=== PATIENT | female | born 1980 | race Caucasian/White ===

== ENCOUNTER 2020-12-25 10:45 | Emergency (ER) | payer MEDICARE, MEDICAID, SELFPAY ==
[2020-12-25 10:48] VITALS: BP 101/68; PULSE 99; RESP 18; TEMP 36.2; O2SAT 95; BMI 23.4
--- NOTE | 2020-12-25 11:13 | EX.ED.VIS.PS ---
HPI HPI - Psych History of Present Illness Chief Complaint: Suicidal Informant: patient Onset/Context/Timing Onset: Month(s) Context: Gradual Onset Conflict: Family, Work and Financial Current Severity: Moderate Maximum Severity: Moderate Associated Symptoms Associated Symptoms - Psych: Positive for Depressed Narrative Narrative: Patient presents secondary to suicidal ideation. Patient reports increased stress at home recently including relationships, finances, and work. Patient states the past 2 months has had increasing thoughts of hurting herself and depression. She denies having a specific plan at this time but does states she is thinking of multiple ways. She has tried to kill her self in the past. She has been hospitalized for psychiatric care in the past. Patient is currently on medication for depression and anxiety. This is prescribed through [facility]. She denies any recent changes to her medication. [facility] Medical History (Updated 12/25/20 @ 15:[address] Marnie Hardy MD) Anxiety COPD (chronic obstructive pulmonary disease) Depression Emphysema lung Paranoia Home Medications clonazepam [Klonopin] 0.5 mg PO BID 12/25/20 [History Last Taken Unknown] clonazepam [Klonopin] 1 mg PO DAILY 12/25/20 [History Last Taken Unknown] cyclobenzaprine [Flexeril] 10 mg PO TID PRN 12/25/20 [History Last Taken Unknown] doxycycline hyclate 100 mg PO BID 12/25/20 [History Last Taken Unknown] gabapentin 800 mg PO TID 12/25/20 [History Last Taken Unknown] lamotrigine 200 mg PO DAILY 12/25/20 [History Last Taken Unknown] mirtazapine [Remeron] 30 mg PO QHS 12/25/20 [History Last Taken Unknown] risperidone 3 mg PO QHS 12/25/20 [History Last Taken Unknown] sumatriptan succinate [Imitrex] 100 mg PO Q2H PRN 12/25/20 [History Last Taken Unknown] tizanidine [Zanaflex] 4 mg PO TID PRN 12/25/20 [History Last Taken Unknown] Allergy/AdvReac Type Severity Reaction Status Date / Time bee venom protein (honey bee) Allergy Anaphylaxis Verified 12/25/20 10:47 ketorolac [From Toradol] Allergy Rash Verified 12/25/20 10:47 Penicillins Allergy Swelling Verified 12/25/20 10:47 strawberry Allergy Rash Verified 12/25/20 10:47 tramadol Allergy Hives Verified 12/25/20 11:50 Surgical History (Updated 12/25/20 @ 11:[address] Marnie Hardy MD) H/O spinal fusion History of partial hysterectomy Social History Smoking Status: Current every day smoker tobacco type: cigarettes ROS ROS ED Constitutional Constitutional ED: Denies chills or fever(s) Eyes Eyes: Denies change in vision ENT ENT ED: Denies sore throat Cardiovascular Cardiovascular: Denies chest pain Respiratory/Chest Respiratory/Chest: Denies cough or dyspnea Gastrointestinal Gastrointestinal: Denies abdominal pain, diarrhea, nausea or vomiting Genitourinary Genitourinary ED: Denies dysuria Musculoskeletal Musculoskeletal: Reports back pain Integumentary Denies rash Neurologic Neurologic: Denies headache(s) or weakness Psychiatric Psychiatric: Reports anxiety, depression and suicidal thoughts Allergic/Immunologic Allergic/Immunologic ED: Denies urticaria EXAM Physical Exam Const Vital Signs: 12/25/20 10:48 12/25/20 11:48 12/25/20 12:53 Temperature 97.1 F L Temperature Source Temporal Pulse Rate 99 Respiratory Rate 18 14 12 Blood Pressure 101/68 Blood Pressure Mean 79 Pulse Ox 95 Oxygen Delivery Method Room Air 12/25/20 13:09 Temperature Temperature Source Pulse Rate Respiratory Rate 14 Blood Pressure Blood Pressure Mean Pulse Ox Oxygen Delivery Method Positive well nourished and well developed General Appearance ED: well developed HEENT Reports normocephalic and head/scalp atraumatic Eyes PERRL and EOMs intact bilaterally Neck supple Chest Wall inspection of chest normal and palpation of chest normal Resp normal respiratory effort and clear to auscultation bilaterally Cardio regular rate and regular rhythm GI normal to inspection, nondistended, normoactive bowel sounds and non-tender Palpation: soft Back/Spine Lumbar Spine / Lower Back: lumbar spinal tenderness Extremity normal to inspection Neuro oriented x3 and no sensory deficits noted Sensorium / Orientation: alert Motor Exam: strength 5/5 throughout Psych cooperative Attitude: calm Activity / Motor Behavior: appropriate eye contact Speech: normal speech Mood & Affect: sad and tearful Thought Content: suicidality Memory / Cognition: memory grossly intact Insight: limited Judgement: limited Skin no rashes or lesions noted MDM MDM MDM Narrative Medical decision making narrative: Labs for psych admission obtained. Patient seen by social work. Lab Data Attestation: I reviewed the patient's lab results. Labs: Laboratory Results - last 24 hr 12/25/20 12/25/20 12/25/20 11:10 11:50 11:50 WBC 5.6 RBC 3.88 L Hgb 12.1 Hct 37.8 MCV 97.4 MCH 31.2 MCHC 32.0 RDW Std Deviation 45.1 H RDW Coeff of Tennille 12.6 Plt Count 191 MPV 9.5 Immature Gran % (Auto) 0.400 Neut % (Auto) 52.4 Lymph % (Auto) 36.0 [place] % (Auto) 7.6 Eos % (Auto) 3.2 Baso % (Auto) 0.4 Absolute Neuts (auto) 3.0 Absolute Lymphs (auto) 2.03 Nucleated RBC % 0 Sodium 140 Potassium 4.2 Chloride 107 Carbon Dioxide 31.0 Anion Gap 2 L BUN 8 Creatinine 0.60 Estim Creat Clear Calc 104.13 Est GFR (MDRD) Af Amer 143 Est GFR (MDRD) Non-Af 118 BUN/Creatinine Ratio 13.4 Glucose 77 Calcium 9.4 Urine Opiates Screen NEGATIVE Urine Methadone Screen NEGATIVE Ur Barbiturates Screen NEGATIVE Ur Phencyclidine Scrn NEGATIVE Ur Amphetamines Screen NEGATIVE U Methamphetamin-MDMA NEGATIVE U Benzodiazepines Scrn NEGATIVE Urine Cocaine Screen NEGATIVE U Cannabinoids Screen POSITIVE H Ur Drug Screen Comment Ethyl Alcohol 12/25/20 11:50 WBC RBC Hgb Hct MCV MCH MCHC RDW Std Deviation RDW Coeff of Tennille Plt Count MPV Immature Gran % (Auto) Neut % (Auto) Lymph % (Auto) [place] % (Auto) Eos % (Auto) Baso % (Auto) Absolute Neuts (auto) Absolute Lymphs (auto) Nucleated RBC % Sodium Potassium Chloride Carbon Dioxide Anion Gap BUN Creatinine Estim Creat Clear Calc Est GFR (MDRD) Af Amer Est GFR (MDRD) Non-Af BUN/Creatinine Ratio Glucose Calcium Urine Opiates Screen Urine Methadone Screen Ur Barbiturates Screen Ur Phencyclidine Scrn Ur Amphetamines Screen U Methamphetamin-MDMA U Benzodiazepines Scrn Urine Cocaine Screen U Cannabinoids Screen Ur Drug Screen Comment Ethyl Alcohol < 3.0 EKG Initial EKG: Attestation: I personally reviewed and interpreted this EKG as follows: Interpretation: Sinus Rhythm (Sinus at 64 with no acute ischemia.) Treatment and Re-Evaluation Comments:: Patient has been discussed with gallito Do and accepted in transfer. Patient be transferred. Discharge Plan Triage Chief Complaint: Suicidal ED Provider: Marnie Hardy Dx/Rx/DC Orders Clinical Impression: Suicidal ideation Prescriptions: No Action gabapentin 800 mg Tablet 800 mg PO TID RF: 0 cyclobenzaprine [Flexeril] 10 mg Tablet 10 mg PO TID PRN (Reason: Muscle Spasm) RF: 0 doxycycline hyclate 100 mg Capsule 100 mg PO BID RF: 0 lamotrigine 200 mg Tablet 200 mg PO DAILY RF: 0 sumatriptan succinate [Imitrex] 100 mg Tablet 100 mg PO Q2H PRN (Reason: Headache) RF: 0 clonazepam [Klonopin] 0.5 mg Tablet 0.5 mg PO BID RF: 0 clonazepam [Klonopin] 1 mg Tablet 1 mg PO DAILY RF: 0 risperidone 3 mg Tablet 3 mg PO QHS RF: 0 mirtazapine [Remeron] 30 mg Tablet 30 mg PO QHS RF: 0 tizanidine [Zanaflex] 4 mg Capsule 4 mg PO TID PRN (Reason: Spasms) RF: 0 Primary Care Provider: Care Physician,No Primary Referrals: Care Physician,No Primary [Primary Care Provider] - Disposition Disposition: Psychiatric Hospital or Unit Discharge Location: [facility]
[2020-12-25 11:41] LABS: Amphetamine Urine VISTA NEGATIVE (<1000 ng/mL); Barbiturate Urine VISTA NEGATIVE (< 200 ng/mL); Benzodiazepine Urine VISTA NEGATIVE (< 200 ng/mL); Cocaine Urine VISTA NEGATIVE (< 300 ng/mL); Ecstacy Urine VISTA NEGATIVE (< 500 ng/mL); Methadone Urine VISTA NEGATIVE (< 300 ng/mL); PCP Urine VISTA NEGATIVE (< 25 ng/mL); THC Urine VISTA POSITIVE (< 50 ng/mL); Vista UDS pH Range 6
[2020-12-25 11:48] VITALS: RESP 14
[2020-12-25] MEDS: Acetaminophen 500 MG Tablet 1000 MG PO (11:54)
[2020-12-25 11:59] LABS: Absolute Lymphocyte Count 2.03 X10^3/uL (0.83-4.51); Basophil# 0.02 X10^3/uL; Basophil% 0.4 % (0-1); Eosinophil# 0.18 X10^3/uL; Eosinophils% 3.2 % (0-5); Hematocrit 37.8 % (37-47); Hemoglobin 12.1 g/dL (12.0-15.0); Lymphocyte # 2.03 X10^3/ul (0.83-4.51); Mean Corpuscular Hgb 31.2 pg (27.0-32.0); Mean Corpuscular Volume 97.4 fL (81-99); Mean Platelet Vol. 9.5 fl (6.2-12.0); Monocyte# 0.43 X10^3/uL; Monocyte% 7.6 % (0-10); NRBC Flagged by Analyzer 0 % (0-5); Neutrophil # 2.96 X10^3/uL (2.7-7.7); Neutrophil % 52.4 % (47-70); Platelet Count 191 K/mm3 (150-450); RBC Distribution Width CV 12.6 % (11.6-14.6); RBC Distribution Width SD 45.1 fl (35.1-43.9); Red Blood Count 3.88 M/mm3 (4.2-5.4); White Blood Count 5.6 K/mm3 (4.4-11.0)
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
[2020-12-25 12:13] LABS: Anion Gap 2 (5-15); BUN 8 mg/dL (7-18); BUN/Creat Ratio 13.4 RATIO (10-20); Calcium,Total 9.4 mg/dL (8.5-10.1); Chloride 107 mmol/L (98-107); EST Glomerular Filtration Rate 118 mL/min (>60); Est Glom Filt Rate - Afr Amer 143 mL/min (>60); Estimated Creatinine Clearance 104.13 ml/min; Glucose 77 mg/dL (74-106); Potassium 4.2 mmol/L (3.5-5.1); Sodium Level 140 mmol/L (136-145)
[2020-12-25] MEDS: clonazePAM 0.5 MG Tablet PO (12:30)
--- NOTE | 2020-12-25 12:45 | CM.ED ---
SOCIAL WORK Call to [facility]. Beds available. Will fax referral once medically cleared. Jada Gil, ADMITTED ATTORNEYS, BREAD DOUGH MIXER
[2020-12-25 12:53] VITALS: RESP 12
--- NOTE | 2020-12-25 13:05 | EKG12_ITS ---
Test Reason : MENTAL HEALTH Blood Pressure : / mmHG Vent. Rate : 064 BPM Atrial Rate : 064 BPM P-R Int : 146 ms QRS Dur : 080 ms QT Int : 426 ms P-R-T Axes : 064 068 067 degrees QTc Int : 439 ms Normal sinus rhythm Normal ECG Confirmed by MIRI MANCINI, RONY ([id number]), social media editor ARMANDO MEDRANO ([id number]) on 12/31/2020 1:10:35 PM Referred By: JOSEPH Confirmed By:RONY CHERY MD
[2020-12-25 13:09] VITALS: RESP 14
[2020-12-25 13:20] LABS: Alcohol, Blood (Medical)-Serum < 3.0 mg/dL
--- NOTE | 2020-12-25 13:40 | CM.ED ---
SOCIAL WORK Referral faxed to [facility]. Pending review at this time. Jada Gil, BARTENDER MANAGER, SEED SALES MANAGER
[2020-12-25 15:00] VITALS: RESP 15
--- NOTE | 2020-12-25 15:20 | CM.ED ---
SOCIAL WORK Patient accepted to [facility] by Dr. Roberson. Nurse to call report to [phone]. [facility] requesting patient later this evening. 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 Staff neda. Jada Gil MSW, YOUTH MINISTRY DIRECTOR
--- NOTE | 2020-12-25 15:28 | NURSING ---
CALLED [facility], PATIENT NOT TO LEAVE HERE UNTIL [id number]
[2020-12-25 17:02] VITALS: BP 108/66; PULSE 77; RESP 16; O2SAT 99
== END 2020-12-25 17:10 ==
PROVIDERS: Emergency Provider Emergency Medicine
DX: R45.851 Suicidal ideations (principal); F32.9 Major depressive disorder, single episode, unspecified; F41.9 Anxiety disorder, unspecified; J44.9 Chronic obstructive pulmonary disease, unspecified; F17.210 Nicotine dependence, cigarettes, uncomplicated; Z79.899 Other long term (current) drug therapy
CPT/HCPCS: 80048; 80307; 82077; 85025; 87426; 93005; 99284

== ENCOUNTER 2021-10-20 10:12 | Observation (INO) | payer MEDICARE, MEDICAID, SELFPAY ==
[2021-10-20] VITALS (7 sets, daily range): BP systolic 118–157; BP diastolic 80–97; PULSE 91–115; RESP 14–22; TEMP 36.7–37.1; O2SAT 92–97; BMI 32.8; BMI 32.2
--- NOTE | 2021-10-20 10:25 | EKG12_ITS ---
Test Reason : Blood Pressure : / mmHG Vent. Rate : 090 BPM Atrial Rate : 090 BPM P-R Int : 124 ms QRS Dur : 076 ms QT Int : 374 ms P-R-T Axes : 074 068 081 degrees QTc Int : 457 ms Normal sinus rhythm with sinus arrhythmia Nonspecific T wave abnormality Abnormal ECG Confirmed by AZAM MANCINI, TESHA ([id number]), editor map ARMANDO MEDRANO ([id number]) on 10/21/2021 11:05:08 AM Referred By: Confirmed By:TESHA NASCIMENTO MD
--- NOTE | 2021-10-20 10:25 | RAD_ITS ---
INDICATION: chest pain EXAMINATION/TECHNIQUE: X-RAY - XR Chest 1 View COMPARISON: None. FINDINGS: Support devices: None. No focal consolidations, effusions, or sizable pneumothorax. Cardiomediastinal silhouette is within normal limits. No acute findings in the bones or soft tissues. RAD/Chest 1 View (Portable) IMPRESSION: No acute findings. Electronically Signed: Mike Anguiano, at 11:43 EDT ,
--- NOTE | 2021-10-20 10:28 | EDS_ITS ---
HPI History of Present Illness Chief Complaint: Nausea/Vomiting/Diarrhea Informant: patient Onset/Context/Timing Onset: Days Context: Gradual Onset Current Severity: Moderate Maximum Severity: Moderate Narrative Narrative: Patient presents with multiple complaints. She complains of nausea, vomiting, and diarrhea for the past 1 week. She states has not been able to keep anything down for the past 3 days. She also complains of chest pain that started at 630 this morning. She describes it as substernal and left chest with wrapping around her left breast. She describes it as sharp in nature. She also feels that she has been having intermittent problems with circulation and feels like she is going to blackout. She states she has not been able to keep any of her medication down for the past 3 days. [facility] Medical History Anxiety COPD (chronic obstructive pulmonary disease) Depression Emphysema lung Paranoia Home Medications clonazepam [Klonopin] 0.5 mg PO BID 12/25/20 [History Last Taken Unknown] clonazepam [Klonopin] 1 mg PO DAILY 12/25/20 [History Last Taken Unknown] cyclobenzaprine [Flexeril] 10 mg PO TID PRN 12/25/20 [History Last Taken Unknown] gabapentin 800 mg PO TID 12/25/20 [History Last Taken Unknown] lamotrigine 200 mg PO DAILY 12/25/20 [History Last Taken Unknown] mirtazapine [Remeron] 45 mg PO QHS 12/25/20 [History Last Taken Unknown] risperidone 3 mg PO QHS 12/25/20 [History Last Taken Unknown] sumatriptan succinate [Imitrex] 100 mg PO Q2H PRN 12/25/20 [History Last Taken Unknown] tizanidine [Zanaflex] 4 mg PO TID PRN 12/25/20 [History Last Taken Unknown] buspirone 15 mg PO TID 10/20/21 [History Last Taken Unknown] doxepin 25 mg PO QHS 10/20/21 [History Last Taken Unknown] Allergy/AdvReac Type Severity Reaction Status Date / Time bee venom protein (honey bee) Allergy Anaphylaxis Verified 10/20/21 10:20 ketorolac [From Toradol] Allergy Rash Verified 10/20/21 10:20 Penicillins Allergy Swelling Verified 10/20/21 10:20 strawberry Allergy Rash Verified 10/20/21 10:20 tramadol Allergy Hives Verified 10/20/21 10:20 Surgical History H/O spinal fusion History of partial hysterectomy Social History Smoking Status: Former smoker ROS ROS ED Constitutional Constitutional ED: Denies chills or fever(s) Eyes Eyes: Denies change in vision ENT ENT ED: Denies sore throat Cardiovascular Cardiovascular: Reports chest pain Respiratory/Chest Respiratory/Chest: Reports dyspnea; Denies cough Gastrointestinal Gastrointestinal: Reports abdominal pain, diarrhea, nausea and vomiting Genitourinary Genitourinary ED: Denies dysuria Musculoskeletal Musculoskeletal: Denies back pain Integumentary Denies rash Neurologic Neurologic: Reports headache(s); Denies weakness Psychiatric Psychiatric: Reports anxiety Allergic/Immunologic Allergic/Immunologic ED: Denies urticaria EXAM Physical Exam Const Vital Signs: 10/20/21 10:14 10/20/21 12:38 10/20/21 13:20 Temperature 98.1 F Temperature Source Temporal Pulse Rate 93 115 H 111 H Respiratory Rate 22 H 20 H 14 Blood Pressure 126/89 H 118/80 120/90 H Blood Pressure Mean 101 92 100 Pulse Ox 97 94 92 Oxygen Delivery Method Room Air Room Air Room Air 10/20/21 14:32 Temperature 98.7 F Temperature Source Oral Pulse Rate 109 H Respiratory Rate 16 Blood Pressure 157/97 H Blood Pressure Mean 117 Pulse Ox 95 Oxygen Delivery Method Room Air Positive well nourished and well developed General Appearance ED: well developed HEENT Reports dry mucous membranes Mouth ED: Yes dry mucous membranes Mouth: dry mucous membranes Eyes PERRL and EOMs intact bilaterally Neck supple Chest Wall inspection of chest normal and palpation of chest normal Resp normal respiratory effort and clear to auscultation bilaterally Cardio regular rate and regular rhythm GI non-tender Auscultation: hypoactive bowel sounds Palpation: soft Extremity normal to inspection Neuro oriented x3 Sensorium / Orientation: alert Psych Mood & Affect: anxious Skin no rashes or lesions noted MDM MDM MDM Narrative Medical decision making narrative: EKG, chest x-ray, lab work obtained. Patient initially given fentanyl, Ativan, Zofran. Lab Data Attestation: I reviewed the patient's lab results. Labs: Laboratory Results - last 24 hr 10/20/21 10/20/21 11:22 11:22 WBC 7.3 RBC 5.03 Hgb 14.7 Hct 44.7 MCV 88.9 MCH 29.2 MCHC 32.9 RDW Std Deviation 42.6 RDW Coeff of Tennille 13.0 Plt Count 369 MPV 9.8 Immature Gran % (Auto) 0.300 Neut % (Auto) 70.1 H Lymph % (Auto) 21.5 [place] % (Auto) 6.2 Eos % (Auto) 1.5 Baso % (Auto) 0.4 Absolute Neuts (auto) 5.1 Absolute Lymphs (auto) 1.57 Nucleated RBC % 0 Platelet Estimate ADEQUATE RBC Morphology NORM C+C Sodium 138 Potassium 5.2 H Chloride 112 H Carbon Dioxide 19.0 L Anion Gap 7 BUN 8 Creatinine 0.78 Estim Creat Clear Calc 79.31 Est GFR (MDRD) Af Amer 104 Est GFR (MDRD) Non-Af 86 BUN/Creatinine Ratio 10.2 Glucose 110 H Calcium 9.8 Total Bilirubin 0.40 Direct Bilirubin 0.08 AST 48 H ALT 29 Alkaline Phosphatase 97 Troponin I High Sens < 3 L Total Protein 7.6 Albumin 4.0 Globulin 3.6 Lipase 71 L Radiography Chest X-Ray - ED: 1 View, Read by ED Physician, Normal, Heart, Lungs and Mediastinum Diagnostic Testing: Clinical Impression(s) from Imaging Studies Chest X-Ray 10/20/21 10:25 IMPRESSION: No acute findings. Electronically Signed: Mike Anguiano, at 11:43 EDT , EKG Initial EKG: Attestation: I personally reviewed and interpreted this EKG as follows: Interpretation: Sinus Rhythm (Sinus at 90 with nonspecific T wave flattening. No acute ST change.) Treatment and Re-Evaluation Narrative: Patient reported continued anxiety and nausea after initial round of medication. Additional dose of Ativan was given followed by IM Phenergan. Patient was having significant cough and I ordered Robitussin-AC, however she refused this. She was also ordered Reglan and Benadryl which she declined stating that in the past she has taken this and it made her feel bad. Lab work is unremarkable with normal white count and chemistry studies. Troponin is negative. EKG and chest x-ray are normal. Patient continues to have nausea and vomiting. She feels that she is having repeated episodes of syncope which have not been witnessed by nursing staff or myself. There have been no arrhythmias noted on color television console monitor. At this point her IV has stopped working and had to be pulled. After multiple attempts another IV line has not been able to be established. We have a call out to the PICC line staff to see if they can place a line in her this afternoon. She was given an additional round of fentanyl, Ativan, and Zofran IM. I will speak with hospitalist regarding admission for intractable vomiting. Discharge Plan Triage Chief Complaint: Nausea/Vomiting/Diarrhea Other Complaint: Chest Pain ED Provider: Marnie Hardy Dx/Rx/DC Orders Clinical Impression: Intractable vomiting Prescriptions: No Action gabapentin 800 mg Tablet 800 mg PO TID RF: 0 cyclobenzaprine [Flexeril] 10 mg Tablet 10 mg PO TID PRN (Reason: Muscle Spasm) RF: 0 lamotrigine 200 mg Tablet 200 mg PO DAILY RF: 0 sumatriptan succinate [Imitrex] 100 mg Tablet 100 mg PO Q2H PRN (Reason: Headache) RF: 0 clonazepam [Klonopin] 0.5 mg Tablet 0.5 mg PO BID RF: 0 clonazepam [Klonopin] 1 mg Tablet 1 mg PO DAILY RF: 0 risperidone 3 mg Tablet 3 mg PO QHS RF: 0 mirtazapine [Remeron] 30 mg Tablet 45 mg PO QHS RF: 0 tizanidine [Zanaflex] 4 mg Capsule 4 mg PO TID PRN (Reason: Spasms) RF: 0 doxepin 25 mg capsule 25 mg PO QHS RF: 0 buspirone 15 mg tablet 15 mg PO TID RF: 0 Referrals: Nazario Francis [Other] Disposition Disposition: Acute Care Hospital [facility]
[2021-10-20] MEDS: 0.9% Normal Saline 1,000 ML 1000 ML IV (10:44)
[2021-10-20] MEDS: LORazepam 2 MG/ML Syringe 0.5 MG IV ×2 (10:45→11:37)
[2021-10-20] MEDS: Ondansetron 4 MG/2 ML Vial IV ×2 (10:45→19:30)
[2021-10-20] MEDS: 0.9% Normal Saline 1,000 ML 150 ML IV ×2 (10:45→19:30)
[2021-10-20] MEDS: fentaNYL 100 MCG/2 ML Ampul 25 MCG IV (10:45)
[2021-10-20 11:34] LABS: Absolute Lymphocyte Count 1.57 X10^3/uL (0.83-4.51); Absolute Neutrophil Count 5.1 X10^3/uL (2.0-7.7); Basophil# 0.03 X10^3/uL; Basophil% 0.4 % (0-1); Eosinophil# 0.11 X10^3/uL; Eosinophils% 1.5 % (0-5); Hematocrit 44.7 % (37-47); Hemoglobin 14.7 g/dL (12.0-15.0); Lymphocyte # 1.57 X10^3/ul (0.83-4.51); Lymphocyte % 21.5 % (19-41); Mean Corp Hgb Conc 32.9 g/dL (32-36); Mean Corpuscular Hgb 29.2 pg (27.0-32.0); Mean Corpuscular Volume 88.9 fL (81-99); Mean Platelet Vol. 9.8 fl (6.2-12.0); Monocyte# 0.45 X10^3/uL; Monocyte% 6.2 % (0-10); NRBC Flagged by Analyzer 0 % (0-5); Neutrophil # 5.11 X10^3/uL (2.7-7.7); Neutrophil % 70.1 % (47-70); POSITIVE COUNT YES; Platelet Count 369 K/mm3 (150-450); RBC Distribution Width SD 42.6 fl (35.1-43.9); Red Blood Count 5.03 M/mm3 (4.2-5.4); White Blood Count 7.3 K/mm3 (4.4-11.0)
[2021-10-20 11:38] LABS: Differential Indicated SCAN CRITERIA MET
[2021-10-20 12:10] LABS: Platelet Estimate ADEQUATE (ADEQ); Red Cell Morphology NORM C+C NORMAL (NORM C&C)
[2021-10-20 12:22] LABS: AST(SGOT) 48 U/L (15-37); Alanine Aminotransfer ALT/SGPT 29 U/L (13-56); Alkaline Phosphatase 97 U/L (45-117); Anion Gap 7 (5-15); BUN 8 mg/dL (7-18); BUN/Creat Ratio 10.2 RATIO (10-20); Bilirubin, Direct 0.08 mg/dL (0.00-0.30); Calcium,Total 9.8 mg/dL (8.5-10.1); Chloride 112 mmol/L (98-107); Creatinine, Serum 0.78 mg/dL (0.55-1.02); EST Glomerular Filtration Rate 86 mL/min (>60); Est Glom Filt Rate - Afr Amer 104 mL/min (>60); Estimated Creatinine Clearance 79.31 ml/min; Globulin 3.6 g/dL (2.2-4.2); Glucose 110 mg/dL (74-106); Lipase 71 U/L (73-393); Potassium 5.2 mmol/L (3.5-5.1); Protein, Total 7.6 g/dL (6.4-8.2); Sodium Level 138 mmol/L (136-145); Troponin-I HS < 3 pg/mL (3.0-54.0)
[2021-10-20] MEDS: proMETHazine 25 MG/ML Syringe 12.5 MG IM (12:35)
[2021-10-20] MEDS: fentaNYL 100 MCG/2 ML Ampul 50 MCG IM (14:24)
[2021-10-20] MEDS: LORazepam 2 MG/ML Syringe 1 MG IM (14:24)
[2021-10-20] MEDS: Ondansetron 4 MG/2 ML Vial 8 MG IM (14:24)
--- NOTE | 2021-10-20 14:27 | ED.RN ---
biometrics instructor called and will call back with an eta
--- NOTE | 2021-10-20 14:33 | ED.RN ---
multiple peripheral IV attempts by Naomi MENG and Richard MENG
--- NOTE | 2021-10-20 15:39 | US_ITS ---
STUDY: ABDOMINAL ULTRASOUND REASON FOR EXAM: Female, 41 years old. ABDOMINAL PAIN . nausea and vomiting. nausea and vomiting TECHNIQUE: Transabdominal ultrasound was performed with real-time and static almendarez scale imaging. COMPARISON: None. FINDINGS: Liver: There is normal echogenicity of the liver. The bile ducts are within normal limits. There is hepatic color flow. The direction of portal flow is hepatopetal. There is no demonstrated mass lesion. Gallbladder: The patient is status post cholecystectomy. Common Bile Duct (C.B.D.): The common bile duct measures ( in mm): 7.2 Pancreas: Normal size of the head and body of the pancreas. There is increased echogenicity of the pancreas. There is no demonstrated pancreatic mass or cyst. Spleen: Normal size of the spleen. The spleen measures 10.3 cm. Right Kidney: Normal size of the right kidney. The right kidney measures 10.7 cm. .There is a normal cortex of the kidney. There is no demonstrated renal mass or cyst. There is no right hydronephrosis. Left Kidney: Normal size of the left kidney. The left kidney measures 9.7 cm. . There is a normal cortex of the left kidney. There is no demonstrated renal mass or cyst. There is no left hydronephrosis. 7 mm left renal stone. Aorta: 19 mm in maximal aortic diameter. I.V.C.: The IVC is patent. There is no ascites. US/Abdomen Complete IMPRESSION: Cholecystectomy changes. Nonobstructive left renal stone. Electronically Signed: Misha Marcus MD at 18:50 EDT ,
--- NOTE | 2021-10-20 15:41 | HP.PCM.HOS_ITS ---
HPI - General General Date of Service: 10/20/21 Chief Complaint: N/V/D HPI Narrative MARII WATERS, is a 41 F who presents with 1 week history of nausea vomiting diarrhea. Patient says she had similar episode when she had COVID but not this severe. Unable to keep anything down. Presented to emergency room where she just had some basic blood work and received IV fluids, fentanyl, Zofran, Ativan, Phenergan, Reglan and Benadryl. Patient received several rounds of lorazepam for concern for benzodiazepine withdrawal as patient does take Klonopin chronic clonazepam. [facility] Medical History Anxiety COPD (chronic obstructive pulmonary disease) Depression Emphysema lung Paranoia Home Medications clonazepam [Klonopin] 0.5 mg PO BID 12/25/20 [History Last Taken Unknown] clonazepam [Klonopin] 1 mg PO DAILY 12/25/20 [History Last Taken Unknown] cyclobenzaprine [Flexeril] 10 mg PO TID PRN 12/25/20 [History Last Taken Unknown] gabapentin 800 mg PO TID 12/25/20 [History Last Taken Unknown] lamotrigine 200 mg PO DAILY 12/25/20 [History Last Taken Unknown] mirtazapine [Remeron] 45 mg PO QHS 12/25/20 [History Last Taken Unknown] risperidone 3 mg PO QHS 12/25/20 [History Last Taken Unknown] sumatriptan succinate [Imitrex] 100 mg PO Q2H PRN 12/25/20 [History Last Taken Unknown] tizanidine [Zanaflex] 4 mg PO TID PRN 12/25/20 [History Last Taken Unknown] buspirone 15 mg PO TID 10/20/21 [History Last Taken Unknown] doxepin 25 mg PO QHS 10/20/21 [History Last Taken Unknown] Allergy/AdvReac Type Severity Reaction Status Date / Time bee venom protein (honey bee) Allergy Anaphylaxis Verified 10/20/21 10:20 ketorolac [From Toradol] Allergy Rash Verified 10/20/21 10:20 Penicillins Allergy Swelling Verified 10/20/21 10:20 strawberry Allergy Rash Verified 10/20/21 10:20 tramadol Allergy Hives Verified 10/20/21 10:20 Surgical History H/O spinal fusion History of partial hysterectomy Social History Smoking Status: Former smoker ROS ROS Narrative Subjective fever and chills. Excruciating abdominal pain. All review of systems were negative except as mentioned above in the history of present illness and the other review of systems. Vital Signs Vital Signs Vital Signs: 10/20/21 10:14 10/20/21 12:38 10/20/21 13:20 Temperature 36.7 C Temperature Source Temporal Pulse Rate 93 115 H 111 H Respiratory Rate 22 H 20 H 14 Blood Pressure 126/89 H 118/80 120/90 H Blood Pressure Mean 101 92 100 Pulse Ox 97 94 92 Oxygen Delivery Method Room Air Room Air Room Air 10/20/21 14:32 Temperature 37.1 C Temperature Source Oral Pulse Rate 109 H Respiratory Rate 16 Blood Pressure 157/97 H Blood Pressure Mean 117 Pulse Ox 95 Oxygen Delivery Method Room Air Weight Weight: 83.9 kg Body Mass Index (BMI) 32.8 Physical Exam Const alert Constitutional Narrative: Appears older than stated age. Listless. Resp normal respiratory effort, no retractions, no use of accessory muscles and clear to auscultation bilaterally Cardio regular rate, regular rhythm, S1 normal heart sound and S2 normal heart sound GI normal to inspection, nondistended, normoactive bowel sounds, soft to palpation, non-tender and non-distended Extremity normal to inspection Neuro Sensorium / Orientation: awake and alert Results Lab / Micro Data Attestation: I reviewed the patient's lab results. Result Diagrams: 10/20/21 11:22 10/20/21 11:22 Labs: Laboratory Results - last 24 hr 10/20/21 11:22: WBC 7.3, RBC 5.03, Hgb 14.7, Hct 44.7, MCV 88.9, MCH 29.2, MCHC 32.9, RDW Std Deviation 42.6, RDW Coeff of [place] 13.0, Plt Count 369, MPV 9.8, Immature Gran % (Auto) 0.300, Neut % (Auto) 70.1 H, Lymph % (Auto) 21.5, [place] % (Auto) 6.2, Eos % (Auto) 1.5, Baso % (Auto) 0.4, Absolute Neuts (auto) 5.1, Absolute Lymphs (auto) 1.57, Nucleated RBC % 0, Platelet Estimate ADEQUATE, RBC Morphology NORM C+C 10/20/21 11:22: Sodium 138, Potassium 5.2 H, Chloride 112 H, Carbon Dioxide 19.0 L, Anion Gap 7, BUN 8, Creatinine 0.78, Estim Creat Clear Calc 79.31, Est GFR (MDRD) Af Amer 104, Est GFR (MDRD) Non-Af 86, BUN/Creatinine Ratio 10.2, Glucose 110 H, Calcium 9.8, Total Bilirubin 0.40, Direct Bilirubin 0.08, AST 48 H, ALT 29, Alkaline Phosphatase 97, Troponin I High Sens < 3 L, Total Protein 7.6, A lbumin 4.0, Globulin 3.6, Lipase 71 L Micro: Microbiology 10/20/21 12:25 Nasal Secretion SARS-CoV-2 Antigen (Rapid) - Final Radiology Impression Chest X-Ray 10/20/21 10:25 IMPRESSION: No acute findings. Electronically Signed: Mike Anguiano, at 11:43 EDT , Assessment & Plan Assessment/Plan (1) Intractable vomiting: PLAN: 1. Intractable nausea vomiting and diarrhea * Etiology is uncertain at this time. Could be related with a viral illness, benzodiazepine withdrawal, drug abuse including cannabinoids. * Supportive management * Patient does claim abdominal pain but exam melvin she is not exquisitely tender * We will check an ultrasound * Avoid narcotics for the time being until further information is available * Will check urine drug screen. * IV fluids 2. Chronic benzodiazepine use * Patient on clonazepam chronically for anxiety * Continue with that. I did review the patient's OARRS report 3. Chronic pain * Patient takes gabapentin at baseline * Will continue 4. Poor IV access: PICC team has been called. Charges/Coding Visit Charges OBSV E&M: 03653 Initial observation care L2
[2021-10-20 18:17] LABS: Amphetamine Urine VISTA NEGATIVE (<1000 ng/mL); Barbiturate Urine VISTA NEGATIVE (< 200 ng/mL); Benzodiazepine Urine VISTA POSITIVE (< 200 ng/mL); Cocaine Urine VISTA NEGATIVE (< 300 ng/mL); Ecstacy Urine VISTA NEGATIVE (< 500 ng/mL); Methadone Urine VISTA NEGATIVE (< 300 ng/mL); PCP Urine VISTA NEGATIVE (< 25 ng/mL); THC Urine VISTA NEGATIVE (< 50 ng/mL); Vista UDS pH Range 4
[2021-10-21 00:31] VITALS: BP 132/81; PULSE 86; RESP 18; TEMP 36.9; O2SAT 95
[2021-10-21] MEDS: proCHLORPERazine 10 MG/2 ML Vial 5 MG IV ×2 (00:34→12:49)
[2021-10-21] MEDS: 0.9% Normal Saline 1,000 ML 150 ML IV ×4 (00:37→20:18)
[2021-10-21 06:39] LABS: Anion Gap 7 (5-15); BUN 9 mg/dL (7-18); BUN/Creat Ratio 13.1 RATIO (10-20); Calcium,Total 8.5 mg/dL (8.5-10.1); Chloride 112 mmol/L (98-107); Creatinine, Serum 0.68 mg/dL (0.55-1.02); EST Glomerular Filtration Rate 101 mL/min (>60); Est Glom Filt Rate - Afr Amer 122 mL/min (>60); Estimated Creatinine Clearance 90.97 ml/min; Glucose 97 mg/dL (74-106); Potassium 3.7 mmol/L (3.5-5.1); Sodium Level 142 mmol/L (136-145)
[2021-10-21 06:55] VITALS: BP 110/72; PULSE 80; RESP 16; TEMP 36.7; O2SAT 97
--- NOTE | 2021-10-21 07:10 | PN.HOSP_ITS ---
Subjective Subjective Still with abdominal pain and nausea. Wants something for anxiety. Tells me that cannot take pills. The RN walked in a clarified that the patient refused to take the pills. Objective Data Objective Data Vital Signs: Vital Signs Temp Pulse Resp BP Pulse Ox 36.7 C 80 16 110/72 97 10/21/21 06:55 10/21/21 06:55 10/21/21 06:55 10/21/21 06:55 10/21/21 06:55 Oxygen Delivery Method Room Air Weight: 82.6 kg Body Mass Index (BMI) 32.2 Intake & Output: Intake and Output for Last 24 Hours 10/19/21 10/20/21 10/21/21 23:59 23:59 23:59 Intake Total 1337.5 / 1387.5 1772.5 / 1772.5 Output Total 50 / 100 50 / 50 Balance 1287.5 / 1287.5 1722.5 / 1722.5 Lab / Micro Data Result Diagrams: 10/20/21 11:22 10/21/21 06:02 Labs: Laboratory Results - last 24 hr 10/20/21 11:22: WBC 7.3, RBC 5.03, Hgb 14.7, Hct 44.7, MCV 88.9, MCH 29.2, MCHC 32.9, RDW Std Deviation 42.6, RDW Coeff of [place] 13.0, Plt Count 369, MPV 9.8, Immature Gran % (Auto) 0.300, Neut % (Auto) 70.1 H, Lymph % (Auto) 21.5, [place] % (Auto) 6.2, Eos % (Auto) 1.5, Baso % (Auto) 0.4, Absolute Neuts (auto) 5.1, Absolute Lymphs (auto) 1.57, Nucleated RBC % 0, Platelet Estimate ADEQUATE, RBC Morphology NORM C+C 10/20/21 11:22: Sodium 138, Potassium 5.2 H, Chloride 112 H, Carbon Dioxide 19.0 L, Anion Gap 7, BUN 8, Creatinine 0.78, Estim Creat Clear Calc 79.31, Est GFR (MDRD) Af Amer 104, Est GFR (MDRD) Non-Af 86, BUN/Creatinine Ratio 10.2, Glucose 110 H, Calcium 9.8, Total Bilirubin 0.40, Direct Bilirubin 0.08, AST 48 H, ALT 29, Alkaline Phosphatase 97, Troponin I High Sens < 3 L, Total Protein 7.6, Albumin 4.0, Globulin 3.6, Lipase 71 L 10/20/21 17:26: Urine Opiates Screen NEGATIVE, Urine Methadone Screen NEGATIVE, Ur Barbiturates Screen NEGATIVE, Ur Phencyclidine Scrn NEGATIVE, Ur Amphetamines Screen NEGATIVE, MDMA (Ecstasy) Screen NEGATIVE, U Benzodiazepines Scrn POSITIVE H, Urine Cocaine Screen NEGATIVE, U Cannabinoids Screen NEGATIVE, Ur Drug Screen Comment 10/21/21 06:02: Sodium 142, Potassium 3.7, Chloride 112 H, Carbon Dioxide 23.0, Anion Gap 7, BUN 9, Creatinine 0.68, Estim Creat Clear Calc 90.97, Est GFR (MDRD) Af Amer 122, Est GFR (MDRD) Non-Af 101, BUN/Creatinine Ratio 13.1, Glucose 97, Calcium 8.5 Micro: Microbiology 10/20/21 12:25 Nasal Secretion SARS-CoV-2 Antigen (Rapid) - Final Radiography Diagnostic Testing: Radiology Impression Chest X-Ray 10/20/21 10:25 IMPRESSION: No acute findings. Electronically Signed: Mike Anguiano at 11:43 EDT , Abdomen Ultrasound 10/20/21 15:39 IMPRESSION: Cholecystectomy changes. Nonobstructive left renal stone. Electronically Signed: Misha Marcus MD at 18:50 EDT , Physical Exam Const alert Constitutional Narrative: listless. Resp normal respiratory effort, no retractions, no use of accessory muscles and clear to auscultation bilaterally Cardio regular rate, regular rhythm, S1 normal heart sound and S2 normal heart sound GI normal to inspection, nondistended, normoactive bowel sounds, soft to palpation and non-distended GI Narrative: TTP. no rebound. Extremity normal to inspection and full ROM Neuro oriented x3 Sensorium / Orientation: awake, alert and oriented to person Assessment & Plan Assessment/Plan (1) Intractable vomiting: PLAN: 1. Intractable nausea vomiting and diarrhea * Etiology is uncertain at this time. Could be related with a viral illness, benzodiazepine withdrawal, psychosomatic, migraine. * Supportive management * Patient does claim abdominal pain but exam melvin she is not exquisitely tender * We will check an ultrasound * Avoid narcotics for the time being until further information is available * Will check urine drug screen. * IV fluids 2. Chronic benzodiazepine use * Patient on clonazepam chronically for anxiety * Continue with that. I did review the patient's OARRS report * pt has refused to take it. I advise that she try and if she throws it up, then may consider other options. 3. Chronic pain * Patient takes gabapentin at baseline * Will continue 4. Poor IV access: PICC team has been called. Charges/Coding Visit Charges Inpatient E&M: 94603 Subs Hosp L2
[2021-10-21 07:55] VITALS: BP 119/81; PULSE 75; RESP 16; TEMP 36.6; O2SAT 96
[2021-10-21] MEDS: clonazePAM 0.5 MG Tablet PO ×2 (09:37→20:52)
[2021-10-21] MEDS: lamoTRIgine 100 MG Tablet 200 MG PO (09:37)
[2021-10-21] MEDS: clonazePAM 1 MG Tablet PO (09:37)
[2021-10-21] MEDS: Gabapentin 800 MG Tablet PO ×3 (09:38→20:52)
[2021-10-21] MEDS: Ondansetron 4 MG/2 ML Vial IV ×2 (09:41→18:59)
--- NOTE | 2021-10-21 10:06 | NURSING ---
pt attempted to take am meds. and immediately vomited. few of meds came out. but few stayed in.
--- NOTE | 2021-10-21 11:41 | CHAPLAIN ---
Type of Pastoral Visit __x_ Initial Visit ___ Follow-up Visit ___ On-call Visit ___ General Patient Visit ___ Spiritual Assessment ___ Family Conference ___ Bereavement ___ Rapid Response ___ Code Blue ___ Other (describe below) Pastoral Care Referral From _x__ Patient ___ Family ___ Nurse ___ Physician ___ Funeral Assistant ___ Switchboard Receptionist ___ Other (describe below) Sacrament/Intervention ___ Active listening ___ Anointing ___ Sabianism ___ Bereavement ___ Communion ___ [place] exploration ___ ___ Life review _x__ Prayer ___ Reconciliation ___ Sacrament of Sick _x__ Supportive presence ___ Wedding ___ Other (describe below) Pastoral Comments patient is awake but curled up in bed and keeping her eyes closed; pt acknowledged her pain and nausea; pt did welcome a prayer for some relief; pt wanted to rest
[2021-10-21 11:56] VITALS: BP 126/72; PULSE 89; RESP 16; TEMP 36.8; O2SAT 96
[2021-10-21] MEDS: busPIRone 15 MG TABLET PO ×2 (13:28→20:49)
--- NOTE | 2021-10-21 13:34 | NURSING ---
pt given pm meds. pt vomited immediately after taking, Neurontin came back up. buspar stayed down.
[2021-10-21 14:57] VITALS: BP 106/66; PULSE 108; RESP 16; TEMP 37; O2SAT 94
--- NOTE | 2021-10-21 16:45 | CASEMGMT ---
TAQUERIA MORENO NOTE: Intro role of CM to patient and [facility] form explained re: Observation status for treatment of nausea and vomiting. Explained hospitalization will be paid per her insurance policy for Outpatient billing and condition will continue to be evaluated for Inpt necessity. Also let pt know that [facility] sends paper in the billing packet with their phone number if questions arise. Discussed Pharmacy section of [facility] form and self administered medication guideline. Pt verbalizes understanding and does not have further questions. Form signed, copy made and placed in chart, and original given to pt. Hugo CHAPMAN RN CM
[2021-10-21 20:47] VITALS: BP 123/79; PULSE 93; RESP 18; TEMP 37; O2SAT 96
[2021-10-21] MEDS: RisperiDONE 1 MG Tablet 3 MG PO (20:49)
[2021-10-21] MEDS: Mirtazapine 30 MG Tablet 45 MG PO (20:50)
[2021-10-21] MEDS: Doxepin Hcl 25 MG Capsule PO (20:50)
[2021-10-21] MEDS: cycloBENZAPRine HCl 10 MG Tablet PO (21:03)
[2021-10-21] MEDS: Acetaminophen 325 MG Tablet 650 MG PO (21:04)
[2021-10-22] MEDS: 0.9% Normal Saline 1,000 ML 150 ML IV (02:57)
[2021-10-22 03:36] VITALS: BP 132/72; PULSE 92; RESP 18; TEMP 36.5; O2SAT 97
[2021-10-22] MEDS: Ondansetron 4 MG/2 ML Vial IV (03:42)
[2021-10-22] MEDS: Gabapentin 800 MG Tablet PO (06:15)
[2021-10-22] MEDS: busPIRone 15 MG TABLET PO (06:15)
[2021-10-22] MEDS: 0.9% Saline Lock 10 ML Syringe IV (07:04)
--- NOTE | 2021-10-22 07:15 | PN.HOSP_ITS ---
Subjective Subjective Gastric imaging study was attempted but patient received teaspoons and immediately threw them up or spitting up. Objective Data Objective Data Vital Signs: Vital Signs Temp Pulse Resp BP Pulse Ox 36.5 C L 92 18 132/72 H 97 10/22/21 03:36 10/22/21 03:36 10/22/21 03:36 10/22/21 03:36 10/22/21 03:36 Oxygen Delivery Method Room Air Weight: 82.6 kg Body Mass Index (BMI) 32.2 Intake & Output: Intake and Output for Last 24 Hours 10/20/21 10/21/21 10/22/21 23:59 23:59 23:59 Intake Total 1337.5 / 1387.5 3810.0 / 3810.0 997.5 / 997.5 Output Total 50 / 100 650 / 650 Balance 1287.5 / 1287.5 3160.0 / 3160.0 997.5 / 997.5 Lab / Micro Data Result Diagrams: 10/20/21 11:22 10/21/21 06:02 Micro: Microbiology 10/20/21 12:25 Nasal Secretion SARS-CoV-2 Antigen (Rapid) - Final Physical Exam Const alert and no apparent distress Constitutional Narrative: Listless. Assessment & Plan Assessment/Plan (1) Intractable vomiting: PLAN: 1. Intractable nausea vomiting and diarrhea * Etiology is uncertain at this time. Could be related with a viral illness, benzodiazepine withdrawal, psychosomatic, migraine. * Supportive management * Patient does claim abdominal pain but exam melvin she is not exquisitely tender * Avoid narcotics for the time being until further information is available * urine drug screen + for BZDs (did receive lorazepam in ED) * IV fluids * Ultrasound was negative. Patient unable to complete gastric emptying study. * Told patient that I am concerned that her presentation is atypical and I asked her specifically if there is anything at home that is going on and if she is feels threatened. She denied that and became offended and said that she is going to leave. Told her to she still having ongoing issues that I would re commend getting a CAT scan and possible GI evaluation. She insisted on leaving this medical advice. Patient's PICC line will be removed. 2. Chronic benzodiazepine use * Patient on clonazepam chronically for anxiety * Continue with that. I did review the patient's OARRS report * pt has refused to take it. I advise that she try and if she throws it up, then may consider other options. 3. Chronic pain * Patient takes gabapentin at baseline * Will continue 4. Poor IV access: PICC placed but will be removed before discharge.
[2021-10-22] MEDS: proCHLORPERazine 10 MG/2 ML Vial 5 MG IV (07:52)
[2021-10-22 07:55] VITALS: BP 111/64; PULSE 90; RESP 16; TEMP 36.6; O2SAT 95
--- NOTE | 2021-10-22 10:50 | DS.PCM_ITS ---
Providers Date of Admission: 10/20/21 Primary Care Physician: Nazario Francis Reason For Visit: N/V Diagnosis Discharge Diagnosis (1) Intractable vomiting: Status: Acute Code(s): R11.10 - Vomiting, unspecified Medications at Discharge Home Medications clonazepam [Klonopin] 0.5 mg PO BID 12/25/20 clonazepam [Klonopin] 1 mg PO DAILY 12/25/20 cyclobenzaprine [Flexeril] 10 mg PO TID PRN 12/25/20 gabapentin 800 mg PO TID 12/25/20 lamotrigine 200 mg PO DAILY 12/25/20 mirtazapine [Remeron] 45 mg PO QHS 12/25/20 risperidone 3 mg PO QHS 12/25/20 sumatriptan succinate [Imitrex] 100 mg PO Q2H PRN 12/25/20 tizanidine [Zanaflex] 4 mg PO TID PRN 12/25/20 buspirone 15 mg PO TID 10/20/21 doxepin 25 mg PO QHS 10/20/21 Hospital Course Operations None Procedures None Summary of Care Provided Minutes Spent on Discharge: 28 Hospital Course: 1. Intractable nausea vomiting and diarrhea * Etiology is uncertain at this time. Could be related with a viral illness, benzodiazepine withdrawal, psychosomatic, migraine. * Supportive management * Patient does claim abdominal pain but exam melvin she is not exquisitely tender * Avoid narcotics for the time being until further information is available * urine drug screen + for BZDs (did receive lorazepam in ED) * IV fluids * Ultrasound was negative. Patient unable to complete gastric emptying study. * Told patient that I am concerned that her presentation is atypical and I asked her specifically if there is anything at home that is going on and if she is feels threatened. She denied that and became offended and said that she is going to leave. Told her to she still having ongoing issues that I would recommend getting a CAT scan and possible GI evaluation. She insisted on leaving this medical advice. Patient's PICC line will be removed. 2. Chronic benzodiazepine use * Patient on clonazepam chronically for anxiety * Continue with that. I did review the patient's OARRS report * pt has refused to take it. I advise that she try and if she throws it up, then may consider other options. 3. Chronic pain * Patient takes gabapentin at baseline * Will continue 4. Poor IV access: PICC placed but will be removed before discharge. Weight / BMI Weight Weight: 82.6 kg Body Mass Index (BMI) 32.2 ABG / Lab / Microbiology Data Result Diagrams: 10/20/21 11:22 10/21/21 06:02 Microbiology: Microbiology 10/20/21 12:25 Nasal Secretion SARS-CoV-2 Antigen (Rapid) - Final Meaningful Use Info Meaningful Use Diagnoses (Choose all that apply): None applicable Discharge Plan Admission Admit Date/Time: 10/20/21 15:35 Primary Reason for Your Visit: nausea vomiting Attending Provider: Sukhdev El Discharge Orders/Prescriptions Prescriptions: No Action gabapentin 800 mg Tablet 800 mg PO TID RF: 0 cyclobenzaprine [Flexeril] 10 mg Tablet 10 mg PO TID PRN (Reason: Muscle Spasm) RF: 0 lamotrigine 200 mg Tablet 200 mg PO DAILY RF: 0 sumatriptan succinate [Imitrex] 100 mg Tablet 100 mg PO Q2H PRN (Reason: Headache) RF: 0 clonazepam [Klonopin] 0.5 mg Tablet 0.5 mg PO BID RF: 0 clonazepam [Klonopin] 1 mg Tablet 1 mg PO DAILY RF: 0 risperidone 3 mg Tablet 3 mg PO QHS RF: 0 mirtazapine [Remeron] 30 mg Tablet 45 mg PO QHS RF: 0 tizanidine [Zanaflex] 4 mg Capsule 4 mg PO TID PRN (Reason: Spasms) RF: 0 doxepin 25 mg capsule 25 mg PO QHS RF: 0 buspirone 15 mg tablet 15 mg PO TID RF: 0 Referrals / Follow Up: Nazario Francis [Other] Nazario Francis [Other] Disposition Disposition (needs filled in before D/C Order can be placed): Against Medical Advice Charges/Coding Visit Charges Inpatient E&M: 40394 Disch Hosp
== END 2021-10-22 10:29 | disposition left against medical advice (07) ==
LOC: ED 15:39 → MS3 15:54
PROVIDERS: Emergency Provider Emergency Medicine
DX: R19.7 Diarrhea, unspecified (principal); J43.9 Emphysema, unspecified; F41.9 Anxiety disorder, unspecified; G89.29 Other chronic pain; G43.919 Migraine, unspecified, intractable, without status migrainosus; Z87.891 Personal history of nicotine dependence; Z79.899 Other long term (current) drug therapy; F32.A Depression, unspecified; R11.2 Nausea with vomiting, unspecified
CPT/HCPCS: 36415; 36569; 71045; 76700; 80048; 80076; 80307; 83690; 84484; 85025; 87811; 93005; 96361; 96365; 96372; 96375; 96376; 99218; 99285; 99406; J7030; A4216; G0378; J2405

== ENCOUNTER → 2021-11-15 | Outpatient (CLI) | payer MEDICARE, SELFPAY ==
[2021-11-15 17:03] LABS: Absolute Lymphocyte Count 2.31 X10^3/uL (0.83-4.51); Absolute Neutrophil Count 3.2 X10^3/uL (2.0-7.7); Basophil# 0.03 X10^3/uL; Basophil% 0.5 % (0-1); Eosinophils% 3.3 % (0-5); Hematocrit 36.4 % (37-47); Hemoglobin 11.9 g/dL (12.0-15.0); Lymphocyte # 2.31 X10^3/ul (0.83-4.51); Lymphocyte % 37.6 % (19-41); Mean Corp Hgb Conc 32.7 g/dL (32-36); Mean Corpuscular Hgb 29.2 pg (27.0-32.0); Mean Corpuscular Volume 89.4 fL (81-99); Mean Platelet Vol. 10.6 fl (6.2-12.0); Monocyte# 0.39 X10^3/uL; Monocyte% 6.3 % (0-10); NRBC Flagged by Analyzer 0 % (0-5); Neutrophil # 3.21 X10^3/uL (2.7-7.7); Neutrophil % 52.1 % (47-70); Platelet Count 217 K/mm3 (150-450); RBC Distribution Width CV 12.6 % (11.6-14.6); RBC Distribution Width SD 41.1 fl (35.1-43.9); Red Blood Count 4.07 M/mm3 (4.2-5.4); White Blood Count 6.2 K/mm3 (4.4-11.0)
[2021-11-15 18:01] LABS: ALB/GLOB Ratio 1.2 RATIO (0.9-2.4); AST(SGOT) 17 U/L (15-37); Alanine Aminotransfer ALT/SGPT 19 U/L (13-56); Albumin, Serum 4.1 g/dL (3.2-5.0); Alkaline Phosphatase 89 U/L (45-117); Anion Gap 9 (5-15); BUN 6 mg/dL (7-18); BUN/Creat Ratio 7.4 RATIO (10-20); CPK Total, Creatine Kinase 85 U/L (26-192); Calcium,Total 8.9 mg/dL (8.5-10.1); Chloride 109 mmol/L (98-107); Creatinine, Serum 0.82 mg/dL (0.55-1.02); EST Glomerular Filtration Rate 83 mL/min (>60); Est Glom Filt Rate - Afr Amer 100 mL/min (>60); Globulin 3.5 g/dL (2.2-4.2); Glucose 88 mg/dL (74-106); Potassium 3.8 mmol/L (3.5-5.1); Protein, Total 7.6 g/dL (6.4-8.2); Sodium Level 140 mmol/L (136-145); Troponin-I HS 6 pg/mL (3.0-54.0)
== END | disposition home or self-care (01) ==
LOC: BIMLAB 16:12
PROVIDERS: PCP Internal Medicine; Referring Provider Internal Medicine; Visit Provider Internal Medicine
DX: R07.9 Chest pain, unspecified (principal)
CPT/HCPCS: 36415; 80053; 82550; 84484; 85025

== ENCOUNTER → 2021-11-16 | Outpatient (CLI) | payer MEDICARE, SELFPAY ==
--- NOTE | 2021-11-16 09:09 | EKG12_ITS ---
Test Reason : ROUTINE Blood Pressure : / mmHG Vent. Rate : 110 BPM Atrial Rate : 110 BPM P-R Int : 124 ms QRS Dur : 082 ms QT Int : 392 ms P-R-T Axes : 069 065 059 degrees QTc Int : 530 ms Sinus tachycardia Otherwise normal ECG Confirmed by MIRI MANCINI, RONY ([id number]), graphic editor ARMANDO MEDRANO ([id number]) on 11/17/2021 9:36:15 AM Referred By: Gege Rivero Confirmed By:RONY CEHRY MD
== END | disposition home or self-care (01) ==
LOC: PSN 09:08
PROVIDERS: PCP Internal Medicine; Referring Provider Internal Medicine; Visit Provider Internal Medicine
DX: R07.9 Chest pain, unspecified (principal)
CPT/HCPCS: 93005

== ENCOUNTER 2021-11-29 15:26 | Emergency (ER) | payer MEDICARE, MEDICAID, SELFPAY ==
[2021-11-29] VITALS (7 sets, daily range): BP systolic 101–117; BP diastolic 56–71; PULSE 65–80; RESP 18–20; TEMP 36.9; O2SAT 95–99; BMI 34.9
--- NOTE | 2021-11-29 15:39 | EKG12_ITS ---
Test Reason : CP Blood Pressure : / mmHG Vent. Rate : 079 BPM Atrial Rate : 079 BPM P-R Int : 134 ms QRS Dur : 082 ms QT Int : 392 ms P-R-T Axes : 071 066 072 degrees QTc Int : 449 ms Normal sinus rhythm Normal ECG Confirmed by MIRI MANCINI, RONY ([id number]), editor map ARMANDO MEDRANO ([id number]) on 12/01/2021 8:16:14 AM Referred By: Confirmed By:RONY CHERY MD
--- NOTE | 2021-11-29 15:40 | ED.VIS.CHEST ---
HPI History of Present Illness Chief Complaint: Chest Pain Detail of Chief Complaint: Chest pain that started 20 minutes prior to arrival in the ER Informant: patient Narrative Narrative: Patient presents to the emergency department with left-sided chest pain that started 20 minutes ago while sitting in a chair watching television. Patient describes a heavy pressure radiating into her left arm with numbness and tingling in left arm. Patient also complains of nausea and feeling sweaty and short of breath. She has had pain like this in the past but did not seek medical attention. Patient states she was recently diagnosed with tachycardia as well. She denies recent travel or surgery. Patient has history of chronic back pain. Patient tells me her mother had an NM at the age of 38. Patient denies any illicit drug use. Prior Similar Symptoms: Yes [facility] Medical History (Updated 11/29/21 @ 18:[address] Chyna Macdonald, ) Anemia Anxiety Arthritis Collapsed lung COPD (chronic obstructive pulmonary disease) Depression Emphysema lung Former smoker History of blood clots History of gallstones Hyperlipidemia Kidney stones Migraines Neuropathy Paranoia Pneumonia Home Medications clonazepam 0.5 mg tablet (Klonopin) 0.5 mg PO BID 12/25/20 [History Last Taken Unknown] clonazepam 1 mg tablet (Klonopin) 1 mg PO DAILY 12/25/20 [History Last Taken Unknown] gabapentin 800 mg tablet 800 mg PO TID 12/25/20 [History Last Taken Unknown] mirtazapine 30 mg tablet (Remeron) 45 mg PO QHS 12/25/20 [History Last Taken Unknown] risperidone 3 mg tablet 3 mg PO QHS 12/25/20 [History Last Taken Unknown] tizanidine 4 mg capsule (Zanaflex) 4 mg PO TID PRN Spasms 12/25/20 [History Last Taken Unknown] buspirone 15 mg tablet 15 mg PO TID 10/20/21 [History Last Taken Unknown] aripiprazole 10 mg tablet 10 mg PO DAILY 11/15/21 [History Last Taken Unknown] hydroxyzine pamoate 50 mg capsule 50 mg PO TID 11/15/21 [History Last Taken Unknown] ibuprofen 600 mg tablet 600 mg PO 11/15/21 [History Last Taken Unknown] prazosin 2 mg capsule cap PO 11/15/21 [History Last Taken Unknown] Allergy/AdvReac Type Severity Reaction Status Date / Time bee venom protein (honey bee) Allergy Anaphylaxis Verified 11/29/21 15:29 ketorolac [From Toradol] Allergy Rash Verified 11/29/21 15:29 Penicillins Allergy Swelling Verified 11/29/21 15:29 strawberry Allergy Rash Verified 11/29/21 15:29 tramadol Allergy Hives Verified 11/29/21 15:29 Family History (Updated 11/15/21 @ 15:[address] Gege Rivero MD) Mother Asthma Anxiety Depression Myocardial infarction, Onset Age: 38 Heart disease High cholesterol Grandmother Cancer Sister Cancer Surgical History H/O spinal fusion History of appendectomy History of cholecystectomy History of partial hysterectomy History of tracheostomy Status post insertion of percutaneous endoscopic gastrostomy (PEG) tube Social History (Updated 11/15/21 @ 15:[address] Ggee Rivero MD) household members: spouse and children number of children: 1 current occupational status: disabled current occupation: due to back Smoking Status: Former smoker quit date: 03/22/21 pack-years: 30 alcohol intake: never substance use type: does not use what type of physical activity do you participate in: none do you feel safe at home: Yes ROS ROS ED Review of Systems ROS Unobtainable: other Constitutional Constitutional ED: Reports lethargy; Denies chills, fever(s), sweats or weight loss Eyes Eyes: Denies blurry vision, change in vision or diplopia ENT ENT ED: Denies rhinorrhea or sore throat Cardiovascular Cardiovascular: Reports chest pain and racing heartbeat; Denies orthopnea Respiratory/Chest Respiratory/Chest: Reports dyspnea and dyspnea on exertion; Denies cough, orthopnea or sputum Gastrointestinal Gastrointestinal: Reports nausea; Denies abdominal pain, diarrhea or vomiting Genitourinary Genitourinary ED: Denies dysuria, hematuria or urinary frequency Musculoskeletal Musculoskeletal: Denies arthralgias, back pain, myalgias or neck pain Integumentary Denies abscess, Abrasions or rash Neurologic Neurologic: Denies headache(s) or weakness Psychiatric Psychiatric: Denies anxiety, depression or suicidal thoughts Endocrine Endocrinology: Denies polydipsia, polyphagia or polyuria Hematologic/Lymphatic Hematologic/Lymphatic: Denies easy bleeding, easy bruising or lymphadenopathy Allergic/Immunologic Allergic/Immunologic ED: Denies mouth swelling, tongue swelling or urticaria EXAM Physical Exam Const Vital Signs: 11/29/21 15:27 11/29/21 15:43 11/29/21 16:21 Temperature 98.4 F Temperature Source Oral Pulse Rate 80 71 Respiratory Rate 18 Blood Pressure 117/70 105/61 Blood Pressure Mean 85 Pulse Ox 99 Oxygen Delivery Method Room Air Room Air 11/29/21 16:26 11/29/21 16:31 11/29/21 16:46 Temperature Temperature Source Pulse Rate 74 75 72 Respiratory Rate 20 H Blood Pressure 105/56 L 105/57 L Blood Pressure Mean Pulse Ox 95 Oxygen Delivery Method 11/29/21 17:45 11/29/21 18:02 Temperature Temperature Source Pulse Rate 65 66 Respiratory Rate 18 20 H Blood Pressure 102/57 L 101/71 Blood Pressure Mean 72 81 Pulse Ox 97 97 Oxygen Delivery Method Room Air Room Air Positive well nourished and well developed General Appearance ED: well developed and NAD HEENT Reports TM's clear and moist mucous membranes normocephalic and atraumatic; Negative for trauma or tenderness Tympanic Membrane ED: Yes TM's clear Eyes PERRL and EOMs intact bilaterally General Eye ED: Negative for pale conjunctiva or scleral icterus Neck no lymphadenopathy, supple and no JVD General: Negative for tenderness Chest Wall inspection of chest normal and palpation of chest normal Chest: Negative for tenderness Resp normal respiratory effort and clear to auscultation bilaterally Effort and Inspection: Negative for respiratory distress or pain with movement Auscultation: Negative for rhonchi, wheezes or diminished lung sounds Cardio regular rate, regular rhythm, S1 normal heart sound, S2 normal heart sound and no murmurs Peripheral Pulses: pulses 2+ throughout GI normal to inspection, nondistended, normoactive bowel sounds, soft to palpation, non-tender, non-distended and no masses Back/Spine no CVA tenderness and no thoracic nor lumbar tenderness Extremity normal to inspection General Extremety ED: Negative for edema General Extremity: Negative for edema Neuro oriented x3, CN's II-XII intact bilaterally, no sensory deficits noted and gait normal Sensorium / Orientation: awake, alert, oriented to person, oriented to place and oriented to time Motor Exam: strength 5/5 throughout and strength abnormal Psych mental status grossly normal Skin no rashes or lesions noted and no wounds Heart Score History: Slightly/Non-Suspicious ECG: Normal Age: </= 45 years Risk Factors: 1 or 2 Risk Factors Troponin: </= Normal Limit Score: 1 MDM MDM MDM Narrative Medical decision making narrative: IV line established on arrival. Patient received nitroglycerin sublingual with minimal relief. Patient lab work was unremarkable. She has a heart score of 1. I will repeat a delta troponin given patient's family history of heart disease. I will give her Ativan 1 mg IV as she does have history of anxiety and panic attacks. Delta troponin obtained was also normal. Ativan seemed to mostly resolve her symptoms. At this point patient will be discharged to home as I feel she is very low risk for acute coronary syndrome with a heart score of 1. Patient advised prompt follow-up with primary care physician and she actually has an appointment to see her physician tomorrow. Lab Data Attestation: I reviewed the patient's lab results. Labs: Laboratory Results - last 24 hr 11/29/21 11/29/21 11/29/21 15:35 15:35 15:50 WBC 7.1 RBC 4.01 L Hgb 11.6 L Hct 35.8 L MCV 89.3 MCH 28.9 MCHC 32.4 RDW Std Deviation 42.2 RDW Coeff of [place] 12.8 Plt Count 308 MPV 8.8 Immature Gran % (Auto) 0.100 Neut % (Auto) 63.4 Lymph % (Auto) 27.6 [place] % (Auto) 5.6 Eos % (Auto) 2.7 Baso % (Auto) 0.6 Absolute Neuts (auto) 4.5 Absolute Lymphs (auto) 1.97 Nucleated RBC % 0 D-Dimer Quant (PE/DVT) 0.38 Sodium 137 Potassium 4.7 Chloride 108 H Carbon Dioxide 22.0 Anion Gap 7 BUN 12 Creatinine 0.78 Estim Creat Clear Calc 79.31 Est GFR (MDRD) Af Amer 105 Est GFR (MDRD) Non-Af 86 BUN/Creatinine Ratio 15.3 Glucose 103 Calcium 8.9 Troponin I High Sens 4 11/29/21 17:57 WBC RBC Hgb Hct MCV MCH MCHC RDW Std Deviation RDW Coeff of [place] Plt Count MPV Immature Gran % (Auto) Neut % (Auto) Lymph % (Auto) [place] % (Auto) Eos % (Auto) Baso % (Auto) Absolute Neuts (auto) Absolute Lymphs (auto) Nucleated RBC % D-Dimer Quant (PE/DVT) Sodium Potassium Chloride Carbon Dioxide Anion Gap BUN Creatinine Estim Creat Clear Calc Est GFR (MDRD) Af Amer Est GFR (MDRD) Non-Af BUN/Creatinine Ratio Glucose Calcium Troponin I High Sens 4 Radiography Chest X-Ray - ED: 1 View Diagnostic Testing: Clinical Impression(s) from Imaging Studies Chest X-Ray 11/29/21 16:25 IMPRESSION: No acute cardiopulmonary pathology. Electronically Signed: Roman Esqueda MD at 16:41 EDT , 1 view chest x-ray obtained interpreted by myself as no acute disease process. Radiology in agreement. EKG Initial EKG: Attestation: I personally reviewed and interpreted this EKG as follows: Comments: Sinus rhythm with a ventricular rate of 79 bpm with no acute ST segment changes Discharge Plan Triage Chief Complaint: Chest Pain ED Provider: Chyna Macdonald Dx/Rx/DC Orders Clinical Impression: Chest pain, Anxiety Instructions: ED Anxiety Reaction, ED Chest Pain, Uncertain Cause Prescriptions: No Action aripiprazole 10 mg tablet 10 mg PO DAILY Label Comments: TAKE ONE HALF (0.5) TABLET BY MOUTH TWICE A DAY prazosin 2 mg capsule PO hydroxyzine pamoate 50 mg capsule 50 mg PO TID Label Comments: TAKE 1 CAPSULE BY MOUTH THREE TIMES A DAY NEEDED ibuprofen 600 mg tablet 600 mg PO Label Comments: TAKE ONE TABLET BY MOUTH EVERY 6 HOURS, MAX OF 3/DAY, NEEDED FOR PAIN OR FEVER 30 gabapentin 800 mg Tablet 800 mg PO TID clonazepam [Klonopin] 0.5 mg Tablet 0.5 mg PO BID clonazepam [Klonopin] 1 mg Tablet 1 mg PO DAILY risperidone 3 mg Tablet 3 mg PO QHS mirtazapine [Remeron] 30 mg Tablet 45 mg PO QHS tizanidine [Zanaflex] 4 mg Capsule 4 mg PO TID PRN (Reason: Spasms) buspirone 15 mg tablet 15 mg PO TID Primary Care Provider: Gege Rivero Referrals: Gege Rivero MD [Primary Care Provider] - 1-2 Days if not improving Disposition Disposition: Home, Self Care
[2021-11-29] MEDS: Aspirin 81 MG TAB.CHEW 324 MG PO (15:45)
[2021-11-29 15:54] LABS: Absolute Lymphocyte Count 1.97 X10^3/uL (0.83-4.51); Absolute Neutrophil Count 4.5 X10^3/uL (2.0-7.7); Basophil# 0.04 X10^3/uL; Basophil% 0.6 % (0-1); Eosinophil# 0.19 X10^3/uL; Eosinophils% 2.7 % (0-5); Hematocrit 35.8 % (37-47); Hemoglobin 11.6 g/dL (12.0-15.0); Lymphocyte # 1.97 X10^3/ul (0.83-4.51); Lymphocyte % 27.6 % (19-41); Mean Corp Hgb Conc 32.4 g/dL (32-36); Mean Corpuscular Hgb 28.9 pg (27.0-32.0); Mean Corpuscular Volume 89.3 fL (81-99); Mean Platelet Vol. 8.8 fl (6.2-12.0); Monocyte% 5.6 % (0-10); NRBC Flagged by Analyzer 0 % (0-5); Neutrophil # 4.53 X10^3/uL (2.7-7.7); Neutrophil % 63.4 % (47-70); Platelet Count 308 K/mm3 (150-450); RBC Distribution Width CV 12.8 % (11.6-14.6); RBC Distribution Width SD 42.2 fl (35.1-43.9); Red Blood Count 4.01 M/mm3 (4.2-5.4); White Blood Count 7.1 K/mm3 (4.4-11.0)
--- NOTE | 2021-11-29 15:55 | ED.RN ---
NO NITRO STOCKED IN ACCUDOSE. CALLED PHARMACY TO SEND UP
[2021-11-29 16:19] LABS: D-Dimer Quantitative (DVT/PE) 0.38 FEU/ug/m (0.27-0.49)
[2021-11-29] MEDS: 0.9% Normal Saline 1,000 ML 150 ML IV (16:21)
[2021-11-29] MEDS: Nitroglycerin SL (ED/IMG/CATH) 0.4 MG TABLET SL ×3 (16:21→16:46)
--- NOTE | 2021-11-29 16:25 | RAD_ITS ---
STUDY: X-RAY CHEST REASON FOR EXAM: Female, 41 years old. chest pain TECHNIQUE: AP portable COMPARISON: None. FINDINGS: Nonspecific elevation of the left hemidiaphragm. Lungs are clear.. There is no demonstrated pleural abnormality. Normal size heart. Normal mediastinum and tomas. Normal visualized pulmonary arteries. Normal visualized aortic arch and descending thoracic aorta. Normal visualized thoracic spine. Normal visualized ribs, clavicles, and shoulders. There is no demonstrated abnormality of the visualized soft tissue structures of the upper abdomen. RAD/Chest 1 View (Portable) IMPRESSION: No acute cardiopulmonary pathology. Electronically Signed: Roman Esqueda MD at 16:41 EDT ,
[2021-11-29 16:31] LABS: Anion Gap 7 (5-15); BUN 12 mg/dL (7-18); BUN/Creat Ratio 15.3 RATIO (10-20); Calcium,Total 8.9 mg/dL (8.5-10.1); Chloride 108 mmol/L (98-107); Creatinine, Serum 0.78 mg/dL (0.55-1.02); EST Glomerular Filtration Rate 86 mL/min (>60); Est Glom Filt Rate - Afr Amer 105 mL/min (>60); Estimated Creatinine Clearance 79.31 ml/min; Glucose 103 mg/dL (74-106); Potassium 4.7 mmol/L (3.5-5.1); Sodium Level 137 mmol/L (136-145); Troponin-I HS (w/2H Reflex) 4 pg/mL (3.0-54.0)
[2021-11-29] MEDS: LORazepam 2 MG/ML Syringe 1 MG IV (16:46)
[2021-11-29 17:49] LABS: Reflex Troponin-HS? (from REC) Y
[2021-11-29 18:19] LABS: Troponin-I HS 4 pg/mL (3.0-54.0)
== END 2021-11-29 18:30 | disposition home or self-care (01) ==
PROVIDERS: Emergency Provider Emergency Medicine; PCP Internal Medicine; Visit Provider Emergency Medicine
DX: R07.9 Chest pain, unspecified (principal); F41.9 Anxiety disorder, unspecified; Z79.899 Other long term (current) drug therapy; Z87.891 Personal history of nicotine dependence
CPT/HCPCS: 36415; 71045; 80048; 84484; 85025; 85379; 93005; 96374; 99283; J7030; A4216

== ENCOUNTER → 2021-12-03 | Outpatient (CLI) | payer MEDICARE, MEDICAID, SELFPAY ==
--- NOTE | 2021-12-03 13:12 | STRESSREP_ITS ---
Stress Test Report Date: 12-03-2021 Procedure: Exercise tolerance test Indications: Chest pain Consent: Per the patient Procedure: The patient exercised on a Pasquale protocol for 3 minutes and 29 seconds completing stage I and 29 seconds of stage II achieving a peak heart rate of 160 bpm (88% predicted maximal heart rate) with a peak blood pressure 138/80 mmHg and a peak MET capacity of approximately 5 MET's. The baseline ECG demonstrated normal sinus rhythm. The peak exercise ECG demonstrated no obvious ECG changes. There was a rare PVC during exercise. The functional capacity was considered decreased. The patient had a little chest pain-different feeling during exercise and dyspnea. The examination was discontinued secondary to chest discomfort and dyspnea. Impression: 1. Technically adequate (percent predicted maximal heart rate greater than 85%) exercise tolerance test 2. Peak exercise ECG with with no obvious ECG changes 3. There was a rare PVC during exercise 4. Heart rate response: Potentially compatible with a deconditioned heart rate response 5. Functional capacity: Decreased This note was generated with [employer] software. It may contain incorrect words, spelling, and punctuation that were not noted in checking the note before signing.
== END | disposition home or self-care (01) ==
LOC: CVS 11:40
PROVIDERS: PCP Internal Medicine; Referring Provider Internal Medicine; Visit Provider Internal Medicine
DX: R07.9 Chest pain, unspecified (principal)
CPT/HCPCS: 93017

== ENCOUNTER → 2021-12-06 | Outpatient (CLI) | payer MEDICARE, MEDICAID, SELFPAY | END | disposition home or self-care (01) | PROVIDERS: PCP Internal Medicine; Referring Provider Internal Medicine; Visit Provider Internal Medicine | DX: R07.9 Chest pain, unspecified (principal); R55 Syncope and collapse | CPT/HCPCS: 93225; 93226 ==

== ENCOUNTER → 2021-12-08 | Outpatient (CLI) | payer MEDICARE, MEDICAID, SELFPAY ==
--- NOTE | 2021-12-08 12:03 | BI_ITS ---
MAMMOGRAPHY - BILATERAL SCREENING REASON FOR EXAM: Female, 41 years old. Routine annual screening examination. PERTINENT HISTORY: Grandmother with breast cancer. TECHNIQUE: Digital bilateral breast zaire (3D mammographic acquisition) in the CC and MLO projections. 2-D mediolateral oblique (MLO) and craniocaudad (CC) views of both breasts were obtained. CAD: Full Field Digital Mammography with Computer Added Detection was performed. COMPARISON: No comparison mammograms available at this time. If any prior films become available, an addendum to this report can be generated. FINDINGS: Breast Composition: The breasts are heterogeneously dense, which may obscure small masses. There are no dominant masses or suspicious calcifications. No other significant abnormalities are identified. BI/SCRN MAMM (CAD)W/ZAIRE BILAT IMPRESSION: Negative screening mammogram. Yearly followup mammogram recommended. (A) ASSESSMENT CATEGORY: BIRADS Category 1: Negative. A letter regarding these results will be sent to the patient by the facility within 30 days. Approximately 10% of breast cancers are not detected by mammography. A normal mammogram should not delay biopsy of a clinically suspicious abnormality. [id number] Electronically Signed: Pablo Jane MD at 10:44 EDT ,
== END | disposition home or self-care (01) ==
LOC: OPBI 12:02
PROVIDERS: PCP Internal Medicine; Visit Provider Internal Medicine
DX: Z12.31 Encounter for screening mammogram for malignant neoplasm of breast (principal)
CPT/HCPCS: 77063; 77067

== ENCOUNTER 2021-12-13 19:41 | Emergency (ER) | payer MEDICARE, MEDICAID, SELFPAY ==
[2021-12-13 19:41] VITALS: BP 123/72; PULSE 77; RESP 17; TEMP 36.6; O2SAT 98; BMI 36.8
--- NOTE | 2021-12-13 20:04 | EKG12_ITS ---
Test Reason : edema Blood Pressure : / mmHG Vent. Rate : 074 BPM Atrial Rate : 074 BPM P-R Int : 138 ms QRS Dur : 082 ms QT Int : 428 ms P-R-T Axes : 050 067 055 degrees QTc Int : 475 ms Normal sinus rhythm Normal ECG Confirmed by MIRI MANCINI, RONY ([id number]), editor at large ERIC MCINTYRE ([id number]) on 12/14/2021 10:35:53 AM Referred By: Confirmed By:RONY CHERY MD
--- NOTE | 2021-12-13 20:04 | EX.ED.DYSGE1 ---
HPI History of Present Illness Chief Complaint: Edema Informant: patient Onset/Context/Timing Onset: Today and Hours Context: Gradual Onset Timing: Continuous Current Severity: Mild Maximum Severity: Mild Narrative Narrative: 41-year-old female with history of anxiety, depression and COPD. Presents with bilateral lower extremity swelling which she says is taken place over the last 6 hours. Said it started in her feet and out in her lower legs. Denies any prior history of this. Said the last couple days she has had some mild nausea and diarrhea. No vomiting or fever. She has no history of any kidney problems. She is never had a DVT or PE. She is on no new medications. She was hospitalized 1 to 2 months ago for nausea and vomiting. She had labs 2 weeks ago that were unremarkable. She states she is urinating normally. Prior similar symptoms: No Recent Illness/Hospitalization: Yes PFSH [facility] Medical History Anemia Anxiety Arthritis Collapsed lung COPD (chronic obstructive pulmonary disease) Depression Emphysema lung Former smoker History of blood clots History of gallstones Hyperlipidemia Kidney stones Migraines Neuropathy Paranoia Pneumonia Home Medications clonazepam 0.5 mg tablet (Klonopin) 0.5 mg PO BID 12/25/20 [History Last Taken Unknown] clonazepam 1 mg tablet (Klonopin) 1 mg PO DAILY 12/25/20 [History Last Taken Unknown] mirtazapine 30 mg tablet (Remeron) 45 mg PO QHS 12/25/20 [History Last Taken Unknown] risperidone 3 mg tablet 3 mg PO QHS 12/25/20 [History Last Taken Unknown] buspirone 15 mg tablet 15 mg PO TID 10/20/21 [History Last Taken Unknown] aripiprazole 10 mg tablet 10 mg PO DAILY 11/15/21 [History Last Taken Unknown] hydroxyzine pamoate 50 mg capsule 50 mg PO TID 11/15/21 [History Last Taken Unknown] prazosin 2 mg capsule 1 cap PO DAILY 11/15/21 [History Last Taken Unknown] gabapentin 800 mg tablet 800 mg PO TID #90 tabs 11/30/21 [Rx Last Taken Unknown] ibuprofen 600 mg tablet 600 mg PO Q8H PRN pain #90 tabs 11/30/21 [Rx Last Taken Unknown] tizanidine 4 mg capsule (Zanaflex) 4 mg PO TID PRN Spasms #90 caps 11/30/21 [Rx Last Taken Unknown] Allergy/AdvReac Type Severity Reaction Status Date / Time bee venom protein (honey bee) Allergy Anaphylaxis Verified 12/13/21 19:45 ketorolac [From Toradol] Allergy Rash Verified 12/13/21 19:45 Penicillins Allergy Swelling Verified 12/13/21 19:45 strawberry Allergy Rash Verified 12/13/21 19:45 tramadol Allergy Hives Verified 12/13/21 19:45 Family History Mother Asthma Anxiety Depression Myocardial infarction, Onset Age: 38 Heart disease High cholesterol Grandmother Cancer Sister Cancer Surgical History H/O spinal fusion History of appendectomy History of cholecystectomy History of partial hysterectomy History of tracheostomy Status post insertion of percutaneous endoscopic gastrostomy (PEG) tube Social History household members: spouse and children number of children: 1 current occupational status: disabled current occupation: due to back Smoking Status: Former smoker quit date: 03/22/21 pack-years: 30 alcohol intake: never substance use type: does not use what type of physical activity do you participate in: none do you feel safe at home: Yes ROS ROS ED ROS Narrative Bilateral lower leg swelling. Review of Systems ROS Unobtainable: Denies due to encephalopathy Constitutional Constitutional ED: Denies chills or fever(s) Eyes Eyes: Denies blurry vision ENT ENT ED: Denies ear pain or rhinorrhea Cardiovascular Cardiovascular: Denies chest pain, palpitations or racing heartbeat Respiratory/Chest Respiratory/Chest: Denies cough or dyspnea Gastrointestinal Gastrointestinal: Reports diarrhea and nausea; Denies abdominal pain, constipation, melena or vomiting Genitourinary Genitourinary ED: Denies dysuria or hematuria Musculoskeletal Musculoskeletal: Denies arthralgias Integumentary Denies abscess Neurologic Neurologic: Denies headache(s) Psychiatric Psychiatric: Denies anxiety Endocrine Endocrinology: Denies cold intolerance Hematologic/Lymphatic Hematologic/Lymphatic: Reports none Allergic/Immunologic Allergic/Immunologic ED: Denies mouth swelling or tongue swelling EXAM Physical Exam Narrative Exam Narrative: 41-year-old female no acute distress. Vital signs stable afebrile. Pulse ox 90% on room air no hypoxia. H EENT exam unremarkable. Neck nontender. No lymphadenopathy. No JVD. Lungs clear to auscultation bilaterally. Heart regular rhythm rate about 80 no murmur. Abdomen soft nontender. Normal bowel sounds no peritoneal signs. Moving all 4 extremities. Neurovascular intact. Normal strength. She does have 1+ pitting edema both lower extremities from her toes to just below her knees. Normal strength. No rash. No cellulitis. Back nontender. Neurologically she is awake alert with no focal motor deficits. Const Vital Signs: 12/13/21 19:41 12/13/21 20:05 12/13/21 21:08 Temperature 97.8 F Temperature Source Temporal Pulse Rate 77 69 Respiratory Rate 17 19 H Blood Pressure 123/72 H 111/72 Blood Pressure Mean 89 85 Pulse Ox 98 97 98 Oxygen Delivery Method Room Air Room Air Room Air Positive well nourished, well developed and obese; Negative for cachectic, contractures or unkempt General Appearance ED: well developed; Negative for unkempt, cachectic or contractures Nutritional Appearance: obese; Negative for cachectic HEENT Reports moist mucous membranes; Denies dry mucous membranes Negative for trauma Mouth ED: No dry mucous membranes Mouth: No dry mucous membranes Eyes PERRL and EOMs intact bilaterally General Eye ED: Negative for pale conjunctiva or scleral icterus Neck no lymphadenopathy, supple and no JVD General: Negative for tenderness Lymph Lymphatic: Negative for other Chest Wall inspection of chest normal and palpation of chest normal Chest: Negative for other Resp normal respiratory effort and clear to auscultation bilaterally Effort and Inspection: Negative for retractions Auscultation: Negative for rales, rhonchi or wheezes Cardio regular rate, regular rhythm, S1 normal heart sound, S2 normal heart sound and no murmurs Palpation: Negative for palpable S3 Rate: Negative for bradycardia Rhythm: Negative for abnormal rhythm GI normal to inspection, nondistended, normoactive bowel sounds, non-tender, non-distended and no masses Inspection: Negative for abdominal distention Auscultation: normoactive bowel sounds Palpation: soft; Negative for tender Back/Spine no CVA tenderness General Back: Negative for CVA tenderness Cervical Spine: Negative for cervical spine tenderness Thoracic Spine / Upper Back: Negative for thoracic spinal tenderness Lumbar Spine / Lower Back: Negative for lumbar spinal tenderness Extremity Negative for normal to inspection General Extremety ED: Yes edema; Negative for tenderness General Extremity: edema Neuro oriented x3 Sensorium / Orientation: alert; Negative for orientation impaired, lethargic or stuporous Motor Exam: strength 5/5 throughout Psych mental status grossly normal Appearance: Negative for unkempt Attitude: No agitated Mood & Affect: anxious; Negative for depressed Skin no rashes or lesions noted and no wounds General Skin Exam: elasticity normal Rashes: No rashes noted Trauma: Negative for abrasion Wounds: Negative for wounds noted MDM MDM MDM Narrative Medical decision making narrative: 41-year-old with bilateral lower extremity edema. Otherwise exam normal. No shortness of breath. No chest pain. No history of DVT or PE or clotting disorder. No prior history. No kidney problems. Recent labs were negative. Screening labs will be obtained. Repeat exam patient doing well at 11:05 PM. We discussed all of her test results. She will be discharged to home. Follow-up with her primary care physician if this is improving. Lab Data Attestation: I reviewed the patient's lab results. Lab results narrative: CBC shows a normal white count of 7. H&H 11.8 and 35 which is the patient's baseline anemia compared to prior labs. Platelets 310. Electrolytes show potassium of 5.4 but that is hemolyzed. Gap of 4 normal BUN and creatinine of 5 and 0.8. Glucose 96. Chest x-ray normal. EKG normal. Troponin is normal at 7. She is not having chest pain. She does not need a repeat troponin. Labs: Laboratory Results - last 24 hr 12/13/21 12/13/21 20:22 20:22 WBC 7.3 RBC 4.05 L Hgb 11.8 L Hct 35.9 L MCV 88.6 MCH 29.1 MCHC 32.9 RDW Std Deviation 40.8 RDW Coeff of Tenn[place] 12.5 Plt Count 310 MPV 8.5 Immature Gran % (Auto) 0.300 Neut % (Auto) 53.6 Lymph % (Auto) 36.0 [place] % (Auto) 4.9 Eos % (Auto) 4.7 Baso % (Auto) 0.5 Absolute Neuts (auto) 3.9 Absolute Lymphs (auto) 2.62 Nucleated RBC % 0 Sodium 138 Potassium 5.4 H Chloride 110 H Carbon Dioxide 24.0 Anion Gap 4 L BUN 5 L Creatinine 0.84 Estim Creat Clear Calc 70.41 Est GFR (MDRD) Af Amer 97 Est GFR (MDRD) Non-Af 80 BUN/Creatinine Ratio 6.0 L Glucose 96 Calcium 8.7 Troponin I High Sens 7 Radiography Chest X-Ray - ED: 1 View, Read by ED Physician, Heart, Lungs, Mediastinum, Bony Structures and No Acute Disease Diagnostic Testing: Clinical Impression(s) from Imaging Studies Chest X-Ray 12/13/21 20:22 IMPRESSION: There are no acute findings. Electronically Signed: Misha Marcus MD at 20:46 EDT , Chest x-ray, portable, single view interpreted by myself and radiologist shows no acute abnormalities. Normal cardiac silhouette. Normal mediastinum. Normal lung sinclair. No congestive heart failure. The heart is not enlarged. Rhythm Strip Rhythm Strip: Sinus Rhythm Rate: 74 Ectopy: None EKG Initial EKG: Attestation: I personally reviewed and interpreted this EKG as follows: Interpretation: Sinus Rhythm and No Acute Injury Pattern Comments: Normal sinus rhythm rate of 74 no acute signs of LA or ischemia. Discharge Plan Triage Chief Complaint: Edema ED Provider: Jameel Velarde Dx/Rx/DC Orders Clinical Impression: Edema, peripheral, History of COPD Instructions: ED Peripheral Edema, Bilateral Prescriptions: No Action aripiprazole 10 mg tablet 10 mg PO DAILY Label Comments: TAKE ONE HALF (0.5) TABLET BY MOUTH TWICE A DAY prazosin 2 mg capsule 1 cap PO DAILY hydroxyzine pamoate 50 mg capsule 50 mg PO TID Label Comments: TAKE 1 CAPSULE BY MOUTH THREE TIMES A DAY NEEDED gabapentin 800 mg tablet 800 mg PO TID Qty: 90 0RF tizanidine [Zanaflex] 4 mg capsule 4 mg PO TID PRN (Reason: Spasms) Qty: 90 0RF ibuprofen 600 mg tablet 600 mg PO Q8H PRN (Reason: pain) Qty: 90 0RF clonazepam [Klonopin] 0.5 mg Tablet 0.5 mg PO BID clonazepam [Klonopin] 1 mg Tablet 1 mg PO DAILY risperidone 3 mg Tablet 3 mg PO QHS mirtazapine [Remeron] 30 mg Tablet 45 mg PO QHS buspirone 15 mg tablet 15 mg PO TID Primary Care Provider: Gege Rivero Referrals: Gege Rivero MD [Primary Care Provider] - 1 Week if not improving Activity Restrictions/Additional Instructions: Elevate your legs to decrease swelling. Plenty of fluids. No added salt or excessively salty foods in your diet because that will make you retain more fluid. Your labs, chest x-ray and EKG were unremarkable tonight. I suspect this is just some mild fluid retention and should improve. If not improving in 1 to 2 weeks follow-up with your doctor. Disposition Disposition: Home, Self Care Discharge Date/Time: 12/13/21 23:06
[2021-12-13 20:05] VITALS: O2SAT 97
--- NOTE | 2021-12-13 20:22 | RAD_ITS ---
STUDY: X-RAY CHEST REASON FOR EXAM: Female, 41 years old. CHEST PAIN chest pain TECHNIQUE: XR Chest 1 View COMPARISON: 11/29/2021 FINDINGS: There is no demonstrated pleural abnormality. Normal size heart. Normal mediastinum and tomas. Normal visualized pulmonary arteries. Normal visualized aortic arch and descending thoracic aorta. Normal visualized thoracic spine. Normal visualized ribs, clavicles, and shoulders. There is no demonstrated abnormality of the visualized soft tissue structures of the upper abdomen. RAD/Chest 1 View (Portable) IMPRESSION: There are no acute findings. Electronically Signed: Misha Marcus MD at 20:46 EDT ,
[2021-12-13 20:26] LABS: Absolute Lymphocyte Count 2.62 X10^3/uL (0.83-4.51); Absolute Neutrophil Count 3.9 X10^3/uL (2.0-7.7); Basophil# 0.04 X10^3/uL; Basophil% 0.5 % (0-1); Eosinophil# 0.34 X10^3/uL; Eosinophils% 4.7 % (0-5); Hematocrit 35.9 % (37-47); Hemoglobin 11.8 g/dL (12.0-15.0); Lymphocyte # 2.62 X10^3/ul (0.83-4.51); Mean Corp Hgb Conc 32.9 g/dL (32-36); Mean Corpuscular Hgb 29.1 pg (27.0-32.0); Mean Corpuscular Volume 88.6 fL (81-99); Mean Platelet Vol. 8.5 fl (6.2-12.0); Monocyte# 0.36 X10^3/uL; Monocyte% 4.9 % (0-10); NRBC Flagged by Analyzer 0 % (0-5); Neutrophil % 53.6 % (47-70); Platelet Count 310 K/mm3 (150-450); RBC Distribution Width CV 12.5 % (11.6-14.6); RBC Distribution Width SD 40.8 fl (35.1-43.9); Red Blood Count 4.05 M/mm3 (4.2-5.4); White Blood Count 7.3 K/mm3 (4.4-11.0)
[2021-12-13 21:08] VITALS: BP 111/72; PULSE 69; RESP 19; O2SAT 98
[2021-12-13 21:39] LABS: Anion Gap 4 (5-15); BUN 5 mg/dL (7-18); Calcium,Total 8.7 mg/dL (8.5-10.1); Chloride 110 mmol/L (98-107); Creatinine, Serum 0.84 mg/dL (0.55-1.02); EST Glomerular Filtration Rate 80 mL/min (>60); Est Glom Filt Rate - Afr Amer 97 mL/min (>60); Estimated Creatinine Clearance 70.41 ml/min; Glucose 96 mg/dL (74-106); Potassium 5.4 mmol/L (3.5-5.1); Sodium Level 138 mmol/L (136-145); Troponin-I HS (w/2H Reflex) 7 pg/mL (3.0-54.0)
[2021-12-13 22:24] LABS: Reflex Troponin-HS? (from REC) Y
[2021-12-13 23:02] VITALS: BP 131/94; PULSE 63; RESP 15; O2SAT 98
[2021-12-13 23:24] LABS: Troponin-I HS 8 pg/mL (3.0-54.0)
== END 2021-12-13 23:06 | disposition home or self-care (01) ==
PROVIDERS: Emergency Provider Emergency Medicine; PCP Internal Medicine; Visit Provider Emergency Medicine
DX: R60.0 Localized edema (principal); J43.9 Emphysema, unspecified; R19.7 Diarrhea, unspecified; F41.9 Anxiety disorder, unspecified; E78.5 Hyperlipidemia, unspecified; R11.0 Nausea; F32.A Depression, unspecified; E66.9 Obesity, unspecified; Z87.891 Personal history of nicotine dependence; Z79.899 Other long term (current) drug therapy
CPT/HCPCS: 71045; 80048; 84484; 85025; 93005; 99283; A4216

== ENCOUNTER → 2021-12-20 | Outpatient (CLI) | payer MEDICARE, MEDICAID, SELFPAY ==
--- NOTE | 2021-12-20 14:07 | ECHOD_ITS ---
Reason For Study: SYNCOPE & COLLAPSE, CHEST PAIN. Procedure This was a 2D Doppler, Color Flow transthoracic echocardiogram. Exam performed in department. Left Ventricle Normal LV size. Left ventricular systolic function is normal. The estimated ejection fraction is 55 %. Stage 1 diastolic dysfunction. No regional wall motion abnormalities noted. Right Ventricle Normal RV size. Normal systolic function. Atria Normal left atrium. Normal right atrium. Mitral Valve Normal mitral valve. Tricuspid Valve Normal tricuspid valve. Aortic Valve Normal aortic valve. Trisinus/trileaflet aortic valve. Pulmonic Valve Normal pulmonic valve. Great Vessels Normal aortic root. The pulmonary artery is normal size. Normal inferior vena cava. Pericardium/Pleural No pericardial effusion. MMode/2D Measurements & Calculations LVIDd: 4.0 cm IVSd: 0.89 cm LAV(MOD-bp): 41.7 ml LVIDs: 2.8 cm LVPWd: 0.77 cm LAV(MOD-bp) Indexed: 21.9 ml/m2 RVDd: 2.9 cm FS: 28.7 % LAV(MOD-sp2): 46.9 ml LAV(MOD-sp4): 35.0 ml SV(MOD-sp4): 35.4 ml LVAd ap4: 20.8 cm2 LVAd ap2: 23.6 cm2 LVLd ap4: 5.9 cm LVLd ap2: 7.1 cm EDV(MOD-sp4): 59.2 ml EDV(MOD-sp2): 66.2 ml EDV(sp4-el): 61.8 ml EDV(sp2-el): 66.3 ml LVAs ap4: 11.7 cm2 LVAs ap2: 12.3 cm2 LVLs ap4: 5.0 cm LVLs ap2: 5.9 cm ESV(MOD-sp4): 23.8 ml ESV(MOD-sp2): 22.4 ml ESV(sp4-el): 23.0 ml ESV(sp2-el): 21.9 ml EF(MOD-sp4): 59.8 % EF(MOD-sp2): 66.2 % EF(sp4-el): 62.8 % SV(MOD-sp2): 43.8 ml SV(sp4-el): 38.8 ml LA A4 area: 13.3 cm2 LA dimension(2D): 3.6 cm RA A4 area: 12.4 cm2 Time Measurements MV dec time: 0.16 sec Doppler Measurements & Calculations MV E max ramón: 61.5 cm/sec Lat Peak E' Ramón: 13.6 cm/sec Med Peak E' Ramón: 13.5 cm/sec MV A max ramón: 66.9 cm/sec E/E' lat: 4.5 E/E' med: 4.6 MV E/A: 0.92 Ao V2 max: 121.5 cm/sec LV V1 max: 106.7 cm/sec PA V2 max: 115.2 cm/sec Ao max P.9 mmHg LV V1 max P.6 mmHg ECHO/Echo Complete Interpretation Summary Normal LV size. Left ventricular systolic function is normal. The estimated ejection fraction is 55 %. Stage 1 diastolic dysfunction. Structurally normal valves. Ordering Physician: Gege Rivero Referring Physician: Gege Rivero Performed By: Gema Del Cid, RDDIPAK, RVT
== END | disposition home or self-care (01) ==
LOC: CVS 14:06
PROVIDERS: PCP Internal Medicine; Referring Provider Internal Medicine; Visit Provider Internal Medicine
DX: R07.9 Chest pain, unspecified (principal); R55 Syncope and collapse
CPT/HCPCS: 93306

== ENCOUNTER → 2022-03-14 | Outpatient (CLI) | payer MEDICARE, MEDICAID, SELFPAY | END | disposition home or self-care (01) | PROVIDERS: PCP Internal Medicine; Visit Provider Physician Assistant | DX: R05.9 Cough, unspecified (principal); Z20.822 Contact with and (suspected) exposure to COVID-19 | CPT/HCPCS: 87635; U0003; U0005 ==

== ENCOUNTER 2022-03-21 13:44 | Emergency (ER) | payer MEDICARE, MEDICAID, SELFPAY ==
[2022-03-21 13:44] VITALS: BP 114/70; PULSE 71; RESP 16; TEMP 36.3; O2SAT 99; BMI 36.2
--- NOTE | 2022-03-21 14:34 | EDS_ITS ---
HPI History of Present Illness Chief Complaint: Lower Extremity Injury Narrative Narrative: [id number] female here with hip pain. Patient states had left hip pain has been worsening over the last several days. Denies any trauma. States the pain is constant, sharp, radiating into the low back. Given remote trauma to the left hip but denies any recent surgery. Patient denies any urinary complaints. Denies any abdominal pain. Denies any nausea vomiting or fever. Denies any vaginal bleeding or discharge. Patient denies any saddle anesthesia, urinary tension, bowel or bladder incontinence, lower extremity weakness, fever or IV drug use, no recent spinal manipulation or surgery, no recent urinary catheterization. Old chart reviewed: No recent advanced imaging of the involved extremity Past medical history of hyperlipidemia, obesity, COPD, anxiety [facility] Medical History Anemia Anxiety Arthritis Collapsed lung COPD (chronic obstructive pulmonary disease) Depression Emphysema lung Former smoker History of blood clots History of gallstones Hyperlipidemia Intractable vomiting Kidney stones Migraines Neuropathy Obesity Paranoia Pneumonia Home Medications clonazepam 0.5 mg tablet (Klonopin) 0.5 mg PO BID 12/25/20 [History Last Taken Unknown] clonazepam 1 mg tablet (Klonopin) 1 mg PO DAILY 12/25/20 [History Last Taken Unknown] mirtazapine 30 mg tablet (Remeron) 45 mg PO QHS 12/25/20 [History Last Taken Unknown] risperidone 3 mg tablet 3 mg PO QHS 12/25/20 [History Last Taken Unknown] buspirone 15 mg tablet 15 mg PO TID 10/20/21 [History Last Taken Unknown] aripiprazole 10 mg tablet 10 mg PO DAILY 11/15/21 [History Last Taken Unknown] hydroxyzine pamoate 50 mg capsule 50 mg PO TID 11/15/21 [History Last Taken Unknown] prazosin 2 mg capsule 1 cap PO DAILY 11/15/21 [History Last Taken Unknown] tizanidine 4 mg capsule (Zanaflex) 4 mg PO TID PRN Spasms #90 caps 02/24/22 [Rx Last Taken Unknown] gabapentin 800 mg tablet 800 mg PO TID #90 tabs 02/28/22 [Rx Last Taken Unknown] ibuprofen 600 mg tablet 600 mg PO Q8H PRN pain #90 tabs 02/28/22 [Rx Last Taken Unknown] albuterol sulfate 90 mcg/actuation aerosol inhaler 2 puff inhalation Q6H PRN 03/14/22 [History Last Taken Unknown] dextromethorphan-guaifenesin 5 mg-100 mg/5 mL oral liquid 10 ml PO Q8H PRN cough #180 mL 03/14/22 [Rx Last Taken Unknown] doxycycline hyclate 100 mg capsule 100 mg PO BID #14 caps 03/14/22 [Rx Last Taken Unknown] fluticasone 250 mcg-salmeterol 50 mcg/dose blistr powdr for inhalation (Wixela Inhub) 1 inh inhalation BID 03/14/22 [History Last Taken Unknown] prednisone 20 mg tablet 40 mg PO DAILY #10 tabs 03/14/22 [Rx Last Taken Unknown] Allergy/AdvReac Type Severity Reaction Status Date / Time bee venom protein (honey bee) Allergy Anaphylaxis Verified 03/21/22 13:47 ketorolac [From Toradol] Allergy Rash Verified 03/21/22 13:47 Penicillins Allergy Swelling Verified 03/21/22 13:47 strawberry Allergy Rash Verified 03/21/22 13:47 tramadol Allergy Hives Verified 03/21/22 13:47 Family History Mother Asthma Anxiety Depression Myocardial infarction, Onset Age: 38 Heart disease High cholesterol Grandmother Cancer Sister Cancer Surgical History H/O spinal fusion History of appendectomy History of cholecystectomy History of partial hysterectomy History of tracheostomy Status post insertion of percutaneous endoscopic gastrostomy (PEG) tube Social History household members: spouse and children number of children: 1 current occupational status: disabled current occupation: due to back Smoking Status: Current every day smoker tobacco type: cigarettes alcohol intake: never substance use type: does not use what type of physical activity do you participate in: none do you feel safe at home: Yes ROS ROS ED ROS Narrative Constitutional: Denies fever HEENT: Denies sore throat Neck: Denies neck pain Cardiovascular: Denies chest pain, syncope Respiratory: Denies shortness of breath GI: Denies nausea vomiting or abdominal pain : Denies changes in urinary habits Musculoskeletal: Left hip pain endorsed Neurologic: Denies numbness weakness or loss of sensation Skin denies rash EXAM Physical Exam Narrative Exam Narrative: Nursing triage notes reviewed, Vital signs reviewed Constitutional: please see [facility] HENT: MMM Eyes: Pupils equal round and reactive to light, Extraocular muscles intact Neck: No stridor, no JVD, full neck ROM Lungs: Clear to auscultation, No wheezing or rales. No increased work of breathing, no conversational dyspnea, no accessory muscle use, no nasal flaring. No respiratory distress noted Heart: Regular rate and rhythm, No murmurs, No rubs and No gallops, 2+ distal pulses (radial, femoral, posterior tibial) in all extremities Abdomen: Soft, there is no tenderness, rigidity, rebound or guarding, no obvious peritoneal signs, no palpable pulsatile abdominal masses, no auscultated abdominal bruit : No CVAT Extremities: No edema, intact range of motion hip flexion extension internal/external rotation. Intact strength in hip flexion, hip extension knee flexion extension plantar flexion dorsiflexion. TTP over left greater trochanter. Neuro: Intact sensation L1-S1 dermatomal distributions. Intact 5/5 strength in hip flexion (T12-L3). Knee extension (L2-L4). Ankle dorsiflexion (L4-L5). Ankle plantar flexion (S1). Great toe extension (L5). 2+ patellar and Achilles DTRs. Downgoing Babinski bilaterally. Skin: No rash or lesions noted Const Vital Signs: 03/21/22 13:44 Temperature 97.4 F L Temperature Source Temporal Pulse Rate 71 Respiratory Rate 16 Blood Pressure 114/70 Blood Pressure Mean 84 Pulse Ox 99 Oxygen Delivery Method Room Air [facility] Narrative Medical decision making narrative: 41-year-old female here with atraumatic left hip pain. Left lower extremity is neurovascularly intact. No back pain red flags. No midline step-offs deformities of the cervical, thoracic or lumbar spine noted on exam. Clinically patient's presentation is consistent with sciatic nerve pain. Obtained x-ray to rule out hip fracture dislocation. X-ray was unremarkable. Patient is likely suffering from musculoskeletal back pain for sciatica. Gave instructions to take Tylenol, ibuprofen lidocaine patches. Gave instructions to follow-up with PCP for outpatient evaluation. Gave instructions to follow with pain management. Radiography Diagnostic Testing: Clinical Impression(s) from Imaging Studies Hip/Pelvis X-Ray 03/21/22 15:45 IMPRESSION: No acute findings. Electronically Signed: Misha Marcus MD at 17:00 EDT , Discharge Plan Triage Chief Complaint: Lower Extremity Injury ED Provider: Remi Barrios Dx/Rx/DC Orders Clinical Impression: Sciatica, Acute pain of left hip Instructions: ED Arthralgia, ED Sciatica Prescriptions: No Action aripiprazole 10 mg tablet 10 mg PO DAILY Label Comments: TAKE ONE HALF (0.5) TABLET BY MOUTH TWICE A DAY prazosin 2 mg capsule 1 cap PO DAILY hydroxyzine pamoate 50 mg capsule 50 mg PO TID Label Comments: TAKE 1 CAPSULE BY MOUTH THREE TIMES A DAY NEEDED albuterol sulfate 90 mcg/actuation HFA aerosol inhaler 2 puff inhalation Q6H PRN fluticasone propion-salmeterol [Wixela Inhub] 250-50 mcg/dose blister with device 1 inh inhalation BID doxycycline hyclate 100 mg capsule 100 mg PO BID Qty: 14 0RF prednisone 20 mg tablet 40 mg PO DAILY Qty: 10 0RF dextromethorphan-guaifenesin 5-100 mg/5 mL liquid 10 ml PO Q8H PRN (Reason: cough) Qty: 180 0RF clonazepam [Klonopin] 0.5 mg Tablet 0.5 mg PO BID clonazepam [Klonopin] 1 mg Tablet 1 mg PO DAILY risperidone 3 mg Tablet 3 mg PO QHS mirtazapine [Remeron] 30 mg Tablet 45 mg PO QHS buspirone 15 mg tablet 15 mg PO TID tizanidine [Zanaflex] 4 mg capsule 4 mg PO TID PRN (Reason: Spasms) Qty: 90 0RF ibuprofen 600 mg tablet 600 mg PO Q8H PRN (Reason: pain) Qty: 90 0RF gabapentin 800 mg tablet 800 mg PO TID Qty: 90 0RF Primary Care Provider: Gege Rivero Referrals: Gege Rivero MD [Primary Care Provider] - Activity Restrictions/Additional Instructions: Please go to your local pharmacy or drugstore and obtain lidocaine patches otherwise noted Salonpas lidocaine patches. Please take Tylenol, ibuprofen every 4 hours as needed for pain control. Please follow-up with your primary care physician for further outpatient evaluation. Disposition Disposition: Home, Self Care
--- NOTE | 2022-03-21 15:45 | RAD_ITS ---
STUDY: X-RAY - PELVIS AND LEFT HIP REASON FOR EXAM: Female, 41 years old. hip pain TECHNIQUE: XR Hip Unilateral with Pelvis when performed; 2-3 Views COMPARISON: None. FINDINGS: There is a non-specific bowel gas pattern. Normal visualized soft tissue structures. Normal bilateral iliac wings, sacroiliac joints and visualized sacrum. Normal bilateral superior and inferior pubic rami. Normal pubic symphysis. Normal bilateral ischial tuberosities. Normal visualized femoral head. Normal acetabulum. Normal hip joint. RAD/HIP, UNI W/ Pelvis 2-3 Views IMPRESSION: No acute findings. Electronically Signed: Misha Marcus MD at 17:00 EDT ,
[2022-03-21] MEDS: Ibuprofen 200 MG Tablet 400 MG PO (15:57)
[2022-03-21] MEDS: dexAMETHasone 4 MG Tablet PO (15:57)
[2022-03-21] MEDS: oxyCODONE 5 MG Tablet PO (16:11)
== END 2022-03-21 17:36 | disposition home or self-care (01) ==
PROVIDERS: Emergency Provider Emergency Medicine; PCP Internal Medicine; Visit Provider Emergency Medicine
DX: M54.32 Sciatica, left side (principal); J43.9 Emphysema, unspecified; E78.5 Hyperlipidemia, unspecified; F17.210 Nicotine dependence, cigarettes, uncomplicated; Z79.52 Long term (current) use of systemic steroids
CPT/HCPCS: 73502; 99283

== ENCOUNTER → 2022-06-27 | Outpatient (CLI) | payer MEDICARE, MEDICAID, SELFPAY ==
[2022-06-27 16:41] LABS: Absolute Lymphocyte Count 2.27 X10^3/uL (0.83-4.51); Absolute Neutrophil Count 3.9 X10^3/uL (2.0-7.7); Basophil# 0.02 X10^3/uL; Basophil% 0.3 % (0-1); Eosinophil# 0.21 X10^3/uL; Eosinophils% 3.1 % (0-5); Hemoglobin 11.7 g/dL (12.0-15.0); Lymphocyte # 2.27 X10^3/ul (0.83-4.51); Lymphocyte % 33.2 % (19-41); Mean Corp Hgb Conc 33.4 g/dL (32-36); Mean Corpuscular Hgb 28.7 pg (27.0-32.0); Mean Corpuscular Volume 85.8 fL (81-99); Mean Platelet Vol. 9.1 fl (6.2-12.0); Monocyte# 0.39 X10^3/uL; Monocyte% 5.7 % (0-10); NRBC Flagged by Analyzer 0 % (0-5); Neutrophil # 3.93 X10^3/uL (2.7-7.7); Neutrophil % 57.4 % (47-70); Platelet Count 245 K/mm3 (150-450); RBC Distribution Width CV 13.6 % (11.6-14.6); RBC Distribution Width SD 42.6 fl (35.1-43.9); Red Blood Count 4.08 M/mm3 (4.2-5.4); White Blood Count 6.8 K/mm3 (4.4-11.0)
[2022-06-27 16:50] LABS: Erythrocyte Sedimentation Rate 12 mm/hr (0-30)
[2022-06-27 17:19] LABS: Hemoglobin A1c 5.5 % (3.8-5.6)
[2022-06-27 17:42] LABS: ALB/GLOB Ratio 1.2 RATIO (0.9-2.4); AST(SGOT) 20 U/L (15-37); Alanine Aminotransfer ALT/SGPT 13 U/L (13-56); Alkaline Phosphatase 92 U/L (45-117); Anion Gap 10 (5-15); BUN 6 mg/dL (7-18); BUN/Creat Ratio 7.6 RATIO (10-20); CRP < 2.90 mg/L (0.0-3.0); Chloride 109 mmol/L (98-107); Cholesterol 244 mg/dL (200); Creatinine, Serum 0.79 mg/dL (0.55-1.02); EST Glomerular Filtration Rate 85 mL/min (>60); Est Glom Filt Rate - Afr Amer 103 mL/min (>60); Globulin 3.4 g/dL (2.2-4.2); Glucose 91 mg/dL (74-106); High Density Lipoprotein 54 mg/dL; Potassium 3.5 mmol/L (3.5-5.1); Protein, Total 7.4 g/dL (6.4-8.2); Sodium Level 140 mmol/L (136-145); Thyroid Stim Hormone (TSH) 0.96 uIU/mL (0.358-3.74); Triglycerides 176 mg/dL; Very Low Density Lipoprotein 35 mg/dL (5-40)
[2022-06-29 14:10] LABS: Anti-Centromere B Ab <0.2 AI (0.0-0.9); Anti-Chromatin <0.2 AI (0.0-0.9); Anti-Jo <0.2 AI (0.0-0.9); Anti-Scleroderma-70 AB <0.2 AI (0.0-0.9); RNP Ab <0.2 AI (0.0-0.9); SJOGREN'S Anti-SS-A test < 0.2 AI (0.0-0.9); SJOGREN'S Anti-SS-B test < 0.2 AI (0.0-0.9); Smith Ab <0.2 AI (0.0-0.9)
[2022-06-29 16:21] LABS: Anti-dsDNA Ab <1 IU/mL (0-9)
== END | disposition home or self-care (01) ==
LOC: BIMLAB 15:43
PROVIDERS: PCP Internal Medicine; Visit Provider Internal Medicine
DX: R55 Syncope and collapse (principal); F41.9 Anxiety disorder, unspecified; F32.A Depression, unspecified; Z79.899 Other long term (current) drug therapy
CPT/HCPCS: 36415; 80053; 80061; 83036; 84443; 85025; 85652; 86140; 86225; 86235

== ENCOUNTER 2022-07-12 15:21 | Emergency (ER) | payer MEDICARE, MEDICAID, SELFPAY ==
[2022-07-12 15:22] VITALS: BP 134/78; PULSE 78; RESP 16; TEMP 36.6; O2SAT 99; BMI 36.6
--- NOTE | 2022-07-12 15:38 | VDLE_ITS ---
Reason For Study: pain RIGHT GSV is normal. CFV is compressible, spontaneous, phasic, competent and demonstrates normal augmentation. FV is compressible, spontaneous, phasic, competent and demonstrates normal augmentation. POP V is compressible, spontaneous, phasic, competent and demonstrates normal augmentation. T/P Trunk is compressible. PTV is compressible. RT PerV is compressible. Procedure This is a venous duplex using B-mode, color flow and spectral Doppler. Exam performed in department. The exam was abbreviated due to the COVID 19 protocol. The exam was diagnostic. A preliminary report was called and/or faxed to the ED. VL/Venous Duplex US, Unilateral Interpretation Summary There is no evidence of right lower extremity deep vein thrombosis. Right great saphenous vein appears patent and compressible segmentally. Abbreviated Covid 19 protocol Ordering Physician: Jameel Velarde Performed By: Carlos Clarke RVT
--- NOTE | 2022-07-12 16:43 | EDS_ITS ---
HPI History of Present Illness HPI Narrative: Patient presents with right lower leg pain that has been getting worse over the past week. Patient states she has been doing a lot of walking and moving. Patient states she thought she pulled a muscle initially. Patient states the pain is getting progressively worse. Patient describes the pain as sharp. Patient states the pain is worse with any weightbearing. Patient admits to some numbness and tingling in her leg and toes. Patient denies any specific trauma or injury. Patient denies any weakness. Patient states she did have a fall couple weeks ago but her pain started well after that. Chief Complaint: Lower Extremity Injury Informant: patient Onset/Context/Timing Onset: Weeks (1) Context: Gradual Onset Timing: Continuous Quality of Pain: Sharp Location: Right lower leg Worsened by: Weightbearing and ambulation Relieved by: Nothing PFSH PFS Medical History Anemia Anxiety Arthritis Collapsed lung COPD (chronic obstructive pulmonary disease) Depression Emphysema lung Former smoker History of blood clots History of gallstones Hyperlipidemia Intractable vomiting Kidney stones Migraines Neuropathy Obesity Paranoia Pneumonia Home Medications clonazepam 0.5 mg tablet (Klonopin) 0.5 mg PO BID 12/25/20 [History Last Taken Unknown] clonazepam 1 mg tablet (Klonopin) 1 mg PO DAILY 12/25/20 [History Last Taken Unknown] mirtazapine 30 mg tablet (Remeron) 45 mg PO QHS 12/25/20 [History Last Taken Unknown] risperidone 3 mg tablet 3 mg PO QHS 12/25/20 [History Last Taken Unknown] buspirone 15 mg tablet 15 mg PO TID 10/20/21 [History Last Taken Unknown] aripiprazole 10 mg tablet 10 mg PO DAILY 11/15/21 [History Last Taken Unknown] hydroxyzine pamoate 50 mg capsule 50 mg PO TID 11/15/21 [History Last Taken Unknown] prazosin 2 mg capsule 1 cap PO DAILY 11/15/21 [History Last Taken Unknown] dextromethorphan-guaifenesin 5 mg-100 mg/5 mL oral liquid 10 ml PO Q8H PRN cough #180 mL 03/14/22 [Rx Last Taken Unknown] doxycycline hyclate 100 mg capsule 100 mg PO BID #14 caps 03/14/22 [Rx Last Taken Unknown] clindamycin 1.2 % (1 % base)-benzoyl peroxide 5 % topical gel 1 applic topical DAILY #45 grams 05/05/22 [Rx Last Taken Unknown] ibuprofen 600 mg tablet 600 mg PO Q8H PRN pain #90 tabs 06/08/22 [Rx Last Taken Unknown] albuterol sulfate 90 mcg/actuation aerosol inhaler 2 puff inhalation Q6H PRN shortness of breath or wheezing #6.7 grams 06/27/22 [Rx Last Taken Unknown] fluticasone 250 mcg-salmeterol 50 mcg/dose blistr powdr for inhalation (Wixela Inhub) 1 inh inhalation BID #60 ea 06/27/22 [Rx Last Taken Unknown] nicotine 14 mg/24 hr daily transdermal patch 1 patch transdermal DAILY #28 ea 06/27/22 [Rx Last Taken Unknown] tizanidine 4 mg capsule (Zanaflex) 4 mg PO TID PRN Spasms #90 caps 06/27/22 [Rx Last Taken Unknown] nicotine (polacrilex) 2 mg gum 2 mg buccal Q2H #100 ea 06/29/22 [Rx Last Taken Unknown] gabapentin 800 mg tablet 800 mg PO TID #90 tabs 07/11/22 [Rx Last Taken Unknown] Allergy/AdvReac Type Severity Reaction Status Date / Time bee venom protein (honey bee) Allergy Anaphylaxis Verified 07/12/22 15:21 ketorolac [From Toradol] Allergy Rash Verified 07/12/22 15:21 Penicillins Allergy Swelling Verified 07/12/22 15:21 strawberry Allergy Rash Verified 07/12/22 15:21 tramadol Allergy Hives Verified 07/12/22 15:21 Family History Mother Asthma Anxiety Depression Myocardial infarction, Onset Age: 38 Heart disease High cholesterol Grandmother Cancer Sister Cancer Surgical History H/O spinal fusion History of appendectomy History of cholecystectomy History of partial hysterectomy History of tracheostomy Status post insertion of percutaneous endoscopic gastrostomy (PEG) tube Social History household members: spouse and children number of children: 1 current occupational status: disabled current occupation: due to back Smoking Status: Current every day smoker tobacco type: cigarettes alcohol intake: never substance use type: does not use what type of physical activity do you participate in: none do you feel safe at home: Yes ROS ROS ED Constitutional Constitutional ED: Denies chills or fever(s) Eyes Eyes: Denies blurry vision or change in vision ENT ENT ED: Denies rhinorrhea or sore throat Cardiovascular Cardiovascular: Denies chest pain or palpitations Respiratory/Chest Respiratory/Chest: Denies cough or dyspnea Gastrointestinal Gastrointestinal: Denies nausea or vomiting Genitourinary Genitourinary ED: Denies dysuria or hematuria Musculoskeletal Musculoskeletal: Reports back pain; Denies neck pain Integumentary Denies abscess or rash Neurologic Neurologic: Denies headache(s) or weakness Allergic/Immunologic Allergic/Immunologic ED: Denies mouth swelling or urticaria EXAM Physical Exam Const Vital Signs: 07/12/22 15:22 Temperature 97.8 F Temperature Source Temporal Pulse Rate 78 Respiratory Rate 16 Blood Pressure 134/78 H Blood Pressure Mean 96 Pulse Ox 99 Oxygen Delivery Method Room Air Positive well nourished, well developed and obese General Appearance ED: well developed and NAD Nutritional Appearance: obese HEENT Reports moist mucous membranes Neck full ROM Extremity Extremity Narrative: There is tenderness over the posterior and lateral aspects of the right lower leg. There is no edema or ecchymosis. There is no bony crepitance or step-off. There is no obvious deformity noted. Range of motion was limited in all motions of the right lower leg and ankle secondary to pain. Strength is 5/5 bilaterally in the lower extremities. There are no sensory deficits noted. Pedal pulses are equal bilaterally. Neuro oriented x3, CN's II-XII intact bilaterally, moves all extremities and no sensory deficits noted Sensorium / Orientation: alert Motor Exam: strength 5/5 throughout Psych mental status grossly normal Skin no wounds MDM MDM MDM Narrative Medical decision making narrative: Differential diagnosis includes DVT, muscle strain, fibula fracture, and tendinitis. Will obtain venous duplex for DVT of the lower extremity. Will obtain x-ray of the tibia and fibula for possible fracture. Radiography Diagnostic Testing: Clinical Impression(s) from Imaging Studies Venous Doppler Study 07/12/22 15:38 Interpretation Summary There is no evidence of right lower extremity deep vein thrombosis. Right great saphenous vein appears patent and compressible segmentally. Abbreviated Covid 19 protocol Ordering Physician: Jameel Velarde Performed By: Carlos Clarke, RVT Tibia/Fibula X-Ray 07/12/22 17:05 IMPRESSION: Negative. Electronically Signed: Julio Sibley MD at 17:21 EST , Venous duplex of the right lower extremity was reviewed and does not show any evidence of DVT. X-rays of the right tibia and fibula were obtained. On my independent interpretation, there is no acute fracture or dislocation. There is no soft tissue swelling. Radiologist also interpreted the x-rays and agrees. Treatment and Re-Evaluation Narrative: Patient was given a dose of [place] here. Patient was advised of her findings. Patient was instructed to ice and elevate the right lower extremity. Patient was instructed to take Tylenol or ibuprofen as needed for pain. Patient was given crutches. Patient was instructed return if worse in any way. Smoking cessation was discussed. Patient was instructed to follow-up with her primary care physician in 5 to 7 days. Patient understood and was agreeable with the plan. All questions were answered. Discharge Plan Triage Chief Complaint: Lower Extremity Injury ED Provider: Sukhdev Sullivan Dx/Rx/DC Orders Clinical Impression: Muscle strain of right lower leg, Smoker Instructions: Planning to Quit Smoking, ED Muscle Strain, Extremity Prescriptions: No Action aripiprazole 10 mg tablet 10 mg PO DAILY Label Comments: TAKE ONE HALF (0.5) TABLET BY MOUTH TWICE A DAY prazosin 2 mg capsule 1 cap PO DAILY hydroxyzine pamoate 50 mg capsule 50 mg PO TID Label Comments: TAKE 1 CAPSULE BY MOUTH THREE TIMES A DAY NEEDED doxycycline hyclate 100 mg capsule 100 mg PO BID Qty: 14 0RF dextromethorphan-guaifenesin 5-100 mg/5 mL liquid 10 ml PO Q8H PRN (Reason: cough) Qty: 180 0RF tizanidine [Zanaflex] 4 mg capsule 4 mg PO TID PRN (Reason: Spasms) Qty: 90 0RF Rx Instructions: Fill on 04/28 albuterol sulfate 90 mcg/actuation HFA aerosol inhaler 2 puff inhalation Q6H PRN (Reason: shortness of breath or wheezing) Qty: 6.7 1RF fluticasone propion-salmeterol [Wixela Inhub] 250-50 mcg/dose blister with device 1 inh inhalation BID Qty: 60 1RF nicotine 14 mg/24 hr patch 24 hour 1 patch transdermal DAILY Qty: 28 2RF clonazepam [Klonopin] 0.5 mg Tablet 0.5 mg PO BID clonazepam [Klonopin] 1 mg Tablet 1 mg PO DAILY risperidone 3 mg Tablet 3 mg PO QHS mirtazapine [Remeron] 30 mg Tablet 45 mg PO QHS buspirone 15 mg tablet 15 mg PO TID clindamycin-benzoyl peroxide 1.2 %(1 % base) -5 % gel 1 applic topical DAILY Qty: 45 0RF ibuprofen 600 mg tablet 600 mg PO Q8H PRN (Reason: pain) Qty: 90 0RF nicotine (polacrilex) 2 mg gum 2 mg buccal Q2H Qty: 100 0RF gabapentin 800 mg tablet 800 mg PO TID Qty: 90 0RF Rx Instructions: Start 07/29 Primary Care Provider: Gege Rivero Referrals: Gege Rivero MD [Primary Care Provider] - 3-5 Days Disposition Disposition: Home, Self Care
[2022-07-12] MEDS: HYDROcodone Bitartrate/Apap 5/325 Tablet PO (16:55)
--- NOTE | 2022-07-12 17:05 | RAD_ITS ---
INDICATION: Injury/Pain EXAMINATION/TECHNIQUE: X-RAY - RIGHT XR Tibia/Fibula 2 Views 2 VIEWS COMPARISON: None. FINDINGS: SOFT TISSUES: No soft tissue swelling or gas. No radiopaque foreign body. BONES/JOINTS: No acute fracture or subluxation.. Normal alignment. Preservation of the joint space.. No sclerotic or destructive changes observed. RAD/Tibia & Fibula 2 Views IMPRESSION: Negative. Electronically Signed: Julio Sibley MD at 17:21 EST ,
== END 2022-07-12 17:58 | disposition home or self-care (01) ==
PROVIDERS: Emergency Provider Emergency Medicine; PCP Internal Medicine; Visit Provider Emergency Medicine
DX: S86.911A Strain of unspecified muscle(s) and tendon(s) at lower leg level, right leg, initial encounter (principal); J43.9 Emphysema, unspecified; E78.5 Hyperlipidemia, unspecified; E66.9 Obesity, unspecified; X58.XXXA Exposure to other specified factors, initial encounter
CPT/HCPCS: 73590; 93971; 99284

== ENCOUNTER 2022-09-02 17:55 | Emergency (ER) | payer MEDICARE, MEDICAID, SELFPAY ==
[2022-09-02 17:55] VITALS: BP 109/68; PULSE 50; RESP 14; TEMP 36.1; O2SAT 98; BMI 35.4
[2022-09-02 18:05] VITALS: TEMP 36.1; O2SAT 98
--- NOTE | 2022-09-02 18:09 | CT_ITS ---
STUDY: CT BRAIN WITHOUT CONTRAST REASON FOR EXAM: Female, 42 years old. trauma RADIATION DOSAGE (If Supplied By Facility): CTDIvol = ( 44.99 ) mGy, DLP = ( 796.11 ) mGycm TECHNIQUE: Transaxial CT imaging of the brain was performed without administration of intravenous contrast material. Individualized dose optimization techniques were used for this CT. COMPARISON: No relevant priors. FINDINGS: Normal soft tissue structures. Normal calvarium. Normal size ventricles and extra-axial spaces for the patient''s age. Normal white matter tracts of the cerebral hemispheres. Normal basal ganglia and thalami. Normal brainstem. Normal cerebellum. There is no intracranial hemorrhage. There are no findings of an acute ischemic infarction. Normal visualized paranasal sinuses. CT/Brain/Head without Contrast IMPRESSION: Normal unenhanced CT scan of the brain. Electronically Signed: Maile Newberry MD at 19:02 EDT Reading Location ID and State: [id number] / Tel , Service support ,
--- NOTE | 2022-09-02 18:09 | CT_ITS ---
INDICATION: trauma EXAMINATION: CT CERVICAL SPINE - CT Spine Cervical W/O Contrast Injection TECHNIQUE: Helically acquired images were obtained of the cervical spine. 2D reformatted images were reviewed. A radiation dose optimization technique was used for this scan. IV Contrast dosage and agent: None. RADIATION DOSAGE (If Supplied By Facility): CTDIvol = ( 24.81 ) mGy, DLP = ( 472.30 ) mGycm COMPARISON: None. FINDINGS: VERTEBRAE: No fracture or traumatic subluxation. No discrete lytic or blastic abnormality. Normal alignment. Normal craniocervical junction and cervicothoracic junction. DISCS and SPINAL CANAL: Disc heights are preserved. No critical stenosis. NECK SOFT TISSUES: No prevertebral soft tissue swelling. There is no cervical adenopathy. LUNG APICES: Clear. CT/Spine Cervical without Contras IMPRESSION: No evidence of acute cervical spinal fracture or spondylolisthesis. Electronically Signed: Maile Newberry MD at 19:07 EDT Reading Location ID and State: [id number] / Tel , Service support ,
--- NOTE | 2022-09-02 18:13 | EDS_ITS ---
HPI HPI - Fall History of Present Illness Chief Complaint: Fall Informant: patient Occured/Mechanism Occurred: Today Narrative Narrative: Patient presents after a fall at home. She states she was walking when her 2-1/2-year-old granddaughter hit her from the side and knocked her onto her left side on the ground. She struck her left hip and has abrasions to her lateral left ankle. She complaining of ankle and foot pain as well. She does have a mild headache and is starting to develop some neck pain. She is not on anticoagulants. She did not lose consciousness. [facility] Medical History Anemia Anxiety Arthritis Collapsed lung COPD (chronic obstructive pulmonary disease) Depression Emphysema lung Former smoker History of blood clots History of gallstones Hyperlipidemia Intractable vomiting Kidney stones Migraines Neuropathy Obesity Paranoia Pneumonia Home Medications clonazepam 0.5 mg tablet (Klonopin) 0.5 mg PO BID 12/25/20 [History Last Taken Unknown] clonazepam 1 mg tablet (Klonopin) 1 mg PO DAILY 12/25/20 [History Last Taken Unknown] mirtazapine 30 mg tablet (Remeron) 45 mg PO QHS 12/25/20 [History Last Taken Unknown] risperidone 3 mg tablet 3 mg PO QHS 12/25/20 [History Last Taken Unknown] buspirone 15 mg tablet 15 mg PO TID 10/20/21 [History Last Taken Unknown] aripiprazole 10 mg tablet 10 mg PO DAILY 11/15/21 [History Last Taken Unknown] hydroxyzine pamoate 50 mg capsule 50 mg PO TID 11/15/21 [History Last Taken Unknown] prazosin 2 mg capsule 1 cap PO DAILY 11/15/21 [History Last Taken Unknown] dextromethorphan-guaifenesin 5 mg-100 mg/5 mL oral liquid 10 ml PO Q8H PRN cough #180 mL 03/14/22 [Rx Last Taken Unknown] doxycycline hyclate 100 mg capsule 100 mg PO BID #14 caps 03/14/22 [Rx Last Taken Unknown] clindamycin 1.2 % (1 % base)-benzoyl peroxide 5 % topical gel 1 applic topical DAILY #45 grams 05/05/22 [Rx Last Taken Unknown] nicotine 14 mg/24 hr daily transdermal patch 1 patch transdermal DAILY #28 ea 06/27/22 [Rx Last Taken Unknown] nicotine (polacrilex) 2 mg gum 2 mg buccal Q2H #100 ea 06/29/22 [Rx Last Taken Unknown] ibuprofen 600 mg tablet 600 mg PO Q8H PRN pain #90 tabs 08/08/22 [Rx Last Taken Unknown] fluticasone 250 mcg-salmeterol 50 mcg/dose blistr powdr for inhalation (Wixela Inhub) 1 inh inhalation BID #60 ea 08/15/22 [Rx Last Taken Unknown] gabapentin 800 mg tablet 800 mg PO TID #90 tabs 08/15/22 [Rx Last Taken Unknown] albuterol sulfate 90 mcg/actuation aerosol inhaler 2 puff inhalation Q6H PRN shortness of breath or wheezing #6.7 grams 08/16/22 [Rx Last Taken Unknown] tizanidine 4 mg tablet 4 mg PO Q8H PRN pain #90 tabs 08/25/22 [Rx Last Taken Unknown] hydrocodone-acetaminophen 5-325mg 5mg-325mg 1 tab PO Q6H PRN PRN Pain 3 days #10 TABLETS 09/02/22 [Rx Last Taken Unknown] Allergy/AdvReac Type Severity Reaction Status Date / Time bee venom protein (honey bee) Allergy Anaphylaxis Verified 09/02/22 18:04 ketorolac [From Toradol] Allergy Rash Verified 09/02/22 18:04 nifedipine [From Procardia] Allergy Swelling Verified 09/02/22 18:04 Penicillins Allergy Swelling Verified 09/02/22 18:04 strawberry Allergy Rash Verified 09/02/22 18:04 tramadol Allergy Hives Verified 09/02/22 18:04 Family History Mother Asthma Anxiety Depression Myocardial infarction, Onset Age: 38 Heart disease High cholesterol Grandmother Cancer Sister Cancer Surgical History H/O spinal fusion History of appendectomy History of cholecystectomy History of partial hysterectomy History of tracheostomy Status post insertion of percutaneous endoscopic gastrostomy (PEG) tube Social History household members: spouse and children number of children: 1 current occupational status: disabled current occupation: due to back Smoking Status: Current every day smoker tobacco type: cigarettes alcohol intake: never substance use type: does not use what type of physical activity do you participate in: none do you feel safe at home: Yes ROS ROS ED Constitutional Constitutional ED: Denies chills or fever(s) Eyes Eyes: Denies change in vision or discharge from eye(s) ENT ENT ED: Denies discharge from eye(s), rhinorrhea or sore throat Cardiovascular Cardiovascular: Denies chest pain or palpitations Respiratory/Chest Respiratory/Chest: Denies cough or dyspnea Gastrointestinal Gastrointestinal: Denies abdominal pain, nausea or vomiting Genitourinary Genitourinary ED: Denies dysuria Musculoskeletal Musculoskeletal: Reports extremity pain and neck pain; Denies back pain Integumentary Reports Abrasions; Denies rash Neurologic Neurologic: Reports headache(s); Denies weakness Psychiatric Psychiatric: Denies anxiety or depression Allergic/Immunologic Allergic/Immunologic ED: Denies lip swelling or urticaria EXAM Physical Exam Const Vital Signs: 09/02/22 17:55 09/02/22 18:05 09/02/22 18:56 Temperature 97.0 F L 97.0 F L Temperature Source Temporal Pulse Rate 50 L 56 L Respiratory Rate 14 18 Respiratory Effort Normal Non-Labored Respiratory Depth Normal Respiratory Pattern Normal Blood Pressure 109/68 108/64 Blood Pressure Mean 81 78 Pulse Ox 98 98 96 Oxygen Delivery Method Room Air Room Air Room Air Positive well nourished and well developed General Appearance ED: well developed HEENT Reports normocephalic and head/scalp atraumatic Eyes PERRL and EOMs intact bilaterally Neck supple Neck Narrative: Mild C-spine tenderness. No step-offs. Chest Wall inspection of chest normal and palpation of chest normal Resp normal respiratory effort and clear to auscultation bilaterally Cardio regular rate and regular rhythm GI normal to inspection, nondistended, normoactive bowel sounds Palpation: soft Extremity Extremity Narrative: Mild tenderness of the greater trochanter of the left hip. Equal leg lengths noted. Mild tenderness with logroll. Abrasions noted over the lateral malleolus of the left ankle with appropriate tenderness to palpation. Early ecchymosis and edema noted over the fourth and fifth metatarsals. Good cap refill distally and normal sensation. Neuro oriented x3 and no sensory deficits noted Sensorium / Orientation: alert Psych mental status grossly normal Skin Skin Narrative: Abrasions as noted above. MDM MDM MDM Narrative Medical decision making narrative: Patient given [place] for pain. CT scan of the head and C-spine obtained given her complaints of pain after her fall. X-rays of the pelvis and left hip, left ankle, and left foot obtained due to concern for fracture. Radiography Diagnostic Testing: Clinical Impression(s) from Imaging Studies Brain CT 09/02/22 18:09 IMPRESSION: Normal unenhanced CT scan of the brain. Electronically Signed: Maile Newberry MD at 19:02 EDT Reading Location ID and State: Marco Gallo MD Tel , Service support , Cervical Spine CT 09/02/22 18:09 IMPRESSION: No evidence of acute cervical spinal fracture or spondylolisthesis. Electronically Signed: Maile Newberry MD at 19:07 EDT Reading Location ID and State: Marco Gallo MD Tel , Service support , Ankle X-Ray 09/02/22 18:40 IMPRESSION: Negative. Electronically Signed: Maile Newberry MD at 19:08 EDT Reading Location ID and State: Marco Gallo MD Tel , Service support , Foot X-Ray 09/02/22 18:40 IMPRESSION: Negative. Electronically Signed: Maile Newberry MD at 19:14 EDT Reading Location ID and State: Marco Gallo MD Tel , Service support , Hip/Pelvis X-Ray 09/02/22 18:40 IMPRESSION: No evidence of displaced pelvic or hip fracture. Electronically Signed: Maile Newberry MD at 19:12 EDT Reading Location ID and State: Marco Gallo MD Tel , Service support , Treatment and Re-Evaluation Narrative: CT scan of the head and C-spine read by radiology with no evidence of acute injury. Pelvis and left hip x-ray per my interpretation reveals no evidence of acute fracture. Left ankle x-ray per my interpretation reveals no fracture. Left foot x-ray per my interpretation reveals no fracture. Radiology interpretation is reviewed on all studies and they agree that there is no evidence of acute fracture at this time. Test results are discussed with the patient. Nursing staff is able to get her up with crutches. She will be given [place] for home. Left ankle abrasions will be cleansed and Ranjeet wrap applied. Discharge Plan Triage Chief Complaint: Fall ED Provider: Marnie Hardy Dx/Rx/DC Orders Clinical Impression: Fall, Contusion of hip, left, Left ankle sprain, Sprain of left foot Instructions: ED Mechanical Fall, ED Foot Sprain, ED Hip Contusion, ED Ankle Sprain (Adult) Prescriptions: New hydrocodone-acetaminophen 5-325 mg tablet 1 tab PO Q6H PRN PRN (Reason: Pain) 3 Days Qty: 10 0RF No Action aripiprazole 10 mg tablet 10 mg PO DAILY Label Comments: TAKE ONE HALF (0.5) TABLET BY MOUTH TWICE A DAY prazosin 2 mg capsule 1 cap PO DAILY hydroxyzine pamoate 50 mg capsule 50 mg PO TID Label Comments: TAKE 1 CAPSULE BY MOUTH THREE TIMES A DAY NEEDED doxycycline hyclate 100 mg capsule 100 mg PO BID Qty: 14 0RF dextromethorphan-guaifenesin 5-100 mg/5 mL liquid 10 ml PO Q8H PRN (Reason: cough) Qty: 180 0RF nicotine 14 mg/24 hr patch 24 hour 1 patch transdermal DAILY Qty: 28 2RF clonazepam [Klonopin] 0.5 mg Tablet 0.5 mg PO BID clonazepam [Klonopin] 1 mg Tablet 1 mg PO DAILY risperidone 3 mg Tablet 3 mg PO QHS mirtazapine [Remeron] 30 mg Tablet 45 mg PO QHS buspirone 15 mg tablet 15 mg PO TID clindamycin-benzoyl peroxide 1.2 %(1 % base) -5 % gel 1 applic topical DAILY Qty: 45 0RF nicotine (polacrilex) 2 mg gum 2 mg buccal Q2H Qty: 100 0RF ibuprofen 600 mg tablet 600 mg PO Q8H PRN (Reason: pain) Qty: 90 0RF fluticasone propion-salmeterol [Wixela Inhub] 250-50 mcg/dose blister with device 1 inh inhalation BID Qty: 60 1RF gabapentin 800 mg tablet 800 mg PO TID Qty: 90 0RF Rx Instructions: Start 4/2 albuterol sulfate 90 mcg/actuation HFA aerosol inhaler 2 puff inhalation Q6H PRN (Reason: shortness of breath or wheezing) Qty: 6.7 1RF tizanidine 4 mg tablet 4 mg PO Q8H PRN (Reason: pain) Qty: 90 0RF Primary Care Provider: Gege Rivero Referrals: Gege Rivero MD [Primary Care Provider] - 1 Week Disposition Disposition: Home, Self Care
[2022-09-02] MEDS: HYDROcodone Bitartrate/Apap 5/325 Tablet PO (18:25)
--- NOTE | 2022-09-02 18:40 | RAD_ITS ---
INDICATION: fall EXAMINATION/TECHNIQUE: X-RAY - XR Hip Unilateral with Pelvis when performed; 2-3 Views COMPARISON: None. FINDINGS: No acute fracture or dislocation. No destructive bone changes. Joint spaces are well-maintained. Normal alignment. Soft tissues are unremarkable. No radiopaque foreign body or soft tissue gas. RAD/HIP, UNI W/ Pelvis 2-3 Views IMPRESSION: No evidence of displaced pelvic or hip fracture. Electronically Signed: Maile Newberry MD at 19:12 EDT Reading Location ID and State: [id number] / Tel , Service support ,
--- NOTE | 2022-09-02 18:40 | RAD_ITS ---
INDICATION: fall EXAMINATION/TECHNIQUE: X-RAY - LEFT XR Foot Min 3 Views 3 VIEWS COMPARISON: None. FINDINGS: No acute fracture or dislocation. No destructive bone changes. Joint spaces are well-maintained. Normal alignment. Soft tissues are unremarkable. No radiopaque foreign body or soft tissue gas. RAD/Foot min 3 Views IMPRESSION: Negative. Electronically Signed: Maile Newberry MD at 19:14 EDT Reading Location ID and State: [id number] / Tel , Service support ,
--- NOTE | 2022-09-02 18:40 | RAD_ITS ---
INDICATION: fall EXAMINATION/TECHNIQUE: X-RAY - LEFT XR Ankle Min 3 Views 3 VIEWS COMPARISON: None. FINDINGS: No acute fracture or dislocation. No destructive bone changes. Joint spaces are well-maintained. Normal alignment. Soft tissues are unremarkable. No radiopaque foreign body or soft tissue gas. RAD/Ankle min 3 Views IMPRESSION: Negative. Electronically Signed: Maile Newberry MD at 19:08 EDT Reading Location ID and State: [id number] / Tel , Service support ,
[2022-09-02 18:56] VITALS: BP 108/64; PULSE 56; RESP 18; O2SAT 96
[2022-09-02 19:47] VITALS: BP 124/65; PULSE 74; RESP 18; O2SAT 98
== END 2022-09-02 19:48 | disposition home or self-care (01) ==
PROVIDERS: Emergency Provider Emergency Medicine; PCP Internal Medicine; Visit Provider Emergency Medicine
DX: S93.402A Sprain of unspecified ligament of left ankle, initial encounter (principal); J43.9 Emphysema, unspecified; R51.9 Headache, unspecified; E78.5 Hyperlipidemia, unspecified; S70.02XA Contusion of left hip, initial encounter; W19.XXXA Unspecified fall, initial encounter
CPT/HCPCS: 70450; 72125; 73502; 73610; 73630; 99284

== ENCOUNTER 2022-11-08 15:01 | Inpatient (IN) | payer MEDICARE, MEDICAID, SELFPAY ==
[2022-11-08 15:04] VITALS: BP 107/54; PULSE 56; RESP 18; TEMP 36.8; O2SAT 100; BMI 34.4
--- NOTE | 2022-11-08 15:17 | EKG12_ITS ---
Test Reason : RECTAL BLEED Blood Pressure : / mmHG Vent. Rate : 053 BPM Atrial Rate : 053 BPM P-R Int : 150 ms QRS Dur : 084 ms QT Int : 474 ms P-R-T Axes : 060 065 062 degrees QTc Int : 444 ms Sinus bradycardia Low voltage QRS Borderline ECG Confirmed by TESS MANCINI, VINOD ([id number]), manager editorial ARMANDO MEDRANO ([id number]) on 11/11/2022 10:02:52 A M Referred By: LUCILA Confirmed By:JANE PULIDO MD
--- NOTE | 2022-11-08 15:17 | CT_ITS ---
INDICATION: abdominal pain WITH RECTAL BLEEDING EXAMINATION: CT ABDOMEN AND PELVIS WITHOUT CONTRAST - CT Abdomen And Pelvis W/O Contrast Injection TECHNIQUE: Helically acquired images were obtained of the abdomen and pelvis without oral or IV contrast. A radiation dose optimization technique was used for this scan. IV Contrast dosage and agent: None. Oral contrast: None. COMPARISON: None. FINDINGS: LOWER CHEST: Lung bases are clear. No cardiomegaly or pericardial effusion. LIVER: Enlargement to 20 cm. No focal mass. GALLBLADDER AND BILIARY TREE: Cholecystectomy. No intra- or extrahepatic biliary ductal dilation. PANCREAS: No focal cystic or solid mass. SPLEEN: Normal size without focal cystic or solid mass. Small accessory splenule. ADRENAL GLANDS: No nodules. KIDNEYS AND URETERS: Nonobstructing left renal calculus. No hydronephrosis bilaterally. PERITONEUM: No ascites or free air. BOWEL: Prior appendectomy changes. No stomach or bowel distension. No focal inflammatory change. Trace amount of high attenuation material in the distal descending and rectosigmoid colon without demonstration of definite focus of origin. 6 mm focus of high attenuation material in the posterior wall of the rectum. LYMPH NODES: No enlarged mesenteric or retroperitoneal lymph nodes. VESSELS: Aorta is non-dilated. URINARY BLADDER: Unremarkable. REPRODUCTIVE ORGANS: Uterus absent. 3.5 cm right ovarian cyst. ABDOMINAL WALL: Small fat-containing umbilical hernia. BONES: Healing fracture right inferior pubic ramus. CT/Abdomen/Pelvis without Cont IMPRESSION: Possible small hemorrhagic focus in the posterior wall of the rectum. Radiodense material seen faintly throughout the distal colon may indicate hemorrhagic contents or ingested medication, no focus of acute hemorrhage demonstrated above the rectum. 3.5 cm right ovarian cyst. Healing fracture right inferior pubic ramus. Electronically Signed: Jeison Hdz MD at 17:33 EDT ,
--- NOTE | 2022-11-08 15:19 | EX.ED.DYSGE1 ---
HPI History of Present Illness Chief Complaint: GI Bleed Narrative Narrative: Patient presents with bright red blood per rectum this morning and lower abdominal pain. She tells me she has a history of GI bleed with prior transfusions. She tells me she feels lightheaded. She did mention that over the past few days her stools have been darker but not quite black. She is not on iron pills she is not anticoagulated. She has no fevers or chills. The blood this morning when she woke up was bright red blood but had quite a few clots without stool. [facility] Medical History Anemia Anxiety Arthritis Collapsed lung COPD (chronic obstructive pulmonary disease) Depression Emphysema lung Former smoker History of blood clots History of gallstones Hyperlipidemia Intractable vomiting Kidney stones Migraines Neuropathy Obesity Paranoia Pneumonia Home Medications clonazepam 0.5 mg tablet (Klonopin) 0.5 mg PO BID 12/25/20 [History Last Taken Unknown] clonazepam 1 mg tablet (Klonopin) 1 mg PO DAILY 12/25/20 [History Last Taken Unknown] mirtazapine 30 mg tablet (Remeron) 45 mg PO QHS 12/25/20 [History Last Taken Unknown] risperidone 3 mg tablet 3 mg PO QHS 12/25/20 [History Last Taken Unknown] buspirone 15 mg tablet 15 mg PO TID 10/20/21 [History Last Taken Unknown] aripiprazole 10 mg tablet 10 mg PO DAILY 11/15/21 [History Last Taken Unknown] hydroxyzine pamoate 50 mg capsule 50 mg PO TID 11/15/21 [History Last Taken Unknown] prazosin 2 mg capsule 1 cap PO DAILY 11/15/21 [History Last Taken Unknown] dextromethorphan-guaifenesin 5 mg-100 mg/5 mL oral liquid 10 ml PO Q8H PRN cough #180 mL 03/14/22 [Rx Last Taken Unknown] doxycycline hyclate 100 mg capsule 100 mg PO BID #14 caps 03/14/22 [Rx Last Taken Unknown] clindamycin 1.2 % (1 % base)-benzoyl peroxide 5 % topical gel 1 applic topical DAILY #45 grams 05/05/22 [Rx Last Taken Unknown] nicotine 14 mg/24 hr daily transdermal patch 1 patch transdermal DAILY #28 ea 06/27/22 [Rx Last Taken Unknown] nicotine (polacrilex) 2 mg gum 2 mg buccal Q2H #100 ea 06/29/22 [Rx Last Taken Unknown] hydrocodone-acetaminophen 5-325mg 5mg-325mg 1 tab PO Q6H PRN PRN Pain 3 days #10 TABLETS 09/02/22 [Rx Last Taken Unknown] fluticasone 250 mcg-salmeterol 50 mcg/dose blistr powdr for inhalation (Wixela Inhub) 1 inh inhalation BID #60 ea 10/06/22 [Rx Last Taken Unknown] gabapentin 800 mg tablet 800 mg PO TID #90 tabs 10/25/22 [Rx Last Taken Unknown] ibuprofen 600 mg tablet 600 mg PO Q8H PRN pain #90 tabs 10/26/22 [Rx Last Taken Unknown] albuterol sulfate 90 mcg/actuation aerosol inhaler 2 puff inhalation Q6H PRN shortness of breath or wheezing #6.7 grams 11/02/22 [Rx Last Taken Unknown] tizanidine 4 mg tablet 4 mg PO Q8H PRN pain #90 tabs 11/07/22 [Rx Last Taken Unknown] Allergy/AdvReac Type Severity Reaction Status Date / Time bee venom protein (honey bee) Allergy Anaphylaxis Verified 09/02/22 18:04 ketorolac [From Toradol] Allergy Rash Verified 09/02/22 18:04 nifedipine [From Procardia] Allergy Swelling Verified 09/02/22 18:04 Penicillins Allergy Swelling Verified 09/02/22 18:04 strawberry Allergy Rash Verified 09/02/22 18:04 tramadol Allergy Hives Verified 09/02/22 18:04 Family History Mother Asthma Anxiety Depression Myocardial infarction, Onset Age: 38 Heart disease High cholesterol Grandmother Cancer Sister Cancer Surgical History H/O spinal fusion History of appendectomy History of cholecystectomy History of partial hysterectomy History of tracheostomy Status post insertion of percutaneous endoscopic gastrostomy (PEG) tube Social History household members: spouse and children number of children: 1 current occupational status: disabled current occupation: due to back Smoking Status: Current every day smoker tobacco type: cigarettes alcohol intake: never substance use type: does not use what type of physical activity do you participate in: none do you feel safe at home: Yes ROS ROS ED ROS Narrative Past medical history: Reviewed Medications: Reviewed Social history: Noncontributory Review of systems: All systems negative except as indicated General: Lightheaded ENT: No upper airway congestion, normal voice Neck: No neck pain Cardiovascular: No chest pain Respiratory: No shortness of breath or cough Gastrointestinal: As in HPI Genitourinary: No dysuria Musculoskeletal: Denies myalgias no difficulty with ambulation Skin: No rash EXAM Physical Exam Narrative Exam Narrative: Physical exam General: Patient appears somewhat uncomfortable Head: Normocephalic, Atraumatic Eyes: Conjunctiva not pale ENT: Moist mucous membranes Neck: Supple, Nontender, No lymphadenopathy Cardiovascular: Regular rate, Regular rhythm Respiratory: No distress, CTA bilaterally Abdomen: Soft, bilateral lower abdominal pain without any guarding or rebound Back: Nontender, Normal Inspection. Negative for: CVA tenderness Extremities: Nontender, No edema Skin: I do not appreciate any pallor. Const Vital Signs: 11/08/22 15:04 11/08/22 16:49 Temperature 98.3 F Temperature Source Temporal Pulse Rate 56 L 55 L Respiratory Rate 18 16 Blood Pressure 107/54 L 105/69 Blood Pressure Mean 71 81 Pulse Ox 100 97 Oxygen Delivery Method Room Air Room Air MDM MDM MDM Narrative Medical decision making narrative: Patient has slight anemia compared to baseline she is about a gram below normal, hemoglobin is 10.7 here. Coags are unremarkable rest of the blood work is unremarkable here. The CT does show an area of possible hemorrhage focus in the posterior rectum. I talked to Dr. Mark SHIRLEY who will see the patient in the hospital she continues to bleed therefore I will admit her. She continues to have abdominal pain and has gotten 2 doses of opiate analgesics today. I thought about colitis however this is unfounded on CT, thought about upper GI bleed however she has bright red blood per rectum. I will discuss with the hospitalist for admission Lab Data Labs: Laboratory Results - last 24 hr 11/08/22 11/08/22 11/08/22 16:12 16:12 16:12 WBC 6.1 RBC 3.80 L Hgb 10.7 L Hct 33.2 L MCV 87.4 MCH 28.2 MCHC 32.2 RDW Std Deviation 46.6 H RDW Coeff of [place] 14.5 Plt Count 224 MPV 9.7 Immature Gran % (Auto) 0.200 Neut % (Auto) 51.8 Lymph % (Auto) 37.3 [place] % (Auto) 5.9 Eos % (Auto) 4.1 Baso % (Auto) 0.7 Absolute Neuts (auto) 3.2 Absolute Lymphs (auto) 2.28 Nucleated RBC % 0 PT 13.5 INR 1.0 Sodium 143 Potassium 3.6 Chloride 115 H Carbon Dioxide 25.0 Anion Gap 3 L BUN 7 Creatinine 0.68 Estim Creat Clear Calc 94.02 Est GFR (MDRD) Af Amer 123 Est GFR (MDRD) Non-Af 102 BUN/Creatinine Ratio 10.4 Glucose 79 Calcium 8.1 L Total Bilirubin 0.20 AST 15 ALT 11 L Alkaline Phosphatase 80 Total Protein 6.2 L Albumin 3.3 Globulin 2.9 Albumin/Globulin Ratio 1.1 Blood Type Antibody Screen 11/08/22 16:12 WBC RBC Hgb Hct MCV MCH MCHC RDW Std Deviation RDW Coeff of [place] Plt Count MPV Immature Gran % (Auto) Neut % (Auto) Lymph % (Auto) [place] % (Auto) Eos % (Auto) Baso % (Auto) Absolute Neuts (auto) Absolute Lymphs (auto) Nucleated RBC % PT INR Sodium Potassium Chloride Carbon Dioxide Anion Gap BUN Creatinine Estim Creat Clear Calc Est GFR (MDRD) Af Amer Est GFR (MDRD) Non-Af BUN/Creatinine Ratio Glucose Calcium Total Bilirubin AST ALT Alkaline Phosphatase Total Protein Albumin Globulin Albumin/Globulin Ratio Blood Type A POSITIVE Antibody Screen NEGATIVE Radiography Diagnostic Testing: Clinical Impression(s) from Imaging Studies Abdomen/Pelvis CT 11/08/22 15:17 IMPRESSION: Possible small hemorrhagic focus in the posterior wall of the rectum. Radiodense material seen faintly throughout the distal colon may indicate hemorrhagic contents or ingested medication, no focus of acute hemorrhage demonstrated above the rectum. 3.5 cm right ovarian cyst. Healing fracture right inferior pubic ramus. Electronically Signed: Jeison Hdz MD at 17:33 EDT , Discharge Plan Triage Chief Complaint: GI Bleed ED Provider: Jimmie Sen Dx/Rx/DC Orders Clinical Impression: Acute GI bleeding, Intractable abdominal pain, Acute blood loss anemia Prescriptions: No Action aripiprazole 10 mg tablet 10 mg PO DAILY Label Comments: TAKE ONE HALF (0.5) TABLET BY MOUTH TWICE A DAY prazosin 2 mg capsule 1 cap PO DAILY hydroxyzine pamoate 50 mg capsule 50 mg PO TID Label Comments: TAKE 1 CAPSULE BY MOUTH THREE TIMES A DAY NEEDED doxycycline hyclate 100 mg capsule 100 mg PO BID Qty: 14 0RF dextromethorphan-guaifenesin 5-100 mg/5 mL liquid 10 ml PO Q8H PRN (Reason: cough) Qty: 180 0RF nicotine 14 mg/24 hr patch 24 hour 1 patch transdermal DAILY Qty: 28 2RF clonazepam [Klonopin] 0.5 mg Tablet 0.5 mg PO BID clonazepam [Klonopin] 1 mg Tablet 1 mg PO DAILY risperidone 3 mg Tablet 3 mg PO QHS mirtazapine [Remeron] 30 mg Tablet 45 mg PO QHS buspirone 15 mg tablet 15 mg PO TID hydrocodone-acetaminophen 5-325 mg tablet 1 tab PO Q6H PRN PRN (Reason: Pain) 3 Days Qty: 10 0RF clindamycin-benzoyl peroxide 1.2 %(1 % base) -5 % gel 1 applic topical DAILY Qty: 45 0RF nicotine (polacrilex) 2 mg gum 2 mg buccal Q2H Qty: 100 0RF fluticasone propion-salmeterol [Wixela Inhub] 250-50 mcg/dose blister with device 1 inh inhalation BID Qty: 60 1RF gabapentin 800 mg tablet 800 mg PO TID Qty: 90 0RF Rx Instructions: Start 6/2 ibuprofen 600 mg tablet 600 mg PO Q8H PRN (Reason: pain) Qty: 90 0RF albuterol sulfate 90 mcg/actuation HFA aerosol inhaler 2 puff inhalation Q6H PRN (Reason: shortness of breath or wheezing) Qty: 6.7 1RF tizanidine 4 mg tablet 4 mg PO Q8H PRN (Reason: pain) Qty: 90 0RF Primary Care Provider: Gege Rivero Referrals: Gege Rivero MD [Primary Care Provider] - Disposition Disposition: Acute Care Hospital [facility]
[2022-11-08] MEDS: Morphine 4 MG/ML Syringe IV ×2 (15:54→17:26)
[2022-11-08] MEDS: Ondansetron 4 MG/2 ML Vial IV ×3 (15:54→21:17)
[2022-11-08 16:20] LABS: Absolute Lymphocyte Count 2.28 X10^3/uL (0.83-4.51); Absolute Neutrophil Count 3.2 X10^3/uL (2.0-7.7); Basophil# 0.04 X10^3/uL; Basophil% 0.7 % (0-1); Eosinophil# 0.25 X10^3/uL; Eosinophils% 4.1 % (0-5); Hematocrit 33.2 % (37-47); Hemoglobin 10.7 g/dL (12.0-15.0); Lymphocyte # 2.28 X10^3/ul (0.83-4.51); Lymphocyte % 37.3 % (19-41); Mean Corp Hgb Conc 32.2 g/dL (32-36); Mean Corpuscular Hgb 28.2 pg (27.0-32.0); Mean Corpuscular Volume 87.4 fL (81-99); Mean Platelet Vol. 9.7 fl (6.2-12.0); Monocyte# 0.36 X10^3/uL; Monocyte% 5.9 % (0-10); NRBC Flagged by Analyzer 0 % (0-5); Neutrophil # 3.17 X10^3/uL (2.7-7.7); Neutrophil % 51.8 % (47-70); Platelet Count 224 K/mm3 (150-450); RBC Distribution Width CV 14.5 % (11.6-14.6); RBC Distribution Width SD 46.6 fl (35.1-43.9); White Blood Count 6.1 K/mm3 (4.4-11.0)
[2022-11-08 16:32] LABS: Prothrombin Time (Protime)PT. 13.5 SECONDS (11.7-14.9)
[2022-11-08 16:37] LABS: ALB/GLOB Ratio 1.1 RATIO (0.9-2.4); AST(SGOT) 15 U/L (15-37); Alanine Aminotransfer ALT/SGPT 11 U/L (13-56); Albumin, Serum 3.3 g/dL (3.2-5.0); Alkaline Phosphatase 80 U/L (45-117); Anion Gap 3 (5-15); BUN 7 mg/dL (7-18); BUN/Creat Ratio 10.4 RATIO (10-20); Calcium,Total 8.1 mg/dL (8.5-10.1); Chloride 115 mmol/L (98-107); Creatinine, Serum 0.68 mg/dL (0.55-1.02); EST Glomerular Filtration Rate 102 mL/min (>60); Est Glom Filt Rate - Afr Amer 123 mL/min (>60); Estimated Creatinine Clearance 94.02 ml/min; Globulin 2.9 g/dL (2.2-4.2); Glucose 79 mg/dL (74-106); Potassium 3.6 mmol/L (3.5-5.1); Protein, Total 6.2 g/dL (6.4-8.2); Sodium Level 143 mmol/L (136-145)
[2022-11-08 16:49] VITALS: BP 105/69; PULSE 55; RESP 16; O2SAT 97
[2022-11-08 18:49] VITALS: BP 94/64; PULSE 73; RESP 14; TEMP 36.8; O2SAT 96
--- NOTE | 2022-11-08 19:32 | PCM.HP.STD ---
HPI - General General Date of Admission: 11/08/22 Date of Service: 11/08/22 Chief Complaint: Bright red blood per rectum HPI Narrative MARII WATERS, is a 42 F with a history of anxiety and depression, morbid obesity and hyperlipidemia and who presents to the hospital today with 2 episodes of bright red bleeding per rectum. Patient states she did not have a bowel movement but which was bleeding from the rectum. Patient also having abdominal pain mostly in the lower abdomen. Describes this as stabbing and severe. Denies any mucus with bloody stools. Did not report any fever or chills. [facility] Medical History Anemia Anxiety Arthritis Collapsed lung COPD (chronic obstructive pulmonary disease) Depression Emphysema lung Former smoker History of blood clots History of gallstones Hyperlipidemia Intractable vomiting Kidney stones Migraines Neuropathy Obesity Paranoia Pneumonia Home Medications clonazepam 0.5 mg tablet (Klonopin) 0.5 mg PO BID Check with primary doctor 12/25/20 [History Last Taken Unknown] clonazepam 1 mg tablet (Klonopin) 1 mg PO DAILY Check with primary doctor 12/25/20 [History Last Taken Unknown] mirtazapine 30 mg tablet (Remeron) 45 mg PO QHS Check with primary doctor 12/25/20 [History Last Taken Unknown] risperidone 3 mg tablet 3 mg PO QHS Check with primary doctor 12/25/20 [History Last Taken Unknown] buspirone 15 mg tablet 15 mg PO TID 10/20/21 [History Last Taken Unknown] aripiprazole 10 mg tablet 10 mg PO DAILY 11/15/21 [History Last Taken Unknown] hydroxyzine pamoate 50 mg capsule 50 mg PO TID Check with primary doctor 11/15/21 [History Last Taken Unknown] prazosin 2 mg capsule 1 cap PO DAILY Check with primary doctor 11/15/21 [History Last Taken Unknown] ibuprofen 600 mg tablet 600 mg PO Q8H PRN pain #90 tabs 10/26/22 [Rx Last Taken Unknown] albuterol sulfate 90 mcg/actuation aerosol inhaler 2 puff inhalation Q6H PRN shortness of breath or wheezing #6.7 grams 11/02/22 [Rx Last Taken Unknown] tizanidine 4 mg tablet 4 mg PO Q8H PRN pain #90 tabs 11/07/22 [Rx Last Taken Unknown] fluticasone 250 mcg-salmeterol 50 mcg/dose blistr powdr for inhalation (Wixela Inhub) 1 inh inhalation BID Check with primary doctor 11/08/22 [History Last Taken Unknown] gabapentin 800 mg tablet 800 mg PO TID Check with primary doctor 11/08/22 [History Last Taken Unknown] nicotine (polacrilex) 2 mg gum 2 mg buccal Q2H Check with primary doctor 11/08/22 [History Last Taken Unknown] nicotine 14 mg/24 hr daily transdermal patch 1 patch transdermal DAILY Check with primary doctor 11/08/22 [History Last Taken Unknown] Allergy/AdvReac Type Severity Reaction Status Date / Time Penicillins Allergy Severe Anaphylaxis Verified 11/08/22 19:37 bee venom protein (honey bee) Allergy Anaphylaxis Verified 11/08/22 19:37 ketorolac [From Toradol] Allergy Rash Verified 11/08/22 19:37 nifedipine [From Procardia] Allergy Swelling Verified 11/08/22 19:37 strawberry Allergy Rash Verified 11/08/22 19:37 tramadol Allergy Hives Verified 11/08/22 19:37 Family History Mother Asthma Anxiety Depression Myocardial infarction, Onset Age: 38 Heart disease High cholesterol Grandmother Cancer Sister Cancer Surgical History H/O spinal fusion History of appendectomy History of cholecystectomy History of partial hysterectomy History of tracheostomy Status post insertion of percutaneous endoscopic gastrostomy (PEG) tube Social History household members: spouse and children number of children: 1 current occupational status: disabled current occupation: due to back Smoking Status: Current every day smoker tobacco type: cigarettes alcohol intake: never substance use type: does not use what type of physical activity do you participate in: none do you feel safe at home: Yes ROS ROS Narrative Did not report any chest pain or shortness of breath. Noted the maculopapular Malar rash which patient states is new. All other systems reviewed and essentially negative as above in the body of the history. Vital Signs Vital Signs Vital Signs: 11/08/22 15:04 11/08/22 16:49 11/08/22 18:49 Temperature 36.8 C 36.8 C Temperature Source Temporal Oral Pulse Rate 56 L 55 L 73 Respiratory Rate 18 16 14 Blood Pressure 107/54 L 105/69 94/64 Blood Pressure Mean 71 81 74 Pulse Ox 100 97 96 Oxygen Delivery Method Room Air Room Air Room Air Weight Weight: 90.9 kg Body Mass Index (BMI) 34.4 Physical Exam Narrative General exam. Young lady, morbidly obese, in some painful distress HEENT. Bilateral conjunctival injection, oral mucosa moist. Maculopapular Malar rash noted. Neck. Neck supple Heart. First and second heart sounds heard no murmurs. Lungs. Clear to auscultation Abdomen. Obese, significant tenderness in the lower half of the abdomen, no guarding. Extremities. No pedal edema. [employer]. Conscious alert and oriented x3. Cranial nerves II to XII grossly intact. Results Medical Records Data Attestation: I reviewed the patient's medical records Lab / Micro Data Attestation: I reviewed the patient's lab results. Result Diagrams: 11/08/22 16:12 11/08/22 16:12 Labs: Laboratory Results - last 24 hr 11/08/22 16:12: WBC 6.1, RBC 3.80 L, Hgb 10.7 L, Hct 33.2 L, MCV 87.4, MCH 28.2, MCHC 32.2, RDW Std Deviation 46.6 H, RDW Coeff of [place] 14.5, Plt Count 224, MPV 9.7, Immature Gran % (Auto) 0.200, Neut % (Auto) 51.8, Lymph % (Auto) 37.3, [place] % (Auto) 5.9, Eos % (Auto) 4.1, Baso % (Auto) 0.7, Absolute Neuts (auto) 3.2, Absolute Lymphs (auto) 2.28, Nucleated RBC % 0 11/08/22 16:12: PT 13.5, INR 1.0 11/08/22 16:12: Sodium 143, Potassium 3.6, Chloride 115 H, Carbon Dioxide 25.0, Anion Gap 3 L, BUN 7, Creatinine 0.68, Estim Creat Clear Calc 94.02, Est GFR (MDRD) Af Amer 123, Est GFR (MDRD) Non-Af 102, BUN/Creatinine Ratio 10.4, Glucose 79, Calcium 8.1 L, Total Bilirubin 0.20, AST 15, ALT 11 L, Alkaline Phosphatase 80, Total Protein 6.2 L, Albumin 3.3, Globulin 2.9, Albumin/Globulin Ratio 1.1 11/08/22 16:12: Blood Type A POSITIVE, Antibody Screen NEGATIVE Radiology Impression Abdomen/Pelvis CT 11/08/22 15:17 IMPRESSION: Possible small hemorrhagic focus in the posterior wall of the rectum. Radiodense material seen faintly throughout the distal colon may indicate hemorrhagic contents or ingested medication, no focus of acute hemorrhage demonstrated above the rectum. 3.5 cm right ovarian cyst. Healing fracture right inferior pubic ramus. Electronically Signed: Jeison Hdz MD at 17:33 EDT , Assessment & Plan Assessment/Plan (1) Acute GI bleeding: PLAN: Plan 1. Bright red blood per rectum along with lower abdominal pain. Suspect infectious or noninfectious colitis. CT of the abdomen was done without contrast. We will do CT of the abdomen and pelvis for better definition. Consult gastroenterology. Keep on clear liquids. May need colonoscopy. Consider empiric antibiotics, analgesics for pain. Supportive care. Check sed rate and CRP. Possible new onset inflammatory bowel disease. Charges/Coding Visit Charges Inpatient E&M: 55274 Init Hosp L3
[2022-11-08 20:58] VITALS: BMI 33.6
[2022-11-08 21:04] VITALS: BP 110/70; PULSE 67; RESP 17; TEMP 36.6; O2SAT 95
[2022-11-08] MEDS: Lactated Ringers 1,000 ML 999 ML IV (21:08)
[2022-11-08] MEDS: Morphine 2 MG/ML Syringe IV (21:17)
[2022-11-08] MEDS: Gabapentin 800 MG Tablet PO (21:23)
[2022-11-08] MEDS: Acetaminophen 500 MG Tablet 1000 MG PO (21:23)
[2022-11-08] MEDS: Mirtazapine 30 MG Tablet 45 MG PO (21:23)
[2022-11-08] MEDS: hydrOXYzine PAM 25 MG Capsule 50 MG PO (21:23)
[2022-11-08] MEDS: clonazePAM 0.5 MG Tablet PO (21:23)
[2022-11-08] MEDS: busPIRone 15 MG TABLET PO (21:23)
[2022-11-08] MEDS: RisperiDONE 2 MG Tablet 3 MG PO (21:24)
[2022-11-09] VITALS (7 sets, daily range): BP systolic 104–126; BP diastolic 60–92; PULSE 59–86; RESP 16–20; TEMP 36.2–36.9; O2SAT 95–98; BMI 33.6
[2022-11-09] MEDS: Morphine 2 MG/ML Syringe IV ×7 (01:33→21:35)
[2022-11-09] MEDS: 0.9% Saline Lock 10 ML Syringe IV ×6 (01:33→21:36)
[2022-11-09] MEDS: proCHLORPERazine 10 MG/2 ML Vial 4 MG IV ×2 (05:00→21:35)
[2022-11-09] MEDS: Acetaminophen 500 MG Tablet 1000 MG PO ×3 (05:03→21:37)
[2022-11-09] MEDS: Gabapentin 800 MG Tablet PO ×3 (05:03→21:35)
[2022-11-09] MEDS: busPIRone 15 MG TABLET PO ×3 (05:03→21:38)
[2022-11-09] MEDS: hydrOXYzine PAM 25 MG Capsule 50 MG PO ×3 (05:04→21:35)
[2022-11-09 07:09] LABS: Absolute Lymphocyte Count 2.23 X10^3/uL (0.83-4.51); Absolute Neutrophil Count 1.9 X10^3/uL (2.0-7.7); Basophil# 0.02 X10^3/uL; Basophil% 0.4 % (0-1); Eosinophils% 4.2 % (0-5); Hematocrit 35.6 % (37-47); Lymphocyte # 2.23 X10^3/ul (0.83-4.51); Lymphocyte % 47.2 % (19-41); Mean Corp Hgb Conc 30.9 g/dL (32-36); Mean Corpuscular Hgb 28.4 pg (27.0-32.0); Mean Platelet Vol. 9.6 fl (6.2-12.0); Monocyte# 0.33 X10^3/uL; NRBC Flagged by Analyzer 0 % (0-5); Neutrophil # 1.93 X10^3/uL (2.7-7.7); Platelet Count 211 K/mm3 (150-450); RBC Distribution Width CV 14.9 % (11.6-14.6); RBC Distribution Width SD 50.4 fl (35.1-43.9); Red Blood Count 3.87 M/mm3 (4.2-5.4); White Blood Count 4.7 K/mm3 (4.4-11.0)
--- NOTE | 2022-11-09 07:18 | PCM.PN.HOSP ---
Reason for Visit Reason for Visit: Diagnoses Gastrointestinal hemorrhage, unspecified (11/08/22) Subjective Subjective Patient is a 42-year-old female who presented with bright red blood per rectum and lower abdominal pain CT of the abdomen and pelvis obtained did demonstrate possible small hemorrhagic focus in the posterior wall of the rectum as well as radiodense material seen fairly throughout the distal colon. Admitted to regular nursing floor consult placed to GI Objective Data Objective Data Vital Signs: Vital Signs Temp Pulse Resp BP Pulse Ox O2 Del Method 97.6 F L 61 18 104/69 95 Room Air 11/09/22 04:00 11/09/22 04:00 11/09/22 04:00 11/09/22 04:00 11/09/22 04:00 11/09/22 04:00 Oxygen Delivery Method Room Air Weight: 88.9 kg Body Mass Index (BMI) 33.6 Intake & Output: Intake and Output for Last 24 Hours 11/07/22 11/08/22 11/09/22 23:59 23:59 23:59 Intake Total 1000 / 1000 Balance 1000 / 1000 Lab / Micro Data Result Diagrams: 11/09/22 06:46 11/09/22 06:46 Labs: Laboratory Results - last 24 hr 11/08/22 16:12: WBC 6.1, RBC 3.80 L, Hgb 10.7 L, Hct 33.2 L, MCV 87.4, MCH 28.2, MCHC 32.2, RDW Std Deviation 46.6 H, RDW Coeff of Tennille 14.5, Plt Count 224, MPV 9.7, Immature Gran % (Auto) 0.200, Neut % (Auto) 51.8, Lymph % (Auto) 37.3, [place] % (Auto) 5.9, Eos % (Auto) 4.1, Baso % (Auto) 0.7, Absolute Neuts (auto) 3.2, Absolute Lymphs (auto) 2.28, Nucleated RBC % 0 11/08/22 16:12: PT 13.5, INR 1.0 11/08/22 16:12: Sodium 143, Potassium 3.6, Chloride 115 H, Carbon Dioxide 25.0, Anion Gap 3 L, BUN 7, Creatinine 0.68, Estim Creat Clear Calc 94.02, Est GFR (MDRD) Af Amer 123, Est GFR (MDRD) Non-Af 102, BUN/Creatinine Ratio 10.4, Glucose 79, Calcium 8.1 L, Total Bilirubin 0.20, AST 15, ALT 11 L, Alkaline Phosphatase 80, Total Protein 6.2 L, Albumin 3.3, Globulin 2.9, Albumin/Globulin Ratio 1.1 11/08/22 16:12: Blood Type A POSITIVE, Antibody Screen NEGATIVE Radiography Diagnostic Testing: Radiology Impression Abdomen/Pelvis CT 11/08/22 15:17 IMPRESSION: Possible small hemorrhagic focus in the posterior wall of the rectum. Radiodense material seen faintly throughout the distal colon may indicate hemorrhagic contents or ingested medication, no focus of acute hemorrhage demonstrated above the rectum. 3.5 cm right ovarian cyst. Healing fracture right inferior pubic ramus. Electronically Signed: Jeison Hdz MD at 17:33 EDT , Physical Exam Narrative GENERAL: cooperative HEENT: Atraumatic; normocephalic EYES; Anicteric, Normal Conjunctiva NECK; supple, normal thyroid, RESPIRATORY: Diminished to auscultation CARDIOVASCULAR: Regular S1 S2, GI: soft, normoactive bowel sounds, : No Renal angle tenderness; EXTREMITIES: No edema, no clubbing, MUSCULOSKELETAL: no muscle wasting NEURO: Awake; no lateralizing signs. SKIN: No Rash PSYCH; Flat affect Assessment & Plan Assessment/Plan (1) Acute GI bleeding: PLAN: Plan Patient is a 42-year-old female who presented with bright red blood per rectum and lower abdominal pain CT of the abdomen and pelvis obtained did demonstrate possible small hemorrhagic focus in the posterior wall of the rectum as well as radiodense material seen fairly throughout the distal colon. Admitted to regular nursing floor consult placed to GI 1. Acute hematochezia ? CT of the abdomen and pelvis did show Possible small hemorrhagic focus in the posterior wall of the rectum. ? Radiodense material seen faintly throughout the distal colon may indicate hemorrhagic contents or ingested medication, no focus of acute hemorrhage demonstrated above the rectum. Patient was started on antibiotics for possible infectious etiology consult placed to GI. Case discussed with Dr. Flores plan is for patient to undergo colonoscopy to rule out inflammatory bowel 2. Anemia - Secondary to acute blood loss anemia from patient lower GI bleed monitoring H&H and transfuse if patient becomes symptomatic or hemoglobin falls below 7 3. COPD not in exacerbation ? Aerosol treatments as needed 4. Depression with anxiety Continue with patient psychotropic medications ? 5. Class I obesity with BMI of 33.6 ? Complicating care weight loss advised 6. Tobacco dependence - Counseled on cessation, offered nicotine patch for tobacco cravings 7. DVT prophylaxis ? Low risk, encouraging ambulation Time spent in the patient's overall evaluation,decision-making process, review of diagnostic data, adjustment of management, discussion with other providers, nursing nursing and ancillary staff involved in patient's care documentation, 50 . Minutes Charges/Coding Visit Charges Inpatient E&M: 20048 Subs Hosp L3
[2022-11-09] MEDS: Albuterol 2.5 MG/3 ML VIAL.NEB. INHALATION ×2 (07:45→19:57)
[2022-11-09 07:52] LABS: ALB/GLOB Ratio 1.1 RATIO (0.9-2.4); AST(SGOT) 15 U/L (15-37); Alanine Aminotransfer ALT/SGPT 12 U/L (13-56); Albumin, Serum 3.1 g/dL (3.2-5.0); Alkaline Phosphatase 76 U/L (45-117); Anion Gap 5 (5-15); BUN 6 mg/dL (7-18); BUN/Creat Ratio 8.4 RATIO (10-20); CRP < 2.90 mg/L (0.0-3.0); Calcium,Total 7.8 mg/dL (8.5-10.1); Chloride 118 mmol/L (98-107); Creatinine, Serum 0.71 mg/dL (0.55-1.02); EST Glomerular Filtration Rate 96 mL/min (>60); Est Glom Filt Rate - Afr Amer 116 mL/min (>60); Estimated Creatinine Clearance 90.04 ml/min; Globulin 2.8 g/dL (2.2-4.2); Glucose 84 mg/dL (74-106); Potassium 3.4 mmol/L (3.5-5.1); Protein, Total 5.9 g/dL (6.4-8.2); Sodium Level 144 mmol/L (136-145)
[2022-11-09 09:15] LABS: Erythrocyte Sedimentation Rate 2 mm/hr (0-30)
[2022-11-09] MEDS: clonazePAM 0.5 MG Tablet PO ×2 (09:58→21:35)
[2022-11-09] MEDS: ARIPiprazole 10 MG Tablet PO (09:59)
--- NOTE | 2022-11-09 12:30 | CT_ITS ---
INDICATION: lower GI bleed -- BRBPR EXAMINATION: CT ABDOMEN AND PELVIS WITH CONTRAST - CT Abdomen And Pelvis W/ Contrast Injection TECHNIQUE: Helically acquired images were obtained of the abdomen and pelvis following IV contrast. A radiation dose optimization technique was used for this scan. IV Contrast dosage and agent: 100 cc Isovue 300 Oral contrast: None. COMPARISON: 11/08/2022 FINDINGS: LOWER CHEST: Bibasilar dependent changes. No cardiomegaly or pericardial effusion. LIVER: Homogeneous. No focal mass. GALLBLADDER AND BILIARY TREE: Cholecystectomy. Mild periportal edema. PANCREAS: No focal cystic or solid mass. SPLEEN: Normal size without focal cystic or solid mass. ADRENAL GLANDS: No nodules. KIDNEYS AND URETERS: Stable nonobstructing calculus left lower pole. No hydronephrosis. PERITONEUM: No ascites or free air. BOWEL: Prior appendectomy changes. No stomach or bowel distension. No focal inflammatory change. Decreasing focus of high attenuation in the posterior rectal wall. LYMPH NODES: No enlarged mesenteric or retroperitoneal lymph nodes. VESSELS: Aorta is non-dilated. URINARY BLADDER: Unremarkable. REPRODUCTIVE ORGANS: Stable 3.5 cm right ovarian cyst. BONES: Stable. CT/Abdomen/Pelvis W IV Cont ONLY IMPRESSION: Decreasing focus of high attenuation in the posterior rectal wall. No other CT evidence of possible acute GI hemorrhage. Electronically Signed: Jeison Hdz MD at 16:42 EDT ,
--- NOTE | 2022-11-09 13:00 | EX.PCM.CON.G ---
HPI Consult Data Date of Consult: 11/09/22 HPI Narrative Reason for Consultation: GI bleeding HPI Narrative: MARII WATERS, is a 42 F who presents lower GI bleeding. She also has a past medical history of anxiety and depression, morbid obesity and hyperlipidemia and who presents to the hospital today with 2 episodes of bright red bleeding per rectum.? Patient states that she did not have a bowel movement but which was bleeding from the rectum.? Patient also having abdominal pain mostly in the lower abdomen.?She describes this as stabbing and severe.? Denies any mucus with bloody stools.? Did not report any fever or chills. In the ED her blood pressure was stable at 140/70 with a heart rate of 100. Her CBC showed a hemoglobin of 10.8 and repeat is at 11. She had a CT scan abdomen pelvis in the ED that showed a small hemorrhagic focus in the posterior wall of the rectum along with some radiodense material in the distal colon that may indicate hemorrhagic contents. She is still having a little bit of bright red blood per rectum but it is slowed down. She does complain of a lot of of pain in her left lower quadrant that is controlled with narcotics. [facility] Medical History Anemia Anxiety Arthritis Collapsed lung COPD (chronic obstructive pulmonary disease) Depression Emphysema lung Former smoker History of blood clots History of gallstones Hyperlipidemia Intractable vomiting Kidney stones Migraines Neuropathy Obesity Paranoia Pneumonia Home Medications clonazepam 0.5 mg tablet (Klonopin) 0.5 mg PO BID Check with primary doctor 12/25/20 [History Last Taken Unknown] clonazepam 1 mg tablet (Klonopin) 1 mg PO DAILY Check with primary doctor 12/25/20 [History Last Taken Unknown] mirtazapine 30 mg tablet (Remeron) 45 mg PO QHS Check with primary doctor 12/25/20 [History Last Taken Unknown] risperidone 3 mg tablet 3 mg PO QHS Check with primary doctor 12/25/20 [History Last Taken Unknown] buspirone 15 mg tablet 15 mg PO TID 10/20/21 [History Last Taken Unknown] aripiprazole 10 mg tablet 10 mg PO DAILY 11/15/21 [History Last Taken Unknown] hydroxyzine pamoate 50 mg capsule 50 mg PO TID Check with primary doctor 11/15/21 [History Last Taken Unknown] prazosin 2 mg capsule 1 cap PO DAILY Check with primary doctor 11/15/21 [History Last Taken Unknown] ibuprofen 600 mg tablet 600 mg PO Q8H PRN pain #90 tabs 10/26/22 [Rx Last Taken Unknown] albuterol sulfate 90 mcg/actuation aerosol inhaler 2 puff inhalation Q6H PRN shortness of breath or wheezing #6.7 grams 11/02/22 [Rx Last Taken Unknown] tizanidine 4 mg tablet 4 mg PO Q8H PRN pain #90 tabs 11/07/22 [Rx Last Taken Unknown] fluticasone 250 mcg-salmeterol 50 mcg/dose blistr powdr for inhalation (Wixela Inhub) 1 inh inhalation BID Check with primary doctor 11/08/22 [History Last Taken Unknown] gabapentin 800 mg tablet 800 mg PO TID Check with primary doctor 11/08/22 [History Last Taken Unknown] nicotine (polacrilex) 2 mg gum 2 mg buccal Q2H Check with primary doctor 11/08/22 [History Last Taken Unknown] nicotine 14 mg/24 hr daily transdermal patch 1 patch transdermal DAILY Check with primary doctor 11/08/22 [History Last Taken Unknown] Allergy/AdvReac Type Severity Reaction Status Date / Time Penicillins Allergy Severe Anaphylaxis Verified 11/08/22 19:37 bee venom protein (honey bee) Allergy Anaphylaxis Verified 11/08/22 19:37 ketorolac [From Toradol] Allergy Rash Verified 11/08/22 19:37 nifedipine [From Procardia] Allergy Swelling Verified 11/08/22 19:37 strawberry Allergy Rash Verified 11/08/22 19:37 tramadol Allergy Hives Verified 11/08/22 19:37 Family History Mother Asthma Anxiety Depression Myocardial infarction, Onset Age: 38 Heart disease High cholesterol Grandmother Cancer Sister Cancer Surgical History H/O spinal fusion History of appendectomy History of cholecystectomy History of partial hysterectomy History of tracheostomy Status post insertion of percutaneous endoscopic gastrostomy (PEG) tube Social History household members: spouse and children number of children: 1 current occupational status: disabled current occupation: due to back Smoking Status: Current every day smoker tobacco type: cigarettes alcohol intake: never substance use type: does not use what type of physical activity do you participate in: none do you feel safe at home: Yes ROS ROS Narrative Did not report any chest pain or shortness of breath. Noted the maculopapular Malar rash which patient states is new. All other systems reviewed and essentially negative as above in the body of the history. Physical Exam Narrative GENERAL: cooperative HEENT: Atraumatic; normocephalic EYES; Anicteric, Normal Conjunctiva NECK; supple, normal thyroid, RESPIRATORY: Diminished to auscultation CARDIOVASCULAR: Regular S1 S2, GI: soft, normoactive bowel sounds, : No Renal angle tenderness; EXTREMITIES: No edema, no clubbing, MUSCULOSKELETAL: no muscle wasting NEURO: Awake; no lateralizing signs. SKIN: No Rash PSYCH; Flat affect Lab / Micro Data Result Diagrams: 11/09/22 06:46 11/09/22 06:46 Labs: Laboratory Results - last 24 hr 11/08/22 16:12: WBC 6.1, RBC 3.80 L, Hgb 10.7 L, Hct 33.2 L, MCV 87.4, MCH 28.2, MCHC 32.2, RDW Std Deviation 46.6 H, RDW Coeff of [place] 14.5, Plt Count 224, MPV 9.7, Immature Gran % (Auto) 0.200, Neut % (Auto) 51.8, Lymph % (Auto) 37.3, [place] % (Auto) 5.9, Eos % (Auto) 4.1, Baso % (Auto) 0.7, Absolute Neuts (auto) 3.2, Absolute Lymphs (auto) 2.28, Nucleated RBC % 0 11/08/22 16:12: PT 13.5, INR 1.0 11/08/22 16:12: Sodium 143, Potassium 3.6, Chloride 115 H, Carbon Dioxide 25.0, Anion Gap 3 L, BUN 7, Creatinine 0.68, Estim Creat Clear Calc 94.02, Est GFR (MDRD) Af Amer 123, Est GFR (MDRD) Non-Af 102, BUN/Creatinine Ratio 10.4, Glucose 79, Calcium 8.1 L, Total Bilirubin 0.20, AST 15, ALT 11 L, Alkaline Phosphatase 80, Total Protein 6.2 L, Albumin 3.3, Globulin 2.9, Albumin/Globulin Ratio 1.1 11/08/22 16:12: Blood Type A POSITIVE, Antibody Screen NEGATIVE 11/09/22 06:46: WBC 4.7, RBC 3.87 L, Hgb 11.0 L, Hct 35.6 L, MCV 92.0 D, MCH 28.4, MCHC 30.9 L, RDW Std Deviation 50.4 H, RDW Coeff of [place] 14.9 H, Plt Count 211, MPV 9.6, Immature Gran % (Auto) 0.200, Neut % (Auto) 41.0 L, Lymph % (Auto) 47.2 H, [place] % (Auto) 7.0, Eos % (Auto) 4.2, Baso % (Auto) 0.4, Absolute Neuts (auto) 1.9 L, Absolute Lymphs (auto) 2.23, Nucleated RBC % 0, ESR 2 11/09/22 06:46: Sodium 144, Potassium 3.4 L, Chloride 118 H, Carbon Dioxide 21.0, Anion Gap 5, BUN 6 L, Creatinine 0.71, Estim Creat Clear Calc 90.04, Est GFR (MDRD) Af Amer 116, Est GFR (MDRD) Non-Af 96, BUN/Creatinine Ratio 8.4 L, Glucose 84, Calcium 7.8 L, Total Bilirubin 0.30, AST 15, ALT 12 L, Alkaline Phosphatase 76, C-React Prot Ext Range < 2.90, Total Protein 5.9 L, Albumin 3.1 L, Globulin 2.8, Albumin/Globulin Ratio 1.1 Radiology Impression Abdomen/Pelvis CT 11/08/22 15:17 IMPRESSION: Possible small hemorrhagic focus in the posterior wall of the rectum. Radiodense material seen faintly throughout the distal colon may indicate hemorrhagic contents or ingested medication, no focus of acute hemorrhage demonstrated above the rectum. 3.5 cm right ovarian cyst. Healing fracture right inferior pubic ramus. Electronically Signed: Jeison Hdz MD at 17:33 EDT , Assessment & Plan Assessment/Plan (1) Acute GI bleeding: PLAN: Plan 42-year-old with history of COPD, anxiety, bipolar depression, arthritis and chronic pain presents with crampy abdominal pain and lower GI bleeding. The differential diagnosis does include ischemic colitis, ulcerative colitis, infectious colitis. She should undergo stool evaluation with stool culture, fecal calprotectin and C. difficile colitis. She should also undergo colonoscopy for evaluation of the lower GI tract to determine extent of mucosal disease and possibly treat hemorrhagic focus. She was explained alternatives, risk, benefits including outstanding bleeding, infection, sepsis, perforation, need for emergent surgery . She will have an ASA of 2. Also agree with checking ESR, CRP and LDH along with autoimmune labs. .
[2022-11-09] MEDS: Bisacodyl 5 MG Tablet 20 MG PO (14:21)
[2022-11-09] MEDS: Ondansetron 4 MG/2 ML Vial IV (14:31)
--- NOTE | 2022-11-09 14:50 | CASEMGMT ---
TAQUERIA MORENO Discharge Planning Assessment: Face to Face with patient for initial transition planning/care coordination assessment. TAQUERIA MORENO introduced self and role at [facility], pt alert, oriented, voices understanding, and is agreeable to participating in assessment.?Care providers, pharmacy,?and demographics verified. ? Admitting dx: GI bleed PCP: Josefa Specialists: Nolan (psychiatrist at [facility]) Preferred Pharmacy: [facility] Insurance: [employer] [facility] and [facility] CP Prescription Benefit:?yes Living Will/HPOA: none LNOK: spouse Kranthi Living Arrangements: Pt lives with her spouse and granddaughter in a second floor apartment with a total of 12 steps to the apartment. Apartment is on a single floor upon entry. Pt states she is able to complete her own bathing and her spouse helps her with dressing. Pt states she has back pain that makes the stairs and dressing difficult. Pt states she ambulates with a walker at baseline. Her spouse does the cooking and her daughter assists with cleaning. Transportation: Pt does not drive and her spouse assists with transportation DME: walker, cane, hip kit, shower chair, grab bars, home O2 2l/min prn from [facility] (pt not 100% certain of provider) HHC: has had SN, PT/OT prior but does not recall the provider. Pt states she is to have a COMBINE DRIVER through the waiver program but there is not staffing available. SNF: States she has been in two SNFs in the distant past, one in [place] and one in [place]. CM: pt states she has disease case manager rn through her insurance and through the waiver program. Plan: Pt plans to return home at discharge with the support of her family and denies any needs at this time. Pt states she is in the process of obtaining custody of her granddaughter. States her spouse, daughter, and a friend are assisting with her care at this time. Will continue to monitor and assist with discharge planning needs as they are determined. Shital Herring RN CM
--- NOTE | 2022-11-09 15:20 | CASEMGMT ---
TAQUERIA MORENO NOTE: TAQUERIA MORENO informed pt has O2 @ home and pt thinks may be from [facility]. Call to [facility]. Per rep, pt used to get O2 from them, but in 2018 she became inactive d/t they were unable to reach pt and they wrote the equip off as lost or stolen. Rep states pt called them in 2020 to get new tubing and equip but they informed her she was inactive and unable to supply anything to her. TAQUERIA MORENO to room. Introduced self and role. Pt states she is aware she is no longer active w/DME co for O2, stating she has moved around a lot and has not f/u with rehabilitation program coordinator. She states she only uses the oxygen when needed, stating it is not often and states she only has the old concentrator, not portability. She states she used to see a rehabilitation program coordinator in [place] but it has been a couple yrs. She would like to f/u with a local rehabilitation program coordinator. Pt provided w/local Phys Directory and recommended to f/u with her PCP to get referral for pulmonology. Pt voiced understanding and appreciation. Hugo CHAPMAN RN, CM
[2022-11-09] MEDS: Polyethylene Glycol 3350 BOWEL PREP PO (17:51)
[2022-11-09] MEDS: Budesonide Respules 0.5 MG/2 ML AMPUL.NEB. INHALATION (19:57)
[2022-11-09] MEDS: Mirtazapine 30 MG Tablet 45 MG PO (21:37)
[2022-11-09] MEDS: RisperiDONE 2 MG Tablet 3 MG PO (21:37)
[2022-11-10] VITALS (10 sets, daily range): BP systolic 104–127; BP diastolic 50–89; PULSE 64–96; RESP 14–18; TEMP 36–37.9; O2SAT 95–100; BMI 33.6
[2022-11-10] MEDS: Gabapentin 800 MG Tablet PO ×2 (06:10→23:39)
[2022-11-10] MEDS: 0.9% Saline Lock 10 ML Syringe IV ×3 (06:10→23:40)
[2022-11-10] MEDS: Ondansetron 4 MG/2 ML Vial IV ×2 (06:10→18:12)
[2022-11-10] MEDS: hydrOXYzine PAM 25 MG Capsule 50 MG PO ×2 (06:11→23:40)
[2022-11-10] MEDS: Acetaminophen 500 MG Tablet 1000 MG PO ×2 (06:11→23:40)
[2022-11-10] MEDS: Morphine 2 MG/ML Syringe IV ×5 (06:11→18:12)
[2022-11-10] MEDS: busPIRone 15 MG TABLET PO ×2 (06:12→23:39)
[2022-11-10] MEDS: Budesonide Respules 0.5 MG/2 ML AMPUL.NEB. INHALATION ×2 (07:06→19:53)
[2022-11-10] MEDS: Albuterol 2.5 MG/3 ML VIAL.NEB. INHALATION ×2 (07:06→19:53)
--- NOTE | 2022-11-10 08:06 | PCM.PN.HOSP ---
Reason for Visit Reason for Visit: Diagnoses Gastrointestinal hemorrhage, unspecified (11/08/22) Subjective Subjective Patient seen currently undergoing prep for colonoscopy. Complains of abdominal cramps. Objective Data Objective Data Vital Signs: Vital Signs Temp Pulse Resp BP Pulse Ox O2 Del Method 98 F 72 16 119/74 97 Room Air 11/10/22 06:10 11/10/22 06:10 11/10/22 06:10 11/10/22 06:10 11/10/22 06:10 11/10/22 06:10 Oxygen Delivery Method Room Air Weight: 88.9 kg Body Mass Index (BMI) 33.6 Intake & Output: Intake and Output for Last 24 Hours 11/08/22 11/09/22 11/10/22 23:59 23:59 23:59 Intake Total 1000 / 1000 2100 / 2100 Balance 1000 / 1000 2100 / 2100 Lab / Micro Data Result Diagrams: 11/09/22 06:46 11/09/22 06:46 Labs: Laboratory Results - last 24 hr 11/09/22 06:46: ESR 2 Radiography Diagnostic Testing: Radiology Impression Abdomen/Pelvis CT 11/09/22 12:30 IMPRESSION: Decreasing focus of high attenuation in the posterior rectal wall. No other CT evidence of possible acute GI hemorrhage. Electronically Signed: Jeison Hdz MD at 16:42 EDT , Physical Exam Narrative GENERAL: cooperative HEENT: Atraumatic; normocephalic EYES; Anicteric, Normal Conjunctiva NECK; supple, normal thyroid, RESPIRATORY: Diminished to auscultation CARDIOVASCULAR: Regular S1 S2, GI: soft, normoactive bowel sounds, : No Renal angle tenderness; EXTREMITIES: No edema, no clubbing, MUSCULOSKELETAL: no muscle wasting NEURO: Awake; no lateralizing signs. SKIN: No Rash PSYCH; Flat affect Assessment & Plan Assessment/Plan (1) Acute GI bleeding: PLAN: Plan Patient is a 42-year-old female who presented with bright red blood per rectum and lower abdominal pain CT of the abdomen and pelvis obtained did demonstrate possible small hemorrhagic focus in the posterior wall of the rectum as well as radiodense material seen fairly throughout the distal colon. Admitted to regular nursing floor consult placed to GI 1. Acute hematochezia ? CT of the abdomen and pelvis did show Possible small hemorrhagic focus in the posterior wall of the rectum. ? Radiodense material seen faintly throughout the distal colon may indicate hemorrhagic contents or ingested medication, no focus of acute hemorrhage demonstrated above the rectum. Patient was started on antibiotics for possible infectious etiology consult placed to GI. Case discussed with Dr. Flores plan is for patient to undergo colonoscopy to rule out inflammatory bowel versus ischemic colitis ? 11/10/2022 patient to undergo colonoscopy 2. Anemia - Secondary to acute blood loss anemia from patient lower GI bleed monitoring H&H and transfuse if patient becomes symptomatic or hemoglobin falls below 7 3. COPD not in exacerbation ? Aerosol treatments as needed 4. Depression with anxiety Continue with patient psychotropic medications ? 5. Class I obesity with BMI of 33.6 ? Complicating care weight loss advised 6. Tobacco dependence - Counseled on cessation, offered nicotine patch for tobacco cravings 7. DVT prophylaxis ? Low risk, encouraging ambulation Time spent in the patient's overall evaluation,decision-making process, review of diagnostic data, adjustment of management, discussion with other providers, nursing nursing and ancillary staff involved in patient's care documentation, 35 . Minutes Charges/Coding Visit Charges Inpatient E&M: 82567 Subs Hosp L2
[2022-11-10] MEDS: proCHLORPERazine 10 MG/2 ML Vial 4 MG IV ×2 (08:23→23:40)
[2022-11-10] MEDS: ARIPiprazole 10 MG Tablet PO (08:26)
--- NOTE | 2022-11-10 11:20 | CASEMGMT ---
Social Work SW left voicemail at [facility] requesting call from pt's CM, to update on SDOH assessment. Jacqueline Ortiz, OVERHEAD LINE WORKER [employer] SAL[employer]OC[employer]ATE
--- NOTE | 2022-11-10 15:47 | CASEMGMT ---
Discharge Planning HH list created and given to RN TIFFANIE. Arianna Parker, Discharge Planning Asst.
--- NOTE | 2022-11-10 17:09 | OP.COLON_ITS ---
Patient Name: Terese Rich Procedure Date: 11/10/2022 3:52 PM Date of : 1980 Age: 42 Procedure: Colonoscopy Indications: Hematochezia Providers: Fan Flores DO Medicines: Monitored Anesthesia Care Patient Profile: This is a 42 year old female. Refer to note in patient chart for documentation of history and physical. Last Colonoscopy: more than 10 years ago. Complications: No immediate complications. Procedure: Pre-Anesthesia Assessment: - Prior to the procedure, a History and Physical was performed, and patient medications and allergies were reviewed. The risks and benefits of the procedure and the sedation options and risks were discussed with the patient. All questions were answered and informed consent was obtained. Patient identification and proposed procedure were verified by the physician. Mental Status Examination: normal. Prophylactic Antibiotics: The patient does not require prophylactic antibiotics. Prior Anticoagulants: The patient has taken no previous anticoagulant or antiplatelet agents. After reviewing the risks and benefits, the patient was deemed in satisfactory condition to undergo the procedure. The anesthesia plan was to use monitored anesthesia care (MAC). Immediately prior to administration of medications, the patient was re-assessed for adequacy to receive sedatives. The heart rate, respiratory rate, oxygen saturations, blood pressure, adequacy of pulmonary ventilation, and response to care were monitored throughout the procedure. The physical status of the patient was re-assessed after the procedure. After I obtained informed consent, the scope was passed under direct vision. Throughout the procedure, the patient's blood pressure, pulse, and oxygen saturations were monitored continuously. The pediatric colonoscope was introduced through the anus and advanced to the cecum, identified by appendiceal orifice and ileocecal valve. The colonoscopy was performed without difficulty. The patient tolerated the procedure well. The quality of the bowel preparation was adequate. Scope In: 4:45:06 PM Scope Withdrawal Time 0 hours 8 minutes 43 seconds Scope Out: 5:02:28 PM Total Procedure Duration Time 0 hours 17 minutes 22 seconds Findings: An anal fissure was found on perianal exam. A 5 mm anal fissure was found in the anal canal. Area was successfully injected with 5 mL of a 1:10,000 solution of epinephrine for drug delivery. Coagulation for hemostasis using heater probe was successful. Estimated blood loss was minimal. A few small-mouthed diverticula were found in the recto-sigmoid colon, sigmoid colon and descending colon. Patchy mild inflammation characterized by erosions, erythema and friability was found in the cecum. Biopsies were taken with a cold forceps for histology. Verification of patient identification for the specimen was done. Estimated blood loss was minimal. Impression: - Anal fissure found on perianal exam. - Anal fissure. - Diverticulosis in the recto-sigmoid colon, in the sigmoid colon and in the descending colon. - Patchy mild inflammation was found in the cecum secondary to colitis. Biopsied. Recommendation: - [facility]. - Resume previous diet. - Continue present medications. - Await pathology results. - No recommendation at this time regarding repeat colonoscopy due to age. Procedure Code(s): --- Professional --- 12668, 59, Colonoscopy, flexible; with control of bleeding, any method 70168, Colonoscopy, flexible; with biopsy, single or multiple CPT copyright 2017 [employer]. All rights reserved. The codes documented in this report are preliminary and upon strategic account executive review may be revised to meet current compliance requirements. Fan Flores DO 11/10/2022 5:08:39 PM This report has been signed electronically. Number of Addenda: 0 Note Initiated On: 11/10/2022 3:52 PM
--- NOTE | 2022-11-10 17:09 | OP.CCLET_ITS ---
11/10/2022 Gege Rivero Md Re : Colonoscopy procedure for Terese Rich Dear Josefa This procedure was performed on October. My impressions and recommendations are as follows: Impressions : - Anal fissure found on perianal exam. - Anal fissure. - Diverticulosis in the recto-sigmoid colon, in the sigmoid colon and in the descending colon. - Patchy mild inflammation was found in the cecum secondary to colitis. Biopsied. Recommendations : - [facility]. - Resume previous diet. - Continue present medications. - Await pathology results. - No recommendation at this time regarding repeat colonoscopy due to age. My findings are described in the full procedure note, which is enclosed. If I can be of further assistance, please feel free to contact me at . Sincerely, Fan Flores, 11/10/2022 5:08:39 PM This report has been signed electronically.
[2022-11-10] MEDS: Lactated Ringers 1,000 ML 15 ML IV (17:25)
[2022-11-10] MEDS: Ensure Clear 120 ML Liquid PO (18:16)
[2022-11-10] MEDS: RisperiDONE 2 MG Tablet 3 MG PO (23:39)
[2022-11-10] MEDS: Mirtazapine 30 MG Tablet 45 MG PO (23:39)
[2022-11-10] MEDS: clonazePAM 0.5 MG Tablet PO (23:39)
[2022-11-11 02:43] VITALS: TEMP 37.1
[2022-11-11 05:50] VITALS: BP 106/59; PULSE 101; RESP 16; TEMP 37.1; O2SAT 96
[2022-11-11] MEDS: Acetaminophen 500 MG Tablet 1000 MG PO ×2 (05:51→13:48)
[2022-11-11] MEDS: Ondansetron 4 MG/2 ML Vial IV (05:56)
[2022-11-11] MEDS: Gabapentin 800 MG Tablet PO ×2 (05:56→13:50)
[2022-11-11] MEDS: 0.9% Saline Lock 10 ML Syringe IV ×2 (05:56→10:22)
[2022-11-11 07:35] VITALS: O2SAT 98
--- NOTE | 2022-11-11 07:35 | PN.HOSP_ITS ---
Reason for Visit Reason for Visit: Diagnoses Gastrointestinal hemorrhage, unspecified (11/08/22) Subjective Subjective Patient underwent colonoscopy today prior results are as below - Anal fissure found on perianal exam. - Anal fissure. - Diverticulosis in the recto-sigmoid colon, in the sigmoid colon and in the ?descending colon. - Patchy mild inflammation was found in the cecum secondary to colitis. ?Biopsied. Objective Data Objective Data Vital Signs: Vital Signs Temp Pulse Resp BP Pulse Ox O2 Del Method O2 Flow Rate 98.8 F 101 H 16 106/59 L 96 Nasal Cannula 2 11/11/22 05:50 11/11/22 05:50 11/11/22 05:50 11/11/22 05:50 11/11/22 05:50 11/11/22 05:50 11/11/22 05:50 Oxygen Flow Rate (L/min) 2 Oxygen Delivery Method Nasal Cannula Weight: 88.9 kg Body Mass Index (BMI) 33.6 Intake & Output: Intake and Output for Last 24 Hours 11/09/22 11/10/22 11/11/22 23:59 23:59 23:59 Intake Total 2099 150 / 150 Balance 2099 150 / 150 Lab / Micro Data Result Diagrams: 11/09/22 06:46 11/09/22 06:46 Physical Exam Narrative GENERAL: cooperative HEENT: Atraumatic; normocephalic EYES; Anicteric, Normal Conjunctiva NECK; supple, normal thyroid, RESPIRATORY: Diminished to auscultation CARDIOVASCULAR: Regular S1 S2, GI: soft, normoactive bowel sounds, : No Renal angle tenderness; EXTREMITIES: No edema, no clubbing, MUSCULOSKELETAL: no muscle wasting NEURO: Awake; no lateralizing signs. SKIN: No Rash PSYCH; Flat affect Assessment & Plan Assessment/Plan (1) Acute GI bleeding: PLAN: Plan Patient is a 42-year-old female who presented with bright red blood per rectum and lower abdominal pain CT of the abdomen and pelvis obtained did demonstrate possible small hemorrhagic focus in the posterior wall of the rectum as well as radiodense material seen fairly throughout the distal colon. Admitted to regular nursing floor consult placed to GI 1. Acute hematochezia ? CT of the abdomen and pelvis did show Possible small hemorrhagic focus in the posterior wall of the rectum. ? Radiodense material seen faintly throughout the distal colon may indicate hemorrhagic contents or ingested medication, no focus of acute hemorrhage demonstrated above the rectum. Patient was started on antib iotics for possible infectious etiology consult placed to GI. Case discussed with Dr. Flores plan is for patient to undergo colonoscopy to rule out inflammatory bowel versus ischemic colitis ? 11/10/2022 patient to undergo colonoscopy ?11/11/2022 colonoscopy performed on 11/10/2022 results - Anal fissure found on perianal exam. - Anal fissure. - Diverticulosis in the recto-sigmoid colon, in the sigmoid colon and in the ?descending colon. - Patchy mild inflammation was found in the cecum secondary to colitis. ?Biopsied. -Plan is for patient to be discharged home with stool softeners 2. Anemia - Secondary to acute blood loss anemia from patient lower GI bleed monitoring H&H and transfuse if patient becomes symptomatic or hemoglobin falls below 7 3. COPD not in exacerbation ? Aerosol treatments as needed 4. Depression with anxiety Continue with patient psychotropic medications ? 5. Class I obesity with BMI of 33.6 ? Complicating care weight loss advised 6. Tobacco dependence - Counseled on cessation, offered nicotine patch for tobacco cravings 7. DVT prophylaxis ? Low risk, encouraging ambulation Time spent in the patient's overall evaluation,decision-making process, review of diagnostic data, adjustment of management, discussion with other providers, nursing nursing and ancillary staff involved in patient's care documentation, 35 . Minutes Charges/Coding Visit Charges Inpatient E&M: 57285 Subs Hosp L2
[2022-11-11 10:00] VITALS: BP 98/68; PULSE 82; RESP 16; TEMP 36.7; O2SAT 100
[2022-11-11] MEDS: Ensure Clear 120 ML Liquid PO ×2 (10:13→11:52)
[2022-11-11] MEDS: ARIPiprazole 10 MG Tablet PO (10:14)
[2022-11-11] MEDS: clonazePAM 0.5 MG Tablet PO (10:16)
--- NOTE | 2022-11-11 10:59 | CASEMGMT ---
TAQUERIA MORENO NOTE: TAQUERIA MORENO to room to discuss discharge planning. Pt states she wishes to discharge home and feels she will be safe @ home. Discussed HHC and questions answered. Pt agreeable to HHC. A list of HHC providers including quality and resource use data and consistent with the patient?s preferred geographic region, medical needs, and insurance network were provided from the [facility]. TAQUERIA MORENO asked for her to review the list and provide top 3 preferences. Pt denies having other discharge planning needs or concerns at this time. Hugo CHAPMAN RN CM
--- NOTE | 2022-11-11 11:17 | DS.PCM_ITS ---
Providers Date of Admission: 11/08/22 Date of Discharge: 11/11/22 Primary Care Physician: Dr. Gege Rivero MD Consultations 11/08/22 19:09 Consult: Gastroenterology Routine Consulting Provider: [facility] Reason for Consult: [facility] EMERGENT Consult: No Notified: Yes Date Notified: 11/09/22 Time Notified: 05:27 Method of Notification: Text Reason For Visit: GI BLEED Diagnosis Discharge Diagnosis (1) Acute GI bleeding: Status: Acute Code(s): K92.2 - Gastrointestinal hemorrhage, unspecified Plan Patient is a 42-year-old female who presented with bright red blood per rectum and lower abdominal pain CT of the abdomen and pelvis obtained did demonstrate possible small hemorrhagic focus in the posterior wall of the rectum as well as radiodense material seen fairly throughout the distal colon. Admitted to regular nursing floor consult placed to GI 1. Acute hematochezia ? CT of the abdomen and pelvis did show Possible small hemorrhagic focus in the posterior wall of the rectum. ? Radiodense material seen faintly throughout the distal colon may indicate hemorrhagic contents or ingested medication, no focus of acute hemorrhage demonstrated above the rectum. Patient was started on antibiotics for possible infectious etiology consult placed to GI. Case discussed with Dr. Flores plan is for patient to undergo colonoscopy to rule out inflammatory bowel versus ischemic colitis ? 11/10/2022 patient to undergo colonoscopy ?11/11/2022 colonoscopy performed on 11/10/2022 results - Anal fissure found on perianal exam. - Anal fissure. - Diverticulosis in the recto-sigmoid colon, in the sigmoid colon and in the ?descending colon. - Patchy mild inflammation was found in the cecum secondary to colitis. ?Biopsied. -Plan is for patient to be discharged home with stool softeners 2. Anemia - Secondary to acute blood loss anemia from patient lower GI bleed monitoring H&H and transfuse if patient becomes symptomatic or hemoglobin falls below 7 3. COPD not in exacerbation ? Aerosol treatments as needed 4. Depression with anxiety Continue with patient psychotropic medications ? 5. Class I obesity with BMI of 33.6 ? Complicating care weight loss advised 6. Tobacco dependence - Counseled on cessation, offered nicotine patch for tobacco cravings 7. DVT prophylaxis ? Low risk, encouraging ambulation Time spent in the patient's overall evaluation,decision-making process, review of diagnostic data, adjustment of management, discussion with other providers, nursing nursing and ancillary staff involved in patient's care documentation, 35 . Minutes Medications at Discharge Home Medications clonazepam 0.5 mg tablet (Klonopin) 0.5 mg PO BID Check with primary doctor 12/25/20 clonazepam 1 mg tablet (Klonopin) 1 mg PO DAILY Check with primary doctor 12/25/20 mirtazapine 30 mg tablet (Remeron) 45 mg PO QHS Check with primary doctor 12/25/20 risperidone 3 mg tablet 3 mg PO QHS Check with primary doctor 12/25/20 buspirone 15 mg tablet 15 mg PO TID 10/20/21 aripiprazole 10 mg tablet 10 mg PO DAILY 11/15/21 hydroxyzine pamoate 50 mg capsule 50 mg PO TID Check with primary doctor 11/15/21 prazosin 2 mg capsule 1 cap PO DAILY Check with primary doctor 11/15/21 ibuprofen 600 mg tablet 600 mg PO Q8H PRN pain #90 tabs 10/26/22 albuterol sulfate 90 mcg/actuation aerosol inhaler 2 puff inhalation Q6H PRN shortness of breath or wheezing #6.7 grams 11/02/22 tizanidine 4 mg tablet 4 mg PO Q8H PRN pain #90 tabs 11/07/22 fluticasone 250 mcg-salmeterol 50 mcg/dose blistr powdr for inhalation (Wixela Inhub) 1 inh inhalation BID Check with primary doctor 11/08/22 gabapentin 800 mg tablet 800 mg PO TID Check with primary doctor 11/08/22 nicotine (polacrilex) 2 mg gum 2 mg buccal Q2H Check with primary doctor 11/08/22 nicotine 14 mg/24 hr daily transdermal patch 1 patch transdermal DAILY Check with primary doctor 11/08/22 polyethylene glycol 3350 17 gram/dose oral powder (Miralax) 17 g PO DAILY #850 grams 11/11/22 Hospital Course Summary of Care Provided Minutes Spent on Discharge: 35 Physical Exam Narrative GENERAL: cooperative HEENT: Atraumatic; normocephalic EYES; Anicteric, Normal Conjunctiva NECK; supple, normal thyroid, RESPIRATORY: Diminished to auscultation CARDIOVASCULAR: Regular S1 S2, GI: soft, normoactive bowel sounds, : No Renal angle tenderness; EXTREMITIES: No edema, no clubbing, MUSCULOSKELETAL: no muscle wasting NEURO: Awake; no lateralizing signs. SKIN: No Rash PSYCH; Flat affect Weight / BMI Weight Weight: 88.9 kg Body Mass Index (BMI) 33.6 ABG / Lab / Microbiology Data Result Diagrams: 11/09/22 06:46 11/09/22 06:46 D/C Instructions Discharge Diet: No restrictions Discharge Activity: Return to Normal Activity Call your doctor if you observe: Fever of 101 or Higher, Shortness of breath, Fainting spells and Chest pain Meaningful Use Info Meaningful Use Diagnoses (Choose all that apply): None applicable Discharge Plan Admission Admit Date/Time: 11/08/22 19:10 Attending Provider: Hu Noriega Primary Care Provider: Gege Rivero Consulting Providers: Mabel Garrido Discharge Orders/Prescriptions Prescriptions: New polyethylene glycol 3350 [Miralax] 17 gram/dose powder 17 g PO DAILY Qty: 850 0RF Continued aripiprazole 10 mg tablet 10 mg PO DAILY Label Comments: TAKE ONE HALF (0.5) TABLET BY MOUTH TWICE A DAY prazosin 2 mg capsule 1 cap PO DAILY hydroxyzine pamoate 50 mg capsule 50 mg PO TID Label Comments: TAKE 1 CAPSULE BY MOUTH THREE TIMES A DAY NEEDED clonazepam [Klonopin] 0.5 mg Tablet 0.5 mg PO BID clonazepam [Klonopin] 1 mg Tablet 1 mg PO DAILY risperidone 3 mg Tablet 3 mg PO QHS mirtazapine [Remeron] 30 mg Tablet 45 mg PO QHS buspirone 15 mg tablet 15 mg PO TID fluticasone propion-salmeterol [Wixela Inhub] 250-50 mcg/dose blister with device 1 inh inhalation BID nicotine 14 mg/24 hr patch 24 hour 1 patch transdermal DAILY nicotine (polacrilex) 2 mg gum 2 mg buccal Q2H gabapentin 800 mg tablet 800 mg PO TID Rx Instructions: Start 6/2 ibuprofen 600 mg tablet 600 mg PO Q8H PRN (Reason: pain) Qty: 90 0RF albuterol sulfate 90 mcg/actuation HFA aerosol inhaler 2 puff inhalation Q6H PRN (Reason: shortness of breath or wheezing) Qty: 6.7 1RF tizanidine 4 mg tablet 4 mg PO Q8H PRN (Reason: pain) Qty: 90 0RF Referrals / Follow Up: Gege Rivero MD [Primary Care Provider] - Within 2 Weeks Disposition Disposition (needs filled in before D/C Order can be placed): Home, Self Care Charges/Coding Visit Charges Inpatient E&M: 66232 Disch Hosp >30min
[2022-11-11 11:48] VITALS: PULSE 79; O2SAT 95
[2022-11-11] MEDS: MorphINE SOLN 10 MG/0.5 ML PO.SYRINGE SL/PO ×2 (11:50→15:57)
--- NOTE | 2022-11-11 11:53 | CASEMGMT ---
Social Work Phone call to [facility]. Pt does is not enrolled in Care management program. Social Work will be added to home health order. RNCM updated. MARION Domínguez
--- NOTE | 2022-11-11 12:01 | PHA.DC.MC ---
Pharmacy Service has performed discharge medication reconciliation and counseling for this patient. 1. MIRALAX 17GM PO DAILY The patient's discharge medication list was reviewed for discrepancies and discrepancies were resolved. Home Medications clonazepam 0.5 mg tablet (Klonopin) 0.5 mg PO BID Check with primary doctor 12/25/20 clonazepam 1 mg tablet (Klonopin) 1 mg PO DAILY Check with primary doctor 12/25/20 mirtazapine 30 mg tablet (Remeron) 45 mg PO QHS Check with primary doctor 12/25/20 risperidone 3 mg tablet 3 mg PO QHS Check with primary doctor 12/25/20 buspirone 15 mg tablet 15 mg PO TID 10/20/21 aripiprazole 10 mg tablet 10 mg PO DAILY 11/15/21 hydroxyzine pamoate 50 mg capsule 50 mg PO TID Check with primary doctor 11/15/21 prazosin 2 mg capsule 1 cap PO DAILY Check with primary doctor 11/15/21 ibuprofen 600 mg tablet 600 mg PO Q8H PRN pain #90 tabs 10/26/22 albuterol sulfate 90 mcg/actuation aerosol inhaler 2 puff inhalation Q6H PRN shortness of breath or wheezing #6.7 grams 11/02/22 tizanidine 4 mg tablet 4 mg PO Q8H PRN pain #90 tabs 11/07/22 fluticasone 250 mcg-salmeterol 50 mcg/dose blistr powdr for inhalation (Wixela Inhub) 1 inh inhalation BID Check with primary doctor 11/08/22 gabapentin 800 mg tablet 800 mg PO TID Check with primary doctor 11/08/22 nicotine (polacrilex) 2 mg gum 2 mg buccal Q2H Check with primary doctor 11/08/22 nicotine 14 mg/24 hr daily transdermal patch 1 patch transdermal DAILY Check with primary doctor 11/08/22 polyethylene glycol 3350 17 gram/dose oral powder (Miralax) 17 g PO DAILY #850 grams 11/11/22 The patient was counseled on the following discharge medications and changes in medications for homegoing were reviewed. The Reason for Use, instructions for use, and potential side effects were reviewed for all new medications. The patient's questions regarding all of their medications were answered. The patient was able to verbally demonstrate an understanding of their discharge medications. Patient counseled by pharmacy retail support specialistJude.
[2022-11-11 12:08] LABS: Anti-Centromere B Ab <0.2 AI (0.0-0.9); Anti-Chromatin <0.2 AI (0.0-0.9); Anti-Jo <0.2 AI (0.0-0.9); Anti-Scleroderma-70 AB <0.2 AI (0.0-0.9); Anti-dsDNA Ab <1 IU/mL (0-9); RNP Ab <0.2 AI (0.0-0.9); SJOGREN'S Anti-SS-A test < 0.2 AI (0.0-0.9); SJOGREN'S Anti-SS-B test < 0.2 AI (0.0-0.9); Smith Ab <0.2 AI (0.0-0.9)
--- NOTE | 2022-11-11 12:08 | EX.PCM.PN.GI ---
Subjective Subjective Patient underwent colonoscopy yesterday GI bleeding. She was discovered to have renal failure and looks like mild ischemic colitis in the area of the ascending colon and cecum. She is not having any more bleeding at this time. Her abdominal pain is a lot better. Objective Data Objective Data Vital Signs: Vital Signs Temp Pulse Resp BP Pulse Ox O2 Del Method O2 Flow Rate 98.0 F 79 16 98/68 95 Room Air 1 11/11/22 10:00 11/11/22 11:48 11/11/22 10:00 11/11/22 10:00 11/11/22 11:48 11/11/22 11:48 11/11/22 10:05 Oxygen Flow Rate (L/min) 1 Oxygen Delivery Method Room Air Weight: 195 lb 15.855 oz Body Mass Index (BMI) 33.6 Intake & Output: Intake and Output for Last 24 Hours 11/09/22 11/10/22 11/11/22 23:59 23:59 23:59 Intake Total 2099 / 2099 150 / 150 Balance 2099 150 / 150 Lab / Micro Data Result Diagrams: 11/09/22 06:46 11/09/22 06:46 Physical Exam Narrative GENERAL: cooperative HEENT: Atraumatic; normocephalic EYES; Anicteric, Normal Conjunctiva NECK; supple, normal thyroid, RESPIRATORY: Diminished to auscultation CARDIOVASCULAR: Regular S1 S2, GI: soft, normoactive bowel sounds, : No Renal angle tenderness; EXTREMITIES: No edema, no clubbing, MUSCULOSKELETAL: no muscle wasting NEURO: Awake; no lateralizing signs. SKIN: No Rash PSYCH; Flat affect Assessment & Plan Assessment/Plan (1) Acute GI bleeding: PLAN: Plan 1. Acute hematochezia ? CT of the abdomen and pelvis did show Possible small hemorrhagic focus in the posterior wall of the rectum. ? Radiodense material seen faintly throughout the distal colon may indicate hemorrhagic contents or ingested medication, no focus of acute hemorrhage demonstrated above the rectum. Patient was started on antibiotics for possible infectious etiology consult placed to GI. Case discussed with Dr. Flores plan is for patient to undergo colonoscopy to rule out inflammatory bowel versus ischemic colitis ? 11/10/2022 patient to undergo colonoscopy ?11/11/2022 colonoscopy performed on 11/10/2022 results - Anal fissure found on perianal exam. - Anal fissure. - Diverticulosis in the recto-sigmoid colon, in the sigmoid colon and in the ?descending colon. - Patchy mild inflammation was found in the cecum secondary to colitis. ?Biopsied. -Plan is for patient to be discharged home with stool softeners 2. Anemia - Secondary to acute blood loss anemia from patient lower GI bleed monitoring H&H and transfuse if patient becomes symptomatic or hemoglobin falls below 7 3. COPD not in exacerbation ? Aerosol treatments as needed 4. Depression with anxiety Continue with patient psychotropic medications ? 5. Class I obesity with BMI of 33.6 ? Complicating care weight loss advised 6. Tobacco dependence - Counseled on cessation, offered nicotine patch for tobacco cravings 7. DVT prophylaxis ? Low risk, encouraging ambulation Time spent in the patient's overall evaluation,decision-making process, review of diagnostic data, adjustment of management, discussion with other providers, nursing nursing and ancillary staff involved in patient's care documentation, 35 . Minutes Charges/Coding Visit Charges Inpatient E&M: 40505 Subs Hosp L3
--- NOTE | 2022-11-11 12:38 | CASEMGMT ---
Discharge Planning HH referral sent to [facility], [facility] per patient choice. Arianna Parker, Discharge Planning Asst.
[2022-11-11 13:45] VITALS: BP 116/53; PULSE 87; RESP 16; TEMP 37.2; O2SAT 94
[2022-11-11] MEDS: hydrOXYzine PAM 25 MG Capsule 50 MG PO (13:48)
[2022-11-11] MEDS: busPIRone 15 MG TABLET PO (13:48)
--- NOTE | 2022-11-11 15:05 | CASEMGMT ---
Discharge Planning Patient notified that her second HH choice, [facility] are able to accept her. She wishes to proceed with them. [facility] updated via [facility]. Arianna Parker, Discharge Planning Asst.
[2022-11-11 15:08] LABS: Cytoplasmic Ab (C-ANCA) <1:20 titer (Neg:<1:20); Deamidated Gliadin IgA 3 units (0-19); Deamidated Gliadin IgG 2 units (0-19); Endomysial Antibody IgA Negative (Negative); Immunoglobulin A 75 mg/dL (87-352); Perinuclear Ab (P-ANCA) <1:20 titer (Neg:<1:20); t-Transglutaminase IgA <2 U/mL (0-3)
== END 2022-11-11 18:23 | disposition home health service (06) | DRG 394 ==
LOC: ED 18:41 → MS3 19:42
PROVIDERS: Internal Medicine Gastroenterology; Admitting Provider Internal Medicine; Emergency Provider Emergency Medicine; PCP Internal Medicine; Visit Provider Internal Medicine
PROC: 0DJD8ZZ Inspection of Lower Intestinal Tract, Via Natural or Artificial Opening Endoscopic (ICD-10-PCS; CPT 45378; principal; 2022-11-10 15:35)
DX: K60.2 Anal fissure, unspecified (principal); K92.2 Gastrointestinal hemorrhage, unspecified; D62 Acute posthemorrhagic anemia; J43.9 Emphysema, unspecified; F31.9 Bipolar disorder, unspecified; E78.5 Hyperlipidemia, unspecified; F41.9 Anxiety disorder, unspecified; K57.30 Diverticulosis of large intestine without perforation or abscess without bleeding; F17.210 Nicotine dependence, cigarettes, uncomplicated; E66.9 Obesity, unspecified; G89.29 Other chronic pain; Z68.34 Body mass index [BMI] 34.0-34.9, adult; Z79.899 Other long term (current) drug therapy
CPT/HCPCS: 36415; 74176; 74177; 80053; 82784; 83516; 85025; 85610; 85652; 86140; 86225; 86235; 86255; 86256; 86850; 86900; 86901; 93005; 94640; 97162; 99285; 99406; J7030; J7120; Q9967; A4216; J2405

== ENCOUNTER 2022-12-05 13:29 | Emergency (ER) | payer MEDICARE, MEDICAID, SELFPAY ==
[2022-12-05 13:31] VITALS: BP 98/80; PULSE 94; RESP 14; TEMP 36.2; O2SAT 96; BMI 32.3
--- NOTE | 2022-12-05 14:20 | EX.ED.VIS.EY ---
HPI History of Present Illness Chief Complaint: Eye Problem Informant: patient Onset/Context/Timing Location: Right Eye Onset: Weeks (2) Context: Gradual Onset Timing: Continuous Current Severity: Severe Worsened by: Light Relieved by: Nothing Associated Symptoms Associated Symptoms - Eyes: Crusting, Drainage, Eyelid swelling, Pain and Photophobia; Negative for Burning, Foreign body sensation, Itching or Matting Visual Changes: right: Blurred vision and Cloudy vision History of injury: No Narrative Narrative: Patient presents with with right eye pain that began 2 weeks ago but became worse yesterday. Patient states it was gradually getting worse until yesterday. Patient states the pain is sharp. Patient admits to decreased vision from her right eye. Patient denies any trauma or injury. Patient midst to some blurry and cloudy vision in her right eye. Patient admits to some swelling of her eyelids. Patient also admits to some crusting and drainage from her eye. Patient admits to photophobia. Patient denies any foreign body sensation. [facility] Medical History Anemia Anxiety Arthritis Asthma Collapsed lung COPD (chronic obstructive pulmonary disease) Depression Emphysema lung Former smoker History of blood clots History of gallstones Hyperlipidemia Intractable vomiting Kidney stones Migraines Neuropathy Obesity Paranoia Pneumonia Home Medications clonazepam 0.5 mg tablet (Klonopin) 0.5 mg PO BID Check with primary doctor 12/25/20 [History Last Taken Unknown] clonazepam 1 mg tablet (Klonopin) 1 mg PO DAILY Check with primary doctor 12/25/20 [History Last Taken Unknown] mirtazapine 30 mg tablet (Remeron) 45 mg PO QHS Check with primary doctor 12/25/20 [History Last Taken Unknown] risperidone 3 mg tablet 3 mg PO QHS Check with primary doctor 12/25/20 [History Last Taken Unknown] buspirone 15 mg tablet 15 mg PO TID 10/20/21 [History Last Taken Unknown] aripiprazole 10 mg tablet 10 mg PO DAILY 11/15/21 [History Last Taken Unknown] hydroxyzine pamoate 50 mg capsule 50 mg PO TID Check with primary doctor 11/15/21 [History Last Taken Unknown] prazosin 2 mg capsule 1 cap PO DAILY Check with primary doctor 11/15/21 [History Last Taken Unknown] albuterol sulfate 90 mcg/actuation aerosol inhaler 2 puff inhalation Q6H PRN shortness of breath or wheezing #6.7 grams 11/02/22 [Rx Last Taken Unknown] fluticasone 250 mcg-salmeterol 50 mcg/dose blistr powdr for inhalation (Wixela Inhub) 1 inh inhalation BID Check with primary doctor 11/08/22 [History Last Taken Unknown] nicotine (polacrilex) 2 mg gum 2 mg buccal Q2H Check with primary doctor 11/08/22 [History Last Taken Unknown] nicotine 14 mg/24 hr daily transdermal patch 1 patch transdermal DAILY Check with primary doctor 11/08/22 [History Last Taken Unknown] polyethylene glycol 3350 17 gram/dose oral powder (Miralax) 17 g PO DAILY #850 grams 11/11/22 [Rx Last Taken Unknown] gabapentin 800 mg tablet 800 mg PO TID Check with primary doctor #90 tabs 11/22/22 [Rx Last Taken Unknown] ibuprofen 600 mg tablet 600 mg PO Q8H PRN pain #90 tabs 11/22/22 [Rx Last Taken Unknown] tizanidine 4 mg tablet 4 mg PO Q8H PRN pain #90 tabs 11/22/22 [Rx Last Taken Unknown] Allergy/AdvReac Type Severity Reaction Status Date / Time Penicillins Allergy Severe Anaphylaxis Verified 12/05/22 13:31 bee venom protein (honey bee) Allergy Anaphylaxis Verified 12/05/22 13:31 ketorolac [From Toradol] Allergy Rash Verified 12/05/22 13:31 nifedipine [From Procardia] Allergy Swelling Verified 12/05/22 13:31 strawberry Allergy Rash Verified 12/05/22 13:31 tramadol Allergy Hives Verified 12/05/22 13:31 Family History Mother Asthma Anxiety Depression Myocardial infarction, Onset Age: 38 Heart disease High cholesterol Grandmother Cancer Sister Cancer Surgical History H/O spinal fusion History of appendectomy History of cholecystectomy History of partial hysterectomy History of tracheostomy Status post insertion of percutaneous endoscopic gastrostomy (PEG) tube Social History household members: spouse and children number of children: 1 current occupational status: disabled current occupation: due to back Smoking Status: Current every day smoker tobacco type: cigarettes alcohol intake: never substance use type: does not use what type of physical activity do you participate in: none do you feel safe at home: Yes ROS ROS ED Constitutional Constitutional ED: Denies chills or fever(s) Eyes Eyes: Reports blurry vision and change in vision ENT ENT ED: Denies rhinorrhea or sore throat Cardiovascular Cardiovascular: Denies chest pain or palpitations Respiratory/Chest Respiratory/Chest: Denies cough or dyspnea Gastrointestinal Gastrointestinal: Denies nausea or vomiting Genitourinary Genitourinary ED: Denies dysuria or hematuria Musculoskeletal Musculoskeletal: Reports neck pain; Denies back pain Integumentary Denies abscess or rash Neurologic Neurologic: Reports headache(s); Denies weakness Allergic/Immunologic Allergic/Immunologic ED: Denies mouth swelling or urticaria EXAM Physical Exam Const Vital Signs: 12/05/22 13:31 Temperature 97.2 F L Temperature Source Temporal Pulse Rate 94 Respiratory Rate 14 Blood Pressure 98/80 Blood Pressure Mean 86 Pulse Ox 96 Oxygen Delivery Method Room Air Positive well nourished and well developed General Appearance ED: well developed and NAD HEENT atraumatic Eyes Eyes Narrative: Pupils are equal, round, and reactive to light bilaterally. Extraocular muscles are intact. Funduscopic examination was benign. Anterior chamber was clear. Conjunctiva was slightly injected on the right. Under slit-lamp examination, there is a small corneal abrasion over the inferior lateral aspect of the right cornea. There are no foreign bodies noted. Neck supple and no JVD Resp normal respiratory effort, no use of accessory muscles and clear to auscultation bilaterally Cardio regular rate and regular rhythm GI non-distended Palpation: soft Neuro oriented x3, CN's II-XII intact bilaterally, moves all extremities and no sensory deficits noted Sensorium / Orientation: alert Motor Exam: strength 5/5 throughout MDM MDM MDM Narrative Medical decision making narrative: Differential diagnosis includes corneal abrasion, glaucoma, temporal arteritis, retinal detachment, central retinal artery occlusion, retinal vein occlusion, orbital cellulitis, periorbital cellulitis, and ocular migraine. Visual acuity will be obtained to assess for vision. CBC will be obtained to assess for leukocytosis and anemia. Basic metabolic profile will be obtained to assess for electrolyte abnormality and renal function. Sed rate and CRP will be obtained to assess for inflammatory markers for temporal arteritis. CT scan of the orbits will be obtained to assess for orbital cellulitis and periorbital cellulitis. Treatment and Re-Evaluation Narrative: Tetracaine and fluorescein dye was applied. There is a small corneal abrasion over the inferior lateral aspect of the right cornea. Patient was given erythromycin ophthalmic ointment. Visual acuity, lab work, and CT scan were ordered. Patient does not want to wait for any of these test to be done. Patient states she needs to leave. Patient was advised that this could be an orbital cellulitis, temporal arteritis, or other conditions that may affect her vision and cause permanent vision loss. Patient understood these risks and will sign out AGAINST MEDICAL ADVICE. Patient was instructed return if worse in any way. Patient understands and will sign out AGAINST MEDICAL ADVICE. Discharge Plan Triage Chief Complaint: Eye Problem ED Provider: Sukhdev Sullivan Dx/Rx/DC Orders Clinical Impression: Acute right eye pain, Corneal abrasion, right Prescriptions: No Action aripiprazole 10 mg tablet 10 mg PO DAILY Patient Comments: TAKE ONE HALF (0.5) TABLET BY MOUTH TWICE A DAY prazosin 2 mg capsule 1 cap PO DAILY hydroxyzine pamoate 50 mg capsule 50 mg PO TID Patient Comments: TAKE 1 CAPSULE BY MOUTH THREE TIMES A DAY NEEDED clonazepam [Klonopin] 0.5 mg Tablet 0.5 mg PO BID clonazepam [Klonopin] 1 mg Tablet 1 mg PO DAILY risperidone 3 mg Tablet 3 mg PO QHS mirtazapine [Remeron] 30 mg Tablet 45 mg PO QHS buspirone 15 mg tablet 15 mg PO TID fluticasone propion-salmeterol [Wixela Inhub] 250-50 mcg/dose blister with device 1 inh inhalation BID nicotine 14 mg/24 hr patch 24 hour 1 patch transdermal DAILY nicotine (polacrilex) 2 mg gum 2 mg buccal Q2H polyethylene glycol 3350 [Miralax] 17 gram/dose powder 17 g PO DAILY Qty: 850 0RF albuterol sulfate 90 mcg/actuation HFA aerosol inhaler 2 puff inhalation Q6H PRN (Reason: shortness of breath or wheezing) Qty: 6.7 1RF gabapentin 800 mg tablet 800 mg PO TID Qty: 90 0RF Rx Instructions: Start 11/24 ibuprofen 600 mg tablet 600 mg PO Q8H PRN (Reason: pain) Qty: 90 0RF tizanidine 4 mg tablet 4 mg PO Q8H PRN (Reason: pain) Qty: 90 0RF Primary Care Provider: Gege Rivero Referrals: Gege Rivero MD [Primary Care Provider] - Disposition Disposition: Against Medical Advice
[2022-12-05] MEDS: Erythromycin Base 1 OPTH.TUBE OPHTHALMIC (17:55)
== END 2022-12-05 16:00 | disposition left against medical advice (07) ==
PROVIDERS: Emergency Provider Emergency Medicine; PCP Internal Medicine; Visit Provider Emergency Medicine
DX: S05.01XA Injury of conjunctiva and corneal abrasion without foreign body, right eye, initial encounter (principal); J43.9 Emphysema, unspecified; E78.5 Hyperlipidemia, unspecified; Z87.891 Personal history of nicotine dependence; X58.XXXA Exposure to other specified factors, initial encounter
CPT/HCPCS: 99282

== ENCOUNTER 2022-12-06 16:39 | Emergency (ER) | payer MEDICARE, MEDICAID, SELFPAY ==
[2022-12-06 16:40] VITALS: BP 118/82; PULSE 89; RESP 16; TEMP 36.5; O2SAT 97; BMI 32.2
--- NOTE | 2022-12-06 21:44 | CT_ITS ---
INDICATION: right eye pain EXAMINATION: CT ORBITS WITH IV CONTRAST TECHNIQUE: Helically acquired images were obtained of the orbits. Multiplanar reformations were reviewed. A radiation dose optimization technique was used for this scan. COMPARISON: Head CT September 02, 2022 FINDINGS: There is a right periorbital inflammatory change. The ocular globes are normal in appearance bilaterally. No post septal inflammatory change. Mucosal thickening and possible fluid in the sphenoid sinus. Trace fluid or mucosal thickening in the ethmoid air cells bilaterally. No acute fracture. CT/Orb Sella Post Fossa Ear W/CON IMPRESSION: No post septal inflammatory change. No acute fracture. Electronically Signed: Tad Gilmore MD at 23:30 EDT ,
[2022-12-06] MEDS: Acetaminophen 325 MG Tablet 650 MG PO (22:03)
[2022-12-06 22:11] LABS: Hematocrit 40.9 % (37-47); Hemoglobin 12.7 g/dL (12.0-15.0); Mean Corp Hgb Conc 31.1 g/dL (32-36); Mean Corpuscular Hgb 28.3 pg (27.0-32.0); Mean Corpuscular Volume 91.1 fL (81-99); Mean Platelet Vol. 9.2 fl (6.2-12.0); Platelet Count 201 K/mm3 (150-450); RBC Distribution Width CV 13.9 % (11.6-14.6); RBC Distribution Width SD 46.8 fl (35.1-43.9); Red Blood Count 4.49 M/mm3 (4.2-5.4); White Blood Count 5.8 K/mm3 (4.4-11.0)
[2022-12-06 22:26] VITALS: RESP 16
[2022-12-06 22:27] LABS: Anion Gap 5 (5-15); BUN 12 mg/dL (7-18); BUN/Creat Ratio 17.4 RATIO (10-20); CRP 4.11 mg/L (0.0-3.0); Calcium,Total 8.5 mg/dL (8.5-10.1); Chloride 114 mmol/L (98-107); Creatinine, Serum 0.69 mg/dL (0.55-1.02); EST Glomerular Filtration Rate 100 mL/min (>60); Est Glom Filt Rate - Afr Amer 121 mL/min (>60); Estimated Creatinine Clearance 92.65 ml/min; Glucose 84 mg/dL (74-106); Sodium Level 139 mmol/L (136-145)
[2022-12-06] MEDS: fentaNYL 100 MCG/2 ML Ampul 50 MCG IV (22:36)
[2022-12-06 22:44] LABS: Erythrocyte Sedimentation Rate 4 mm/hr (0-30)
--- NOTE | 2022-12-06 23:54 | EDS_ITS ---
HPI History of Present Illness Chief Complaint: Eye Problem Informant: patient Narrative Narrative: Patient is a 42-year-old female with history of anxiety, COPD, hyperlipidemia, depression, anxiety and diagnosis of a corneal abrasion last night presenting with continued and worsening right eye and eyelid pain. Patient has had right eye pain for the past 2 weeks. Discharged to worsen 2 days ago. She is having more sharp pain. She is doing warm compresses to help with the gunk in her eyes. She is complain of some mild blurry vision. States the eyelid swelling is getting worse. Patient had fluorescein test of her eye yesterday in the ER and was diagnosed with a corneal abrasion. She was started on erythromycin ointment. She states its not helping. She states she is alternate ibuprofen and Tylenol for pain. Patient was recommended to have CT scan of the orbits as well as blood work yesterday due to her symptoms however she states that she had an issue with childcare and had to leave AGAINST MEDICAL ADVICE. She is returning tonight to finish this work-up. Patient does note she not have significant improvement of her pain with the tetracaine last night. [facility] Medical History Anemia Anxiety Arthritis Asthma Collapsed lung COPD (chronic obstructive pulmonary disease) Depression Emphysema lung Former smoker History of blood clots History of gallstones Hyperlipidemia Intractable vomiting Kidney stones Migraines Neuropathy Obesity Paranoia Pneumonia Home Medications clonazepam 0.5 mg tablet (Klonopin) 0.5 mg PO BID Check with primary doctor 12/25/20 [History Last Taken Unknown] clonazepam 1 mg tablet (Klonopin) 1 mg PO DAILY Check with primary doctor 12/25/20 [History Last Taken Unknown] mirtazapine 30 mg tablet (Remeron) 45 mg PO QHS Check with primary doctor 12/25/20 [History Last Taken Unknown] risperidone 3 mg tablet 3 mg PO QHS Check with primary doctor 12/25/20 [History Last Taken Unknown] buspirone 15 mg tablet 15 mg PO TID 10/20/21 [History Last Taken Unknown] aripiprazole 10 mg tablet 10 mg PO DAILY 11/15/21 [History Last Taken Unknown] hydroxyzine pamoate 50 mg capsule 50 mg PO TID Check with primary doctor 11/15/21 [History Last Taken Unknown] prazosin 2 mg capsule 1 cap PO DAILY Check with primary doctor 11/15/21 [History Last Taken Unknown] albuterol sulfate 90 mcg/actuation aerosol inhaler 2 puff inhalation Q6H PRN shortness of breath or wheezing #6.7 grams 11/02/22 [Rx Last Taken Unknown] fluticasone 250 mcg-salmeterol 50 mcg/dose blistr powdr for inhalation (Wixela Inhub) 1 inh inhalation BID Check with primary doctor 11/08/22 [History Last Taken Unknown] nicotine (polacrilex) 2 mg gum 2 mg buccal Q2H Check with primary doctor 11/08/22 [History Last Taken Unknown] nicotine 14 mg/24 hr daily transdermal patch 1 patch transdermal DAILY Check with primary doctor 11/08/22 [History Last Taken Unknown] polyethylene glycol 3350 17 gram/dose oral powder (Miralax) 17 g PO DAILY #850 grams 11/11/22 [Rx Last Taken Unknown] gabapentin 800 mg tablet 800 mg PO TID Check with primary doctor #90 tabs 11/22/22 [Rx Last Taken Unknown] ibuprofen 600 mg tablet 600 mg PO Q8H PRN pain #90 tabs 11/22/22 [Rx Last Taken Unknown] tizanidine 4 mg tablet 4 mg PO Q8H PRN pain #90 tabs 11/22/22 [Rx Last Taken Unknown] hydrocodone-acetaminophen 5-325mg 5mg-325mg 1 tab PO Q6H PRN PRN Pain 3 days #12 TABLETS 12/07/22 [Rx Last Taken Unknown] levofloxacin 500 mg tablet 500 mg PO DAILY #7 tabs 12/07/22 [Rx Last Taken Unknown] Allergy/AdvReac Type Severity Reaction Status Date / Time Penicillins Allergy Severe Anaphylaxis Verified 12/06/22 16:42 bee venom protein (honey bee) Allergy Anaphylaxis Verified 12/06/22 16:42 ketorolac [From Toradol] Allergy Rash Verified 12/06/22 16:42 nifedipine [From Procardia] Allergy Swelling Verified 12/06/22 16:42 strawberry Allergy Rash Verified 12/06/22 16:42 tramadol Allergy Hives Verified 12/06/22 16:42 Family History Mother Asthma Anxiety Depression Myocardial infarction, Onset Age: 38 Heart disease High cholesterol Grandmother Cancer Sister Cancer Surgical History H/O spinal fusion History of appendectomy History of cholecystectomy History of partial hysterectomy History of tracheostomy Status post insertion of percutaneous endoscopic gastrostomy (PEG) tube Social History household members: spouse and children number of children: 1 current occupational status: disabled current occupation: due to back Smoking Status: Current every day smoker tobacco type: cigarettes alcohol intake: never substance use type: does not use what type of physical activity do you participate in: none do you feel safe at home: Yes ROS ROS ED Constitutional Constitutional ED: Denies chills or fever(s) Eyes Eyes: Reports blurry vision right and other Details: Right eye pain, right eyelid swelling ENT ENT ED: Denies ear pain or rhinorrhea Cardiovascular Cardiovascular: Denies chest pain Gastrointestinal Gastrointestinal: Denies abdominal pain, nausea or vomiting Integumentary Denies rash Neurologic Neurologic: Reports headache(s); Denies weakness Psychiatric Psychiatric: Reports anxiety EXAM Physical Exam Const Vital Signs: 12/06/22 16:40 12/06/22 22:26 Temperature 97.7 F L Temperature Source Temporal Pulse Rate 89 Respiratory Rate 16 16 Blood Pressure 118/82 H Blood Pressure Mean 94 Pulse Ox 97 Oxygen Delivery Method Room Air Room Air Positive well nourished and well developed General Appearance ED: well developed and NAD HEENT atraumatic Nose: external nose normal Eyes Eyes Narrative: Slight right periorbital edema present, more pronounced on the lower lid. There is what looks to be a stye on the right medial lower eyelid. Some slight drainage of the eye present. Conjunctival injection present. Normal extraocular eye movement. Neck supple Resp normal respiratory effort Cardio regular rate and regular rhythm Extremity normal to inspection Skin Skin Narrative: Mild erythema of the right periorbital area with edema MDM MDM MDM Narrative Medical decision making narrative: Patient is evaluated for continued right eye pain and periorbital swelling. Patient has intact range of motion of her eyes however given her pain will obtain a CT to rule out septal cellulitis. Differential includes stye as well as preseptal cellulitis in addition to septal cellulitis. Patient was previously diagnosed with a corneal abrasion last night so I do not think she requires repeat fluorescein exam tonight. Patient was given a dose of fentanyl as well as Tylenol in the ER. She has allergies to Toradol, tramadol as well as penicillins. Patient is hemodynamically stable in the ER. Her CRP is mildly elevated at 4.11 but her other inflammatory markers including her ESR and her white blood cell count are normal. She has a normal BMP except for mildly low bicarb of 20. CT of the orbits shows no postseptal inflammatory changes and no acute fracture. There are right periorbital inflammatory changes with normal ocular globes bi laterally and possible fluid in the sphenoid sinus. Patient be started on Levaquin due to her history of anaphylaxis to penicillins to cover for preseptal cellulitis. She is given a short course of Hessel for pain control as she is already taking NSAIDs and Tylenol with no relief and is allergic to tramadol. Patient is instructed to follow-up with ophthalmology in the next 24 to 48 hours. She is given instructions to follow-up with [place] [facility]. She verbalizes agreement understand this plan. She can return precautions. Discharged home in stable condition. Lab Data Attestation: I reviewed the patient's lab results. Labs: Laboratory Results - last 24 hr 12/06/22 22:01 WBC 5.8 RBC 4.49 Hgb 12.7 Hct 40.9 MCV 91.1 MCH 28.3 MCHC 31.1 L RDW Std Deviation 46.8 H RDW Coeff of [place] 13.9 Plt Count 201 MPV 9.2 ESR 4 Sodium 139 Potassium 4.0 Chloride 114 H Carbon Dioxide 20.0 L Anion Gap 5 BUN 12 Creatinine 0.69 Estim Creat Clear Calc 92.65 Est GFR (MDRD) Af Amer 121 Est GFR (MDRD) Non-Af 100 BUN/Creatinine Ratio 17.4 Glucose 84 Calcium 8.5 C-React Prot Ext Range 4.11 H Radiography Diagnostic Testing: Clinical Impression(s) from Imaging Studies CT Orbit Sella Inner 12/06/22 21:44 IMPRESSION: No post septal inflammatory change. No acute fracture. Electronically Signed: Tad Gilmore MD at 23:30 EDT , Discharge Plan Triage Chief Complaint: Eye Problem ED Provider: Tatyana Harding Dx/Rx/DC Orders Clinical Impression: Acute pain in right eye, Preseptal cellulitis of right eye Instructions: ED Corneal Abrasion, ED Periorbital Cellulitis Prescriptions: New levofloxacin 500 mg tablet 500 mg PO DAILY Qty: 7 0RF hydrocodone-acetaminophen 5-325 mg tablet 1 tab PO Q6H PRN PRN (Reason: Pain) 3 Days Qty: 12 0RF No Action aripiprazole 10 mg tablet 10 mg PO DAILY Patient Comments: TAKE ONE HALF (0.5) TABLET BY MOUTH TWICE A DAY prazosin 2 mg capsule 1 cap PO DAILY hydroxyzine pamoate 50 mg capsule 50 mg PO TID Patient Comments: TAKE 1 CAPSULE BY MOUTH THREE TIMES A DAY NEEDED clonazepam [Klonopin] 0.5 mg Tablet 0.5 mg PO BID clonazepam [Klonopin] 1 mg Tablet 1 mg PO DAILY risperidone 3 mg Tablet 3 mg PO QHS mirtazapine [Remeron] 30 mg Tablet 45 mg PO QHS buspirone 15 mg tablet 15 mg PO TID fluticasone propion-salmeterol [Wixela Inhub] 250-50 mcg/dose blister with device 1 inh inhalation BID nicotine 14 mg/24 hr patch 24 hour 1 patch transdermal DAILY nicotine (polacrilex) 2 mg gum 2 mg buccal Q2H polyethylene glycol 3350 [Miralax] 17 gram/dose powder 17 g PO DAILY Qty: 850 0RF albuterol sulfate 90 mcg/actuation HFA aerosol inhaler 2 puff inhalation Q6H PRN (Reason: shortness of breath or wheezing) Qty: 6.7 1RF gabapentin 800 mg tablet 800 mg PO TID Qty: 90 0RF Rx Instructions: Start 11/24 ibuprofen 600 mg tablet 600 mg PO Q8H PRN (Reason: pain) Qty: 90 0RF tizanidine 4 mg tablet 4 mg PO Q8H PRN (Reason: pain) Qty: 90 0RF Primary Care Provider: Gege Rivero Referrals: Gege Rivero MD [Primary Care Provider] - Roman Duvall MD [Med Staff - Active Staff] - 1 Day for another exam Activity Restrictions/Additional Instructions: Please follow-up with the eye doctor tomorrow. Call the office and tell them you are seen in the ER and told that you need to follow-up closely. Return to the ER if you have worsening symptoms Especially after 2 full days of antibiotics. Continue to alternate ibuprofen and Tylenol. Continue to warm compresses. Continue to use the eye ointment as previously prescribed. Disposition Disposition: Home, Self Care
[2022-12-07] MEDS: levoFLOXacin 750 MG Tablet PO (00:32)
== END 2022-12-07 00:34 | disposition home or self-care (01) ==
PROVIDERS: Emergency Provider Emergency Medicine; PCP Internal Medicine; Visit Provider Emergency Medicine
DX: L03.213 Periorbital cellulitis (principal); J43.9 Emphysema, unspecified; E78.5 Hyperlipidemia, unspecified
CPT/HCPCS: 70481; 80048; 85027; 85652; 86140; 96374; 99284; Q9967; A4216

== ENCOUNTER 2022-12-11 13:35 | Emergency (ER) | payer MEDICARE, MEDICAID, SELFPAY ==
[2022-12-11 13:35] VITALS: BP 117/69; PULSE 80; RESP 18; TEMP 36.5; O2SAT 100; BMI 32.3
--- NOTE | 2022-12-11 14:05 | EDS_ITS ---
HPI <EFREN Olsen - Last Filed: 12/11/22 19:56> History of Present Illness Chief Complaint: Eye Problem Narrative Narrative: Patient presenting today with pain and swelling to her right eye that she has had for what she thinks is almost 2 weeks. She states that she was here on 12/05/2022 and then again on the and was told that she had a corneal abrasion and was given both topical and oral antibiotics which she has been compliant with but has not followed up with an chemical laboratory technician yet. She reports that she feels her eye pain and swelling is worsening and that her vision is becoming more blurred. She denies any fever, chills, trauma to her eye. [facility]LY [facility], [facility] <EFREN Olsen - Last Filed: 12/11/22 19:56> [facility] Medical History Anemia Anxiety Arthritis Asthma Collapsed lung COPD (chronic obstructive pulmonary disease) Depression Emphysema lung Former smoker History of blood clots History of gallstones Hyperlipidemia Intractable vomiting Kidney stones Migraines Neuropathy Obesity Paranoia Pneumonia Home Medications clonazepam 0.5 mg tablet (Klonopin) 0.5 mg PO BID Check with primary doctor 12/25/20 [History Last Taken Unknown] clonazepam 1 mg tablet (Klonopin) 1 mg PO DAILY Check with primary doctor 12/25/20 [History Last Taken Unknown] mirtazapine 30 mg tablet (Remeron) 45 mg PO QHS Check with primary doctor 12/25/20 [History Last Taken Unknown] risperidone 3 mg tablet 3 mg PO QHS Check with primary doctor 12/25/20 [History Last Taken Unknown] buspirone 15 mg tablet 15 mg PO TID 10/20/21 [History Last Taken Unknown] aripiprazole 10 mg tablet 10 mg PO DAILY 11/15/21 [History Last Taken Unknown] hydroxyzine pamoate 50 mg capsule 50 mg PO TID Check with primary doctor 11/15/21 [History Last Taken Unknown] prazosin 2 mg capsule 1 cap PO DAILY Check with primary doctor 11/15/21 [History Last Taken Unknown] albuterol sulfate 90 mcg/actuation aerosol inhaler 2 puff inhalation Q6H PRN shortness of breath or wheezing #6.7 grams 11/02/22 [Rx Last Taken Unknown] fluticasone 250 mcg-salmeterol 50 mcg/dose blistr powdr for inhalation (Wixela Inhub) 1 inh inhalation BID Check with primary doctor 11/08/22 [History Last Taken Unknown] nicotine (polacrilex) 2 mg gum 2 mg buccal Q2H Check with primary doctor 11/08/22 [History Last Taken Unknown] nicotine 14 mg/24 hr daily transdermal patch 1 patch transdermal DAILY Check with primary doctor 11/08/22 [History Last Taken Unknown] polyethylene glycol 3350 17 gram/dose oral powder (Miralax) 17 g PO DAILY #850 grams 11/11/22 [Rx Last Taken Unknown] gabapentin 800 mg tablet 800 mg PO TID Check with primary doctor #90 tabs 11/22/22 [Rx Last Taken Unknown] ibuprofen 600 mg tablet 600 mg PO Q8H PRN pain #90 tabs 11/22/22 [Rx Last Taken Unknown] tizanidine 4 mg tablet 4 mg PO Q8H PRN pain #90 tabs 11/22/22 [Rx Last Taken Unknown] hydrocodone-acetaminophen 5-325mg 5mg-325mg 1 tab PO Q6H PRN PRN Pain 3 days #12 TABLETS 12/07/22 [Rx Last Taken Unknown] levofloxacin 500 mg tablet 500 mg PO DAILY #7 tabs 12/07/22 [Rx Last Taken Unknown] Allergy/AdvReac Type Severity Reaction Status Date / Time Penicillins Allergy Severe Anaphylaxis Verified 12/11/22 13:37 bee venom protein (honey bee) Allergy Anaphylaxis Verified 12/11/22 13:37 ketorolac [From Toradol] Allergy Rash Verified 12/11/22 13:37 nifedipine [From Procardia] Allergy Swelling Verified 12/11/22 13:37 strawberry Allergy Rash Verified 12/11/22 13:37 tramadol Allergy Hives Verified 12/11/22 13:37 Family History Mother Asthma Anxiety Depression Myocardial infarction, Onset Age: 38 Heart disease High cholesterol Grandmother Cancer Sister Cancer Surgical History H/O spinal fusion History of appendectomy History of cholecystectomy History of partial hysterectomy History of tracheostomy Status post insertion of percutaneous endoscopic gastrostomy (PEG) tube Social History household members: spouse and children number of children: 1 current occupational status: disabled current occupation: due to back Smoking Status: Current every day smoker tobacco type: cigarettes alcohol intake: never substance use type: does not use what type of physical activity do you participate in: none do you feel safe at home: Yes ROS <EFREN Olsen - Last Filed: 12/11/22 19:56> ROS ED Constitutional Constitutional ED: Denies chills or fever(s) Eyes Eyes: Reports blurry vision Cardiovascular Cardiovascular: Denies chest pain Respiratory/Chest Respiratory/Chest: Denies cough or dyspnea Gastrointestinal Gastrointestinal: Denies abdominal pain, nausea or vomiting Musculoskeletal Musculoskeletal: Denies arthralgias or myalgias Integumentary Denies rash Neurologic Neurologic: Denies weakness EXAM <EFREN Olsen - Last Filed: 12/11/22 19:56> Physical Exam Const Vital Signs: 12/11/22 13:35 Temperature 97.7 F L Temperature Source Temporal Pulse Rate 80 Respiratory Rate 18 Blood Pressure 117/69 Blood Pressure Mean 85 Pulse Ox 100 Oxygen Delivery Method Room Air Positive well nourished, well developed and no apparent distress General Appearance ED: well developed HEENT Reports normocephalic and head/scalp atraumatic Mouth ED: Yes moist mucous membranes normal Eyes PERRL and EOMs intact bilaterally Eyes Narrative: Patient has a large stye to the inferior eyelid with mild corneal injection. The stye is expressing fluid. Infraorbital Swelling. Neck full ROM and supple Chest Wall inspection of chest normal Resp normal respiratory effort and clear to auscultation bilaterally Cardio regular rate and regular rhythm GI soft to palpation, non-tender, non-distended and no masses Back/Spine normal ROM and normal to inspection Extremity normal to inspection and full ROM Neuro oriented x3, CN's II-XII intact bilaterally, moves all extremities, no focal motor deficits and no sensory deficits noted Sensorium / Orientation: awake and alert Psych mental status grossly normal and thought process normal Skin no rashes or lesions noted and no wounds MDM <EFREN Olsen - Last Filed: 12/11/22 19:56> MDM MDM Narrative Medical decision making narrative: Patient was originally seen here 12/05/2022 who was diagnosed with a corneal abrasion and at that time the attending did want to perform a CT of her orbits to rule out orbital cellulitis and other abnormality but patient left AMA. She then came back 12/06/2022 to have this work-up performed and had labs obtained and a CT of the orbits that was unremarkable. Labs were obtained here to rule out leukocytosis and are unremarkable. We did consider reimaging her however, she does have a large stye to the inferior eyelid that is draining. I think that this is what is causing her corneal irritation and eye pain. She reports that her vision is slightly blurry. she was given Tylenol here for pain. I have encouraged her to use warm compresses to try to express the fluid and to follow- up with the chemical laboratory technician. She has been given strict return instructions and is comfortable with plan. She will be discharged home in stable condition. <Dr. Paco Souza MD - Last Filed: 12/13/22 19:22> MDM Treatment and Re-Evaluation Narrative: I have personally performed a face to face assessment of the patient and have reviewed the MARYANA Note. I performed a substantive portion of the visit including all aspects of the following. My martines findings include: History: Patient tells me she has right lower eyelid pain. She states it started about 2 or 3 weeks ago. When I asked her this again she states well it was at least 2 weeks ago. She has had pain and swelling of the right lower eyelid. That is never changed. She has had some discharge. No fevers or chills. No nausea vomiting. No headache. She has been seen here and placed on eye drops/ointment. She was then just seen here and had blood work and CT scan and given oral antibiotics. She states the area still hurts. Exam: When I walk in the room she is actually sound asleep. She does not wake with voice. I then shake her shoulder gently and she wakes up. HEENT does show some swelling of the lower lid but it is only in a small portion of it just temporal of the centerline of the lid. It is minimally red there. But the rest of the lid is not red. There is no proptosis. There is no significant pain with eye motion. There is certainly no limitation of motion. There is mild conjunctival injection. There is mild increased tearing and discharge. When I adam that lower lid, I see a very large white internal stye that looks like it is about to drain. I applied a little bit of pressure on the lower lid. This does cause her some discomfort but we are able to express a fairly large amount of white purulent material from this. We decompressed it a pretty fair amount. Medical Decision Making: Patient's repeat blood work was negative. We the original plan was to do CT scan but after I looked at her I do not think this is needed. I think this is a stye that is just causing her discomfort. It was quite prominent. It is now draining. I think this will significantly help and improved. She was once again encouraged to call ophthalmology in the morning and try to to get in for repeat evaluation. Discharge Plan Triage Chief Complaint: Eye Problem ED Midlevel Provider: Kirti Lei ED Provider: Paco Souza Dx/Rx/DC Orders Clinical Impression: Hordeolum externum of right lower eyelid Instructions: ED Sty Prescriptions: No Action aripiprazole 10 mg tablet 10 mg PO DAILY Patient Comments: TAKE ONE HALF (0.5) TABLET BY MOUTH TWICE A DAY prazosin 2 mg capsule 1 cap PO DAILY hydroxyzine pamoate 50 mg capsule 50 mg PO TID Patient Comments: TAKE 1 CAPSULE BY MOUTH THREE TIMES A DAY NEEDED clonazepam [Klonopin] 0.5 mg Tablet 0.5 mg PO BID clonazepam [Klonopin] 1 mg Tablet 1 mg PO DAILY risperidone 3 mg Tablet 3 mg PO QHS mirtazapine [Remeron] 30 mg Tablet 45 mg PO QHS buspirone 15 mg tablet 15 mg PO TID fluticasone propion-salmeterol [Wixela Inhub] 250-50 mcg/dose blister with device 1 inh inhalation BID nicotine 14 mg/24 hr patch 24 hour 1 patch transdermal DAILY nicotine (polacrilex) 2 mg gum 2 mg buccal Q2H polyethylene glycol 3350 [Miralax] 17 gram/dose powder 17 g PO DAILY Qty: 850 0RF levofloxacin 500 mg tablet 500 mg PO DAILY Qty: 7 0RF hydrocodone-acetaminophen 5-325 mg tablet 1 tab PO Q6H PRN PRN (Reason: Pain) 3 Days Qty: 12 0RF albuterol sulfate 90 mcg/actuation HFA aerosol inhaler 2 puff inhalation Q6H PRN (Reason: shortness of breath or wheezing) Qty: 6.7 1RF gabapentin 800 mg tablet 800 mg PO TID Qty: 90 0RF Rx Instructions: Start 11/24 ibuprofen 600 mg tablet 600 mg PO Q8H PRN (Reason: pain) Qty: 90 0RF tizanidine 4 mg tablet 4 mg PO Q8H PRN (Reason: pain) Qty: 90 0RF Primary Care Provider: Gege Rivero Referrals: Gege Rivero MD [Primary Care Provider] - Activity Restrictions/Additional Instructions: Apply warm compresses to your eyes several times a day for the next several days. Please follow-up with the chemical laboratory technician and your PCP. Disposition Disposition: Home, Self Care Discharge Date/Time: 12/11/22 15:25
[2022-12-11 14:27] LABS: Absolute Lymphocyte Count 2.37 X10^3/uL (0.83-4.51); Absolute Neutrophil Count 2.5 X10^3/uL (2.0-7.7); Basophil# 0.03 X10^3/uL; Basophil% 0.6 % (0-1); Eosinophil# 0.18 X10^3/uL; Eosinophils% 3.4 % (0-5); Hematocrit 39.8 % (37-47); Hemoglobin 12.8 g/dL (12.0-15.0); Lymphocyte # 2.37 X10^3/ul (0.83-4.51); Lymphocyte % 44.6 % (19-41); Mean Corp Hgb Conc 32.2 g/dL (32-36); Mean Corpuscular Hgb 27.5 pg (27.0-32.0); Mean Corpuscular Volume 85.6 fL (81-99); Mean Platelet Vol. 10.2 fl (6.2-12.0); Monocyte# 0.27 X10^3/uL; Monocyte% 5.1 % (0-10); NRBC Flagged by Analyzer 0 % (0-5); Neutrophil # 2.45 X10^3/uL (2.7-7.7); Neutrophil % 46.1 % (47-70); Platelet Count 185 K/mm3 (150-450); RBC Distribution Width CV 13.6 % (11.6-14.6); Red Blood Count 4.65 M/mm3 (4.2-5.4); White Blood Count 5.3 K/mm3 (4.4-11.0)
[2022-12-11 14:39] LABS: Anion Gap 5 (5-15); BUN 12 mg/dL (7-18); BUN/Creat Ratio 17.6 RATIO (10-20); Chloride 112 mmol/L (98-107); Creatinine, Serum 0.68 mg/dL (0.55-1.02); EST Glomerular Filtration Rate 101 mL/min (>60); Est Glom Filt Rate - Afr Amer 122 mL/min (>60); Estimated Creatinine Clearance 94.02 ml/min; Glucose 92 mg/dL (74-106); Potassium 3.9 mmol/L (3.5-5.1); Sodium Level 140 mmol/L (136-145)
[2022-12-11] MEDS: Acetaminophen 325 MG Tablet 650 MG PO (14:59)
== END 2022-12-11 15:25 | disposition home or self-care (01) ==
PROVIDERS: Physician Assistant; Emergency Provider Emergency Medicine; PCP Internal Medicine; Visit Provider Emergency Medicine
DX: H00.012 Hordeolum externum right lower eyelid (principal); J43.9 Emphysema, unspecified; E78.5 Hyperlipidemia, unspecified
CPT/HCPCS: 36415; 80048; 85025; 99283; A4216

== ENCOUNTER → 2023-01-18 | Outpatient (CLI) | payer MEDICARE, MEDICAID, SELFPAY ==
--- NOTE | 2023-01-18 06:50 | MRI_ITS ---
STUDY: MRI BRAIN WITHOUT CONTRAST REASON FOR EXAM: Female, 42 years old. Blurred vision, chronic pain, TREMORS TECHNIQUE: Multiplanar multisequence imaging of the brain was performed without the administration of intravenous contrast. COMPARISON: None. FINDINGS: The ventricles, cisterns, and sulci are within normal limits for patients age. There is no restricted diffusion to suggest acute ischemia or infarction. No succeptibility artifict to suggest intracranial hemorrhage or mineralization. Major intracranial signal voids are preserved. There is no midline shift, mass effect, or extra axial fluid collections are seen. No CP angle or IAC mass is seen. The orbits are unremarkable. The sella turcica and craniovertebral junction are within normal limits. Extensive left maxillary sinusitis. The mastoid air cells are clear. MRI/Brain without Contrast IMPRESSION: No intracranial hemorrhage, acute infarct, or space occupying lesion seen on this noncontrast MRI of the brain. Electronically Signed: Jeison Hdz MD at 17:18 EDT ,
== END | disposition home or self-care (01) ==
LOC: MRI 06:33
PROVIDERS: PCP Internal Medicine; Referring Provider Internal Medicine; Visit Provider Internal Medicine
DX: H53.8 Other visual disturbances (principal)
CPT/HCPCS: 70551

== ENCOUNTER → 2023-02-21 | Outpatient (CLI) | payer MEDICARE, MEDICAID, SELFPAY ==
[2023-02-21 12:49] LABS: Amphetamine Urine VISTA NEGATIVE (<1000 ng/mL); Barbiturate Urine VISTA NEGATIVE (< 200 ng/mL); Benzodiazepine Urine VISTA NEGATIVE (< 200 ng/mL); Cocaine Urine VISTA NEGATIVE (< 300 ng/mL); Ecstacy Urine VISTA NEGATIVE (< 500 ng/mL); Methadone Urine VISTA NEGATIVE (< 300 ng/mL); PCP Urine VISTA NEGATIVE (< 25 ng/mL); THC Urine VISTA NEGATIVE (< 50 ng/mL); Vista UDS pH Range 5
== END | disposition home or self-care (01) ==
LOC: LAB 11:55
PROVIDERS: PCP Internal Medicine; Referring Provider Anesthesiology Pain Medicine; Visit Provider Anesthesiology Pain Medicine
DX: F11.20 Opioid dependence, uncomplicated (principal)
CPT/HCPCS: 80307

== ENCOUNTER 2023-08-04 09:55 | Day surgery (SDC) | payer MEDICARE, MEDICAID, SELFPAY ==
[2023-08-04] VITALS (8 sets, daily range): BP systolic 99–112; BP diastolic 55–77; PULSE 47–69; RESP 16–18; TEMP 36.3–36.8; O2SAT 88–100; BMI 36.1
[2023-08-04] MEDS: Lactated Ringers 1,000 ML 15 ML IV (10:28)
[2023-08-04] MEDS: Vancomycin IV 1,000 MG/200 ML BAG 200 MG IV (11:08)
[2023-08-04] MEDS: Lidocaine 0.5% (50 ml) 50 ML Vial (12:23)
[2023-08-04] MEDS: Bupiv/Epi 0.25% 30 ML Vial (12:23)
== END 2023-08-04 15:42 | disposition home or self-care (01) ==
LOC: SDC 09:56 → AC 09:57
PROVIDERS: PCP Internal Medicine; Referring Provider Anesthesiology Pain Medicine; Visit Provider Anesthesiology Pain Medicine
PROC: (CPT 63685; principal; 2023-08-04 10:55)
DX: M96.1 Postlaminectomy syndrome, not elsewhere classified (principal); J44.9 Chronic obstructive pulmonary disease, unspecified; M51.16 Intervertebral disc disorders with radiculopathy, lumbar region; M51.37 Other intervertebral disc degeneration, lumbosacral region; G89.29 Other chronic pain; M48.061 Spinal stenosis, lumbar region without neurogenic claudication; M19.90 Unspecified osteoarthritis, unspecified site; E78.5 Hyperlipidemia, unspecified; E66.9 Obesity, unspecified; F17.200 Nicotine dependence, unspecified, uncomplicated; Z79.899 Other long term (current) drug therapy
CPT/HCPCS: 63685; 63650 ×2; 00300; C1778; C1820; J2405

== ENCOUNTER 2023-08-29 10:24 | Emergency (ER) | payer MEDICARE, MEDICAID, SELFPAY ==
[2023-08-29 10:24] VITALS: BP 147/90; PULSE 114; RESP 20; TEMP 36.3; O2SAT 97; BMI 35.2
--- NOTE | 2023-08-29 10:53 | EX.ED.DYSGE1 ---
HPI History of Present Illness Chief Complaint: Ear Problem Narrative Narrative: 43-year-old female presenting to the emergency room with a chief complaint of ear pain. Patient states about 4 5 days ago she developed fever cough runny nose body aches headache. She is also been experiencing some diarrhea. She states that she has developed some bilateral ear pain and last night the left ear started draining fluid. She states that she has felt dizziness since then. She has decreased hearing. Patient notes that about 2 weeks ago she had a spinal stimulator like device placed. She states that has been healing well. She does not wear oxygen at home. She does carry a diagnosis of COPD. [facility] Medical History Anemia Anxiety Arthritis Asthma Collapsed lung COPD (chronic obstructive pulmonary disease) Depression Emphysema lung Former smoker History of blood clots History of Clostridium difficile infection History of echocardiogram History of gallstones History of stress test Hyperlipidemia Injury of back Intractable vomiting Kidney stones Leg cramps Migraines Neuropathy Obesity Paranoia Pneumonia Walker as ambulation aid Wears dentures Wears glasses Home Medications clonazepam 0.5 mg tablet (Klonopin) 0.5 mg PO BID Check with primary doctor 12/25/20 [History Last Taken 08/03/23] clonazepam 1 mg tablet (Klonopin) 1 mg PO DAILY Check with primary doctor 12/25/20 [History Last Taken 08/04/23] risperidone 3 mg tablet 3 mg PO QHS Check with primary doctor 12/25/20 [History Last Taken 08/03/23] buspirone 15 mg tablet 15 mg PO TID 10/20/21 [History Last Taken 08/03/23] aripiprazole 10 mg tablet 10 mg PO DAILY 11/15/21 [History Last Taken 08/03/23] hydroxyzine pamoate 50 mg capsule 50 mg PO TID Check with primary doctor 11/15/21 [History Last Taken 08/03/23] albuterol sulfate 90 mcg/actuation aerosol inhaler 2 puff inhalation Q6H PRN shortness of breath or wheezing #6.7 grams 11/02/22 [Rx Last Taken Unknown] nicotine (polacrilex) 2 mg gum 2 mg buccal Q2H Check with primary doctor 11/08/22 [History Last Taken Unknown] fluticasone 250 mcg-salmeterol 50 mcg/dose blistr powdr for inhalation (Wixela Inhub) 1 inh inhalation BID Check with primary doctor #60 ea 12/14/22 [Rx Last Taken 08/03/23] nicotine 14 mg/24 hr daily transdermal patch 1 patch transdermal DAILY Check with primary doctor #28 ea 12/25/22 [Rx Last Taken Unknown] ibuprofen 600 mg tablet 600 mg PO Q8H PRN pain #90 tabs 06/21/23 [Rx Last Taken Unknown] tizanidine 4 mg tablet 4 mg PO Q8H PRN pain #90 tabs 06/21/23 [Rx Last Taken 08/03/23] amitriptyline 25 mg tablet 75 mg PO QHS PRN insomnia 07/26/23 [History Last Taken Unknown] amitriptyline 75 mg tablet 75 mg PO DAILY 07/26/23 [History Last Taken 08/03/23] gabapentin 800 mg tablet 800 mg PO .QID Check with primary doctor 07/26/23 [History Last Taken 08/03/23] hydrocodone-acetaminophen 5-325mg 5mg-325mg 1 tab PO Q12H PRN pain 07/26/23 [History Last Taken 08/03/23] azithromycin 250 mg tablet (Zithromax Z-Erick) See Rx Instructions PO .COMPLEX #6 tabs 08/29/23 [Rx Last Taken Unknown] ondansetron 4 mg disintegrating tablet 4 mg PO Q6H PRN PRN Nausea #10 tabs 08/29/23 [Rx Last Taken Unknown] Allergy/AdvReac Type Severity Reaction Status Date / Time Penicillins Allergy Severe Anaphylaxis Verified 08/29/23 10:25 bee venom protein (honey bee) Allergy Anaphylaxis Verified 08/29/23 10:25 ketorolac [From Toradol] Allergy Rash Verified 08/29/23 10:25 nifedipine [From Procardia] Allergy Swelling Verified 08/29/23 10:25 strawberry Allergy Rash Verified 08/29/23 10:25 tramadol Allergy Hives Verified 08/29/23 10:25 Family History Mother Asthma Anxiety Depression Myocardial infarction, Onset Age: 38 Heart disease High cholesterol Grandmother Cancer Sister Cancer Surgical History H/O spinal fusion History of appendectomy History of cholecystectomy History of hernia repair History of partial hysterectomy History of tracheostomy Status post insertion of percutaneous endoscopic gastrostomy (PEG) tube Social History household members: spouse and children number of children: 1 current occupational status: disabled current occupation: due to back Smoking Status: Current every day smoker tobacco type: cigarettes alcohol intake: never substance use type: does not use what type of physical activity do you participate in: none do you feel safe at home: Yes ROS ROS ED Constitutional Constitutional ED: Reports chills, fever(s) and sweats; Denies weight loss Eyes Eyes: Denies change in vision or diplopia ENT ENT ED: Reports ear pain and rhinorrhea; Denies sore throat Cardiovascular Cardiovascular: Denies chest pain, orthopnea, palpitations or racing heartbeat Respiratory/Chest Respiratory/Chest: Reports cough and dyspnea; Denies orthopnea Gastrointestinal Gastrointestinal: Reports diarrhea and vomiting; Denies abdominal pain or nausea Genitourinary Genitourinary ED: Denies dysuria, hematuria or urinary frequency Musculoskeletal Musculoskeletal: Reports myalgias; Denies arthralgias Integumentary Denies abscess or rash Neurologic Neurologic: Reports headache(s); Denies weakness Psychiatric Psychiatric: Denies anxiety, depression, suicidal ideation or suicidal thoughts Endocrine Endocrinology: Denies polydipsia, polyphagia or polyuria Allergic/Immunologic Allergic/Immunologic ED: Denies mouth swelling, tongue swelling or urticaria EXAM Physical Exam Const Vital Signs: 08/29/23 10:24 08/29/23 11:51 08/29/23 11:51 Temperature 97.3 F L Temperature Source Temporal Pulse Rate 114 H 86 Respiratory Rate 20 H 20 H Blood Pressure 147/90 H Blood Pressure Mean 109 Pulse Ox 97 96 Oxygen Delivery Method Room Air Room Air Positive well nourished and well developed General Appearance ED: well developed HEENT Reports normocephalic, head/scalp atraumatic and moist mucous membranes HEENT Narrative: Patient has turbinate edema. She has bilateral tympanic membrane erythema and bulging. There appears to be a perforation of the left tympanic membrane. I do not see perforation of the right at this time. There are no visible landmarks. Oral pharyngeal exam appears normal. Eyes PERRL and EOMs intact bilaterally Neck no lymphadenopathy, supple and no JVD Resp normal respiratory effort Resp Narrative: Patient does not appear in any distress. Auscultation: rhonchi lower bilaterally and wheezes expiratory wheezes Cardio regular rate, regular rhythm and no murmurs Cardio Narrative: She has heart rate of 114 was not appreciated on my examination. Heart rate when I counted for 30 seconds equates to 92. Patient has good capillary refill less than 2 seconds of the fingers. GI normal to inspection, nondistended, normoactive bowel sounds and non-tender Palpation: soft Back/Spine no CVA tenderness and normal ROM Extremity normal to inspection General Extremety ED: Negative for edema General Extremity: Negative for edema Neuro oriented x3 and CN's II-XII intact bilaterally Sensorium / Orientation: alert Motor Exam: strength 5/5 throughout Psych mental status grossly normal Mood & Affect: Negative for depressed or tearful Skin no rashes or lesions noted and no wounds MDM MDM MDM Narrative Medical decision making narrative: Patient received a DuoNeb and now I do not hear any expiratory wheezes. She seems to have a forced upper airway wheeze. However she is not in any distress. I wanted to cover her with azithromycin for the ear infection. Noting the limitations against strep pneumonia and haemophilus however she does have anaphylaxis to penicillin. Patient was advised that if she has recurrent symptoms or persistent symptoms she may need to see ENT. She received ear precautions for home. I am hesitant to place her on any steroids because she recently had spinal implantation and now has evidence of infection. As her lung sounds have cleared I would recommend continued home breathing treatments. History & Record Review Discussion w/independent historian: Patient Discharge Plan Triage Chief Complaint: Ear Problem ED Provider: Giuseppe Faulkner Dx/Rx/DC Orders Clinical Impression: Acute viral syndrome, COPD (chronic obstructive pulmonary disease), Bilateral acute otitis media, Ruptured tympanic membrane, Acute bronchospasm Instructions: ED Bronchospasm (Adult), ED Otitis Media Adult, ED PERFORATED TM Infected [Adult] Prescriptions: New azithromycin [Zithromax Z-Erick] 250 mg tablet See Rx Instructions .ROUTE .COMPLEX Qty: 6 0RF Rx Instructions: For 250 mg dose pack: take 500 mg today (day 1), then 250 mg for 4 days (days 2-5) ondansetron [ondansetron] 4 mg tablet,disintegrating 4 mg PO Q6H PRN PRN (Reason: Nausea) Qty: 10 0RF No Action aripiprazole 10 mg tablet 10 mg PO DAILY Patient Comments: TAKE ONE HALF (0.5) TABLET BY MOUTH TWICE A DAY hydroxyzine pamoate 50 mg capsule 50 mg PO TID Patient Comments: TAKE 1 CAPSULE BY MOUTH THREE TIMES A DAY NEEDED clonazepam [Klonopin] 0.5 mg Tablet 0.5 mg PO BID clonazepam [Klonopin] 1 mg Tablet 1 mg PO DAILY risperidone 3 mg Tablet 3 mg PO QHS buspirone 15 mg tablet 15 mg PO TID nicotine (polacrilex) 2 mg gum 2 mg buccal Q2H amitriptyline 75 mg tablet 75 mg PO DAILY amitriptyline 25 mg tablet 75 mg PO QHS PRN (Reason: insomnia) Patient Comments: TAKE 1 TABLET BY MOUTH EVERYDAY AT BEDTIME hydrocodone-acetaminophen 5-325 mg tablet 1 tab PO Q12H PRN (Reason: pain) Patient Comments: TAKE 1 TABLET BY MOUTH TWICE DAILY gabapentin 800 mg tablet 800 mg PO .QID Rx Instructions: Start 02/24 albuterol sulfate 90 mcg/actuation HFA aerosol inhaler 2 puff inhalation Q6H PRN (Reason: shortness of breath or wheezing) Qty: 6.7 1RF fluticasone propion-salmeterol [Wixela Inhub] 250-50 mcg/dose blister with device 1 inh inhalation BID Qty: 60 2RF nicotine 14 mg/24 hr patch 24 hour 1 patch transdermal DAILY Qty: 28 2RF tizanidine 4 mg tablet 4 mg PO Q8H PRN (Reason: pain) Qty: 90 0RF ibuprofen 600 mg tablet 600 mg PO Q8H PRN (Reason: pain) Qty: 90 0RF Primary Care Provider: Gege Rivero Referrals: Gege Rivero MD [Primary Care Provider] - 1 Week Activity Restrictions/Additional Instructions: I would continue your home breathing treatments. Please take all of the antibiotic as directed. It may take several weeks for your eardrum rupture to heal. I recommend a piece of cotton covering the ear canal while you shower. Please do not use any eardrops at this time. If you have persistent or recurrent symptoms you may need to see ENT for further evaluation. Monitor breathing return if worsening or concerns Disposition Disposition: Home, Self Care
[2023-08-29] MEDS: Ipratropium/Albuterol Sulfate 3 ML AMPUL.NEB INHALATION (11:50)
[2023-08-29 11:51] VITALS: PULSE 86; RESP 20; O2SAT 96
[2023-08-29 12:21] VITALS: BP 127/88; PULSE 72; RESP 16; TEMP 36.7; O2SAT 97
== END 2023-08-29 12:22 | disposition home or self-care (01) ==
PROVIDERS: Emergency Provider Emergency Medicine; PCP Internal Medicine; Visit Provider Emergency Medicine
DX: H72.92 Unspecified perforation of tympanic membrane, left ear (principal); J43.9 Emphysema, unspecified; J98.01 Acute bronchospasm; H66.93 Otitis media, unspecified, bilateral; B34.9 Viral infection, unspecified; H91.90 Unspecified hearing loss, unspecified ear; E78.5 Hyperlipidemia, unspecified; F17.210 Nicotine dependence, cigarettes, uncomplicated; R51.9 Headache, unspecified
CPT/HCPCS: 94640; 99282

== ENCOUNTER 2023-10-20 09:47 | Day surgery (SDC) | payer MEDICARE, MEDICAID, SELFPAY ==
[2023-10-20] VITALS (7 sets, daily range): BP systolic 105–118; BP diastolic 61–77; PULSE 71–97; RESP 16; TEMP 36.1–36.5; O2SAT 96–100; BMI 34.0
[2023-10-20] MEDS: Lactated Ringers 1,000 ML 15 ML IV (10:52)
--- NOTE | 2023-10-20 12:56 | RAD_ITS ---
STUDY: X-RAY - LUMBAR SPINE REASON FOR EXAM: Female, 43 years old. Intraoperative digital documentation images. TECHNIQUE: 3 intraoperative digital documentation images view(s) of the lumbar spine were obtained. COMPARISON: August 04, 2023 FINDINGS: 3 intraoperative digital documentation images document battery change. 59.9 seconds of fluoroscopy, 3 intraoperative digital documentation images and radiation dose of 13.79 mGy. RAD/Lumbar Spine 2 or 3 Views IMPRESSION: Intraoperative digital documentation images. Electronically Signed: Ivan Granda MD at 14:01 EDT ,
[2023-10-20] MEDS: Lidocaine 0.5% (50 ml) 50 ML Vial (13:03)
[2023-10-20] MEDS: Vancomycin IV 1,000 MG/200 ML BAG 200 MG IV (13:20)
[2023-10-20] MEDS: HYDROcodone Bitartrate/Apap 5/325 Tablet PO (15:18)
[2023-10-20] MEDS: Gabapentin 400 MG Capsule 800 MG PO (15:18)
== END 2023-10-20 15:43 | disposition home or self-care (01) ==
LOC: SDC 09:47 → AC 09:49
PROVIDERS: PCP Internal Medicine; Referring Provider Anesthesiology Pain Medicine; Visit Provider Anesthesiology Pain Medicine
PROC: (CPT 63688; principal; 2023-10-20 11:00)
DX: T85.122A Displacement of implanted electronic neurostimulator of spinal cord electrode (lead), initial encounter (principal); Y75.2 Prosthetic and other implants, materials and neurological devices associated with adverse incidents; M96.1 Postlaminectomy syndrome, not elsewhere classified; M51.37 Other intervertebral disc degeneration, lumbosacral region; M51.36 Other intervertebral disc degeneration, lumbar region; M51.27 Other intervertebral disc displacement, lumbosacral region; J45.909 Unspecified asthma, uncomplicated; G89.29 Other chronic pain; F17.200 Nicotine dependence, unspecified, uncomplicated
CPT/HCPCS: 63688; 63663; 72100; 76000; J7120; J2405

== ENCOUNTER 2024-02-08 19:31 | Emergency (ER) | payer MEDICARE, MEDICAID, SELFPAY ==
[2024-02-08 19:32] VITALS: BP 111/79; PULSE 83; RESP 14; TEMP 36.4; O2SAT 94
--- NOTE | 2024-02-08 20:41 | EKG12_ITS ---
Test Reason : DYSRHYTHMIA Blood Pressure : / mmHG Vent. Rate : 075 BPM Atrial Rate : 075 BPM P-R Int : 176 ms QRS Dur : 096 ms QT Int : 376 ms P-R-T Axes : 040 042 -19 degrees QTc Int : 419 ms Normal sinus rhythm Nonspecific T wave abnormality Abnormal ECG Confirmed by Allan Griggs ([id number]), television news video editor ARMANDO MEDRANO ([id number]) on 02/13/2024 1:50:46 PM Referred By: Bro Lovett Confirmed By:Allan Griggs
--- NOTE | 2024-02-08 20:41 | CT_ITS ---
EXAM: CT HEAD WITHOUT INTRAVENOUS CONTRAST CLINICAL INDICATION: Change in Mental Status TECHNIQUE: Multiple axial images were obtained of the head without intravenous contrast. This CT exam was performed using one or more of the following dose reduction techniques: automated exposure control, adjustment of the mA and/or kV according to patient size, and/or use of iterative reconstruction technique. RADIATION DOSE: CTDIvol = 44.99 mGy, DLP = 779.24 mGy-cm. COMPARISON: September 02, 2022 showing coarse calcification near the inferior fourth ventricle. There was no acute abnormality on MRI January 18, 2023. FINDINGS: BRAIN AND EXTRA-AXIAL SPACES: A few scattered extra-axial calcifications are stable from prior exam. No intra- or extra-axial hemorrhage. No evidence of acute infarct. No intracranial mass or mass effect. There is preservation of the almendarez/white matter interface. Posterior fossa structures are unremarkable. Ventricles are appropriate for age. No hydrocephalus. Basal cisterns are patent. BONES/JOINTS: Unremarkable. No discrete lytic or blastic abnormalities. SINUSES: Moderate air-fluid level in the partially included left maxillary sinus. And mild mucosal thickening and left frontoethmoidal recess. Subtotal opacification of sphenoid sinuses. There was only slight left sphenoid chronic sinusitis on prior exam. MASTOID AIR CELLS: Unremarkable. Clear. ORBITS: Visualized globes, extraocular muscles, optic nerves and retrobulbar fat appear unremarkable. CT/Brain/Head without Contrast IMPRESSION: 1. No acute intracranial abnormality. 2. Acute superimposed on chronic sinusitis. Electronically Signed: Christa Faith MD at 22:21 EDT ,
--- NOTE | 2024-02-08 20:45 | ED.RN ---
Per Dr Lovett patient does not require suicide precautions or a sitter.
[2024-02-08 21:08] LABS: Absolute Lymphocyte Count 1.84 X10^3/uL (0.83-4.51); Absolute Neutrophil Count 3.8 X10^3/uL (2.0-7.7); Basophil# 0.03 X10^3/uL; Basophil% 0.5 % (0-1); Eosinophil# 0.24 X10^3/uL; Eosinophils% 3.8 % (0-5); Hematocrit 38.3 % (37-47); Hemoglobin 12.1 g/dL (12.0-15.0); Lymphocyte # 1.84 X10^3/ul (0.83-4.51); Lymphocyte % 29.3 % (19-41); Mean Corp Hgb Conc 31.6 g/dL (32-36); Mean Corpuscular Hgb 29.7 pg (27.0-32.0); Mean Corpuscular Volume 94.1 fL (81-99); Mean Platelet Vol. 9.6 fl (6.2-12.0); Monocyte# 0.35 X10^3/uL; Monocyte% 5.6 % (0-10); NRBC Flagged by Analyzer 0 % (0-5); Neutrophil % 60.5 % (47-70); POSITIVE COUNT YES; RBC Distribution Width CV 13.6 % (11.6-14.6); RBC Distribution Width SD 47.2 fl (35.1-43.9); Red Blood Count 4.07 M/mm3 (4.2-5.4); White Blood Count 6.3 K/mm3 (4.4-11.0)
[2024-02-08 21:22] LABS: Internal QC Validated? YES +Cl - CLEAR BKGD; Pregnancy, Serum, hCG Quali. NEGATIVE Negative
[2024-02-08 21:24] LABS: Alcohol, Blood (Medical)-Serum < 3.0 mg/dL; Differential Indicated SCAN CRITERIA MET
[2024-02-08 21:25] LABS: Anisocytosis RARE; Macrocytosis RARE; Platelet Estimate ADEQUATE (ADEQ); Platelet Morphology CLUMPED; Red Cell Morphology N CHROM NORMAL (NORM C&C)
[2024-02-08 21:31] VITALS: BP 119/75; PULSE 69; RESP 18; O2SAT 99
[2024-02-08 21:34] LABS: Anion Gap 8 (5-15); BUN 5 mg/dL (7-18); BUN/Creat Ratio 6.1 RATIO (10-20); Calcium,Total 9.7 mg/dL (8.5-10.1); Chloride 106 mmol/L (98-107); Creatinine, Serum 0.81 mg/dL (0.55-1.02); EST Glomerular Filtration Rate 82 mL/min (>60); Est Glom Filt Rate - Afr Amer 99 mL/min (>60); Glucose 91 mg/dL (74-106); Potassium 3.6 mmol/L (3.5-5.1); Sodium Level 138 mmol/L (136-145)
[2024-02-08 21:48] LABS: Amphetamine Urine VISTA NEGATIVE (<1000 ng/mL); Barbiturate Urine VISTA NEGATIVE (< 200 ng/mL); Benzodiazepine Urine VISTA NEGATIVE (< 200 ng/mL); Cocaine Urine VISTA NEGATIVE (< 300 ng/mL); Ecstacy Urine VISTA NEGATIVE (< 500 ng/mL); Methadone Urine VISTA NEGATIVE (< 300 ng/mL); PCP Urine VISTA NEGATIVE (< 25 ng/mL); THC Urine VISTA POSITIVE (< 50 ng/mL); Vista UDS pH Range 6
[2024-02-08 21:49] LABS: Bacteria 0 SEEN /hpf (None Seen); Mucous, Urine 0 SEEN /hpf (<or=2+); Red Blood Cells-Urine 0 SEEN /hpf (0-5); White Blood Cells 0 SEEN /hpf (0-5)
[2024-02-08 21:51] LABS: Color, Urine Yellow (Yellow); Glucose, Dipstick Normal (Normal); Ketone-Dipstick Negative (Negative); Leukocyte Esterase-Dipstick Negative /ul (Negative); Nitrite-Dipstick Negative (Negative); Occult Blood-Urine Negative /ul (Negative); Protein-Dipstick Negative (Negative); Specific Gravity, Urine 1.005 (1.002-1.030); Urine Bilirubin Dipstick Negative (Negative); Urine Clarity Clear (Clear); Urine Urobilinogen Normal (Normal)
[2024-02-08 21:55] LABS: Squamous Epithelial Cells - UA 0-5 SEEN /hpf (5-10)
--- NOTE | 2024-02-08 21:56 | EDS_ITS ---
HPI History of Present Illness Chief Complaint: Weakness Detail of Chief Complaint: Weakness, depression, concern for Parkinson's disease, lack of energy Informant: patient and family Onset/Context/Timing Onset: Weeks Timing: Continuous and Waxes and wanes Quality: HPI narrative Location: Generalized Current Severity: Does not feel well. Worsened by: Patient's family believes she has Parkinson's disease based on what they go Relieved by: Nothing Associated Symptoms Associated Symptoms: Lack of appetite, forgetfulness and multiple other symptoms Narrative Narrative: Patient is a 43-year-old woman. She has history of depression. She was asked if she is depressed. She replied is not everyone . Patient had trouble with sleep, memory, energy, appetite. Person with her believes she has Parkinson based on her symptoms and what they looked up. She has no formal diagnosis of Parkinson's disease. She does have history of depression, COPD, anxiety, hyperlipidemia, intractable abdominal pain. Patient admitted to marijuana use. She states she uses very infrequently. I misunderstood and thought she stated 1 month she corrected me when I did my exit interview and stated 1 week ago. Patient states she does not remember going to CAT scan. Patient states she does not remember the IV being placed. [facility] Medical History Difficult intravenous access Wears dentures Wears glasses History of Clostridium difficile infection Walker as ambulation aid Injury of back Leg cramps History of echocardiogram History of stress test Asthma Obesity Collapsed lung Pneumonia Neuropathy Hyperlipidemia History of gallstones History of blood clots Arthritis Anemia Kidney stones Former smoker Migraines Intractable vomiting Emphysema lung COPD (chronic obstructive pulmonary disease) Paranoia Anxiety Depression Home Medications ?Medication ?Instructions ?Recorded ?Last Taken ?Type clonazepam 0.5 mg tablet (Klonopin) 0.5 mg PO BID Check with primary 12/25/20 10/19/23 History doctor clonazepam 1 mg tablet (Klonopin) 1 mg PO DAILY Check with primary 12/25/20 10/19/23 History doctor risperidone 3 mg tablet 3 mg PO QHS Check with primary 12/25/20 08/03/23 History doctor buspirone 15 mg tablet 15 mg PO TID 10/20/21 10/19/23 History hydroxyzine pamoate 50 mg capsule 50 mg PO TID Check with primary 11/15/21 10/19/23 History doctor albuterol sulfate 90 mcg/actuation 2 puff inhalation Q6H PRN 11/02/22 Unknown Rx aerosol inhaler shortness of breath or wheezing #6.7 grams gabapentin 800 mg tablet 800 mg PO 4X/DAY Check with 07/26/23 10/19/23 History primary doctor lamotrigine 200 mg tablet 400 mg PO QHS 10/09/23 10/19/23 History lithium carbonate 300 mg capsule 300 mg PO BID 10/20/23 10/19/23 History ibuprofen 600 mg tablet 600 mg PO Q8H PRN pain #90 tabs 01/23/24 Unknown Rx tizanidine 4 mg tablet 4 mg PO Q8H PRN pain #90 tabs 01/23/24 Unknown Rx amitriptyline 100 mg tablet 100 mg PO QHS 02/08/24 Unknown History prazosin 2 mg capsule 4 mg PO QHS 02/08/24 Unknown History Allergy/AdvReac Type Severity Reaction Status Date / Time Penicillins Allergy Severe Anaphylaxis Verified 02/08/24 19:38 bee venom protein (honey bee) Allergy Anaphylaxis Verified 02/08/24 19:38 ketorolac (From Toradol) Allergy Rash Verified 02/08/24 19:38 nifedipine (From Procardia) Allergy Swelling Verified 02/08/24 19:38 strawberry Allergy Rash Verified 02/08/24 19:38 tramadol Allergy Hives Verified 02/08/24 19:38 Family History Mother Asthma Anxiety Depression Myocardial infarction, Onset Age: 38 Heart disease High cholesterol Grandmother Cancer Sister Cancer Surgical History Spinal cord stimulator status History of hernia repair Status post insertion of percutaneous endoscopic gastrostomy (PEG) tube History of tracheostomy History of cholecystectomy History of appendectomy H/O spinal fusion History of partial hysterectomy Social History household members: spouse and children number of children: 1 current occupational status: disabled current occupation: due to back Smoking Status: Former smoker quit date: 03/22/21 pack-years: 30 Electronic Cigarette Use: with nicotine quit status: considering quitting alcohol intake: never substance use type: does not use what type of physical activity do you participate in: none do you feel safe at home: Yes ROS ROS ED Constitutional Constitutional ED: Denies chills, fever(s), subjective, sweats or weight loss Eyes Eyes: Reports change in vision bilateral and diplopia; Denies blurry vision ENT ENT ED: Denies ear pain, rhinorrhea or sore throat Cardiovascular Cardiovascular: Denies chest pain or palpitations Respiratory/Chest Respiratory/Chest: Denies cough, dyspnea or dyspnea on exertion Gastrointestinal Gastrointestinal: Reports nausea and other Details: Lack of appetite. ; Denies abdominal pain or constipation Genitourinary Genitourinary ED: Denies dysuria, hematuria or urinary frequency Musculoskeletal Musculoskeletal: Denies arthralgias or myalgias Integumentary Denies rash Neurologic Neurologic: Reports weakness; Denies headache(s) Psychiatric Psychiatric: Reports anxiety and depression; Denies suicidal ideation Endocrine Endocrinology: Reports cold intolerance and heat intolerance Hematologic/Lymphatic Hematologic/Lymphatic: Reports systems reviewed and no addt'l complaints, except as documented Allergic/Immunologic Allergic/Immunologic ED: Denies mouth swelling, tongue swelling or urticaria EXAM Physical Exam Const Vital Signs: 02/08/24 19:32 02/08/24 20:28 Temperature 97.6 F L Temperature Source Temporal Pulse Rate 83 Respiratory Rate 14 Respiratory Effort Normal Respiratory Pattern Normal Blood Pressure 111/79 Blood Pressure Mean 89 Pulse Ox 94 Oxygen Delivery Method Room Air Positive well nourished, well developed and unkempt Constitutional Narrative: Patient is leaning to the right her head is tilted to the right. She is drooling. Psychomotor skills are slow. General Appearance ED: unkempt and well developed; Negative for cyanotic or diaphoretic HEENT Reports moist mucous membranes HEENT Narrative: Atraumatic normocephalic. Ears normal. Nares patent. Posterior pharynx is normal. Eyes PERRL and EOMs intact bilaterally Eyes Narrative: There is no nystagmus. General Eye ED: Negative for pale conjunctiva or scleral icterus Neck no lymphadenopathy, supple and no JVD Chest Wall inspection of chest normal and palpation of chest normal Resp normal respiratory effort and clear to auscultation bilaterally Cardio regular rate, regular rhythm, S1 normal heart sound, S2 normal heart sound and no murmurs GI normal to inspection, nondistended, normoactive bowel sounds, non-tender and non-distended; Negative for hepatosplenomegaly or no masses Back/Spine no CVA tenderness Cervical Spine: Negative for cervical spine tenderness Extremity normal to inspection General Extremety ED: Negative for edema or tenderness General Extremity: Negative for edema Neuro oriented x3, CN's II-XII intact bilaterally and no sensory deficits noted Neuro Narrative: There is no dysmetria. Cordero test indicates patient is not attempting with sincere effort to raise her right or left leg off the bed. There is some movement. Patient's deep tendon reflexes are 1+ bicep, brachialis, tricep, patella and ankle. There is no clonus or Babinski sign noted. Gait was not tested. Sensorium / Orientation: alert Motor Exam: strength 5/5 throughout Psych Psych Narrative: Slow psychomotor skills. Flat affect. Appearance: unkempt Mood & Affect: depressed Skin no rashes or lesions noted, no wounds and No skin turgor normal General Skin Exam: elasticity normal and jaundice MDM MDM Lab Data Attestation: I reviewed the patient's lab results. Lab results narrative: CBC is essentially normal. Electrolyte panel is normal. TSH is normal. Serum test is negative. UA is negative. Talk screen is positive for cannabis and she admits to using cannabis. Alcohol was negative. Labs: Laboratory Results - last 24 hr 02/08/24 02/08/24 20:53 21:27 WBC 6.3 RBC 4.07 L Hgb 12.1 Hct 38.3 MCV 94.1 MCH 29.7 MCHC 31.6 L RDW Std Deviation 47.2 H RDW Coeff of [place] 13.6 Plt Count TNP MPV 9.6 Immature Gran % (Auto) 0.300 Neut % (Auto) 60.5 Lymph % (Auto) 29.3 [place] % (Auto) 5.6 Eos % (Auto) 3.8 Baso % (Auto) 0.5 Absolute Neuts (auto) 3.8 Absolute Lymphs (auto) 1.84 Nucleated RBC % 0 Platelet Estimate ADEQUATE Plt Morphology Comment CLUMPED RBC Morphology N CHROM Anisocytosis RARE Macrocytosis RARE Sodium 138 Potassium 3.6 Chloride 106 Carbon Dioxide 24.0 Anion Gap 8 BUN 5 L Creatinine 0.81 Est GFR (MDRD) Af Amer 99 Est GFR (MDRD) Non-Af 82 BUN/Creatinine Ratio 6.1 L Glucose 91 Calcium 9.7 TSH 2.790 Serum , Qual NEGATIVE Urine Color Yellow Urine Clarity Clear Urine pH 7.0 Ur Specific Williamson 1.005 Urine Protein Negative Urine Glucose (UA) Normal Urine Ketones Negative Urine Occult Blood Negative Urine Nitrite Negative Urine Bilirubin Negative Urine Urobilinogen Normal Ur Leukocyte Esterase Negative Urine RBC 0 SEEN Urine WBC 0 SEEN Ur Squamous Epith Cells 0-5 SEEN Urine Bacteria 0 SEEN Urine Mucus 0 SEEN Urine Opiates Screen NEGATIVE Urine Methadone Screen NEGATIVE Ur Barbiturates Screen NEGATIVE Ur Phencyclidine Scrn NEGATIVE Ur Amphetamines Screen NEGATIVE MDMA (Ecstasy) Screen NEGATIVE U Benzodiazepines Scrn NEGATIVE Urine Cocaine Screen NEGATIVE U Cannabinoids Screen POSITIVE H Ur Drug Screen Comment Ethyl Alcohol < 3.0 Radiography Diagnostic Testing: CT was reviewed by me. Formal read is pending. There is fluid noted in the left maxillary sinus. There is evidence of chronic sphenoid disease. EKG Initial EKG: Attestation: I personally reviewed and interpreted this EKG as follows: Interpretation: Sinus Rhythm (Rate of 75. There is no acute ischemic changes. RI interval is 176 ms. Cures duration 96 ms. QT duration 3 and 76 ms. [place] is normal. There is no ischemic changes noted.) Treatment and Re-Evaluation :: Patient and family member was told in my opinion she does not have Parkinson's disease because she does not have cogwheel rigidity. She question why I believe it is depression. She states that she does not remember things. She was informed there is an entity called pseudodementia due to depression. It is my belief that patient has significant depression and would benefit from psychiatric hospitalization. She is not suicidal homicidal. In my opinion she does not need to be pink slipped at this time. She reports compliance with her medication. Her questions were answered. After I answered her questions her response to her sister was let's get my ass out of here . Discharge Plan Triage Chief Complaint: Weakness ED Provider: Bro Lovett Dx/Rx/DC Orders Clinical Impression: Major depression, Hyperlipidemia, Smoker, COPD (chronic obstructive pulmonary disease), Fatigue, Pseudodementia, Cannabis use disorder, mild, abuse Instructions: Know the Symptoms of Depression, ED Depression Prescriptions: No Action hydroxyzine pamoate 50 mg capsule 50 mg PO TID Patient Comments: TAKE 1 CAPSULE BY MOUTH THREE TIMES A DAY NEEDED clonazepam [Klonopin] 0.5 mg Tablet 0.5 mg PO BID Patient Comments: total of 2mg clonazepam [Klonopin] 1 mg Tablet 1 mg PO DAILY risperidone 3 mg Tablet 3 mg PO QHS buspirone 15 mg tablet 15 mg PO TID gabapentin 800 mg tablet 800 mg PO 4X/DAY Rx Instructions: Start 02/24 lamotrigine 200 mg tablet 400 mg PO QHS lithium carbonate 300 mg capsule 300 mg PO BID amitriptyline 100 mg tablet 100 mg PO QHS prazosin 2 mg capsule 4 mg PO QHS albuterol sulfate 90 mcg/actuation HFA aerosol inhaler 2 puff inhalation Q6H PRN (Reason: shortness of breath or wheezing) Qty: 6.7 1RF ibuprofen 600 mg tablet 600 mg PO Q8H PRN (Reason: pain) Qty: 90 0RF tizanidine 4 mg tablet 4 mg PO Q8H PRN (Reason: pain) Qty: 90 0RF Primary Care Provider: Gege Rivero Referrals: Gege Rivero MD [Primary Care Provider] - As soon as possible Print Language: Macedonian Disposition Disposition: Home, Self Care
--- NOTE | 2024-02-08 22:29 | ED.RN ---
RN to obtain vitals, pt ambulatory in room. Dr. Lovett into discuss results with pt. Pt was then seen leaving department without her D/C instruction, pt had no IV in place. Dr. Lovett aware.
--- NOTE | 2024-02-08 22:52 | ED.RN ---
Pt arrived back to triage and discussed wanting to see [facility] to obtain resources for her depression. This RN and Dr. Lovett discussed this with pt personally. Pt is willing to seek help for her depression.
[2024-02-09] MEDS: RisperiDONE 1 MG Tablet 3 MG PO (00:30)
[2024-02-09] MEDS: Prazosin HCl 1 MG Capsule 4 MG PO (00:32)
[2024-02-09] MEDS: busPIRone 15 MG TABLET PO (00:33)
[2024-02-09] MEDS: Lithium Carbonate 300mg Capsule 300 MG PO (00:34)
[2024-02-09] MEDS: Amitriptyline 100 MG Tablet PO (00:34)
[2024-02-09] MEDS: lamoTRIgine 100 MG Tablet 400 MG PO (00:34)
[2024-02-09] MEDS: clonazePAM 0.5 MG Tablet PO (00:36)
[2024-02-09] MEDS: Gabapentin 800 MG Tablet PO (01:12)
--- NOTE | 2024-02-09 03:47 | ED.RN ---
Report given to Susan MENG @ [facility]
[2024-02-09 07:43] VITALS: BP 119/76; PULSE 72; RESP 16; TEMP 36.4; O2SAT 98
== END 2024-02-09 07:45 ==
PROVIDERS: Emergency Medicine; Emergency Provider Emergency Medicine; PCP Internal Medicine; Referring Provider Emergency Medicine; Visit Provider Emergency Medicine
DX: F32.9 Major depressive disorder, single episode, unspecified (principal); J44.9 Chronic obstructive pulmonary disease, unspecified; F12.10 Cannabis abuse, uncomplicated; R53.83 Other fatigue; R41.9 Unspecified symptoms and signs involving cognitive functions and awareness; R10.9 Unspecified abdominal pain; F41.9 Anxiety disorder, unspecified; E78.5 Hyperlipidemia, unspecified; G62.9 Polyneuropathy, unspecified; Z88.0 Allergy status to penicillin; Z88.6 Allergy status to analgesic agent; Z79.899 Other long term (current) drug therapy; Z87.891 Personal history of nicotine dependence; Z91.030 Bee allergy status
CPT/HCPCS: 70450; 80048; 80178; 80307; 81001; 82077; 84443; 84703; 85025; 93005; 99285; A4216

== ENCOUNTER → 2024-03-07 | Outpatient (CLI) | payer MEDICARE, MEDICAID, SELFPAY ==
[2024-03-07 15:19] LABS: Erythrocyte Sedimentation Rate 33 mm/hr (0-30)
[2024-03-07 15:50] LABS: ALB/GLOB Ratio 0.9 RATIO (0.9-2.4); AST(SGOT) 33 U/L (15-37); Alanine Aminotransfer ALT/SGPT 17 U/L (13-56); Albumin, Serum 3.7 g/dL (3.2-5.0); Alkaline Phosphatase 118 U/L (45-117); Anion Gap 6 (5-15); BUN 4 mg/dL (7-18); BUN/Creat Ratio 5.8 RATIO (10-20); Calcium,Total 9.5 mg/dL (8.5-10.1); Chloride 106 mmol/L (98-107); Cholesterol 260 mg/dL (200); Creatinine, Serum 0.69 mg/dL (0.55-1.02); EST Glomerular Filtration Rate 99 mL/min (>60); Est Glom Filt Rate - Afr Amer 120 mL/min (>60); Globulin 4.1 g/dL (2.2-4.2); Glucose 88 mg/dL (74-106); High Density Lipoprotein 63 mg/dL; Potassium 3.6 mmol/L (3.5-5.1); Protein, Total 7.8 g/dL (6.4-8.2); Sodium Level 138 mmol/L (136-145); Triglycerides 354 mg/dL; Very Low Density Lipoprotein 71 mg/dL (5-40)
== END | disposition home or self-care (01) ==
LOC: BIMLAB 14:08
PROVIDERS: PCP Internal Medicine; Referring Provider Internal Medicine; Visit Provider Internal Medicine
DX: F41.9 Anxiety disorder, unspecified (principal); F32.A Depression, unspecified; E78.5 Hyperlipidemia, unspecified
CPT/HCPCS: 36415; 80053; 80061; 85652; 86140

== ENCOUNTER 2024-03-22 07:14 | Day surgery (SDC) | payer MEDICARE, MEDICAID, SELFPAY ==
[2024-03-22] VITALS (11 sets, daily range): BP systolic 97–128; BP diastolic 65–76; PULSE 73–94; RESP 16–20; TEMP 36.1–36.3; O2SAT 92–100; BMI 35.2
--- OUTSIDE RECORDS SUMMARY | 2024-03-22 07:16 | XMS RPT_ITS | CCD ---
Author Organization [facility] Care Team Providers Care Rug Renovator Name Role Phone YESENIA HORAN Unavailable Unavaila ble STANTON FROST Unavailable Unavailable SHELLEY BONILLA Unavailable Unavailable YESENIA HORAN Unavailable Unavailable IMCA Unavailable Unavailable STANTON FROST Unavailable Unavailable IMCA Unavailable Unavailable SHELLEY BONILLA Unavailable Unavailable Stephanie, Alphonso Unavailable Unavailable PROVIDER, UNKNOWN Unavailable Unavailable Mariama Adams Unavailable Unavailable JENNIFER ADORNO Unavailable Unavailable PROVIDER, UNKNOWN Unavailable Unavailable No, PCP Unavailable Unavailable JENNIFER ADORNO Unavailable Unavailable PROVIDER, UNKNOWN Unavailable Unavailable No, PCP Unavailable Unavailable O[place]itnick POULTRY VACCINATOR-EDGAR, [place] Unavailable [phone] Cory Bolaños Primary Care Provider Pcp, No Primary Care Provider Unavailabl e Mariama Adams CNP Primary Care Provider AMERICA LOU Referring Unavailable MARIAMA ADAMS Primary Care Unavailable AMERICA LOU Attending Unavailable MARIAMA ADAMS Primary Care Unavailable MARYCARMEN RIVERO Referring Unavailable Allergies Allergy Classification Reported Allergen(s) Allergy Type Date of Onset Reaction(s) Facility (6 sources) Acetaminophen / HYDROcodone; Translations: [HYDROCODONE-ACET AMINOPHEN] Drug Allergy 09-26-19 17 [facility] Repository (6 sources) Ketorolac; Translations: [KETOROLAC TROMETHAMINE] Drug Allergy 02-07-20 15 [facility] Repository (6 sources) NIFEdipine; Translations: [NIFEDIPINE] Drug Allergy 02-07-20 15 [facility] Repository (6 sources) Penicillins; Translations: [PENICILLINS] Propensity to adverse reactions to drug (disorder) 02-07-20 15 [facility] Repository (6 sources) VENOM-HONEY BEE; Translations: [VENOM-HONEY BEE] Propensity to adverse reactions to drug (disorder) 02-07-20 15 [facility] Repository (1 source) Bee/Wasp/Ant venom; Translations: [BEE STINGS] allergy to substance 09-25-19 [facility] Work Phone: (1 source) Ketorolac Drug Allergy 09-25-19 hives, anxiety [facility] Work Phone: (1 source) NIFEdipine Drug Allergy 09-25-19 hives [facility] Work Phone: (1 source) Penicillin Drug Allergy 09-25-19 [facility] Work Phone: (2 sources) topiramate; Translations: [TOPIRAMATE] Drug Allergy 03-19-20 [facility] Medications Current Medications Medication Drug Class(es) Dates Sig (Normalized) Sig (Original) acetaminophen 325 mg / oxyCODONE hydrochloride 2.5 mg oral tablet (1 source) Opioid Agonist take 1 tablet by mouth every four hours as needed oxyCODONE-Acetamino phen (PERCOCET) 2.5-325 mg per tablet Take 1 tablet by mouth every 4 hours as needed. Active amitriptyline hydrochloride 100 mg oral tablet (1 source) Tricyclic Antidepressant take 1 tablet by mouth once daily at bedtime amitriptyline (ELAVIL) 100 mg tablet Take 100 mg by mouth daily at bedtime. Active busPIRone hydrochloride 15 mg oral tablet (1 source) take 1 tablet by mouth three times daily busPIRone (BUSPAR) 15 mg tablet Take 15 mg by mouth three times a day. Active ibuprofen 600 mg oral tablet (1 source) Nonsteroidal Anti-inflammatory Drug take 1 tablet by mouth three times daily ibuprofen (MOTRIN) 600 mg tablet Take 600 mg by mouth three times a day. Active [place] Carbonate (1 source) take 40 mg by mouth twice daily LITHIUM CARBONATE ORAL Take 40 mg by mouth two times a day. Active ondansetron 4 mg disintegrating oral tablet (1 source) Serotonin-3 Receptor Antagonist Start: 05-14-2018 take 1 tablet by mouth every eight hours as needed ondansetron orally disintegrating (ZOFRAN ODT) 4 mg disintegrating tablet Take 1 tablet by mouth every 8 hours as needed for Nausea/Vomiting. 10 tablet 05/14/2018 Active pantoprazole (1 source) Proton Pump Inhibitor PANTOPRAZOLE SODIUM (PROTONIX ORAL) Take by mouth. Active prazosin 2 mg oral capsule (1 source) alpha-Adrenergic Bakari take 2 capsules by mouth once daily prazosin (MINIPRESS) 2 mg cap Take 4 mg by mouth once daily. Active risperiDONE 2 mg oral tablet (1 source) Atypical Antipsychotic take 1 tablet by mouth twice daily risperiDONE (RISPERDAL) 2 mg tablet Take 2 mg by mouth two times a day. Active tiZANidine 4 mg oral tablet (1 source) Central alpha-2 Adrenergic Agonist take 1 tablet by mouth three times daily tiZANidine (ZANAFLEX) 4 mg tablet Take 4 mg by mouth three times a day. Active Completed/Discontinued Medications Medication Drug Class(es) Dates Sig (Normalized) Sig (Original) 60 actuat albuterol 0.09 mg/actuat metered dose inhaler (1 source) beta2-Adrenergic Agonist Start: 09-25-2019 VENTOLIN HFA 108 (90 Base) MCG/ACT AERS as needed as directed ALBUTEROL SULFATE [id number] Kimberly Almodovar LPN clonazePAM 1 mg oral tablet (4 sources) Benzodiazepine Start: 09-25-2019 KLONOPIN 1 MG TABS 1 tablet daily and 1/2 tablet twice daily CLONAZEPAM [id number] Kimberly Almodovar LPN take 1 tablet by mouth twice peggy ly clonazePAM (KLONOPIN) 0.5 mg tablet Take 0.5 mg by mouth two times a day. Active take 1 tablet by brianne th every twelve hours as needed clonazePAM (KLONOPIN) 1 mg tablet Take 1 mg by mouth twice daily as needed. Active gabapentin 100 mg oral capsule (2 sources) Anti-epileptic Agent Start: 09-25-2019 GABAPENTI N 100 MG CAPS 1 capsule twice daily GABAPENTIN [id number] Kimberly Almodovar LPN take 1 tablet by mouth four time s daily gabapentin (NEURONTIN) 800 mg tablet Take 800 mg by mouth four times daily. Active QUEtiapine 400 mg oral tablet (2 sources) Atypical Antipsychotic Start: 09-25-2019 SEROQUE L 400 MG TABS 2 tablets at bedtime QUETIAPINE FUMARATE [id number] Kimberly Almodovar INTERNET RETAILER take 1 tablet by brianne th once daily at bedtime QUEtiapine (SEROQUEL) 400 mg tablet Take 400 mg by mouth daily at bedtime. Active sertraline 100 mg oral tablet (2 sources) Serotonin Reuptake Inhibitor Start: 09-25-2019 ZOLOFT 100 MG TABS 1 tablet twice daily SERTRALINE HCL [id number] Kimberly Almodovar INTERNET RETAILER take 1 tablet by mouth once demar y sertraline (ZOLOFT) 100 mg tablet Take 100 mg by mouth once daily. Active traZODone hydrochloride 150 mg oral tablet (1 source) Serotonin Reuptake Inhibitor Start: 09-25-2019 TRAZODONE HCL 150 MG TABS 1 tablet daily TRAZODONE HCL [id number] Kimberly Almodovar INTERNET RETAILER Problems Active Problems Problem Classification Problem Date Documented Da te Episodic/Chronic Allergic reactions (8 sources) Allergy status to penicillin; Translations: [Bee allergy status] Onset: 05-31-2018 Episodic Anxiety disorders (2 sources) Anxiety disorder, unspecified; Translations: [Anxiety disorder, unspecified] Onset: 05-31-2018 Chronic Asthma (2 sources) Unspecified asthma, uncomplicated; Translations: [Unspecified asthma, uncomplicated] Onset: 05-31-2018 Chronic Cardiac dysrhythmias (2 sources) Tachycardia, unspecified; Translations: [Tachycardia, unspecified] Onset: 05-31-2018 Episodic Chronic obstructive pulmonary disease and bronchiectasis (4 sources) Chronic obstructive pulmonary disease, unspecified; Translations: [Emphysema, unspecified] Onset: 05-24-2018 Chronic Genitourinary symptoms and ill-defined conditions (3 sources) Hematuria, unspecified; Translations: [Gross hematuria] Onset: 05-13-2018 Episodic Intracranial injury (2 sources) Personal history of traumatic brain injury; Translations: [Personal history of traumatic brain injury] Onset: 05-31-2018 Episodic Mood disorders (2 sources) Major depressive disorder, single episode, unspecified; Translations: [Major depressive disorder, single episode, unspecified] Onset: 05-31-2018 Other connective tissue disease (1 source) Recurrent falls ; Translations: [Repeated falls] 03-19-2024 Episodic Other connective tissue disease (1 source) Repeated falls; Translations: [Frequent falls] Onset: 03-19-2024 Episodic Other gastrointestinal disorders (1 source) Dysphagia; Translations: [Dysphagia, unspecified] 03-19-2024 Episodic Other hereditary and degenerative nervous system conditions (1 source) Essential tremor; Translations: [Essential tremor] 03-19-2024 Chronic Other nervous system disorders (1 source) Paresthesia; Translations: [Paresthesia of skin] 03-19-2024 Episodic Other nervous system disorders (1 source) Psychosomatic musculoskeletal symptoms; Translations: [Tremor, unspecified] 03-19-2024 Episodic Other nervous system disorders (1 source) Bradykinesia; Translations: [Other abnormal involuntary movements] 03-19-2024 Episodic Other nervous system disorders (1 source) Paresthesia of skin; Translations: [Paresthesias] Onset: 03-19-2024 Episodic Other non-traumatic joint disorders (1 source) Shoulder pain; Translations: [Pain in right shoulder] Onset: 09-26-2019 09-26-2019 Episodic Other nutritional; endocrine; and metabolic disorders (2 sources) Overweight; Translations: [Overweight] Onset: 05-31-2018 Chronic Other nutritional; endocrine; and metabolic disorders (2 sources) Body mass index (BMI) 25.0-25.9, adult; Translations: [Body mass index (BMI) 25.0-25.9, adult] Onset: 05-31-2018 Episodic Phlebitis; thrombophlebitis and thromboembolism (2 sources) Personal history of other venous thrombosis and embolism; Translations: [Personal history of other venous thrombosis and embolism] Onset: 05-31-2018 Episodic Residual codes; unclassified (2 sources) Acquired absence of other specified parts of digestive tract; Translations: [Acquired absence of other specified parts of digestive tract] Onset: 05-31-2018 Episodic Residual codes; unclassified (1 source) Altered mental status; Translations: [Altered mental status, unspecified] 03-19-2024 Episodic Spondylosis; intervertebral disc disorders; other back problems (1 source) Herniation of nucleus pulposus; Translations: [Other cervical disc displacement, unspecified cervical region] Onset: 09-26-2019 09-26-2019 Chronic Substance-related disorders (2 sources) Nicotine dependence, cigarettes, uncomplicated; Translations: [Nicotine dependence, cigarettes, uncomplicated] Onset: 05-31-2018 Chronic Unclassified (1 source) Unknown / UNK(Unknown) Onset: 08-20-2017 Urinary tract infections (1 source) Cystitis, unspecified with hematuria; Translations: [Cystitis, unspecified with hematuria] Onset: 05-13-2018 Episodic Past or Other Problems Problem Classification Problem Date Documented Da te Episodic/Chronic Abdominal pain (3 sources) Lower abdominal pain, unspecified; Translations: [Generalized abdominal pain] Onset: 08-20-2017 Episodic Administrative/social admission (1 source) Malingerer [conscious simulation]; Translations: [Malingerer (conscious simulation)] Onset: 08-20-2017 Episodic Unclassified (1 source) Problem Results Test Name Value Interpretation Reference Range Facility CBC panel Auto (Bld)on 03-19 Erythrocyte distribution width (RBC) [Ratio] 14.4 % Normal 11.5-15.0 [facility] Comment on above: Order Comment: Speci men Type: BLOOD SPECIMEN Ordering Facility: [facility] Address: [address] [place] [address] Performed By: #### 5 8410-2 #### [facility] CLIA [id number] [address] [place] [address] [place] Hematocrit (Bld) [Volume fraction] 35.5 % Low 36.0-46.0 [facility] Comment on above: Order Comment: Speci men Type: BLOOD SPECIMEN Ordering Facility: [facility] Address: [address] [place] [address] Performed By: #### 5 8410-2 #### [facility] CLIA [id number] [address] [place] [address] [place] Hemoglobin (Bld) [Mass/Vol] 11.3 g/dL Low 11.5-15.5 [facility] Comment on above: Order Comment: Speci men Type: BLOOD SPECIMEN Ordering Facility: [facility] Address: [address] [place] [address] Performed By: #### 5 8410-2 #### [facility] CLIA [id number] [address] [place] [address] [place] MCH (RBC) [Entitic mass] 30.2 pg Normal 26.0-34.0 [facility] Comment on above: Order Comment: Speci men Type: BLOOD SPECIMEN Ordering Facility: [facility] Address: [address] [place] [address] Performed By: #### 5 8410-2 #### [facility] CLIA [id number] [address] [place] [address] [place] MCHC (RBC) [Mass/Vol] 31.8 g/dL Normal 30.5-36.0 [facility] Comment on above: Order Comment: Speci men Type: BLOOD SPECIMEN Ordering Facility: [facility] Address: [address] [place] [address] Performed By: #### 5 8410-2 #### [facility] CLIA [id number] [address] [place] [address] [place] MCV (RBC) [Entitic vol] 94.9 fL Normal 80.0-100.0 [facility] Comment on above: Order Comment: Speci men Type: BLOOD SPECIMEN Ordering Facility: [facility] Address: [address] [place] [address] Performed By: #### 5 8410-2 #### [facility] CLIA [id number] [address] [place] [address] [place] Nucleated RBC (Bld) [#/Vol] 10*3/uL Normal <0.01 [facility] Comment on above: Order Comment: Speci men Type: BLOOD SPECIMEN Ordering Facility: [facility] Address: [address] [place] [address] Performed By: #### 5 8410-2 #### [facility] CLIA [id number] [address] [place] [address] [place] Platelet mean volume (Bld) [Entitic vol] 9.8 fL Normal 9.0-12.7 [facility] Comment on above: Order Comment: Speci men Type: BLOOD SPECIMEN Ordering Facility: [facility] Address: [address] [place] [address] Performed By: #### 5 8410-2 #### [facility] CLIA [id number] [address] [place] [address] [place] Platelets (Bld) [#/Vol] 267 10*3/uL Normal 150-400 [facility] Comment on above: Order Comment: Speci men Type: BLOOD SPECIMEN Ordering Facility: [facility] Address: [address] [place] [address] Performed By: #### 5 8410-2 #### [facility] CLIA [id number] [address] [place] [address] [place] RBC (Bld) [#/Vol] 3.74 10*6/uL Low 3.90-5.20 [facility] Comment on above: Order Comment: Speci men Type: BLOOD SPECIMEN Ordering Facility: [facility] Address: [address] [place] [address] Performed By: #### 5 8410-2 #### [facility] CLIA [id number] [address] [place] [address] [place] WBC (Bld) [#/Vol] 6.22 10*3/uL Normal 3.70-11.00 [facility] Comment on above: Order Comment: Speci men Type: BLOOD SPECIMEN Ordering Facility: [facility] Address: [address] [place] [address] Performed By: #### 5 8410-2 #### [facility] CLIA [id number] [address] [place] [address] [place] CNOVon 03-19-2024 CNOV Office Visit (NEMOWS ) JTTERESE ([id number]) 1980 F Date Time Provider Department 03/19/24 12:45 PM AMERICA LOU During your visit today, we recorded the following information about you: Pulse Respiration Blood pressure Weight 88/minute 18/minute 107/73 90.3 kg America Lou PA-C 03/19/2024 2:10 PM Signed [facility] Name: Terese Waters Age: [age] year old Gender: female Primary Care Provider: Mariama Adams CNP Consult requested for multiple concerns by Marycarmen Rivero. Recommendations will be communicated via shared medical record or US mail. Chief Complaint:New Patient Evaluation 03/19/2024 - General Neurology, America Lou PA-C ASSESSMENT ASSESSMENT/PLAN: 1. Frequent falls - ICD9: V15.88, ICD10: R29.6 (primary diagnosis) 2. Paresthesias - ICD9: 782.0, ICD10: R20.2 3. Dysphagia, unspecified type - ICD9: 787.20, ICD10: R13.10 4. Essential tremor - ICD9: 333.1, ICD10: G25.0 5. 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 Bradykinesia - ICD9: 781.0, ICD10: R25.8 7. Altered mental status, unspecified altered mental status type - ICD9: 780.97, ICD10: R41.82 Patient with multiple neurologic concerns all starting on within the last 6 months including memory loss, periods of altered mental status and lapses of time, difficulty swallowing foods, pills and liquids, worsening tremor, frequent falls, paresthesias in her legs amongst other symptoms. Notes that around the time her symptoms began she was started on lithium, this was titrated up a few months ago, notes that she was transferred from [facility] to lithium for depression. Is that she is also been experiencing hallucinations over the last month. Saw her primary who was concerned for Parkinson's disease due to the tremor worsening. However, on my exam today I do not experience any resting tremor, any rigidity. Does have bradykinesia is selectively but not consistently, overall moves slowly with every movement. Does have a very flat affect as well. No significant shuffling but patient does walk with a rollator, notes that she is chronically disabled due to multiple back surgeries, for which she is scheduled to have her fifth lumbar surgery at [facility] this Monday. Low suspicion for Parkinson's disease at this time, patient does have tremor on exam which has been disabling for her. Unclear etiology, possible functional versus medication induced versus other. Discussed to follow-up with movement and patient and family are amenable to this. Notes that she is scheduled to have an MRI of the brain through her primary on 09 April and is also scheduled to have a swallow study due to the difficulty swallowing. In terms of memory, discussed that this could be a side effect of lithium, [place] today was concerning for memory loss. 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 Will review MRI of the brain to evaluate for any intracranial source for patient's memory loss, will also order basic blood work as well. Deferring neuropsychological testing at this time. Patient also experiencing lapses of time where she does not remember what happened. No incontinence, tongue biting or postictal state associated with this. However, will order EEG to ensure no epileptiform changes contributing to her symptoms. Patient currently not driving. Additionally, discussed following with her psychiatrist and discussing her side effects after starting the lithium about 6 to 8 months ago. Patient and sister confirmed that they will discuss this. Patient and sister agreeable to treatment plan of care at this time, questions were answered. Patient to follow-up as needed, due to complexity of case will need to follow-up with physician. America Lou PA-C Encounter Diagnosis ICD-10-CM 1. Frequent falls R29.6 VITAMIN B12 FOLATE, SERUM SYPHILIS TREPONEMAL W/REFLEX COMPLETE BLOOD COUNT COMPREHENSIVE METABOLIC PANEL 2. Paresthesias R20.2 VITAMIN B12 FOLATE, SERUM SYPHILIS TREPONEMAL W/REFLEX COMPLETE BLOOD COUNT COMPREHENSIVE METABOLIC PANEL 3. Dysphagia, unspecified type R13.10 4. Essential tremor G25.0 CONSULT TO NEUROLOGY 5. Functional tremor R25.1 CONSULT TO NEUROLOGY 6. Bradykinesia R25.8 CONSULT TO NEUROLOGY 7. Altered mental status, unspecified altered mental status type R41.82 EPIL EEG ROUTINE Return if symptoms worsen or fail to improve. Chart, labs,and relevant images reviewed. HPI: Saw PCP and concnered she has PD, memory issues and shaking, feeling out of it, difficulty swallowing. On lithium. Hx of lumbar surgery. Mild cervical stenosis on MRI in 2019. This is a 43 year old female presenting with multipe concerns. Patient presents today with her sister for multiple neurologic concerns that all started within the last (more content not included)... Normal [facility] Comprehensive metabolic 2000 panelon 03-19-2024 Albumin [Mass/Vol] 4.1 g/dL Normal 3.9-4.9 [facility] Comment on above: Order Comment: Speci men Type: BLOOD SPECIMEN Ordering Facility: [facility] Address: [address] [place] [address] Performed By: #### 2 132-9, 57908-4, 2283-12 #### [facility] CLIA [id number] [address] [place] [address] [place] ALP [Catalytic activity/Vol] 99 U/L Normal 34-123 [facility] Comment on above: Order Comment: Speci men Type: BLOOD SPECIMEN Ordering Facility: [facility] Address: [address] [place] [address] Performed By: #### 2 132-9, 73481-0, 2283-12 #### [facility] CLIA [id number] [address] [place] [address] [place] ALT [Catalytic activity/Vol] 8 U/L Normal 7-38 [facility] Comment on above: Order Comment: Speci men Type: BLOOD SPECIMEN Ordering Facility: [facility] Address: [address] [place] [address] Performed By: #### 2 132-9, 57089-8, 2283-12 #### [facility] CLIA [id number] [address] [place] [address] [place] Anion gap [Moles/Vol] 10 mmol/L Normal 8-15 [facility] Comment on above: Order Comment: Speci men Type: BLOOD SPECIMEN Ordering Facility: [facility] Address: [address] [place] [address] Performed By: #### 2 132-9, 82322-7, 2283-8 #### [facility] CLIA [id number] [address] [place] [address] [place] AST [Catalytic activity/Vol] 15 U/L Normal 13-35 [facility] Comment on above: Order Comment: Speci men Type: BLOOD SPECIMEN Ordering Facility: [facility] Address: [address] [place] [address] Performed By: #### 2 132-9, 06486-3, 8 #### [facility] CLIA [id number] [address] [place] [address] [place] Bilirubin [Mass/Vol] mg/dL Low 0.2-1.3 [facility] Comment on above: Order Comment: Speci men Type: BLOOD SPECIMEN Ordering Facility: [facility] Address: [address] [place] [address] Performed By: #### 2 132-9, 31239-8, 8 #### [facility] CLIA [id number] [address] [place] [address] [place] Calcium [Mass/Vol] 8.9 mg/dL Normal 8.5-10.2 [facility] Comment on above: Order Comment: Speci men Type: BLOOD SPECIMEN Ordering Facility: [facility] Address: [address] [place] [address] Performed By: #### 2 132-9, 64882-8, 2288 #### [facility] CLIA [id number] [address] [place] [address] [place] Chloride [Moles/Vol] 104 mmol/L Normal 98-107 [facility] Comment on above: Order Comment: Speci men Type: BLOOD SPECIMEN Ordering Facility: [facility] Address: [address] [place] [address] Performed By: #### 2 132-9, 16557-8, 8 #### [facility] CLIA [id number] [address] [place] [address] [place] CO2 [Moles/Vol] 24 mmol/L Normal 22-30 [facility] Comment on above: Order Comment: Speci men Type: BLOOD SPECIMEN Ordering Facility: [facility] Address: [address] [place] [address] Performed By: #### 2 132-9, 48725-5, 8 #### [facility] CLIA [id number] [address] [place] [address] [place] Creatinine [Mass/Vol] 0.64 mg/dL Normal 0.58-0.96 [facility] Comment on above: Order Comment: Speci men Type: BLOOD SPECIMEN Ordering Facility: [facility] Address: [address] [place] [address] Performed By: #### 2 132-9, 24056-3, 8 #### [facility] CLIA [id number] [address] [place] [address] [place] Creatinine and Glomerular filtration rate.predicted panel (S/P/Bld) 113 mL/min/1.73m??? Normal >=60 [facility] Comment on above: Order Comment: Speci men Type: BLOOD SPECIMEN Ordering Facility: [facility] Address: [address] [place] [address] Result Comment: Sierra mated Glomerular Filtration Rate (eGFR) is calculated using the 2020 CKD-EPI creatinine equation. This equation utilizes serum creatinine, sex, and age as parameters. The creatinine assay has traceable calibration to isotope dilution-mass spectrometry. Refer to KDIGO guidelines for clinical interpretation. In patients with unstable renal function, e.g. those with acute kidney injury, the eGFR may not accurately reflect actual GFR. Performed By: #### 2 132-9, 32210-3, 2283-8 #### [facility] CLIA [id number] [address] [place] [address] [place] Glucose [Mass/Vol] 90 mg/dL Normal 74-99 [facility] Comment on above: Order Comment: Speci men Type: BLOOD SPECIMEN Ordering Facility: [facility] Address: [address] [place] [address] Result Comment: The [place] [employer] (ADA) provides guidance for cutoff values for fasting glucose and random glucose. The ADA defines fasting as no caloric intake for at least 8 hours. Fasting plasma glucose results between 100 to 125 mg/dL indicate increased risk for diabetes (prediabetes). Fasting plasma glucose results greater than or equal to 126 mg/dL meet the criteria for diagnosis of diabetes. In the absence of unequivocal hyperglycemia, results should be confirmed by repeat testing. In a patient with classic symptoms of hyperglycemia or hyperglycemic crisis, random plasma glucose results greater than or equal to 200 mg/dL meet the criteria for diagnosis of diabetes. Reference: Standards of Medical Care in Diabetes 2016, [place] [employer]. Diabetes Care. 2016.39(Suppl 1). Performed By: #### 2 132-9, 44301-3, 2283-12 #### [facility] CLIA [id number] [address] [place] [address] [place] Potassium [Moles/Vol] 4.1 mmol/L Normal 3.7-5.1 [facility] Comment on above: Order Comment: Andreai patric Type: BLOOD SPECIMEN Ordering Facility: [facility] Address: [address] [place] [address] Performed By: #### 2 132-9, 82819-8, 2283-12 #### [facility] CLIA [id number] [address] [place] [address] [place] Protein [Mass/Vol] 6.4 g/dL Normal 6.3-8.0 [facility] Comment on above: Order Comment: Andreai men Type: BLOOD SPECIMEN Ordering Facility: [facility] Address: [address] [place] [address] Performed By: #### 2 132-9, 66302-9, 8 #### [facility] CLIA [id number] [address] [place] [address] [place] Sodium [Moles/Vol] 138 mmol/L Normal 136-144 [facility] Comment on above: Order Comment: Speci men Type: BLOOD SPECIMEN Ordering Facility: [facility] Address: [address] [place] [address] Performed By: #### 2 132-9, 06733-0, 2284-8 #### [facility] CLIA [id number] [address] [place] [address] [place] Urea nitrogen [Mass/Vol] 7 mg/dL Normal 7-21 [facility] Comment on above: Order Comment: Speci men Type: BLOOD SPECIMEN Ordering Facility: [facility] Address: [address] [place] [address] Performed By: #### 2 132-9, 85034-5, 2283-8 #### [facility] CLIA [id number] [address] [place] [address] [place] Folate SerPl-mCncon 03-19-20 24 Folate [Mass/Vol] 5.2 ng/mL Normal >4.7 [facility] Comment on above: Order Comment: Speci men Type: BLOOD SPECIMEN Ordering Facility: [facility] Address: [address] [place] [address] Performed By: #### 2 132-9, 93488-7, 228-8 #### [facility] CLIA [id number] [address] [place] [address] [place] Reagin and Treponema pallidu m IgG and IgM [Interp]on 03-19-2024 T. pallidum IgG+IgM IA Ql (S) Non-Reactive Normal Nonreactive [facility] Comment on above: Order Comment: Speci men Type: BLOOD SPECIMEN Ordering Facility: [facility] Address: [address] [place] [address] Performed By: #### 7 3752-8 #### [facility] CLIA [id number] [address] [place] [address] [place] Reagin+T pallidum IgG+IgM Se rPl-Impon 03-19-2024 Reagin and Treponema pallidum IgG and IgM [Interp] Cannot exclude recent Treponemal infection if specimen collected within 7-10 days after appearance of suspect lesions or 2-3 weeks after an exposure. Clinical correlation is required. Normal [facility] Comment on above: Order Comment: Speci men Type: BLOOD SPECIMEN Ordering Facility: [facility] Address: [address] [place] [address] Performed By: #### 7 3752-8 #### [facility] CLIA [id number] [address] [place] [address] [place] Vit B12 SerPl-ncon 024 Cobalamin (Vitamin B12) [Mass/Vol] 508 pg/mL Normal 232-1245 [facility] Comment on above: Order Comment: Speci men Type: BLOOD SPECIMEN Ordering Facility: [facility] Address: [address] [place] [address] Performed By: #### 2 132-9, 45005-8, 2284-8 #### [facility] CLIA [id number] [address] [place] [address] [place] Comp Metabolic Panelon 07-20 Calcium [Mass/Vol] 9.7 mg/dL Normal 8.4-10.4 [facility] Comment on above: Performed By: #### D RGA4, CVCCL, CUA2 #### [facility] [address] [place] [address] ALP [Catalytic activity/Vol] 82 U/L Normal 38-126 [facility] Comment on above: Performed By: #### D RGA4, CVCCL, CUA2 #### [facility] [address] [place] [address] ALT [Catalytic activity/Vol] 12 U/L Normal 0-34 [facility] Comment on above: Result Comment: The ALT test is performed by an updated assay method. Please note that the reference intervals have been changed and are now sex specific. Performed By: #### D RGA4, CVCCL, CUA2 #### [facility] [address] [place] [address] Anion gap [Moles/Vol] 10 mmol/L Normal 3-13 [facility] Comment on above: Performed By: #### D RGA4, CVCCL, CUA2 #### [facility] [address] [place] [address] AST [Catalytic activity/Vol] 28 U/L Normal 15-46 [facility] Comment on above: Performed By: #### D RGA4, CVCCL, CUA2 #### [facility] [address] [place] [address] Bilirubin [Mass/Vol] 0.4 mg/dL Normal 0.2-1.3 [facility] Comment on above: Performed By: #### D RGA4, CVCCL, CUA2 #### [facility] [address] [place] [address] CO2 [Moles/Vol] 23 mmol/L Normal 22-30 [facility] Comment on above: Performed By: #### D RGA4, CVCCL, CUA2 #### [facility] [address] [place] [address] Glucose [Mass/Vol] 100 mg/dL Normal 70-100 [facility] Comment on above: Performed By: #### D RGA4, CVCCL, CUA2 #### [facility] [address] [place] [address] Protein [Mass/Vol] 7.8 g/dL Normal 6.3-8.2 [facility] Comment on above: Performed By: #### D RGA4, CVCCL, CUA2 #### [facility] [address] [place] [address] Urea nitrogen [Mass/Vol] 5 mg/dL Low 9-20 [facility] Comment on above: Performed By: #### D RGA4, CVCCL, CUA2 #### [facility] [address] [place] [address] Creatinine [Mass/Vol] 0.64 mg/dL Normal 0.52-1.25 [facility] Comment on above: Performed By: #### D SOL, CVCCL, CUA2 #### [facility] [address] [place] [address] eGFR OTHER > 90.0 Normal >60 [facility] Comment on above: Result Comment: KDIG O guidelines provide the following GFR categories: Stage GFR(ml/min/1.73 m2) Terms G1 >=90 Normal or high G2 60-89 Mildly decreased* G3a 45-59 Mildly to moderately decreased G3b 30-44 Moderately to severely decreased G4 15-29 Severely decreased G5 <15 Kidney failure *Relative to young adult level. In the absence of evidence of kidney damage, neither GFR category G1 nor G2 fulfill the criteria for CKD. The CKD-EPI equation is validated in individuals 18 years of age and older. Currently the best equation for estimating glomerular filtration rate (GFR) from serum creatinine in children is the Bedside Yee equation. It is less accurate in patients with extremes of muscle mass, restriction of dietary protein, ingestion of creatine, extra-renal metabolism of creatinine, or treatment with medications that affect renal tubular creatinine secretion. Performed By: #### D SOL, CVCCL, CUA2 #### [facility] [address] [place] [address] GFR/1.73 sq M.predicted among blacks MDRD (S/P/Bld) [Vol rate/Area] mL/min/{1.73_m2} Normal >60 [facility] Comment on above: Performed By: #### Venu HORTON, CVCCL, CUA2 #### [facility] [address] [place] [address] Albumin [Mass/Vol] 4.9 g/dL Normal 3.5-5.0 [facility] Comment on above: Performed By: #### D RGA4, CVCCL, CUA2 #### [facility] [address] [place] [address] Chloride [Moles/Vol] 109 mmol/L High 98-107 [facility] Comment on above: Performed By: #### Venu RGA4, CVCCL, CUA2 #### [facility] [address] [place] [address] Potassium [Moles/Vol] 3.9 mmol/L Normal 3.5-5.1 [facility] Comment on above: Performed By: #### D RGA4, CVCCL, CUA2 #### [facility] [address] [place] [address] Sodium [Moles/Vol] 141 mmol/L Normal 135-145 [facility] Comment on above: Performed By: #### D RGA4, CVCCL, CUA2 #### [facility] [address] [place] [address] ED Provider Noteon ED Provider Note [facility] EMERGENCY DEPARTMENT ENCOUNTER Pt Name: Terese Waters Birthdate 1980 Date of evaluation: 07/20/2021 Provider: Randal Enriquez MD CHIEF COMPLAINT Chief Complaint Patient presents with ? Back Pain HISTORY OF PRESENT ILLNESS (Location/Symptom, Timing/Onset, Context/Setting, Quality, Duration, Modifying Factors, Severity) Note limiting factors. I wore a kn95 mask for the entirety of this encounter. Does this patient come from an ECF, SNF, Rehab, Assisted or other Congregate setting: no (If yes to above patient needs a Covid-19 test) HPI Terese Waters is a 41 y.o. female who presents to the emergency department with concern of lower back pain worsening over the past week. States that she has had injury to her back as well as spinal fusion from L4-S1 back in thousand 12. Intermittently has worsening pain but has been trying ibuprofen and Tylenol without much relief last night was having a difficult time sleeping secondary to this and is noting seeing radiation down her legs. States that she has a pressure-like sensation in her lower abdomen secondary to the pain, some difficulty with bowel movement secondary to this. Does endorse some numbness to the posterior aspect of her thighs but denies any urinary incontinence. Difficulty walking secondary to pain. No recent accidents or injuries. Denies any IV drug use. Does endorse sharp/electric-like sensation to bilateral lower extremities mainly on the right side. Also has a history of herniation. Nursing Notes were reviewed. REVIEW OF SYSTEMS (2+ for level 4; 10+ for level 5) Review of Systems Constitutional: Negative for chills, diaphoresis, fatigue and fever. HENT: Negative for congestion, ear pain, postnasal drip, rhinorrhea, sneezing and sore throat. Eyes: Negative for pain and redness. Respiratory: Negative for cough, chest tightness and shortness of breath. Cardiovascular: Negative for chest pain and leg swelling. Gastrointestinal: Negative for abdominal pain, constipation, diarrhea, nausea and vomiting. Endocrine: Negative for polyuria. Genitourinary: Negative for dysuria, flank pain and hematuria. Musculoskeletal: Positive for back pain and gait problem. Negative for arthralgias and neck pain. Skin: Negative for pallor and rash. Neurological: Positive for weakness and numbness. Negative for dizziness and headaches. PAST MEDICAL HISTORY Past Medical History: Diagnosis Date ? Anxiety ? Asthma ? Blood transfusion without reported diagnosis ? COPD (chronic obstructive pulmonary disease) ([facility]) ? Depression ? Emphysema of lung ([facility]) ? Headache(784.0) ? History of blood transfusion ? Internal bleeding ? 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 short term memory loss SURGICAL HISTORY Past Surgical History: Procedure Laterality Date ? APPENDECTOMY ? BACK SURGERY ? CHOLECYSTECTOMY ? CYSTOSCOPY 05/31/2018 Cystoscopy, pyelograms ? FOOT FRACTURE SURGERY Right heel ? HERNIA REPAIR ? HIP FRACTURE SURGERY Right ? HYSTERECTOMY ? LUMBAR FUSION l4 and l5 ? LUNG REMOVAL, PARTIAL Left ? OTHER SURGICAL HISTORY 10/24/2019 MRI with sedation ? TRACHEOTOMY ? UPPER GASTROINTESTINAL ENDOSCOPY 08/17/2017 CURRENT MEDICATIONS Previous Medications ALBUTEROL SULFATE HFA 108 (90 BASE) MCG/ACT INHALER Inhale 2 puffs into the lungs 4 times daily as needed for Wheezing ARIPIPRAZOLE (ABILIFY) 10 MG TABLET BENZONATATE (TESSALON) 100 MG CAPSULE take 1 capsule by mouth three times a day if needed for cough BUSPIRONE (BUSPAR) 15 MG TABLET CLONAZEPAM (KLONOPIN) 0.5 MG TABLET Take 0.5 mg by mouth 2 times daily as needed CLONAZEPAM (KLONOPIN) 1 MG TABLET Take 1 mg by mouth daily.. DOXEPIN (SINEQUAN) 25 MG CAPSULE EPINEPHRINE (EPIPEN 2-BUBBA) 0.3 MG/0.3ML SOAJ INJECTION Inject into thigh if you experience an allergic reaction with difficulty breathing, then call 911 GABAPENTIN (NEURONTIN) 300 MG CAPSULE Take 300 mg by mouth 3 times daily. GABAPENTIN (NEURONTIN) 800 MG TABLET GUAIFENESIN (MUCINEX) 600 MG EXTENDED RELEASE TABLET Take 600 mg by mouth HYDROXYZINE (VISTARIL) 50 MG CAPSULE TAKE 1 CAPSULE BY MOUTH THREE TIMES A DAY NEEDED IBUPROFEN (ADVIL;MOTRIN) 600 MG TABLET Take 1 tablet by mouth every 6 hours as needed for Pain or Fever LAMOTRIGINE (LAMICTAL) 200 MG TABLET MIRTAZAPINE (REMERON) 45 MG TABLET ONDANSETRON (ZOFRAN-ODT) 4 MG DISINTEGRATING TABLET Take 1 tablet by mouth 3 times daily as needed for Nausea or Vomiting ONDANSETRON (ZOFRAN-ODT) 4 MG DISINTEGRATING TABLET Take 1 tablet by mouth 3 times daily as needed for Nausea or Vomiting PRAZOSIN (MINIPRESS) 2 MG CAPSULE RISPERIDONE (RISPERDAL) 2 MG TABLET Take 2 mg by mouth 2 times daily SERTRALINE (ZOLOFT) 100 MG TABLET Take 200 mg by mouth daily SUMATRIPTAN (IMITREX) 100 MG TABLET TIZANIDINE (ZANAFLEX) 4 MG TABLET WIXELA INHUB 250-50 MCG/DOSE AEPB 1 PUFF INHALATION TWIC (more content not included)... Normal [facility] ED Provider Note [facility] ED EMERGENCY DEPARTMENT ENCOUNTER Pt Name: Terese Waters Birthdate 1980 Date of evaluation: 07/20/2021 Provider: JEWEL ANDERSON MD CHIEF COMPLAINT Chief Complaint Patient presents with ? Back Pain HISTORY OF PRESENT ILLNESS (Location/Symptom, Timing/Onset, Context/Setting, Quality, Duration, Modifying Factors, Severity) Note limiting factors. I wore a KN95 and surgical mask for the entirety of this encounter. HPI Terese Waters is a 41 y.o. female who presents to the emergency department complaining of low back pain. The patient states that this is been occurring for the last 2 days. She is accompanied by her . He notes that she has been crying nonstop for the last 2 days because of the severity of pain. She had L4-5 lumbar fusion in 2011. She notes that she has some issue with chronic low back pain. However this is much more out of proportion than usual. She states that she has not had any stool or urine incontinence. She notes that she cannot know when she needs to have a bowel movement secondary to the severe pain. There is a history of traumatic brain injury as well as right arm weakness. She has chronic low back pain to some extent. She has taken Tylenol and ibuprofen for it. She also took Neurontin for it. Nursing Notes were reviewed. REVIEW OF SYSTEMS (2+ for level 4; 10+ for level 5) Review of Systems Constitutional: Negative for activity change, chills and fever. HENT: Negative for congestion, ear pain and sore throat. Eyes: Negative for pain and redness. Respiratory: Negative for cough, chest tightness and shortness of breath. Cardiovascular: Negative for chest pain and palpitations. Gastrointestinal: Negative for abdominal pain, nausea and vomiting. Genitourinary: Negative for dysuria, flank pain and urgency. Musculoskeletal: Positive for back pain. Negative for arthralgias and myalgias. Skin: Negative for rash. Neurological: Negative for dizziness. Psychiatric/Behavioral: Negative for confusion. The patient is not nervous/anxious. PAST MEDICAL HISTORY Past Medical History: Diagnosis Date ? Anxiety ? Asthma ? Blood transfusion without reported diagnosis ? COPD (chronic obstructive pulmonary disease) ([facility]) ? Depression ? Emphysema of lung ([facility]) ? Headache(784.0) ? History of blood transfusion ? Internal bleeding ? 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 short term memory loss SURGICAL HISTORY Past Surgical History: Procedure Laterality Date ? APPENDECTOMY ? BACK SURGERY ? CHOLECYSTECTOMY ? CYSTOSCOPY 05/31/2018 Cystoscopy, pyelograms ? FOOT FRACTURE SURGERY Right heel ? HERNIA REPAIR ? HIP FRACTURE SURGERY Right ? HYSTERECTOMY ? LUMBAR FUSION l4 and l5 ? LUNG REMOVAL, PARTIAL Left ? OTHER SURGICAL HISTORY 10/24/2019 MRI with sedation ? TRACHEOTOMY ? UPPER GASTROINTESTINAL ENDOSCOPY 08/17/2017 CURRENT MEDICATIONS Previous Medications ALBUTEROL SULFATE HFA 108 (90 BASE) MCG/ACT INHALER Inhale 2 puffs into the lungs 4 times daily as needed for Wheezing ARIPIPRAZOLE (ABILIFY) 10 MG TABLET BENZONATATE (TESSALON) 100 MG CAPSULE take 1 capsule by mouth three times a day if needed for cough BUSPIRONE (BUSPAR) 15 MG TABLET CLONAZEPAM (KLONOPIN) 0.5 MG TABLET Take 0.5 mg by mouth 2 times daily as needed CLONAZEPAM (KLONOPIN) 1 MG TABLET Take 1 mg by mouth daily.. DOXEPIN (SINEQUAN) 25 MG CAPSULE EPINEPHRINE (EPIPEN 2-BUBBA) 0.3 MG/0.3ML SOAJ INJECTION Inject into thigh if you experience an allergic reaction with difficulty breathing, then call 911 GABAPENTIN (NEURONTIN) 300 MG CAPSULE Take 300 mg by mouth 3 times daily. GABAPENTIN (NEURONTIN) 800 MG TABLET GUAIFENESIN (MUCINEX) 600 MG EXTENDED RELEASE TABLET Take 600 mg by mouth HYDROXYZINE (VISTARIL) 50 MG CAPSULE TAKE 1 CAPSULE BY MOUTH THREE TIMES A DAY NEEDED IBUPROFEN (ADVIL;MOTRIN) 600 MG TABLET Take 1 tablet by mouth every 6 hours as needed for Pain or Fever LAMOTRIGINE (LAMICTAL) 200 MG TABLET MIRTAZAPINE (REMERON) 45 MG TABLET ONDANSETRON (ZOFRAN-ODT) 4 MG DISINTEGRATING TABLET Take 1 tablet by mouth 3 times daily as needed for Nausea or Vomiting ONDANSETRON (ZOFRAN-ODT) 4 MG DISINTEGRATING TABLET Take 1 tablet by mouth 3 times daily as needed for Nausea or Vomiting PRAZOSIN (MINIPRESS) 2 MG CAPSULE RISPERIDONE (RISPERDAL) 2 MG TABLET Take 2 mg by mouth 2 times daily SERTRALINE (ZOLOFT) 100 MG TABLET Take 200 mg by mouth daily SUMATRIPTAN (IMITREX) 100 MG TABLET TIZANIDINE (ZANAFLEX) 4 MG TABLET WIXELA INHUB 250-50 MCG/DOSE AEPB 1 PUFF INHALATION TWICE A DAY 30 DAYS ALLERGIES Bee venom, [place] [hydrocodone-acetaminophen], Pcn [penicillins], Procardia [nifedipine], [place] extract, and Toradol [ketorolac tromethamine] FAMILY HISTORY Family History Problem Relation Age of Onset ? Heart Disease Mother ? Colon Cancer Mother ? Cancer Maternal Grandmother SOCIAL HIS (more content not included)... Normal [facility] Hemogram w/ Autodiffon 07-20 Abs Baso Cnt 0.0 10*3/uL Normal 0.0-0.2 [facility] Comment on above: Performed By: #### D RGA4, CVCCL, CUA2 #### [facility] [address] [place] [address] Abs Neutrophile Cnt 3.5 10*3/uL Normal 1.8-7.0 [facility] Comment on above: Performed By: #### D RGA4, CVCCL, CUA2 #### [facility] [address] [place] [address] Basophils/100 WBC (Bld) 0.4 % Normal 0.0-2.0 [facility] Comment on above: Performed By: #### D RGA4, CVCCL, CUA2 #### [facility] [address] [place] [address] Eosinophils (Bld) [#/Vol] 0.2 10*3/uL Normal 0.0-0.5 [facility] Comment on above: Performed By: #### D RGA4, CVCCL, CUA2 #### [facility] [address] [place] [address] Eosinophils/100 WBC (Bld) 2.9 % Normal 1.0-6.0 [facility] Comment on above: Performed By: #### D RGA4, CVCCL, CUA2 #### [facility] [address] [place] [address] Erythrocyte distribution width (RBC) [Ratio] 12.7 % Normal 11.5-14.5 [facility] Comment on above: Performed By: #### D RGA4, CVCCL, CUA2 #### [facility] [address] [place] [address] Granulocytes/100 WBC (Bld) 55.8 % Normal 40.0-80.0 [facility] Comment on above: Performed By: #### D RGA4, CVCCL, CUA2 #### [facility] [address] [place] [address] Hematocrit (Bld) [Volume fraction] 38.9 % Normal 35.0-47.0 [facility] Comment on above: Performed By: #### D RGA4, CVCCL, CUA2 #### [facility] [address] [place] [address] Hemoglobin (Bld) [Mass/Vol] 13.3 g/dL Normal 11.7-16.0 [facility] Comment on above: Performed By: #### D RGA4, CVCCL, CUA2 #### [facility] [address] [place] [address] Lymphocytes (Bld) [#/Vol] 2.2 10*3/uL Normal 1.0-4.3 [facility] Comment on above: Performed By: #### D RGA4, CVCCL, CUA2 #### [facility] [address] [place] [address] Lymphocytes/100 WBC (Bld) 35.0 % Normal 20.0-40.0 [facility] Comment on above: Performed By: #### D RGA4, CVCCL, CUA2 #### [facility] [address] [place] [address] MCH (RBC) [Entitic mass] 30.3 pg Normal 26.0-34.0 [facility] Comment on above: Performed By: #### D RGA4, CVCCL, CUA2 #### [facility] [address] [address] MCHC 34.1 % Normal 32.0-36.0 [facility] Comment on above: Performed By: #### D RGA4, CVCCL, CUA2 #### [facility] [address] [place] [address] MCV (RBC) [Entitic vol] 88.7 fL Normal 79.0-98.0 [facility] Comment on above: Performed By: #### D RGA4, CVCCL, CUA2 #### [facility] [address] [place] [address] Monocytes (Bld) [#/Vol] 0.4 10*3/uL Normal 0.0-0.8 [facility] Comment on above: Performed By: #### D RGA4, CVCCL, CUA2 #### [facility] [address] [place] [address] Monocytes/100 WBC (Bld) 5.9 % Normal 2.0-10.0 [facility] Comment on above: Performed By: #### D RGA4, CVCCL, CUA2 #### [facility] [address] [place] [address] Platelet mean volume (Bld) [Entitic vol] 7.0 fL Low 7.4-10.4 [facility] Comment on above: Performed By: #### D RGA4, CVCCL, CUA2 #### [facility] [address] [place] [address] Platelets (Bld) [#/Vol] 331 10*3/uL Normal 140-440 [facility] Comment on above: Performed By: #### D RGA4, CVCCL, CUA2 #### [facility] [address] [place] [address] RBC (Bld) [#/Vol] 4.39 10*6/uL Normal 3.80-5.20 [facility] Comment on above: Performed By: #### D RGA4, CVCCL, CUA2 #### [facility] [address] [place] [address] WBC (Bld) [#/Vol] 6.2 10*3/uL Normal 3.6-10.7 [facility] Comment on above: Performed By: #### D RGA4, CVCCL, CUA2 #### [facility] [address] [address] MRI Spine Lumbar w/ + w/o Co ntraston 07-20-2021 MRI Spine Lumbar w/ + w/o Contrast Patient Name: TERESE WATERS [facility] ACCESSION EXAM DATE/TIME PROCEDURE ORDERING PROVIDER [id number] 07/20/2021 19:06 EST MRI Spine Lumbar w/ + w/ [id number] -RANDAL ENRIQUEZ o Contrast CPT code 78386 Reason For Exam (MRI Spine Lumbar w/ + w/o Contrast) lowe rback pain, numbness, possible cauda equina Report MRI OF THE LUMBAR SPINE WITHOUT AND WITH GADOLINIUM CLINICAL INDICATION: lowe rback pain, numbness, possible cauda equina TECHNIQUE: Routine MRI of the lumbar spine without and with IV gadolinium. COMPARISON: 01/17/2018 FINDINGS: All sequences are limited by patient motion. Patient was premedicated, but could not remain motionless because of pain. Normal appearance of the conus medullaris. No focal alignment abnormality seen. No significant marrow signal abnormality save for minor fatty marrow signal at L4-L5. There appears to be a laminotomy defect on the right at L4-L5. At L3-L4 there is a minor disc bulge and facet arthrosis. Mild foraminal narrowing bilaterally. No significant spinal stenosis. At L4-L5 there is disc space narrowing and a moderate disc bulge with facet arthrosis. Very limited evaluation, but possible small amount of peridural fibrosis anterior and to the right of the thecal sac. No significant spinal stenosis. Moderate lateral recess stenosis on the right, mild on the left. Moderate foraminal narrowing on the right, mild on the left. At L5-S1 there is facet arthrosis. No foraminal or central stenosis. IMPRESSION: 1. Very limited study from motion artifact. Postsurgical changes L4-L5 with possible peridural fibrosis on the right. Degenerative changes as described. Report Dictated on Workstation: [email or web address] Final Dictating Physician: MD MOTA JOHN R Signed Date and Time: 07/20/2021 7:50 pm Signed by: MD MOTA JOHN R Transcribed Date and Time: 07/20/2021 7:51 Normal [facility] Basic Metabolic Panelon 05-29 Anion gap [Moles/Vol] 6 mmol/L Normal 3-13 [facility] Comment on above: Performed By: #### D RGA4, CVCCL, CUA2 #### [facility] [address] [place] [address] Calcium [Mass/Vol] 8.7 mg/dL Normal 8.4-10.4 [facility] Comment on above: Performed By: #### D RGA4, CVCCL, CUA2 #### [facility] [address] [place] [address] CO2 [Moles/Vol] 21 mmol/L Low 22-30 [facility] Comment on above: Performed By: #### D RGA4, CVCCL, CUA2 #### [facility] [address] [place] [address] Glucose [Mass/Vol] 86 mg/dL Normal 70-100 [facility] Comment on above: Performed By: #### D RGA4, CVCCL, CUA2 #### [facility] [address] [place] [address] Urea nitrogen [Mass/Vol] 7 mg/dL Low 9-20 [facility] Comment on above: Performed By: #### D RGA4, CVCCL, CUA2 #### [facility] [address] [place] [address] Creatinine [Mass/Vol] 0.68 mg/dL Normal 0.52-1.25 [facility] Comment on above: Performed By: #### D RGA4, CVCCL, CUA2 #### [facility] [address] [place] [address] eGFR OTHER > 90.0 Normal >60 [facility] Comment on above: Result Comment: KDIG O guidelines provide the following GFR categories: Stage GFR(ml/min/1.73 m2) Terms G1 >=90 Normal or high G2 60-89 Mildly decreased* G3a 45-59 Mildly to moderately decreased G3b 30-44 Moderately to severely decreased G4 15-29 Severely decreased G5 <15 Kidney failure *Relative to young adult level. In the absence of evidence of kidney damage, neither GFR category G1 nor G2 fulfill the criteria for CKD. The CKD-EPI equation is validated in individuals 18 years of age and older. Currently the best equation for estimating glomerular filtration rate (GFR) from serum creatinine in children is the Bedside Yee equation. It is less accurate in patients with extremes of muscle mass, restriction of dietary protein, ingestion of creatine, extra-renal metabolism of creatinine, or treatment with medications that affect renal tubular creatinine secretion. Performed By: #### D RGA4, CVCCL, CUA2 #### [facility] [address] [place] [address] GFR/1.73 sq M.predicted among blacks MDRD (S/P/Bld) [Vol rate/Area] mL/min/{1.73_m2} Normal >60 [facility] Comment on above: Performed By: #### D RGA4, CVCCL, CUA2 #### [facility] [address] [place] [address] Potassium [Moles/Vol] 4.3 mmol/L Normal 3.5-5.1 [facility] Comment on above: Performed By: #### D RGA4, CVCCL, CUA2 #### [facility] [address] [place] [address] Chloride [Moles/Vol] 110 mmol/L High 98-107 [facility] Comment on above: Performed By: #### D RGA4, CVCCL, CUA2 #### [facility] [address] [address] Sodium [Moles/Vol] 137 mmol/L Normal 135-145 [facility] Comment on above: Performed By: #### D RGA4, CVCCL, CUA2 #### [facility] [address] [place] [address] CR Chest Portableon 06-08-19 22 CR Chest Portable Patient Name: TERESE DUNBAR Diagnostic Radiology ACCESSION EXAM DATE/TIME PROCEDURE ORDERING PROVIDER [id number] 06/08/2021 18:39 EST CR Chest Portable MICHELLE PRITCHARD CPT code 65384 Reason For Exam (CR Chest Portable) cough/ chest congestion, COVID Report SINGLE FRONTAL VIEW OF THE CHEST CLINICAL INDICATION: cough/ chest congestion, COVID TECHNIQUE: Single frontal view of the chest COMPARISON: 05/17/2021 FINDINGS: Lungs show no significant consolidation. No pleural effusion or pneumothorax. No vascular congestion. Heart size normal. IMPRESSION: 1. No acute finding. Report Dictated on Workstation: [email or web address] Final Dictating Physician: MD MOTA JOHN R Signed Date and Time: 06/08/2021 7:18 pm Signed by: MD MOTA JOHN R Transcribed Date and Time: 06/08/2021 7:20 Normal [facility] ED Provider Noteon ED Provider Note Emergency Department Encounter [facility] ED Patient: Terese Waters : 1980 Date of Evaluation: 06/08/2021 ED Provider: Winnie Hilario MD I saw the patient as the Clinician in Triage and performed a brief history and physical exam, established acuity, and ordered appropriate tests to develop basic plan of care. Patient will be seen by MARYANA, resident and/or my physician partner who will evaluate the patient. If seen by the MARYANA I will manage the patient in a supervisory role and will be available for co-management and this will serve as my MARYANA Supervisory note and shared attestation. I did perform a substantive portion of the visit including all aspects of the Medical Decision Making. I wore appropriate PPE for the entirety of this encounter. Does this patient come from an ECF, SNF, Rehab, Assisted or other Congregate setting: no (If yes to above patient needs a Covid-19 test) Brief HPI: In brief, Terese Waters is a 40 y.o. female that presents for persistent cough, chest tightness, and fatigue in setting recent covid illness last month. Sx seemed to improve then recur over the last few days and pt does not feel well. Focused Physical exam: Resting quietly on exam table in no acute distress, normal appearance, no respiratory distress, well-appearing. Plan/MDM: cbc, bmp, trop, ekg, cxr. amb puls ox is 95 anticipate dc if negative. Please see subsequent provider note for further details and disposition Comment: Please note this report has been produced using speech recognition software and may contain errors related to that system including errors in grammar, punctuation, and spelling as well as words and phrases that may be inappropriate. If there are any questions or concerns please feel free to contact the dictating provider for clarification Winnie Hilario MD [employer] Winnie Hilario MD 06/08/212020 [facility] ED Provider Note [facility] [place] ED eMERGENCY dEPARTMENT eNCOUnter Pt Name: Terese Waters Birthdate 1980 Date of evaluation: 06/08/2021 Provider: Michelle Marquez PA-C CHIEF COMPLAINT Chief Complaint Patient presents with ? Positive For Covid-19 ? Chest Pain ED care was supervised by Dr. Hilario who independently examined and evaluated the patient. Please see their attestation note for further details. HISTORY OF PRESENT ILLNESS (Location/Symptom, Timing/Onset,Context/Setting, Quality, Duration, Modifying Factors, Severity) Note limiting factors. HPI Terese Waters is a 40 y.o. female who presents to the emergency department for evaluation of persistent cough, chest tightness, fatigue in the setting of a recent COVID illness last month. Unvaccinated. States that symptoms seem to improve and then reoccurred over the past few days and took a at home COVID test which was positive. She states that she does not feel well. Having chest congestion and tightness. Has had a fever. Denies any pain currently. No aggravating or alleviating factors. No shortness of breath. No nausea vomiting or diarrhea. Nursing Notes were reviewed. REVIEW OF SYSTEMS (2+ forlevel 4; 10+ for level 5) Review of Systems At least 10 review of systems were reviewed. All pertinent positives and negatives listed above PAST MEDICAL HISTORY Past Medical History: Diagnosis Date ? Anxiety ? Asthma ? Blood transfusion without reported diagnosis ? COPD (chronic obstructive pulmonary disease) (HCC) ? Depression ? Emphysema of lung (HCC) ? Headache(784.0) ? History of blood transfusion ? Internal bleeding ? 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 APPENDECTOMY ? BACK SURGERY ? CHOLECYSTECTOMY ? CYSTOSCOPY 05/31/2018 Cystoscopy, pyelograms ? FOOT FRACTURE SURGERY Right heel ? HERNIA REPAIR ? HIP FRACTURE SURGERY Right ? HYSTERECTOMY ? LUMBAR FUSION l4 and l5 ? LUNG REMOVAL, PARTIAL Left ? OTHER SURGICAL HISTORY 10/24/2019 MRI with sedation ? TRACHEOTOMY ? UPPER GASTROINTESTINAL ENDOSCOPY 08/17/2017 CURRENT MEDICATIONS Previous Medications ALBUTEROL SULFATE HFA 108 (90 BASE) MCG/ACT INHALER Inhale 2 puffs into the lungs 4 times daily as needed for Wheezing ARIPIPRAZOLE (ABILIFY) 10 MG TABLET BENZONATATE (TESSALON) 100 MG CAPSULE take 1 capsule by mouth three times a day if needed for cough BUSPIRONE (BUSPAR) 15 MG TABLET CLONAZEPAM (KLONOPIN) 0.5 MG TABLET Take 0.5 mg by mouth 2 times daily as needed CLONAZEPAM (KLONOPIN) 1 MG TABLET Take 1 mg by mouth daily.. DOXEPIN (SINEQUAN) 25 MG CAPSULE EPINEPHRINE (EPIPEN 2-BUBBA) 0.3 MG/0.3ML SOAJ INJECTION Inject into thigh if you experience an allergic reaction with difficulty breathing, then call 911 GABAPENTIN (NEURONTIN) 300 MG CAPSULE Take 300 mg by mouth 3 times daily. GABAPENTIN (NEURONTIN) 800 MG TABLET GUAIFENESIN (MUCINEX) 600 MG EXTENDED RELEASE TABLET Take 600 mg by mouth HYDROXYZINE (VISTARIL) 50 MG CAPSULE TAKE 1 CAPSULE BY MOUTH THREE TIMES A DAY NEEDED IBUPROFEN (ADVIL;MOTRIN) 600 MG TABLET Take 1 tablet by mouth every 6 hours as needed for Pain or Fever LAMOTRIGINE (LAMICTAL) 200 MG TABLET MIRTAZAPINE (REMERON) 45 MG TABLET ONDANSETRON (ZOFRAN-ODT) 4 MG DISINTEGRATING TABLET Take 1 tablet by mouth 3 times daily as needed for Nausea or Vomiting PRAZOSIN (MINIPRESS) 2 MG CAPSULE RISPERIDONE (RISPERDAL) 2 MG TABLET Take 2 mg by mouth 2 times daily SERTRALINE (ZOLOFT) 100 MG TABLET Take 200 mg by mouth daily SUMATRIPTAN (IMITREX) 100 MG TABLET TIZANIDINE (ZANAFLEX) 4 MG TABLET WIXELA INHUB 250-50 MCG/DOSE AEPB 1 PUFF INHALATION TWICE A DAY 30 DAYS ALLERGIES Bee venom, [place]fton [hydrocodone-acetaminophen], Pcn [penicillins], Procardia [nifedipine], [place] extract, and Toradol [ketorolac tromethamine] FAMILY HISTORY Family History Problem Relation Age of Onset ? Heart Disease Mother ? Colon Cancer Mother ? Cancer Maternal Grandmother SOCIAL HISTORY Social History Socioeconomic History ? Marital status: Spouse name: None ? Number of children: None ? Years of education: None ? Highest education level: None Occupational History ? None Tobacco Use ? Smoking status: Current Every Day Smoker Packs/day: 0.50 Years: 25.00 Pack years: 12.50 Types: Cigarettes ? Smokeless tobacco: Never Used ? Tobacco comment: quit Mar 22 Vaping Use ? Vaping Use: Some days ? Start date: 11/22/2016 ? Last attempt to quit: 05/24/2017 ? Substances: Always Substance and Sexual Activity ? Alcohol use: No Alcohol/week: 0.0 standard drinks ? Drug use: Yes Types: Marijuana (Nemours) Comment: occasionally ? Sexual activity: Not Currently Other Topics Concern ? None Social History Narrative ? None Social Determinants of Health Financial Resource Stra (more content not included)... Normal [facility] Troponin Ion 06-08-2021 Troponin I.cardiac [Mass/Vol] ng/mL Normal 0.000-0.034 [facility] Comment on above: Result Comment: . Performed By: #### D RGA4, CVCCL, CUA2 #### [facility] [address] [place] [address] Basic Metabolic Panelon 12-2 0-2020 Anion gap [Moles/Vol] 10 mmol/L Normal 3-13 [facility] Comment on above: Performed By: #### T ROPN, LIPA4, BMP3, HEMOG, LACT3 #### [facility] [address] [place] [address] Calcium [Mass/Vol] 9.3 mg/dL Normal 8.4-10.4 [facility] Comment on above: Performed By: #### T ROPN, LIPA4, BMP3, HEMOG, LACT3 #### [facility] [address] [place] [address] CO2 [Moles/Vol] 22 mmol/L Normal 22-30 [facility] Comment on above: Performed By: #### T ROPN, LIPA4, BMP3, HEMOG, LACT3 #### [facility] [address] [place] [address] Glucose [Mass/Vol] 92 mg/dL Normal 70-100 [facility] Comment on above: Performed By: #### T ROPN, LIPA4, BMP3, HEMOG, LACT3 #### [facility] [address] [place] [address] Urea nitrogen [Mass/Vol] 9 mg/dL Normal 9-20 [facility] Comment on above: Performed By: #### T ROPN, LIPA4, BMP3, HEMOG, LACT3 #### [facility] [address] [place] [address] Creatinine [Mass/Vol] 0.76 mg/dL Normal 0.52-1.25 [facility] Comment on above: Performed By: #### T ROPN, LIPA4, BMP3, HEMOG, LACT3 #### [facility] [address] [place] [address] eGFR OTHER > 90.0 Normal >60 [facility] Comment on above: Result Comment: KDIG O guidelines provide the following GFR categories: Stage GFR(ml/min/1.73 m2) Terms G1 >=90 Normal or high G2 60-89 Mildly decreased* G3a 45-59 Mildly to moderately decreased G3b 30-44 Moderately to severely decreased G4 15-29 Severely decreased G5 <15 Kidney failure *Relative to young adult level. In the absence of evidence of kidney damage, neither GFR category G1 nor G2 fulfill the criteria for CKD. The CKD-EPI equation is validated in individuals 18 years of age and older. Currently the best equation for estimating glomerular filtration rate (GFR) from serum creatinine in children is the Bedside Yee equation. It is less accurate in patients with extremes of muscle mass, restriction of dietary protein, ingestion of creatine, extra-renal metabolism of creatinine, or treatment with medications that affect renal tubular creatinine secretion. Performed By: #### T ROPN, LIPA4, BMP3, HEMOG, LACT3 #### [facility] [address] [place] [address] GFR/1.73 sq M.predicted among blacks MDRD (S/P/Bld) [Vol rate/Area] mL/min/{1.73_m2} Normal >60 [facility] Comment on above: Performed By: #### T ROPN, LIPA4, BMP3, HEMOG, LACT3 #### [facility] [address] [place] [address] Potassium [Moles/Vol] 3.7 mmol/L Normal 3.5-5.1 [facility] Comment on above: Performed By: #### T ROPN, LIPA4, BMP3, HEMOG, LACT3 #### [facility] [address] [place] [address] Sodium [Moles/Vol] 141 mmol/L Normal 135-145 [facility] Comment on above: Performed By: #### T ROPN, LIPA4, BMP3, HEMOG, LACT3 #### [facility] [address] [place] [address] Chloride [Moles/Vol] 108 mmol/L High 98-107 [facility] Comment on above: Performed By: #### T ROPN, LIPA4, BMP3, HEMOG, LACT3 #### [facility] Topic [facility] [address] [place] [address] CR Chest Portableon 05-17-20 21 CR Chest Portable [facility]: [id number]iology ACCESSION EXAM DATE/TIME PROCEDURE ORDERING PROVIDER [id number] 05/17/2021 13:14 EST CR Chest Portable [id number] -MARZENA WEBB CPT code 82239 Reason For Exam (CR Chest Portable) Dyspnea Report PORTABLE CHEST X-RAY CLINICAL INDICATION: Dyspnea A portable frontal view of the chest was obtained. COMPARISON: 01/04/2021 FINDINGS: The cardiac silhouette is within normal limits. No focal consolidation is seen within the lungs. There is no large pleural effusion or pneumothorax. The bony structures of the chest are unremarkable as visualized. IMPRESSION: No acute cardiopulmonary disease. Report Dictated on Final Dictating Physician: MD HARRIS JONATHAN R Signed Date and Time: 05/17/2021 1:34 pm Signed by: MD HARRIS JONATHAN R Transcribed Date and Time: 05/17/2021 1:35 Normal [facility] Complete Urinalysison 2020 Appearance (U) Turbid Abnormal Clear [facility] Comment on above: Result Comment: . Performed By: #### H EMDF, CRP2, ESR #### [facility] [address] [place] [address] Bacteria Few Abnormal Negative [facility] Comment on above: Result Comment: . Performed By: #### H EMDF, CRP2, ESR #### [facility] [address] [place] [address] Bilirubin,Urine Negative Normal Negative [facility] Comment on above: Result Comment: . Performed By: #### H EMDF, CRP2, ESR #### [facility] [address] [place] [address] Color (U) Yellow Normal Lt. Yellow [facility] Comment on above: Result Comment: . Performed By: #### H EMDF, CRP2, ESR #### [facility] [address] [place] [address] Glucose Ql (U) Normal Normal Normal (<70) [facility] Comment on above: Result Comment: . Performed By: #### H EMDF, CRP2, ESR #### [facility] [address] [place] [address] Ketone,Urine Trace Abnormal Negative [facility] Comment on above: Result Comment: . Performed By: #### H EMDF, CRP2, ESR #### [facility] [address] [place] [address] Leukocytes,Urine Negative Normal Negative [facility] Comment on above: Result Comment: . Performed By: #### H EMDF, CRP2, ESR #### [facility] [address] [place] [address] Mucous Threads Moderate Abnormal Negative [facility] Comment on above: Result Comment: . Performed By: #### H EMDF, CRP2, ESR #### [facility] [address] [place] [address] Nitrites,Urine Negative Normal Negative [facility] Comment on above: Result Comment: . Performed By: #### H EMDF, CRP2, ESR #### [facility] [address] [place] [address] Occult Blood,Urine Negative Normal Negative [facility] Comment on above: Result Comment: . Performed By: #### H EMDF, CRP2, ESR #### [facility] [address] [place] [address] pH,Urine 5.5 Normal 5.0-8.0 [facility] Comment on above: Result Comment: . Performed By: #### H EMDF, CRP2, ESR #### [facility] [address] [place] [address] Protein (U) [Mass/Vol] 20 mg/dL Abnormal Negative [facility] Comment on above: Result Comment: . Performed By: #### H EMDF, CRP2, ESR #### [facility] [address] [place] [address] RBC, Urine 0 - 2 Normal 0-2 [facility] Comment on above: Result Comment: . Performed By: #### H EMDF, CRP2, ESR #### [facility] [address] [place] [address] Specific [place],Urine 1.023 Normal 1.005 - 1.030 [facility] Comment on above: Result Comment: . Performed By: #### H EMDF, CRP2, ESR #### [facility] [address] [place] [address] Squamous Epithelial 6 - 10 Abnormal 3-5 [facility] Comment on above: Result Comment: . Performed By: #### H EMDF, CRP2, ESR #### [facility] [address] [place] [address] Urobilinogen,Urin e Normal Normal Normal (0-1) [facility] Comment on above: Result Comment: . Performed By: #### H EMDF, CRP2, ESR #### [facility] [address] [place] [address] WBC, Urine 0 - 2 Normal 0-5 [facility] Comment on above: Result Comment: . Performed By: #### H EMDF, CRP2, ESR #### [facility] Topic [facility] [address] [place] [address] ED Provider Noteon 1 [facility] Pt Name: Terese Waters Birthdate 1980 Date of evaluation: 05/17/2021 Provider: Marzena Webb, DO CHIEF COMPLAINT Chief Complaint Patient presents with ? Positive For Covid-19 HISTORY OF PRESENT ILLNESS (Location/Symptom, Timing/Onset, Context/Setting, Quality, Duration, Modifying Factors, Severity) Note limiting factors. I wore a procedure mask for the entirety of this encounter. Does this patient come from an ECF, SNF, Rehab, Assisted or other Congregate setting: No HPI Terese Waters is a 40 y.o. female who presents to the emergency department feeling unwell. Patient reports that she has had symptoms for 3 days, does report that she took an at home Covid test which was positive. Patient is not vaccinated for Covid. Reports that she has had inability to tolerate p.o. intake secondary to nausea/emesis. Patient also reports that she has been having frequent episodes of diarrhea at home, reports that they have been dark. Denies hematochezia. Patient reports that she has been having fevers, chills. Reports that she has headache. She reports that she has myalgias. Patient denies any [id number] treatment at home. Patient does report former tobacco use, reports that she quit March 22, is supposed to be wearing 2 L of nasal cannula oxygen at home however does this intermittently. Patient reports pain with deep inspiration. Reports nonproductive cough. Nursing Notes were reviewed. REVIEW OF SYSTEMS (2+ for level 4; 10+ for level 5) All other systems reviewed and negative other than as noted in HPI. PAST MEDICAL HISTORY Past Medical History: Diagnosis Date ? Anxiety ? Asthma ? Blood transfusion without reported diagnosis ? COPD (chronic obstructive pulmonary disease) (HCC) ? Depression ? Emphysema of lung (HCC) ? Headache(784.0) ? History of blood transfusion ? Internal bleeding ? 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 short term memory loss SURGICAL HISTORY Past Surgical History: Procedure Laterality Date ? APPENDECTOMY ? BACK SURGERY ? CHOLECYSTECTOMY ? CYSTOSCOPY 05/31/2018 Cystoscopy, pyelograms ? FOOT FRACTURE SURGERY Right heel ? HERNIA REPAIR ? HIP FRACTURE SURGERY Right ? HYSTERECTOMY ? LUMBAR FUSION l4 and l5 ? LUNG REMOVAL, PARTIAL Left ? OTHER SURGICAL HISTORY 10/24/2019 MRI with sedation ? TRACHEOTOMY ? UPPER GASTROINTESTINAL ENDOSCOPY 08/17/2017 CURRENT MEDICATIONS Previous Medications ALBUTEROL SULFATE HFA 108 (90 BASE) MCG/ACT INHALER Inhale 2 puffs into the lungs 4 times daily as needed for Wheezing ARIPIPRAZOLE (ABILIFY) 10 MG TABLET BENZONATATE (TESSALON) 100 MG CAPSULE take 1 capsule by mouth three times a day if needed for cough BUSPIRONE (BUSPAR) 15 MG TABLET CLONAZEPAM (KLONOPIN) 0.5 MG TABLET Take 0.5 mg by mouth 2 times daily as needed CLONAZEPAM (KLONOPIN) 1 MG TABLET Take 1 mg by mouth daily.. DOXEPIN (SINEQUAN) 25 MG CAPSULE EPINEPHRINE (EPIPEN 2-BUBBA) 0.3 MG/0.3ML SOAJ INJECTION Inject into thigh if you experience an allergic reaction with difficulty breathing, then call 911 GABAPENTIN (NEURONTIN) 300 MG CAPSULE Take 300 mg by mouth 3 times daily. GABAPENTIN (NEURONTIN) 800 MG TABLET GUAIFENESIN (MUCINEX) 600 MG EXTENDED RELEASE TABLET Take 600 mg by mouth HYDROXYZINE (VISTARIL) 50 MG CAPSULE TAKE 1 CAPSULE BY MOUTH THREE TIMES A DAY NEEDED IBUPROFEN (ADVIL;MOTRIN) 600 MG TABLET Take 1 tablet by mouth every 6 hours as needed for Pain or Fever LAMOTRIGINE (LAMICTAL) 200 MG TABLET MIRTAZAPINE (REMERON) 45 MG TABLET PRAZOSIN (MINIPRESS) 2 MG CAPSULE RISPERIDONE (RISPERDAL) 2 MG TABLET Take 2 mg by mouth 2 times daily SERTRALINE (ZOLOFT) 100 MG TABLET Take 200 mg by mouth daily SUMATRIPTAN (IMITREX) 100 MG TABLET TIZANIDINE (ZANAFLEX) 4 MG TABLET WIXELA INHUB 250-50 MCG/DOSE AEPB 1 PUFF INHALATION TWICE A DAY 30 DAYS ALLERGIES Bee venom, [place]on [hydrocodone-acetaminophen], Pcn [penicillins], Procardia [nifedipine], [place] extract, and Toradol [ketorolac tromethamine] FAMILY HISTORY Family History Problem Relation Age of Onset ? Heart Disease Mother ? Colon Cancer Mother ? Cancer Maternal Grandmother SOCIAL HISTORY Social History Socioeconomic History ? Marital status: Spouse name: None ? Number of children: None ? Years of education: None ? Highest education level: None Occupational History ? None Tobacco Use ? Smoking status: Current Every Day Smoker Packs/day: 0.50 Years: 25.00 Pack years: 12.50 Types: Cigarettes ? Smokeless tobacco: Never Used ? Tobacco comment: quit Mar 22 Vaping Use ? Vaping Use: Some days ? Start date: 11/22/2016 ? Last attempt to quit: 05/24/2017 ? Substances: Always Substance and Sexual Activity ? Alcohol use: No Alcohol/week: 0.0 standard drinks ? Drug use: Yes Types: Marijuana (Nemours) Comment: oc (more content not included)... Normal [facility] Hemogramon 05-17-2021 Erythrocyte distribution width (RBC) [Ratio] 12.8 % Normal 11.5-14.5 [facility] Comment on above: Performed By: #### T ROPN, LIPA4, BMP3, HEMOG, LACT3 #### [facility] [address] [place] [address] Hematocrit (Bld) [Volume fraction] 38.2 % Normal 35.0-47.0 [facility] Comment on above: Performed By: #### T ROPN, LIPA4, BMP3, HEMOG, LACT3 #### [facility] [address] [place] [address] Hemoglobin (Bld) [Mass/Vol] 13.2 g/dL Normal 11.7-16.0 [facility] Comment on above: Performed By: #### T ROPN, LIPA4, BMP3, HEMOG, LACT3 #### [facility] [address] [place] [address] MCH (RBC) [Entitic mass] 31.3 pg Normal 26.0-34.0 [facility] Comment on above: Performed By: #### T ROPN, LIPA4, BMP3, HEMOG, LACT3 #### [facility] [address] [place] [address] MCHC 34.5 % Normal 32.0-36.0 [facility] Comment on above: Performed By: #### T ROPN, LIPA4, BMP3, HEMOG, LACT3 #### [facility] [address] [place] [address] MCV (RBC) [Entitic vol] 90.6 fL Normal 79.0-98.0 [facility] Comment on above: Performed By: #### T ROPN, LIPA4, BMP3, HEMOG, LACT3 #### [facility] [address] [place] [address] Platelet mean volume (Bld) [Entitic vol] 7.0 fL Low 7.4-10.4 [facility] Comment on above: Performed By: #### T ROPN, LIPA4, BMP3, HEMOG, LACT3 #### [facility] [address] [place] [address] Platelets (Bld) [#/Vol] 164 10*3/uL Normal 140-440 [facility] Comment on above: Performed By: #### T ROPN, LIPA4, BMP3, HEMOG, LACT3 #### [facility] [address] [place] [address] RBC (Bld) [#/Vol] 4.22 10*6/uL Normal 3.80-5.20 [facility] Comment on above: Performed By: #### T ROPN, LIPA4, BMP3, HEMOG, LACT3 #### [facility] [address] [place] [address] WBC (Bld) [#/Vol] 2.8 10*3/uL Low 3.6-10.7 [facility] Comment on above: Performed By: #### T ROPN, LIPA4, BMP3, HEMOG, LACT3 #### [facility] [address] [place] [address] Lactic Acidon 05-17-2021 Lactate [Moles/Vol] 0.5 mmol/L Low 0.7-2.0 [facility] Comment on above: Performed By: #### T ROPN, LIPA4, BMP3, HEMOG, LACT3 #### [facility] [address] [place] [address] Lipaseon 05-17-2021 Lipase [Catalytic activity/Vol] 55 U/L Normal 23-300 [facility] Comment on above: Performed By: #### T ROPN, LIPA4, BMP3, HEMOG, LACT3 #### [facility] [address] [place] [address] SARS-CoV-2, Flu A/B and RSVo n 05-17-2021 SARS-CoV-2 (COVID-19) RNA ANTOINETTE+probe Ql (Unsp spec) SARS-CoV-2 --> Status: F DETECTED Flu A PCR --> Status: F Not Detected. Flu B PCR --> Status: F Not Detected. RSV PCR --> Status: F Not Detected. Expected Result: Not Detected _ Method: Real-time, RT-PCR This assay was developed by [employer] and distributed under an Emergency Use Authorization (EUA) granted by the [facility] for the qualitative detection of nucleic acids from SARS-CoV-2, Influenza A, Influenza B, and Respiratory Syncytial Virus. Provider and patient fact sheets can be found at https://www.fda.gov/media/210 221/download and https://www.fda.gov/media/174 436/download. Expected Result: Not Detected _ Method: Real-time, RT-PCR This assay was developed by [employer] and distributed under an Emergency Use Authorization (EUA) granted by the FDA for the qualitative detection of nucleic acids from SARS-CoV-2, Influenza A, Influenza B, and Respiratory Syncytial Virus. Provider and patient fact sheets can be found at https://www.fda.gov/media/142 435/download and https://www.fda.gov/media/142 436/download. Normal [facility] Comment on above: Performed By: #### D RGA4, CVCCL, CUA2 #### [facility] [address] [place] [address] Troponin Ion 05-17-2021 Troponin I.cardiac [Mass/Vol] ng/mL Normal 0.000-0.034 [facility] Comment on above: Result Comment: . Performed By: #### D RGA4, CVCCL, CUA2 #### [facility] [address] [place] [address] Venous Blood Gas Respiratory on 05-17-2021 Base Excess -1.4 mmol/L Normal -3.0-3.0 [facility] Comment on above: Performed By: #### H EMDF, CRP2, ESR #### [facility] [address] [place] [address] CO2 [Moles/Vol] 26.3 mmol/L Normal 24.0-28.0 [facility] Comment on above: Performed By: #### H EMDF, CRP2, ESR #### [facility] [address] [place] [address] FIO2 21 Normal [facility] Comment on above: Result Comment: Perf ormed by PATY ID: [id number] [place], [place] Performed By: #### H EMDF, CRP2, ESR #### [facility] [address] [place] [address] HCO3 (Bld) [Moles/Vol] 24.8 mmol/L Normal 23.0-27.0 [facility] Comment on above: Performed By: #### H EMDF, CRP2, ESR #### [facility] [address] [place] [address] Oxygen (Bld) [Partial pressure] 26.7 mm[Hg] Low 30.0-50.0 [facility] Comment on above: Performed By: #### H EMDF, CRP2, ESR #### [facility] [address] [place] [address] Oxygen saturation in Blood 44.6 % Low 60.0-80.0 [facility] Comment on above: Performed By: #### H EMDF, CRP2, ESR #### [facility] [address] [place] [address] pCO2 46.9 mm[Hg] Normal 40.0-55.0 [facility] Comment on above: Performed By: #### H EMDF, CRP2, ESR #### [facility] [address] [place] [address] pH 7.332 Normal 7.330-7.430 [facility] Comment on above: Performed By: #### H EMDF, CRP2, ESR #### [facility] [address] [place] [address] C-Reactive Proteinon 021 CRP [Mass/Vol] 6.1 mg/L Normal 0.0-9.9 [facility] Comment on above: Result Comment: . Performed By: #### H EMDF, CRP2, ESR #### [facility] [address] [place] [address] CR Knee 3 Views Lefton 03-03 CR Knee 3 Views Left Patient Name: TERESE WATERS Diagnostic Radiology ACCESSION EXAM DATE/TIME PROCEDURE ORDERING PROVIDER [id number] 03/03/2021 17:20 EDT CR Knee 3 Views Left [id number] EMELI GONZALEZ CPT code 61090 Reason For Exam (CR Knee 3 Views Left) pain Report LEFT KNEE History: Knee pain Findings: Three views of the left knee show no acute fracture, dislocation, bone erosion or periosteal reaction. The knee joint space is maintained. IMPRESSION: Negative examination. Report Dictated on Final Dictating Physician: MD SHIN AHMAD Signed Date and Time: 03/03/2021 5:47 pm Signed by: MD SHIN AHMAD Transcribed Date and Time: 03/03/2021 5:48 Normal [facility] ED Provider Noteon ED Provider Note Emergency Department Encounter [facility] Patient: Terese Waters : 1980 Date of Evaluation: 03/03/2021 ED Provider: Emeli Escobar MD Chief Complaint Chief Complaint Patient presents with ? Knee Pain Left SENECA I wore appropriate PPE for the entirety of this encounter. Does this patient come from an ECF, SNF, Rehab, Assisted or other Congregate setting: no (If yes to above patient needs a Covid-19 test) Terese Waters is a 40 y.o. female who presents to the emergency department complaining of pain in her leg, left knee. Patient states about 3 days ago she felt a snap in her left leg/knee. She states that she does not really recall any falls or anything. Has been having worsening difficulty walking on her leg since then with a lot of pain with passive and active range of motion that leg. No fevers or chills. Is currently being treated for UTI and is on antibiotics. Lightheadedness or dizziness. No numbness or tingling of the lower extremity. ROS: Systems reviewed and otherwise acutely negative except as in the SENECA. Past History Past Medical History: Diagnosis Date ? Anxiety ? Asthma ? Blood transfusion without reported diagnosis ? COPD (chronic obstructive pulmonary disease) ([facility]) ? Depression ? Emphysema of lung (H[facility]) ? Headache(784.0) ? History of blood transfusion ? Internal bleeding ? 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 short term memory loss Past Surgical History: Procedure Laterality Date ? APPENDECTOMY ? BACK SURGERY ? CHOLECYSTECTOMY ? CYSTOSCOPY 05/31/2018 Cystoscopy, pyelograms ? FOOT FRACTURE SURGERY Right heel ? HERNIA REPAIR ? HIP FRACTURE SURGERY Right ? HYSTERECTOMY ? LUMBAR FUSION l4 and l5 ? LUNG REMOVAL, PARTIAL Left ? OTHER SURGICAL HISTORY 10/24/2019 MRI with sedation ? TRACHEOTOMY ? UPPER GASTROINTESTINAL ENDOSCOPY 08/17/2017 Social History Socioeconomic History ? Marital status: Spouse name: None ? Number of children: None ? Years of education: None ? Highest education level: None Occupational History ? None Tobacco Use ? Smoking status: Current Every Day Smoker Packs/day: 0.50 Years: 25.00 Pack years: 12.50 Types: Cigarettes ? Smokeless tobacco: Never Used Vaping Use ? Vaping Use: Former ? Start date: 11/22/2016 ? Quit date: 05/24/2017 ? Substances: Always Substance and Sexual Activity ? Alcohol use: No Alcohol/week: 0.0 standard drinks ? Drug use: Yes Types: Marijuana Comment: Denies ? Sexual activity: Not Currently Other Topics Concern ? None Social History Narrative ? None Social Determinants of Health Financial Resource Strain: ? Difficulty of Paying Living Expenses: Food Insecurity: ? Worried About Running Out of Food in the Last Year: ? Ran Out of Food in the Last Year: Transportation Needs: ? Lack of Transportation (Medical): ? Lack of Transportation (Non-Medical): Physical Activity: ? Days of Exercise per Week: ? Minutes of Exercise per Session: Stress: ? Feeling of Stress : Social Connections: ? Frequency of Communication with Friends and Family: ? Frequency of Social Gatherings with Friends and Family: ? Attends Buddhist Services: ? Active Member of Clubs or Organizations: ? Attends Club or Organization Meetings: ? Marital Status: Intimate Partner Violence: ? Fear of Current or Ex-Partner: ? Emotionally Abused: ? Physically Abused: ? Sexually Abused: Medications/Allergies Previous Medications ALBUTEROL SULFATE HFA 108 (90 BASE) MCG/ACT INHALER Inhale 2 puffs into the lungs 4 times daily as needed for Wheezing CLONAZEPAM (KLONOPIN) 0.5 MG TABLET Take 0.5 mg by mouth 2 times daily as needed CLONAZEPAM (KLONOPIN) 1 MG TABLET Take 1 mg by mouth daily.. EPINEPHRINE (EPIPEN 2-BUBBA) 0.3 MG/0.3ML SOAJ INJECTION Inject into thigh if you experience an allergic reaction with difficulty breathing, then call 911 GABAPENTIN (NEURONTIN) 300 MG CAPSULE Take 300 mg by mouth 3 times daily. IBUPROFEN (ADVIL;MOTRIN) 600 MG TABLET Take 1 tablet by mouth every 6 hours as needed for Pain or Fever RISPERIDONE (RISPERDAL) 2 MG TABLET Take 2 mg by mouth 2 times daily SERTRALINE (ZOLOFT) 100 MG TABLET Take 200 mg by mouth daily Allergies Allergen Reactions ? Bee Venom ? [place] [Hydrocodone-Acetaminophen] Hives ? Pcn [Penicillins] Swelling ? Procardia [Nifedipine] Hives ? [place] Extract Hives ? Toradol [Ketorolac Tromethamine] Swelling Physical Exam ED Triage Vitals [03/03/21 1644] BP Temp Temp Source Pulse Resp SpO2 Height Weight 109/76 97.6 ?F (36.4 ?C) Temporal 104 16 96 % -- -- GENERAL: The patient appears nourished and normally developed. Vital signs as documented. EYES: Head exam is unremarkable. No scleral icterus or orbital trauma noted. HEENT:Nares patent without copious rhinorrhea. EXTREMITIES: Tenderness to palpation to the proximal and distal po (more content not included)... Normal [facility] Hemogram w/ Autodiffon 03-03 Abs Baso Cnt 0.0 10*3/uL Normal 0.0-0.2 [facility] Comment on above: Performed By: #### H EMDF, CRP2, ESR #### [facility] [address] [place] [address] Abs Neutrophile Cnt 5.7 10*3/uL Normal 1.8-7.0 [facility] Comment on above: Performed By: #### H EMDF, CRP2, ESR #### [facility] [address] [place] [address] Basophils/100 WBC (Bld) 0.3 % Normal 0.0-2.0 [facility] Comment on above: Performed By: #### H EMDF, CRP2, ESR #### [facility] [address] [place] [address] Eosinophils (Bld) [#/Vol] 0.2 10*3/uL Normal 0.0-0.5 [facility] Comment on above: Performed By: #### H EMDF, CRP2, ESR #### [facility] [address] [place] [address] Eosinophils/100 WBC (Bld) 2.5 % Normal 1.0-6.0 [facility] Comment on above: Performed By: #### H EMDF, CRP2, ESR #### [facility] [address] [place] [address] Erythrocyte distribution width (RBC) [Ratio] 12.7 % Normal 11.5-14.5 [facility] Comment on above: Performed By: #### H EMDF, CRP2, ESR #### [facility] [address] [place] [address] Granulocytes/100 WBC (Bld) 67.6 % Normal 40.0-80.0 [facility] Comment on above: Performed By: #### H EMDF, CRP2, ESR #### [facility] [address] [place] [address] Hematocrit (Bld) [Volume fraction] 37.6 % Normal 35.0-47.0 [facility] Comment on above: Performed By: #### H EMDF, CRP2, ESR #### [facility] [address] [place] [address] Hemoglobin (Bld) [Mass/Vol] 13.6 g/dL Normal 11.7-16.0 [facility] Comment on above: Performed By: #### H EMDF, CRP2, ESR #### [facility] [address] [place] [address] Lymphocytes (Bld) [#/Vol] 2.0 10*3/uL Normal 1.0-4.3 [facility] Comment on above: Performed By: #### H EMDF, CRP2, ESR #### [facility] [address] [place] [address] Lymphocytes/100 WBC (Bld) 24.0 % Normal 20.0-40.0 [facility] Comment on above: Performed By: #### H EMDF, CRP2, ESR #### [facility] [address] [place] [address] MCH (RBC) [Entitic mass] 33.2 pg Normal 26.0-34.0 [facility] Comment on above: Performed By: #### H EMDF, CRP2, ESR #### [facility] [address] [place] [address] MCHC 36.2 % High 32.0-36.0 [facility] Comment on above: Performed By: #### H EMDF, CRP2, ESR #### [facility] [address] [place] [address] MCV (RBC) [Entitic vol] 91.8 fL Normal 79.0-98.0 [facility] Comment on above: Performed By: #### H EMDF, CRP2, ESR #### [facility] [address] [place] [address] Monocytes (Bld) [#/Vol] 0.5 10*3/uL Normal 0.0-0.8 [facility] Comment on above: Performed By: #### H EMDF, CRP2, ESR #### [facility] [address] [place] [address] Monocytes/100 WBC (Bld) 5.6 % Normal 2.0-10.0 [facility] Comment on above: Performed By: #### H EMDF, CRP2, ESR #### [facility] [address] [place] [address] Platelet mean volume (Bld) [Entitic vol] 6.4 fL Low 7.4-10.4 [facility] Comment on above: Performed By: #### H EMDF, CRP2, ESR #### [facility] [address] [place] [address] Platelets (Bld) [#/Vol] 326 10*3/uL Normal 140-440 [facility] Comment on above: Performed By: #### H EMDF, CRP2, ESR #### [facility] [address] [place] [address] RBC (Bld) [#/Vol] 4.10 10*6/uL Normal 3.80-5.20 [facility] Comment on above: Performed By: #### H EMDF, CRP2, ESR #### [facility] [address] [place] [address] WBC (Bld) [#/Vol] 8.4 10*3/uL Normal 3.6-10.7 [facility] Comment on above: Performed By: #### H EMDF, CRP2, ESR #### [facility] [address] [place] [address] Sed Rateon 03-03-2021 Sed Rate 64 mm/h High 0-20 [facility] Comment on above: Performed By: #### H EMDF, CRP2, ESR #### [facility] [address] [place] [address] Complete Urinalysison 2020 Appearance (U) Clear Normal Clear [facility] Comment on above: Result Comment: . Performed By: #### D RGA4, CVCCL, CUA2 #### [facility] [address] [place] [address] Bilirubin,Urine Negative Normal Negative [facility] Comment on above: Result Comment: . Performed By: #### D RGA4, CVCCL, CUA2 #### [facility] [address] [place] [address] Color (U) COLORLESS Normal Lt. Yellow [facility] Comment on above: Result Comment: . Performed By: #### D RGA4, CVCCL, CUA2 #### [facility] [address] [address] Glucose Ql (U) Normal Normal Normal (<70) [facility] Comment on above: Result Comment: . Performed By: #### D RGA4, CVCCL, CUA2 #### [facility] [address] [place] [address] Ketone,Urine Negative Normal Negative [facility] Comment on above: Result Comment: . Performed By: #### D RGA4, CVCCL, CUA2 #### [facility] [address] [place] [address] Leukocytes,Urine Negative Normal Negative [facility] Comment on above: Result Comment: . Performed By: #### D RGA4, CVCCL, CUA2 #### [facility] [address] [place] [address] Nitrites,Urine Negative Normal Negative [facility] Comment on above: Result Comment: . Performed By: #### D RGA4, CVCCL, CUA2 #### [facility] [address] [place] [address] Occult Blood,Urine Negative Normal Negative [facility] Comment on above: Result Comment: . Performed By: #### D RGA4, CVCCL, CUA2 #### [facility] [address] [place] [address] pH,Urine 6.5 Normal 5.0-8.0 [facility] Comment on above: Result Comment: . Performed By: #### D RGA4, CVCCL, CUA2 #### [facility] [address] [place] [address] Specific [place],Urine 1.006 Normal 1.005 - 1.030 [facility] Comment on above: Result Comment: . Performed By: #### D RGA4, CVCCL, CUA2 #### [facility] [address] [place] [address] Total Protein,Urine Negative Normal Negative [facility] Comment on above: Result Comment: . Performed By: #### D RGA4, CVCCL, CUA2 #### [facility] [address] [place] [address] Urobilinogen,Urin e Normal Normal Normal (0-1) [facility] Comment on above: Result Comment: . Performed By: #### D RGA4, CVCCL, CUA2 #### [facility] [address] [place] [address] Drugs of Abuseon 01-05-2021 Phencyclidine (PCP), Ur Negative Normal [facility] Comment on above: Result Comment: The expected value for all of the drugs listed above is Negative. The following drugs or drug groups have been screened for by Immunoassay at the following thresholds: Amphetamine class (1000 ng/mL), Barbiturates (200 ng/mL), Benzodiazepines (200 ng/mL), Cocaine (300 ng/mL), Methadone (300 ng/mL), Opiates (300 ng/mL), Oxycodone (100 ng/mL), and PCP (25 ng/mL). NOTE: These results are for medical treatment only. Analysis performed using non-forensic procedures. POSITIVE results are NOT confirmed by a more specific alternative method unless requested. If confirmation is needed, request confirmation under separate order. Performed By: #### D RGA4, CVCCL, CUA2 #### [facility] [address] [place] [address] Opiates, Ur Negative Normal [facility] Comment on above: Performed By: #### D RGA4, CVCCL, CUA2 #### [facility] [address] [place] [address] Cocaine, Ur Negative Normal [facility] Comment on above: Performed By: #### D RGA4, CVCCL, CUA2 #### [facility] [address] [place] [address] Methadone, Ur Negative Normal [facility] Comment on above: Performed By: #### D RGA4, CVCCL, CUA2 #### [facility] [address] [place] [address] Benzodiazepines, Ur Negative Normal [facility] Comment on above: Performed By: #### D RGA4, CVCCL, CUA2 #### [facility] [address] [place] [address] Amphetamines, Ur Negative Normal [facility] Comment on above: Performed By: #### D RGA4, CVCCL, CUA2 #### [facility] [address] [place] [address] Barbiturates, Ur Negative Normal [facility] Comment on above: Performed By: #### D RGA4, CVCCL, CUA2 #### [facility] [address] [place] [address] Oxycodone/Oxymorp sonya,Ur Negative Normal [facility] Comment on above: Performed By: #### D RGA4, CVCCL, CUA2 #### [facility] [address] [place] [address] CR Chest PA/LATon 01-04-2021 CR Chest PA/LAT Patient Name: TERESE DUNBAR Diagnostic Radiology ACCESSION EXAM DATE/TIME PROCEDURE ORDERING PROVIDER [id number] 01/04/2021 21:56 EDT CR Chest PA and LAT MD CHARO, SAMY Kim CPT code 53100 Reason For Exam (CR Chest PA and LAT) cough, on antibiotics for pneumonia Report CHEST X-RAY TWO VIEWS CLINICAL INDICATION: cough, on antibiotics for pneumonia TECHNIQUE: Frontal and lateral views of the chest. COMPARISON: 10/04/2019 FINDINGS: Low lung volumes. Perihilar infiltrates bilaterally best seen on the lateral view. No pneumothorax seen. Heart size normal. IMPRESSION: 1. Bilateral infiltrates. Report Dictated on Final Dictating Physician: MD SVETLANA, DEYSI R Signed Date and Time: 01/04/2021 10:18 pm Signed by: MD MOTA JOHN R Transcribed Date and Time: 01/04/2021 10:19 Normal [facility] Comp Metabolic Panelon 01-04 ALP [Catalytic activity/Vol] 52 U/L Normal 38-126 [facility] Comment on above: Performed By: #### H EMDF, CRP2, ESR #### [facility] [address] [place] [address] ALT [Catalytic activity/Vol] 16 U/L Normal 0-34 [facility] Comment on above: Result Comment: The ALT test is performed by an updated assay method. Please note that the reference intervals have been changed and are now sex specific. Performed By: #### H EMDF, CRP2, ESR #### [facility] [address] [place] [address] Anion gap [Moles/Vol] 5 mmol/L Normal 3-13 [facility] Comment on above: Performed By: #### H EMDF, CRP2, ESR #### [facility] [address] [place] [address] AST [Catalytic activity/Vol] 30 U/L Normal 15-46 [facility] Comment on above: Performed By: #### H EMDF, CRP2, ESR #### [facility] [address] [place] [address] Bilirubin [Mass/Vol] 0.3 mg/dL Normal 0.2-1.3 [facility] Comment on above: Performed By: #### H EMDF, CRP2, ESR #### [facility] [address] [place] [address] Calcium [Mass/Vol] 9.4 mg/dL Normal 8.4-10.4 [facility] Comment on above: Performed By: #### H EMDF, CRP2, ESR #### [facility] [address] [place] [address] CO2 [Moles/Vol] 25 mmol/L Normal 22-30 [facility] Comment on above: Performed By: #### H EMDF, CRP2, ESR #### [facility] [address] [place] [address] Creatinine [Mass/Vol] 0.64 mg/dL Normal 0.52-1.25 [facility] Comment on above: Performed By: #### H MENDY CRP2, ESR #### [facility] [address] [place] [address] eGFR OTHER > 90.0 Normal >60 [facility] Comment on above: Result Comment: KDIG O guidelines provide the following GFR categories: Stage GFR(ml/min/1.73 m2) Terms G1 >=90 Normal or high G2 60-89 Mildly decreased* G3a 45-59 Mildly to moderately decreased G3b 30-44 Moderately to severely decreased G4 15-29 Severely decreased G5 <15 Kidney failure *Relative to young adult level. In the absence of evidence of kidney damage, neither GFR category G1 nor G2 fulfill the criteria for CKD. The CKD-EPI equation is validated in individuals 18 years of age and older. Currently the best equation for estimating glomerular filtration rate (GFR) from serum creatinine in children is the Bedside Yee equation. It is less accurate in patients with extremes of muscle mass, restriction of dietary protein, ingestion of creatine, extra-renal metabolism of creatinine, or treatment with medications that affect renal tubular creatinine secretion. Performed By: #### H MENDY CRP2, ESR #### [facility] Topic [facility] [address] [place] [address] GFR/1.73 sq M.predicted among blacks MDRD (S/P/Bld) [Vol rate/Area] mL/min/{1.73_m2} Normal >60 [facility] Comment on above: Performed By: #### H MENDY CRP2, ESR #### [facility]opic [facility] [address] [place] [address] Glucose [Mass/Vol] 84 mg/dL Normal 70-100 [facility] Comment on above: Performed By: #### H EMDF CRP2, ESR #### [facility] [address] [place] [address] Protein [Mass/Vol] 7.1 g/dL Normal 6.3-8.2 [facility] Comment on above: Performed By: #### H EMDF, CRP2, ESR #### [facility] [address] [place] [address] Urea nitrogen [Mass/Vol] 4 mg/dL Low 7-20 [facility] Comment on above: Performed By: #### H EMDF, CRP2, ESR #### [facility] [address] [place] [address] Potassium [Moles/Vol] 4.2 mmol/L Normal 3.5-5.1 [facility] Comment on above: Performed By: #### H EMDF, CRP2, ESR #### [facility] [address] [place] [address] Albumin [Mass/Vol] 4.5 g/dL Normal 3.5-5.0 [facility] Comment on above: Performed By: #### H EMDF, CRP2, ESR #### [facility] [address] [place] [address] Chloride [Moles/Vol] 110 mmol/L High 98-107 [facility] Comment on above: Performed By: #### H EMDF, CRP2, ESR #### [facility] [address] [place] [address] Sodium [Moles/Vol] 140 mmol/L Normal 135-145 [facility] Comment on above: Performed By: #### H EMDF, CRP2, ESR #### [facility] [address] [place] [address] Ethanol Serum/Plasmaon 01-04 Ethanol-Serum/Rangel sma < 0.010 Normal 0.000-0.010 [facility] Comment on above: Result Comment: NOTE : This result is for medical treatment only. Analysis performed using non-forensic procedures. Performed By: #### H EMDF, CRP2, ESR #### [facility] [address] [place] [address] Hemogram w/ Autodiffon 01-04 Abs Baso Cnt 0.1 10*3/uL Normal 0.0-0.2 [facility] Comment on above: Performed By: #### H EMDF, CRP2, ESR #### [facility] [address] [place] [address] Abs Neutrophile Cnt 6.2 10*3/uL Normal 1.8-7.0 [facility] Comment on above: Performed By: #### H EMDF, CRP2, ESR #### [facility] [address] [place] [address] Basophils/100 WBC (Bld) 0.7 % Normal 0.0-2.0 [facility] Comment on above: Performed By: #### H EMDF, CRP2, ESR #### [facility] [address] [place] [address] Eosinophils (Bld) [#/Vol] 0.3 10*3/uL Normal 0.0-0.5 [facility] Comment on above: Performed By: #### H EMDF, CRP2, ESR #### [facility] [address] [place] [address] Eosinophils/100 WBC (Bld) 2.5 % Normal 1.0-6.0 [facility] Comment on above: Performed By: #### H EMDF, CRP2, ESR #### [facility] [address] [place] [address] Erythrocyte distribution width (RBC) [Ratio] 13.1 % Normal 11.5-14.5 [facility] Comment on above: Performed By: #### H EMDF, CRP2, ESR #### [facility] [address] [place] [address] Granulocytes/100 WBC (Bld) 61.1 % Normal 40.0-80.0 [facility] Comment on above: Performed By: #### H EMDF, CRP2, ESR #### [facility] [address] [place] [address] Hematocrit (Bld) [Volume fraction] 35.7 % Normal 35.0-47.0 [facility] Comment on above: Performed By: #### H EMDF, CRP2, ESR #### [facility] [address] [place] [address] Hemoglobin (Bld) [Mass/Vol] 12.1 g/dL Normal 11.7-16.0 [facility] Comment on above: Performed By: #### H EMDF, CRP2, ESR #### [facility] [address] [place] [address] Lymphocytes (Bld) [#/Vol] 3.0 10*3/uL Normal 1.0-4.3 [facility] Comment on above: Performed By: #### H EMDF, CRP2, ESR #### [facility] [address] [place] [address] Lymphocytes/100 WBC (Bld) 29.6 % Normal 20.0-40.0 [facility] Comment on above: Performed By: #### H EMDF, CRP2, ESR #### [facility] [address] [place] [address] MCH (RBC) [Entitic mass] 31.7 pg Normal 26.0-34.0 [facility] Comment on above: Performed By: #### H EMDF, CRP2, ESR #### [facility] [address] [place] [address] MCHC 33.8 % Normal 32.0-36.0 [facility] Comment on above: Performed By: #### H EMDF, CRP2, ESR #### [facility] [address] [place] [address] MCV (RBC) [Entitic vol] 93.8 fL Normal 79.0-98.0 [facility] Comment on above: Performed By: #### H EMDF, CRP2, ESR #### [facility] [address] [place] [address] Monocytes (Bld) [#/Vol] 0.6 10*3/uL Normal 0.0-0.8 [facility] Comment on above: Performed By: #### H EMDF, CRP2, ESR #### [facility] [address] [place] [address] Monocytes/100 WBC (Bld) 6.1 % Normal 2.0-10.0 [facility] Comment on above: Performed By: #### H EMDF, CRP2, ESR #### [facility] [address] [place] [address] Platelet mean volume (Bld) [Entitic vol] 7.2 fL Low 7.4-10.4 [facility] Comment on above: Performed By: #### H EMDF, CRP2, ESR #### [facility] [address] [place] [address] Platelets (Bld) [#/Vol] 282 10*3/uL Normal 140-440 [facility] Comment on above: Performed By: #### H EMDF, CRP2, ESR #### [facility] [address] [place] [address] RBC (Bld) [#/Vol] 3.81 10*6/uL Normal 3.80-5.20 [facility] Comment on above: Performed By: #### H EMDF, CRP2, ESR #### [facility] [address] [place] [address] WBC (Bld) [#/Vol] 10.2 10*3/uL Normal 3.6-10.7 [facility] Comment on above: Performed By: #### H EMDF, CRP2, ESR #### [facility] [address] [place] [address] Lipaseon 01-04-2021 Lipase [Catalytic activity/Vol] 143 U/L Normal 23-300 [facility] Comment on above: Performed By: #### H EMDF, CRP2, ESR #### [facility] [address] [place] [address] SARS-CoV-2 (LAB DEPT)on SARS-CoV-2 (COVID-19) RNA ANTOINETTE+probe Ql (Unsp spec) see below Normal [facility] Comment on above: Result Comment: Not Detected Expected Result: Not Detected _ Isothermal nucleic acid amplification performed on the Group 47 System by the [facility] Negative results do not preclude SARS-CoV-2 infection and should not be used as the sole basis for treatment or other patient management decisions. This assay was developed by [facility] and distributed under an Emergency Use Authorization (EUA) granted by the FDA for the qualitative detection of SARS-CoV-2 nucleic acid. Provider and patient fact sheets can be found at https://www.fda.gov/media/432398/download and https://www.fda.gov/media/110296/download. Performed By: #### D RGA4, CVCCL, CUA2 #### [facility] [address] [place] [address] Troponin Ion 01-04-2021 Troponin I.cardiac [Mass/Vol] ng/mL Normal 0.000-0.034 [facility] Comment on above: Result Comment: . Performed By: #### H EMDF, CRP2, ESR #### [facility] [address] [place] [address] CTA Chest w/ + w/o Contrasto n 10-22-2020 CTA Chest w/ + w/o Contrast Patient Name: TERESE WATERS Computed Tomography ACCESSION EXAM DATE/TIME PROCEDURE ORDERING PROVIDER [id number] 10/22/2020 13:24 EDT CTA Chest w/ + w/o EDGAR ABAD DANIEL M Contrast CPT code 62277 Q9967 Reason For Exam (CTA Chest w/ + w/o Contrast) pleuritic left sided chest pain, history of blood clots Report CHEST CT ANGIOGRAM History: Left chest pain, dyspnea, emphysema, partial lung resection Comparison: 02/20/2017 Technique: Multislice volume acquisition axial CTA images were obtained from the chest apex to diaphragm following IV injection of 75 mL of Isovue. Multiplanar sagittal and coronal reconstructed images also obtained. I concurrently performed 3-D rendering and reviewed the exam on an independent workstation. Findings: There is no evidence of embolus in central pulmonary arteries. There is no thoracic aortic dissection or aneurysm. The heart is normal in size. There is no pleural or pericardial effusion. There is no hilar, mediastinal, or axillary lymphadenopathy. Both lungs show centrilobular emphysema with scattered small bullae and small linear atelectasis without acute infiltrate. . There is focal density in the medial right middle lobe suggesting residual scar, much smaller compared to the prior exam. Partially visualized upper abdomen shows unremarkable spleen and both adrenals. There are degrading cholecystectomy with prominent partially visualized extrahepatic bile duct. IMPRESSION: No evidence of embolus in central pulmonary arteries. No thoracic aortic dissection or aneurysm. Chronic lung changes with centrilobular emphysema. Small residual right middle lobe scar. No new lung infiltrate. Report Dictated on Final Dictating Physician: MD KIP, AHMAVenu Signed Date and Time: 10/22/2020 1:46 pm Signed by: MD KIP, AHMAD Transcribed Date and Time: 10/22/2020 1:47 Normal [facility] Comp Metabolic Panelon 10-22 ALP [Catalytic activity/Vol] 58 U/L Normal 38-126 [facility] Comment on above: Performed By: #### H EMDF, CRP2, ESR #### [facility] [address] [place] [address] ALT [Catalytic activity/Vol] 8 U/L Normal 0-34 [facility] Comment on above: Result Comment: The ALT test is performed by an updated assay method.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 #### T SGL #### [place] [address] #### ABID #### [facility] Hemoglobin (Bld) [Mass/Vol] 13.0 g/dL Normal 11.7-16.0 [facility] Comment on above: Performed By: #### T SGL #### [place] [address] #### ABID #### [facility] Lymphocytes (Bld) [#/Vol] 1.7 10*3/uL Normal 1.0-4.3 [facility] Comment on above: Performed By: #### T SGL #### [place] [address] #### ABID #### [facility] Lymphocytes/100 WBC (Bld) 35.9 % Normal 20.0-40.0 [facility] Comment on above: Performed By: #### T SGL #### [place] [address] #### ABID #### [facility] MCH (RBC) [Entitic mass] 33.4 pg Normal 26.0-34.0 [facility] Comment on above: Performed By: #### T SGL #### [place] [address] #### ABID #### [facility] MCHC (RBC) [Mass/Vol] 34.8 % Normal 32.0-36.0 [facility] Comment on above: Performed By: #### T SGL #### [place] [address] #### ABID #### [facility] MCV (RBC) [Entitic vol] 95.9 fL Normal 79.0-98.0 [facility] Comment on above: Performed By: #### T SGL #### [address] #### ABID #### [facility] Monocytes (Bld) [#/Vol] 0.3 10*3/uL Normal 0.0-0.8 [facility] Comment on above: Performed By: #### T SGL #### [place] [address] #### ABID #### [facility] Monocytes/100 WBC (Bld) 5.4 % Normal 2.0-10.0 [facility] Comment on above: Performed By: #### T SGL #### [place] [address] #### ABID #### [facility] Platelet mean volume (Bld) [Entitic vol] 8.0 fL Normal 7.4-10.4 [facility] Comment on above: Performed By: #### T SGL #### [address] #### ABID #### [facility] Platelets (Bld) [#/Vol] 192 10*3/uL Normal 140-440 [facility] Comment on above: Performed By: #### T SGL #### [facility] [address] #### ABID #### [facility] RBC (Bld) [#/Vol] 3.91 10*6/uL Normal 3.80-5.20 [facility] Comment on above: Performed By: #### T SGL #### [facility] [address] [place], [place] [id number] [place] [address] #### ABID #### [facility] WBC (Bld) [#/Vol] 4.7 10*3/uL Normal 3.6-10.7 [facility] Comment on above: Performed By: #### T SGL #### [facility] [address] #### ABID #### [facility] MRI Spine Cervical w/ + w/o Contraston 08-13-2019 MRI Spine Cervical w/ + w/o Contrast Patient Name: TERESE WATERS MRI Exam Date/Time 08/13/2019 13:18:56 EDT Exam MRI Spine Cervical w/ + w/o Contrast Ordering Physician EDGAR NIEVES ANGELA S Accession Number [id number] CPT4 Codes 78251 () Reason For Exam neck pain with history of spinal surgery Report Reasons for examination: Right-sided weakness, neck pain with history of spinal surgery. Sagittal T1 and T2 weighted images of the cervical spine and axial gradient echo scans were performed. Following gadolinium administration, sagittal and axial T1-weighted images were repeated. Comparison MRI study from 08/08/2019 (nondiagnostic due to motion) and comparison CT myelogram from 08/09/2019 Examination is improved in quality since last exam, however still nondiagnostic due to significant motion artifacts There is normal alignment of the cervical vertebral bodies on the sagittal images with slight reversal of normal curvature. The marrow space signal intensity is normal. IMPRESSION: 1. Nondiagnostic examination due to substantial motion artifacts 2. There does appear to be small posterior disc protrusion/bulges at the C4-C5 and C5-C6 levels (probable right posterior disc protrusion at C5-C6) with spinal cord impingement at these levels Report Dictated on Final Dictated: 08/13/2019 1:41 pm Dictating Physician: MD MANDUJANO WILLIAM Signed Date and Time: 08/13/2019 1:54 pm Signed by: MD MANDUJANO WILLIAM Transcribed Date and Time: 08/13/2019 1:41 Normal [facility] Surgical Pathologyon 020 Surgical Pathology [id number] [facility] PATHOLOGY AND LABORATORY MEDICINE [address] [place] [id number] FINAL SURGICAL PATHOLOGY REPORT NAME: JTMULUGETA AGUIARJORDYN Aggarwal N [id number] : 1980 39 Y F BILLING NO.: [id number] LOCATION: [address] [place] [address] B PROCEDURE 08/12/2019 DATE: SURGEON: TOBY FERNANDES M.D. RECEIVED 08/12/2019 DATE: ATTENDING: ASHWINI PIERRE DO REPORT DATE: 08/13/2019 COPIES TO: DIAGNOSIS: A. DUODENUM, BIOPSY - DUODENAL MUCOSA WITH NO SIGNIFICANT PATHOLOGICAL ABNORMALITIES B. STOMACH, ANTRUM, BIOPSY - MILD REACTIVE GASTROPATHY COMMENT: Evaluation of the H&E-stained sections shows no evidence of Helicobacter Pylori or any morphologic features to suggest infection with the organism. MO/MO Signature> JULIANNE COPE M.D. CLINICAL INFORMATION: Nausea, vomiting SPECIMEN: (A) DUODENUM, BIOPSY (B) GASTRIC BIOPSY GROSS DESCRIPTION: A. Duodenal biopsy Received in formalin are two segments of christiansen tissue 0.1 and 0.3 cm. Submitted in toto. B. Antral biopsy Received in formalin are two segments of almendarez tissue 0.1 and 0.2 cm. Submitted in toto. JCK/KMS1 Disclaimer: The following statement applies to all immunohistochemistry, in situ hybridization, molecular studies, and immunofluorescence testing. The use of one or more reagents in the above tests is regulated as an analyte specific reagent (ASR). These tests were developed and their performance characteristics determined by the clinical laboratories of [facility]. They have not been cleared by the US Food and Drug Administration (FDA). The FDA has determined that such clearance or approval is not necessary. All the above immunostains were performed on paraffin embedded tissue. Appropriate positive and negative controls (where applicable) were run in parallel with the patient's specimen; these controls showed expected staining pattern, with acceptable intensity of staining. Immunohistochemical assays have not been validated on decalcified tissues. Results should be interpreted with caution given the raised possibility of false negativity on decalcified specimens. Professional Performing Location: [place] [address]. DEPARTMENT OF PATHOLOGY AND LABORATORY MEDICINE [place], [place] [address] [address] [facility] [address] Abdomen/Pelvis w/ Contras ton 08-11-2019 CT Abdomen/Pelvis w/ Contrast Patient Name: TERESE WATERS CT Exam Date/Time 08/11/2019 13:46:[address] Abdomen/Pelvis w/ IV Contrast (IV Onl Ordering Physician ARELIS SUMMERS Accession Number [id number] CPT4 Codes 57839 (CT Abdomen/Pelvis w/ IV Contrast (IV Onl), Q9967 (CT ISOVUE 370MG/[id number] d1) Reason For Exam abd pain nausea Report CT abdomen and pelvis with contrast HISTORY: Abdominal pain, nausea Protocol: 3 mm axial images with intravenous contrast, oral contrast was not given COMPARISON: 06/12/2019 Probable right ovarian cyst measuring 3.7 cm located in the right posterior pelvis. No free fluid. The liver, spleen, pancreas, adrenals, and right kidney are normal. Two stones in the left kidney measuring 2 mm and 7 mm. The gallbladder has been removed. No evidence of bowel inflammation or bowel obstruction. The bladder is unremarkable. IMPRESSION: Probable right ovarian cyst measuring 3.7 cm located in the right posterior pelvis. Two stones in the left kidney measuring 2 mm and 7 mm. Report Dictated on Final Dictated: 08/11/2019 2:27 pm Dictating Physician: MD BRAGG MALAY Signed Date and Time: 08/11/2019 2:34 pm Signed by: MD BRAGG MALAY Transcribed Date and Time: 08/11/2019 2:27 Normal [facility] Topic [facility] Antibody Identificationon Antibody Identification Antibody Identification: NEG Normal [facility] [employer] Comment on above: Performed By: #### T SGL #### [facility] Topic [address] #### ABID #### [facility] [employer] CR Abdomen APon 08-09-2019 CR Abdomen AP Patient Name: TERESE DUNBAR Diagnostic Radiology Exam Date/Time 08/09/2019 14:17:21 EDT Exam CR Abdomen AP Ordering Physician ARELIS SUMMERS Accession Number [id number] CPT4 Codes 55067 () Reason For Exam abd pain Report Clinical Information: Abdominal pain. Recent myelogram. Abdomen, single view, KUB, portable, 1402: A single portable AP supine view of the abdomen intrathecal contrast within the lumbar lower thoracic spinal canal secondary to myelogram earlier today. There is gas within mildly dilated gastric body and distal stomach. Gas is seen within nondilated loops of distal colon possibly a remaining small and large bowel gas. There is no obvious free intraperitoneal gas on limited evaluation. No suspect calcification, organomegaly or soft tissue mass is seen. There are multiple surgical clips in the right midabdomen. Impression: Intrathecal thoracic and lumbar contrast secondary to earlier myelogram. Nonspecific bowel gas pattern without evidence of obstruction. No other significant radiographic abnormality. Report Dictated on Workstation: [id number] Final Dictated: 08/09/2019 3:41 pm Dictating Physician: MD BROWN HARLAN Signed Date and Time: 08/09/2019 3:44 pm Signed by: MD BROWN HARLAN Transcribed Date and Time: 08/09/2019 3:41 Normal [facility] CR Chest 1 View Frontalon CR Chest 1 View Frontal Patient Name: TERESE WATERS Diagnostic Radiology Exam Date/Time 08/08/2019 19:53:07 EDT Exam CR Chest 1 View Frontal Ordering Physician MD RODRÍGUEZ KATHERINE Accession Number [id number] CPT4 Codes 00689 () Reason For Exam pre op Report CHEST X-RAY AP CLINICAL INDICATION: Preoperative examination AP radiograph of the chest was obtained. COMPARISON: April 17, 2019 FINDINGS: The cardiac silhouette is within normal limits. No focal consolidation or opacification is seen within the lungs. No pleural effusion or pneumothorax is identified. The bony structures of the chest are unremarkable as visualized. IMPRESSION: No acute cardiopulmonary process. Report Dictated on Final Dictated: 08/09/2019 5:53 am Dictating Physician: MD KNUTSNO JASON Signed Date and Time: 08/09/2019 5:54 am Signed by: MD KNUTSON JASON Transcribed Date and Time: 08/09/2019 5:[address] [facility] [address] Spine Cervical w/ Contras ton 08-09-2019 CT Spine Cervical w/ Contrast Patient Name: TERESE WATERS CT Exam Date/Time 08/09/2019 12:37:[address] Spine Cervical w/ Contrast Ordering Physician MD MANDUJANO MATHEW ZANE Accession Number [id number] CPT4 Codes 08582 () Reason For Exam s/p meylogram Report CT CERVICAL AND LUMBAR MYELOGRAM Indication: Right-sided weakness. Procedure: Following discussion with the patient regarding risk, benefits and alternatives, the skin was sterilely prepared and local anesthesia was applied to the low back patient in the prone position. Under fluoroscopic guidance, a 22 gauge spinal needle was advanced into the lumbar spinal canal at the L4-L5 level. Approximately 15cc of non-ionic contrast media was injected into the spinal canal. The patient was then placed in the prone Trendelenburg position. Under fluoroscopic observation, contrast was allowed to flow into the cervical level. Digital radiographic images were obtained. Fluoroscopy time was 0.4 minutes. Eight fluoroscopic images were saved to PACS. The patient was then transferred to CT for further imaging. Scan parameters: Multidetector axial sequence was performed through the cervical spine and the lumbar spine. Multiplanar reconstruction imaging was performed Comparison: CT abdomen pelvis 06/12/[address] soft tissue neck 06/07/2018 as well as MRI lumbar spine 01/17/2018 Findings: Cervical vertebral body heights are well-maintained. Alignment is normal. Limited evaluation of the soft tissues of the neck is grossly normal. Limited visualization of the lung apices demonstrate scarring. C2-C3: No celiac and central canal or neural foraminal stenosis. C3-C4: Mild bilateral uncovertebral spurring. There is mild central canal stenosis. No significant neural foraminal stenosis. C4-C5: There is a central disc protrusion. Moderate central canal stenosis with ventral impingement on the spinal cord no significant neural foraminal stenosis. C5-C6: There is a broad-based disc bulge with extension into the right lateral recess. There is mild bilateral uncovertebral spurring. Moderate central canal stenosis. No significant neural foraminal stenosis. C6-C7: There is a central disc osteophyte complex with minimal ventral impingement on the spinal cord. Mild central canal stenosis. No significant neural foraminal stenosis. C7-T1: No significant central canal or neural foraminal stenosis. Evaluation of the lumbar spine is limited by motion artifact. Vertebral body heights are well-maintained. There is minimal dextrocurvature of the lumbar spine centered at L4-L5. Visualized portions of the lung bases demonstrate mild atelectasis in the left lower lobe. There is layering hyperdense material within the stomach, possibly representing ingested pills. No retroperitoneal lymphadenopathy. No other definite abnormality in the paraspinal soft tissues. T12-L1: No definite disc protrusion. No significant central canal or neural foraminal stenosis. L1-L2: No definite disc protrusion. No significant central canal or neural foraminal stenosis. L2-L3: Possible mild broad-based disc bulge. No significant central canal or neural foraminal stenosis. L3-L4: Possible broad-based disc bulge. No definite central canal or neural foraminal stenosis. L4-L5: There is a broad-based disc bulge. Patient is status post posterior decompression at this level. There is mild central canal stenosis. There is mild right neural foraminal stenosis. L5-S1: No significant central canal or neural foraminal stenosis. IMPRESSION: Cervical spine: 1. Mild to moderate central canal stenosis throughout the cervical spine most advanced at C4-C5 and C5-C6. For detailed level by level description please refer to the findings section of the report. Lumbar spine: 1. Evaluation of the lumbar spine is limited secondary to motion artifact. Broad-based disc bulge at L4-L5 where there is mild central canal stenosis and mild right neural foraminal stenosis. Report Dictated on Workstation: [id number] Final Dictated: 08/09/2019 12:45 pm Dictating Physician: MD LARES GEORGE RICHARD Signed Date and Time: 08/09/2019 1:04 pm Signed by: MD LARES GEORGE RICHARD Transcribed Date and Time: 08/09/2019 12:[address] [facility] [address] Spine Lumbar w/ Contrasto n 08-09-2019 CT Spine Lumbar w/ Contrast Patient Name: TERESE WATERS CT Exam Date/Time 08/09/2019 12:37:[address] Spine Lumbar w/ Contrast Ordering Physician MD DELBERT, KARSTEN ARAUJO Accession Number [id number] CPT4 Codes 18700 () Reason For Exam s/p myelo Report CT CERVICAL AND LUMBAR MYELOGRAM Indication: Right-sided weakness. Procedure: Following discussion with the patient regarding risk, benefits and alternatives, the skin was sterilely prepared and local anesthesia was applied to the low back patient in the prone position. Under fluoroscopic guidance, a 22 gauge spinal needle was advanced into the lumbar spinal canal at the L4-L5 level. Approximately 15cc of non-ionic contrast media was injected into the spinal canal. The patient was then placed in the prone Trendelenburg position. Under fluoroscopic observation, contrast was allowed to flow into the cervical level. Digital radiographic images were obtained. Fluoroscopy time was 0.4 minutes. Eight fluoroscopic images were saved to PACS. The patient was then transferred to CT for further imaging. Scan parameters: Multidetector axial sequence was performed through the cervical spine and the lumbar spine. Multiplanar reconstruction imaging was performed Comparison: CT abdomen pelvis 06/12/[address] soft tissue neck 06/07/2018 as well as MRI lumbar spine 01/17/2018 Findings: Cervical vertebral body heights are well-maintained. Alignment is normal. Limited evaluation of the soft tissues of the neck is grossly normal. Limited visualization of the lung apices demonstrate scarring. C2-C3: No celiac and central canal or neural foraminal stenosis. C3-C4: Mild bilateral uncovertebral spurring. There is mild central canal stenosis. No significant neural foraminal stenosis. C4-C5: There is a central disc protrusion. Moderate central canal stenosis with ventral impingement on the spinal cord no significant neural foraminal stenosis. C5-C6: There is a broad-based disc bulge with extension into the right lateral recess. There is mild bilateral uncovertebral spurring. Moderate central canal stenosis. No significant neural foraminal stenosis. C6-C7: There is a central disc osteophyte complex with minimal ventral impingement on the spinal cord. Mild central canal stenosis. No significant neural foraminal stenosis. C7-T1: No significant central canal or neural foraminal stenosis. Evaluation of the lumbar spine is limited by motion artifact. Vertebral body heights are well-maintained. There is minimal dextrocurvature of the lumbar spine centered at L4-L5. Visualized portions of the lung bases demonstrate mild atelectasis in the left lower lobe. There is layering hyperdense material within the stomach, possibly representing ingested pills. No retroperitoneal lymphadenopathy. No other definite abnormality in the paraspinal soft tissues. T12-L1: No definite disc protrusion. No significant central canal or neural foraminal stenosis. L1-L2: No definite disc protrusion. No significant central canal or neural foraminal stenosis. L2-L3: Possible mild broad-based disc bulge. No significant central canal or neural foraminal stenosis. L3-L4: Possible broad-based disc bulge. No definite central canal or neural foraminal stenosis. L4-L5: There is a broad-based disc bulge. Patient is status post posterior decompression at this level. There is mild central canal stenosis. There is mild right neural foraminal stenosis. L5-S1: No significant central canal or neural foraminal stenosis. IMPRESSION: Cervical spine: 1. Mild to moderate central canal stenosis throughout the cervical spine most advanced at C4-C5 and C5-C6. For detailed level by level description please refer to the findings section of the report. Lumbar spine: 1. Evaluation of the lumbar spine is limited secondary to motion artifact. Broad-based disc bulge at L4-L5 where there is mild central canal stenosis and mild right neural foraminal stenosis. Report Dictated on Workstation: [id number] Final Dictated: 08/09/2019 12:45 pm Dictating Physician: MD LARES GEORGE RICHARD Signed Date and Time: 08/09/2019 1:04 pm Signed by: MD LARES GEORGE RICHARD Transcribed Date and Time: 08/09/2019 12:45 Normal [facility] Comp Panel with Mg Reflexon 08-09-2019 ALP [Catalytic activity/Vol] 72 U/L Normal 38-126 [facility] Comment on above: Result Comment: Slig htly hemolysed, interpret with caution. Performed By: #### H SHMEAR GRAF3M #### [address] [id number] ALT [Catalytic activity/Vol] 12 U/L Normal 0-34 [facility] Comment on above: Result Comment: Slig htly hemolysed, interpret with caution. The ALT test is performed by an updated assay method. Please note that the reference intervals have been changed and are now sex specific. Performed By: #### H SHEMAR GRAF3M #### [facility] Topic [address] [address] AST [Catalytic activity/Vol] 29 U/L Normal 15-46 [facility] Comment on above: Result Comment: Slig htly hemolysed, interpret with caution. Performed By: #### H SHEMAR GRAF3M #### [facility] [address] [place], [place] Bilirubin [Mass/Vol] 0.5 mg/dL Normal 0.2-1.3 [facility] Comment on above: Performed By: #### Deyvi GRAF CMP3M #### [facility] [address] [place], [place] Calcium [Mass/Vol] 9.3 mg/dL Normal 8.4-10.4 [facility] Comment on above: Performed By: #### Deyvi GRAF CMP3M #### [facility] [address] [place], [place] Glucose [Mass/Vol] 78 mg/dL Normal 70-100 [facility] Comment on above: Performed By: #### Deyvi GRAF CMP3M #### [place] [address] [address] [place], [place] Protein [Mass/Vol] 7.4 g/dL Normal 6.3-8.2 [facility] Comment on above: Performed By: #### Deyvi GRAF CMP3M #### [place] [address] [address] [place], [place] Urea nitrogen [Mass/Vol] 8 mg/dL Normal 7-20 [facility] Comment on above: Performed By: #### Deyvi GRAF CMP3M #### [place] [address] [address] [place], [place] Anion gap [Moles/Vol] 11 Normal [facility] Comment on above: Performed By: #### Deyvi GRAF CMP3M #### [facility] [address] [place], [place] CO2 [Moles/Vol] 20 mmol/L Low 22-30 [facility] Comment on above: Performed By: #### Deyvi GRAF CMP3M #### [facility] [address] [place], [place] Creatinine [Mass/Vol] 0.57 mg/dL Normal 0.52-1.25 [facility] Comment on above: Performed By: #### Deyvi GRAF CMP3M #### [place] [address] [address] [place], [place] GFR/1.73 sq M predicted among blacks MDRD (S/P/Bld) [Vol rate/Area] mL/min/{1.73_m2} Normal >60 [facility] Comment on above: Performed By: #### H HOMAR CMP3M #### [facility] [address] [place] [address] GFR/1.73 sq M predicted among non-blacks MDRD (S/P/Bld) [Vol rate/Area] mL/min/{1.73_m2} Normal >60 [facility] Comment on above: Result Comment: Sour ce- MDRD equation with creatinine calibration to IDMS(NKDEP) eGFR not recommended for drug dose adjustment Performed By: #### Deyvi GRAF CMP3M #### [place] [address] [address] [place], [place] Albumin [Mass/Vol] 4.4 g/dL Normal 3.5-5.0 [facility] Comment on above: Performed By: #### Deyvi GRAF CMP3M #### [place] [address] [address] [place], [place] Potassium [Moles/Vol] 4.6 mmol/L Normal 3.5-5.1 [facility] Comment on above: Result Comment: Slig htly hemolysed, interpret with caution. Performed By: #### Deyvi GRAF CMP3M #### [place] [address] [address] [place], [place] Sodium [Moles/Vol] 139 mmol/L Normal 135-145 [facility] Comment on above: Performed By: #### Deyvi GRAF CMP3M #### [facility] [address] [place], [place] Chloride [Moles/Vol] 109 mmol/L High 98-107 [facility] Comment on above: Performed By: #### Deyvi GRAF CMP3M #### [facility] [address] [place] [address] Complete Urinalysison 2019 Appearance (U) Clear Normal Clear [facility] Comment on above: Performed By: #### C UA2, DRGA4 #### [facility] [address] [place], [place] Bilirubin,Urine Negative Normal Negative [facility] Comment on above: Performed By: #### C UA2, DRGA4 #### [facility] [address] [place], [place] Color (U) Yellow Normal Lt. Yellow [facility] Comment on above: Performed By: #### C UA2, DRGA4 #### [place] [address] [address] [place], [place] Glucose Ql (U) Normal Normal Normal (<70) [facility] Comment on above: Performed By: #### C UA2, DRGA4 #### [place] [address] [address] [place], [place] Ketone,Urine 150 mg/dL Normal Negative [facility] Comment on above: Performed By: #### C UA2, DRGA4 #### [place] [address] [address] [place], [place] Leukocytes,Urine Negative Normal Negative [facility] Comment on above: Performed By: #### C UA2, DRGA4 #### [place] [address] [address] [place], [place] Mucous Threads Few Normal Negative [facility] Comment on above: Performed By: #### C UA2, DRGA4 #### [place] [address] [address] [place], [place] Nitrites,Urine Negative Normal Negative [facility] Comment on above: Performed By: #### C UA2, DRGA4 #### [place] [address] [address] [place], [place] Occult Blood,Urine Negative Normal Negative [facility] Comment on above: Performed By: #### C UA2, DRGA4 #### [place] [address] [address] [place], [place] pH (U) 5.5 Normal 5.0-8.0 [facility] Comment on above: Performed By: #### C UA2, DRGA4 #### [place] [address] [address] [place], [place] Protein (U) [Mass/Vol] 20 mg/dL Normal Negative [facility] Comment on above: Performed By: #### C UA2, DRGA4 #### [facility] [address] [place], [place] RBC LM.HPF (Urine sed) [#/Area] 0 - 2 Normal 0-2 [facility] Comment on above: Performed By: #### C UA2, DRGA4 #### [facility] [address] [place], [place] Specific [place],Urine 1.023 Normal 1.005-1.030 [facility] Comment on above: Performed By: #### C UA2, DRGA4 #### [address] [place], [place] Squamous Epithelial 0 - 2 Normal 3-5 [facility] Comment on above: Performed By: #### C UA2, DRGA4 #### [place] [address] [address] [place], [place] Urobilinogen,Urin e Normal Normal Normal (0-1) [facility] Comment on above: Performed By: #### C UA2, DRGA4 #### [place] [address] [address] [place], [place] Drugs of Abuseon 08-09-2019 Methadone, Ur Negative Normal [facility] Comment on above: Performed By: #### C UA2, DRGA4 #### [place] [address] [address] [place], [place] Phencyclidine (PCP), Ur Negative Normal [facility] Comment on above: Result Comment: The expected value for all of the drugs listed above is Negative. The following drugs or drug groups have been screened for by Immunoassay at the following thresholds: Amphetamine class (1000 ng/mL), Barbiturates (200 ng/mL), Benzodiazepines (200 ng/mL), Cocaine (300 ng/mL), Methadone (300 ng/mL),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 including abdominal pain, headache, andhematuria . Vitals: tachycardic and crying on initial examination.Physical exam as above. Given tylenol for pain and Zofran for nausea.Will obtain CBC, CMP, lipase, chest xray, HCG, and UA. IVF have beenstarted. Will obtain lactic acid. No ct head at this time since patientis neurovascularly intact, not worst headache of her life, and most likelydehydrated.Chart and imaging has been reviewed. Multiple visits with similarcomplaints and work ups. CT imaging from [facility] on 04/12/2018 unremarkablefor acute pathology. Multiple notes from other providers stating drugseeking behavior, there is concern from us for drug seeking behavior andwill hold off on narcotic use at this time.11:27 PM Patient did not tolerate PO tylenol. Will be given 2 mg ofmorphine for pain control.12:07 AM CBC without leukocytosis or anemia. Patient does have hematuriapresent in her urine. Her hemoglobin has remained stable. HCG isnegative. Lactic acid is 1.8 not elevated. CMP shows no acuteelectrolyte abnormalities or anion gap. Creatinine is not elevated. NoAK. Lipase is within normal limits. Influenza and RSV are negative.Chest x-ray shows no pneumonia, pleural effusions, pneumothorax,fractures. On reevaluation, decreased wheezing and now just expiratory.Denies any other DuoNeb treatments. At this time patient I do not believethe patient to have any acute pathology. Her previous scans were reviewedand unremarkable, do not believe these need to be repeated and believethis her chronic abdominal pain. Low suspicioun for pancreatitis,dissection, ectopic, small bowel obstruction, or infection. Headache mostlikely secondary to dehydration but was given fluids here and notcomplaining of headache any more.I did speak to the patient in depth about her work up and importance offollowing up with urology for her hematuria and GI for her chronicabdominal pain. She becomes tearful and requests that she be given a pain shot and more anti nausea medication. I did tell her narcotic painmedication would slow her GI system down and make her pain worse. I didrecommend that we try either Reglan or another dose of Zofran and attemptto take PO tylenol but patient states I will throw that up again. Shedid try to bargain stating I need a pain shot to go home and sleep. Itold her that she needs to take a non-narcotic but will not take any.Patient has multiple visits for abdominal pain and has not followed upwith GI. She was had been having hematuria for past month and neverfollowed up with recommended urologist at [facility]. She did request to talkto the attending.Attending recommended similar options for nausea control and recommendedIV ofirmev for her pain but patient declined and told him she would liketo be discharged home. Please see. Dr. Bonilla's note.Patient will be discharged with prescription for Zofran ODT, urologyconsult with Dr. Nolen, and GI follow up with Dr. Crowder.Additional verbal discharge instructions were given and discussed with thepatient. It was explained that they could be early in their disease orillness and was asked to return to the emergency department immediatlyfor any new or concerning symptoms or if they get worse. Patient wasagreeable to the plan.Patient was seen ambulating out of the emergency department with nodifficulty ambulating.The patient was DISCHARGED: Counseled patient regarding lab results ANDradiology results AND suspected diagnosis AND need for follow-up. Dischargedhome with verbal and written instructions. They were instructed to returnas needed for persistent or worsening symptoms or any new concerns.Condition at time of disposition: stableSIGNATURE: Simran Tran (Res) Libra Engel07/15/17 [address]Amahamed oBnilla05/14/18 1717 Normal [facility] HCG, Qual. Serumon 8 HCG, Qual. Serum Negative Normal Negative [facility] Comment on above: Performed By: #### P 14 ####[place] [address] Hemogram/Diffon 05-14-2018 Abs Immature Grans 0.01 thou/cmm Normal 0.00-0.05 [facility] Comment on above: Performed By: #### P 14 ####[place] [id number] Abs. Baso 0.05 thou/cmm Normal 0.01-0.08 [facility] Comment on above: Performed By: #### P 14 ####[facility] [place] [address] Abs. Moore 0.62 thou/cmm Normal 0.27-0.70 [facility] Comment on above: Performed By: #### P 14 ####[facility] [place] [address] Abs. Neut (ANC) 3.01 thou/cmm Normal 1.56-6.13 [facility] Comment on above: Performed By: #### P 14 ####[place] [address] Basophils/100 WBC Auto (Bld) 0.7 % Normal [facility] Comment on above: Performed By: #### P 14 ####[place] [address] Eosinophils Auto #/vol (Bld) 0.36 thou/cmm High 0.00-0.31 [facility] Comment on above: Performed By: #### P 14 ####[place] [address] Eosinophils/100 WBC Auto (Bld) 4.9 % Normal [facility] Comment on above: Performed By: #### P 14 ####[place] [address] Erythrocyte distribution width Auto Ratio (RBC) 12.4 % Normal 11.7-14.4 [facility] Comment on above: Performed By: #### P 14 ####[place] [address] Hematocrit Auto Volume Fraction (Bld) 38.6 % Normal 34.1-44.9 [facility] Comment on above: Performed By: #### P 14 ####[place] [address] Hemoglobin mass conc (Bld) 13.2 g/dL Normal 11.2-15.7 [facility] Comment on above: Performed By: #### P 14 ####[place] [address] Immature Grans 0.10 % Normal [facility] Comment on above: Performed By: #### P 14 ####[address] [address] Lymphocytes Auto #/vol (Bld) 3.26 thou/cmm Normal 1.18-3.74 [facility] Comment on above: Performed By: #### P 14 ####[address] [address] Lymphocytes/100 WBC Auto (Bld) 44.6 % Normal [facility] Comment on above: Performed By: #### P 14 ####[address] [address] MCH Auto Entitic mass (RBC) 32.2 pg Normal 25.6-32.2 [facility] Comment on above: Performed By: #### P 14 ####[address] [address] MCHC Auto mass conc (RBC) 34.2 % Normal 31.6-34.8 [facility] Comment on above: Performed By: #### P 14 ####[address] [address] MCV Auto Entitic volume (RBC) 94.1 fL Normal 79.4-94.8 [facility] Comment on above: Performed By: #### P 14 ####[address] [address] Monocytes/100 WBC Auto (Bld) 8.5 % Normal [facility] Comment on above: Performed By: #### P 14 ####[address] [address] Platelet mean volume Auto Entitic volume (Bld) 9.3 fL Low 9.4-12.3 [facility] Comment on above: Performed By: #### P 14 ####[address] [address] Platelets Auto #/vol (Bld) 310 thou/cmm Normal 182-369 [facility] Comment on above: Performed By: #### P 14 ####[address] [address] RBC Auto #/vol (Bld) 4.10 mil/cmm Normal 3.93-5.22 [facility] Comment on above: Performed By: #### P 14 ####[place] [address] RDW SD 42.8 fl Normal 36.4-46.3 [facility] Comment on above: Performed By: #### P 14 ####[place] [address] Seg Neutrophil 41.2 % Normal [facility] Comment on above: Performed By: #### P 14 ####[place] [address] WBC Auto #/vol (Bld) 7.31 thou/cmm Normal 3.98-10.04 [facility] Comment on above: Performed By: #### P 14 ####[place] [address] Influenza A, B and RSV by RT -PCRon 05-14-2018 Influenza A by RT-PCR see below Normal Negative [facility] Comment on above: Result Comment: Nega tive for Influenza A by RT-PCR Performed By: #### P 14 ####[place] [address] Influenza B by RT-PCR see below Normal Negative [facility] Comment on above: Result Comment: Nega tive for Influenza B by RT-PCR Performed By: #### P 14 ####[place] [address] RSV by RT-PCR see below Normal Negative [facility] Comment on above: Result Comment: Nega tive for RSV by RT-PCR Performed By: #### P 14 ####[place] [address] Lactic Acidon 05-14-2018 Lactate molar conc 1.8 mmol/L Normal 0.4-2.0 [facility] Comment on above: Performed By: #### P 14 ####[place] [address] Lipase Bloodon 05-14-2018 Lipase Blood 161 U/L Normal 73-393 [facility] Comment on above: Performed By: #### P 14 ####[place] [address] MDRD GFRon 05-14-2018 GFR/1.73 sq M predicted among non-blacks MDRD vol rate/area (S/P/Bld) mL/min/{1.73_m2} Normal >60mL/min/1. 73m2 [facility] Comment on above: Result Comment: If t he patient is , multiply the result by 1.210. Performed By: #### P 14 ####[place] [address] Urinalysis Routineon 018 Bacteria LM.HPF #/area (Urine sed) NONE Normal None [facility] Comment on above: Performed By: #### P 14 ####[place] [address] Color Nom (U) DARK YELLOW Normal [facility] Comment on above: Performed By: #### P 14 ####[place] [address] Ep Cells Urine 2.8 /hpf Normal 0.0-5.0 [facility] Comment on above: Performed By: #### P 14 ####[place] [address] Hyaline Cast 1.9 /lpf High 0.0-1.0 [facility] Comment on above: Performed By: #### P 14 ####[place] [address] RBC LM.HPF #/area (Urine sed) /[HPF] High 0.0-5.0 [facility] Comment on above: Performed By: #### P 14 ####[place] [address] WBC, Urine 6.6 /hpf High 0.0-5.0 [facility] Comment on above: Performed By: #### P 14 ####[place] [address] Appearance Nom (U) TURBID Normal [facility] Comment on above: Performed By: #### P 14 ####[facility] [place], [place] [address] Bilirubin Urine see below Abnormal Negative [facility] Comment on above: Result Comment: Dete cted (Unable to confirm). Performed By: #### P 14 ####[address] [address] Glucose Ql (U) Negative Normal Negative [facility] Comment on above: Performed By: #### P 14 ####[facility] [place] [address] Hemoglobin,Urine LARGE Abnormal Negative [facility] Comment on above: Performed By: #### P 14 ####[place] [address] Ketone Urine TRACE Abnormal Negative [facility] Comment on above: Performed By: #### P 14 ####[place] [address] Leukocytes Esterase SMALL Abnormal Negative [facility] Comment on above: Performed By: #### P 14 ####[place] [address] Nitrites Urine Negative Normal Negative [facility] Comment on above: Performed By: #### P 14 ####[address] [address] pH Test strip (U) 5.5 [pH] Normal 5.0-8.0 [facility] Comment on above: Performed By: #### P 14 ####[address] [address] Protein Urine 100 mg/dL Abnormal Negative [facility] Comment on above: Performed By: #### P 14 ####[place] [address] Specific [place], Ur 1.029 Normal 1.005-1.030 [facility] Comment on above: Performed By: #### P 14 ####[address] [address] Urobilinogen,Ur 1.0 EU/dL Normal 0.0-1.0 [facility] Comment on above: Performed By: #### P 14 ####[facility] [place], [place] [address] ED NOTEon 05-13-2018 ED NOTE HNO ID: [id number] Author: Monisha (Rn) TAQUERIA Seals Service: Emergency Medicine Author Type: Registered Nurse Type: ED Notes Filed: 05/13/2018 9:55 PM Note Text: Physician at bedside Normal [facility] ABD COMPL W/ UPRIGHT PA CHES T [id number] 08-25-2017 ABD COMPL W/ UPRIGHT PA CHEST [id number] [facility] Center APPROVED BY: Wily Miranda MD EXAMINATION: ACUTE ABDOMEN SERIES, INCLUDING CHEST X-RAY EXAM DATE: 08/25/2017 16:24 TECHNIQUE: AP upright views of the abdomen were obtained. Upright PA chest x-ray was also obtained. HISTORY: Abdominal pain. COMPARISON: Lumbar spine x-rays 08/25/2016. CT abdomen/pelvis 01/24/2016. Chest x-ray 06/13/2016. FINDINGS: Surgical clips again seen in the right midabdomen. Bowel gas pattern is nonobstructive. There is no free air, portal venous gas or pneumatosis. A 5.5 cm left renal calculus is noted which appears similar to the prior exam. Osseous structures are intact. Navel piercing. Stable cardiomediastinal silhouette. No visualized pneumothorax, infiltrate or pleural effusion. No free air beneath the diaphragm. IMPRESSION: No acute radiographic abnormality in the chest or abdomen. Stable 5.5 cm left renal calculus. Normal [facility] Comprehensive Panelon 2017 Albumin mass conc 4.3 g/dL Normal 3.4-5.0 [facility] Comment on above: Performed By: #### M P14 ####[facility] [place], [place] [address] ALP enzyme act/vol 66 U/L Normal 46-116 [facility] Comment on above: Performed By: #### M P14 ####[address] [address] ALT-SGPT Blood 37 U/L Normal 12-78 [facility] Comment on above: Performed By: #### M P14 ####[address] [address] Anion gap 3 molar conc 10 mmol/L Normal 8-16 [facility] Comment on above: Performed By: #### M P14 ####[facility] [place], [place] [address] AST-SGOT Blood 24 U/L Normal 15-46 [facility] Comment on above: Performed By: #### M P14 ####[address] [address] Bilirubin Ql (U) 0.3 mg/dL Normal 0.2-1.0 [facility] Comment on above: Performed By: #### M P14 ####[address] [address] Calcium mass conc 9.4 mg/dL Normal 8.5-10.1 [facility] Comment on above: Performed By: #### M P14 ####[address] [address] Chloride molar conc 106 mmol/L Normal 98-107 [facility] Comment on above: Performed By: #### M P14 ####[address] [address] CO2 molar conc 32 mmol/L High 22-30 [facility] Comment on above: Performed By: #### M P14 ####[address] [address] Creatinine mass conc 0.62 mg/dL Normal 0.51-0.95 [facility] Comment on above: Performed By: #### M P14 ####[address] [address] Glucose mass conc 94 mg/dL Normal 70-99 [facility] Comment on above: Performed By: #### M P14 ####[address] [address] Potassium molar conc 4.3 mmol/L Normal 3.5-5.1 [facility] Comment on above: Performed By: #### M P14 ####[address] [address] Protein mass conc 7.6 g/dL Normal 6.4-8.2 [facility] Comment on above: Performed By: #### M P14 ####[facility] [place] [address] Sodium molar conc 144 mmol/L Normal 136-145 [facility] Comment on above: Performed By: #### M P14 ####[place] [address] Urea nitrogen mass conc (Bld) 5 mg/dL Low 7-17 [facility] Comment on above: Performed By: #### M P14 ####[place] [address] ED NOTEon 08-25-2017 ED NOTE HNO ID: [id number] thor: Glenda GoyalRn) XOCHITL Mchughervice: Emergency MedicineAuthor Type: Registered NurseType: ED NotesFiled: 08/25/2017 5:24 PMNote Text: Patient discharged, Informed patient she needs to call the follow updoctor she had an appointment with today to reschedule appointment.Patient states I need a cab voucher , Patient was informed we do nothave cab vouchers. Patient was informed she was discharged to the waitingroom, that there is a phone and a computer in the waiting room she can useto obtain a ride home. [facility] ED NOTE HNO ID: [id number] Author: Glenda GoyalRn) TAQUERIA Mchugh Service: Emergency Medicine Author Type: Registered Nurse Type: ED Notes Filed: 08/25/2017 3:13 PM Note Text: Patient curled in a ball crying. [facility] ED NOTE HNO ID: [id number] Author: Glenda GoyalRn) TAQUERIA Mchugh Service: Emergency Medicine Author Type: Registered Nurse Type: ED Notes Filed: 08/25/2017 4:19 PM Note Text: IV placed per US by resident physician. [facility] ED NOTE HNO ID: [id number] Author: Glenda GoyalRn) TAQUERIA Mchugh Service: Emergency Medicine Author Type: Registered Nurse Type: ED Notes Filed: 08/25/2017 2:46 PM Note Text: 3rd RN attempting to start IV, TAQUERIA Gilmore [facility] ED NOTE HNO ID: [id number] Author: Glenda GoyalRnPastor Mchugh RN Service: Emergency Medicine Author Type: Registered Nurse Type: ED Notes Filed: 08/25/2017 2:41 PM Note Text: TAQUERIA Jernigan attempted to start IV. [facility] ED NOTE HNO ID: [id number] Author: Sally (Rn) TAQUERIA Wan Service: (none) Author Type: Registered Nurse Type: ED Notes Filed: 08/25/2017 2:11 PM Note Text: Bed: [address] [place] [address] Expected date: Expected time: Means of arrival: Comments: Squad - [place] [facility] ED NOTE HNO ID: [id number] thor: Didi (Rn) XOCHITL Macervice: Emergency MedicineAuthor Type: Registered NurseType: ED NotesFiled: 08/25/2017 2:10 PMNote Text:Abd pain with n/v since since 08/16/2017. Was seen at [facility] at thattime. States she has not been any better. [facility] ED PROV NOTEon 08-25-2017 Protein mass conc HNO ID: [id number] thor: Adarsh (SUSAN Bondservice: Emergency MedicineAuthor Type: ResidentType: ED Provider NotesFiled: 08/25/2017 7:02 PMNote Text: At testation signed by Stanton Frost MD at 08/26/2017 8:57 AMAttending NoteI evaluated the patient and personally participated in the martines components. Iagree with the resident's findings and plan as documented and have discussedthe case and management of the patient's care with the resident.See my note from the same visit for any corrections or additions to resident'snote.Signature: Stanton Frost MDDate: 08/26/2017Time: 8:57 AM ED Provider NotePatient Name: Terese WatersMRN: [id number] DATE: 08/25/17HistoryPatient presents with:Abdominal PainNausea AND VomitingHPI Comments: Terese Waters is a 37-year-old female with past medicalhistory of COPD, depression, trauma, gastritis, chronic abdominal painpresented for evaluation of abdominal pain. She states that her abdominalpain is similar in nature to her previous abdominal pain, however muchworse. She rates her pain as 10 out of 10, sharp in nature, located inher abdomen without radiation. She states that she has been throwing up,multiple times, bright red blood in it. She feels lightheaded and dizzy.She states the palpation makes her pain worse. She has not passed out.She also has diarrhea, which has been going on for over a month. Shedenies blood in her stool. She has had multiple surgeries in her abdomenincluding appendectomy, cholecystectomy, hysterectomy, hernia repair. Shedenies trauma to her abdomen. She states that she cannot keep anythingdown. She denies pain with urination or change in urinary frequency.History provided by: PatientPAST MEDICAL HISTORYDiagnosis Date- Asthma- Chronic obstructive pulmonary disease (COPD) (HCC)- Psychiatric disorder depression and anxietyPAST SURGICAL HISTORYProcedure Laterality Date- APPENDECTOMY HX- BACK SURGERY HX- CHOLECYSTECTOMY HXNo family history on file.Social HistorySocial History Main Topics- Smoking status: Former Smoker- Smokeless tobacco: Current User- Alcohol use No- Drug use: No- Sexual activity: Not AskedALLERGIESAllergen Reactions- Hydrocodone-Acetami* Hives- Ketorolac Trometham* Swelling- Nifedipine Hives- Penicillins Swelling- Venom-Honey Bee SwellingReview of SystemsConstitutional: Negative for chills and fever.HENT: Negative for ear discharge and ear pain.Eyes: Negative for pain and discharge.Respiratory: Negative for cough and shortness of breath.Cardiovascular: Negative for chest pain and palpitations.Gastrointestinal : Positive for abdominal pain, diarrhea, nausea andvomiting. Negative for constipation.Genitourinary: Negative for dysuria and frequency.Musculoskeletal: Negative for back pain and neck pain.Skin: Negative for rash and wound.Neurological: Positive for dizziness and light-headedness. Negative forsyncope.Psychiatric/Behavi oral: Negative for self-injury and suicidal ideas.Physical ExamBP 111/70 Pulse 72 Temp 98.4 Resp 18 Ht 5' 5 (1.65m) Wt 145 lb(65.8kg) SpO2 99% BMI 24.13 kg/(m2).Physical ExamConstitutional: She is oriented to person, place, and time. She appearswell-developed and well-nourished. No distress.HENT:Head: Normocephalic and atraumatic.Right Ear: External ear normal.Left Ear: External ear normal.Eyes: Pupils are equal, round, and reactive to light. No scleral icterus.Neck: Normal range of motion. Neck supple.Cardiovascular: Normal rate, regular rhythm, normal heart sounds andintact distal pulses. Exam reveals no gallop and no friction rub.No murmur heard.Pulmonary/Chest: Effort normal and breath sounds normal. No stridor. Norespiratory distress. She has no wheezes. She has no rales. She exhibitsno tenderness.Abdominal: Soft. There is tenderness (diffuse, no focal tenderness formurphy's sign or at mcburney's point). There is no guarding.Musculoskeletal: Normal range of motion. She exhibits no edema, tendernessor deformity.Neurological: She is alert and oriented to person, place, and time. Nocranial nerve deficit.Skin: Skin is warm and dry. No rash noted. She is not diaphoretic.Psychiatric: She has a normal mood and affect.Nursing note and vitals reviewed.Diagnostic TestingResults for orders placed or performed during the hospital encounter of08/25/17XR ACUTE ABD SERIES 3V (2V ABD/1V CXR)Result Value Ref Range [employer] EXAMINATION: ACUTE ABDOMEN SERIES, INCLUDING CHEST X-RAYEXAM DATE: 08/25/2017 16:24TECHNIQUE: AP upright views of the abdomen were obtained. Upright PAchest x-raywas also obtained.HISTORY: Abdominal pain.COMPARISON: Lumbar spine x-rays 08/25/2016. CT abdomen/pelvis 01/24/2016. Chestx-ray 06/13/2016.FINDINGS: Surgical clips again seen in the right midabdomen. Bowel gaspattern is nonobstructive. There is no free air, portal venous gas or pneumatosis.A 5.5cm left renal calculus is noted which appears similar to the prior exam.Osseousstructures are intact. Navel piercing.Stable cardiomediastinal silhouette. No visualized pneumothorax,infiltrate orpleural effusion. No free air beneath the diaphragm.IMPRESSION: No acute radiographic abnormality in the chest or abdomen.Stable 5.5 cm left renal calculus.COMPREHENSIVE METABOLIC PANEL (AK,AV,EU,FV,HL,ANT,MM,SP)Resu lt Value Ref Range Sodium 144 136 - 145 mEq/L Potassium 4.3 3.5 - 5.1 mEq/L Chloride 106 98 - 107 mEq/L CO2 32 (H) 22 - 30 mEq/L Glucose 94 70 - 99 mg/dL BUN 5 (L) 7 - 17 mg/dL Creatinine 0.62 0.51 - 0.95 mg/dL Calcium 9.4 8.5 - 10.1 mg/dL Albumin 4.3 3.4 - 5.0 g/dL Protein, Total 7.6 6.4 - 8.2 g/dL AST 24 15 - 46 U/L ALT 37 12 - 78 U/L Alkaline Phosphatase 66 46 - 116 U/L Bilirubin, Total 0.3 0.2 - 1.0 mg/dL Anion Gap 10 8 - 16LIPASE BLOOD (AK,AV,EU,FV,HL,ANT,MM,SP)Resu lt Value Ref Range Lipase 92 73 - 393 U/LCBC + AUTO DIFF (AK,AV,EU,FV,HL,ANT,MM,SP)Resu lt Value Ref Range WBC 4.6 4.4 - 9.7 thou/cmm RBC 3.84 3.79 - 4.93 mil/cmm HGB 12.2 11.7 - 14.7 g/dL Hematocrit 35.5 34.7 - 43.3 % MCV 92.4 82.1 - 97.4 fl MCH 31.8 27.4 - 32.8 pg MCHC 34.4 31.9 - 35.6 % RDW 12.2 11.8 - 14.5 % Platelet Count 197 150 - 370 thou/cmm MPV 9.3 8.8 - 12.1 fl Seg Neutrophil 46.6 41.3 - 72.7 % Lymphocyte 44.3 (H) 17.3 - 43.9 % Monocyte 6.1 3.6 - 13.1 % Eosinophil 2.8 0.0 - 5.4 % Basophil 0.2 0.0 - 1.1 % Seg. Neut. # 2.13 1.35 - 7.21 thou/cmm Lymphocyte # 2.04 0.68 - 2.93 thou/cmm Monocyte # 0.28 0.19 - 0.80 thou/cmm Eosinophil # 0.13 0.00 - 0.36 thou/cmm Basophil # 0.01 0.00 - 0.08 thou/cmmURINALYSIS WITH MICROSCOPIC (AK,AV,EU,FV,HL,ANT,MM,SP)Resu lt Value Ref Range Glucose, Urine NEGATIVE Negative mg/dL Ketones, Urine NEGATIVE Negative mg/dL Hemoglobin, Urine NEGATIVE Negative Protein, Urine NEGATIVE Negative mg/dL Nitrites Urine NEGATIVE Negative Bilirubin, Urine NEGATIVE Negative Specific Guttenberg, Ur <=1.005 1.005 - 1.030 pH, Urine 6.5 5.0 - 8.0 Urobilinogen, Urine 0.2 0.0 - 1.0 EU/dL Leukocytes Esterase NEGATIVE Negative Color STRAW Urine Appearance CLEAR RBC, Urine NONE 0 - 3 /hpf WBC, Urine 0-2 0 - 5 /hpf EP Cells Urine 2-5 0 - 5 /hpf Bacteria Urine (Manual) 1+ (A) NoneMDRD GFRResult Value Ref Range eGFR >60 >60mL/min/1.05j4ElrhhvsnyjUfr ical Decision Making / ED CourseED CoursePatient presents for abdominal pain. This appears to be her chronic pain. [facility] report shows multiple pain prescriptions, and on review of hernotes from [facility] she has a history of drug-seeking behavior, and is athigh risk of overdose of her opioid pain prescription history. She wastold upfront that we do not give narcotic pain medication for chronicpain. She was offered medication for nausea, as well as Tylenol. She didreceive the Zofran and basic laboratory screening lab work was done. Herabdominal exam does not show any localizing symptoms. She did endorsesome lower abdominal Pain, and a pelvic exam was offered, however thepatient refused. Urinalysis was obtained and showed 1+ bacteria, howeverwithout white cells, and no nitrites or leuk esterase this likely does notrepresent a UTI. She will not be treated for this. Her blood does notshow signs of concentration, she is not tachycardic, and she does not havean elevated specific gravity. Urine making dehydration and inability totolerate by mouth intake clinically unlikely. Patient stated that herpain was now different from her previous, so an acute abdominal series wasordered to rule out acute perforation. This was negative for acutefindings. She did not have a leukocytosis, making a colitis unlikely.She had been evaluated by GI, with an endoscopy, and CT scans recently,and further imaging is not indicated at this time. No signs of hepatitis,and the rest of her lab work was unremarkable. The patient was seen bymyself and the attending physician. Diagnostic testing was reviewed and isdocumented above. Reasons to return to the ER were discussed as well asthe need to follow up with primary care. The patient endorsedunderstanding of these instructions and was discharged in stablecondition.Encounter Diagnosis ICD-10-CM1. Generalized abdominal pain R10.84PlanThe Patient was DISCHARGED: Counseled patient regarding lab results ANDradiology results AND suspected diagnosis AND need for follow-up. Dischargedhome with verbal and written instructions. They were instructed to returnas needed for persistent or worsening symptoms or any new concerns.Condition at time of disposition: stableSIGNATURE: Roxie Sylvester (Res) Curtis, OOIhihilkk10/30/18 1902Andkatheryn Frost MD08/26/17 0857 Normal [facility] Protein mass conc HNO ID: [id number] thor: SUSAN Robertservice: Emergency MedicineAuthor Type: PhysicianType: ED Provider NotesFiled: 08/25/2017 3:04 PMNote Text:Attending NoteI personally saw and examined the patient. I reviewed the resident's note.I agree with the resident's assessment and plan unless otherwise noted. Iwas present for the significant portion of the procedure(s).Brief HPI: Terese Waters is a 37 year old female with a PMH of COPD,depression, anxiety, gastritis who presents for evaluation of acute onchronic abdominal pain. Patient came by EMS for abdominal pain. [facility]. She had a scope atthat time he was discharged home. [facility] but left after being culturednot be receiving narcotics. No fevers. She's had vomiting which shestates occasionally has blood streaked but this been present since beforeher past admission. She's had diarrhea for one month.Physical Exam:- Gen: Uncomfortable appearing, laying on her side, vitals are stable- CV: RRR without m/r/g- Pulm: No respiratory distress, CTAB- Neuro: No focal neurologic deficits, AANDOx3- Abdomen: Diffusely tender without rebound or guarding. Bowel sounds arepresent in all 4 quadrants.Plan: Basic labs, IV fluids, antiemetics. Concern for drug-seekingbehavior so we will not be giving narcotics at this time pending furtherworkup.See resident note for disposition detailsStanton Frost MD08/25/17 1504 Normal [facility] Hemogram/Diffon 08-25-2017 Abs. Baso 0.01 thou/cmm Normal 0.00-0.08 [facility] Comment on above: Performed By: #### N CBCD ####[address] [address] Abs. Moore 0.28 thou/cmm Normal 0.19-0.80 [facility] Comment on above: Performed By: #### N CBCD ####[address] [address] Abs. Neut 2.13 thou/cmm Normal 1.35-7.21 [facility] Comment on above: Performed By: #### N CBCD ####[address] [address] Basophils/100 WBC Auto (Bld) 0.2 % Normal 0.0-1.1 [facility] Comment on above: Performed By: #### N CBCD ####[address] [address] Eosinophils Auto #/vol (Bld) 0.13 thou/cmm Normal 0.00-0.36 [facility] Comment on above: Performed By: #### N CBCD ####[address] [address] Eosinophils/100 WBC Auto (Bld) 2.8 % Normal 0.0-5.4 [facility] Comment on above: Performed By: #### N CBCD ####[address] [address] Erythrocyte distribution width Auto Ratio (RBC) 12.2 % Normal 11.8-14.5 [facility] Comment on above: Performed By: #### N CBCD ####[address] [address] Hematocrit Auto Volume Fraction (Bld) 35.5 % Normal 34.7-43.3 [facility] Comment on above: Performed By: #### N CBCD ####[address] [address] Hemoglobin mass conc (Bld) 12.2 g/dL Normal 11.7-14.7 [facility] Comment on above: Performed By: #### N CBCD ####[address] [address] Lymphocytes Auto #/vol (Bld) 2.04 thou/cmm Normal 0.68-2.93 [facility] Comment on above: Performed By: #### N CBCD ####[address] [address] Lymphocytes/100 WBC Auto (Bld) 44.3 % High 17.3-43.9 [facility] Comment on above: Performed By: #### N CBCD ####[address] [address] MCH Auto Entitic mass (RBC) 31.8 pg Normal 27.4-32.8 [facility] Comment on above: Performed By: #### N CBCD ####[address] [address] MCHC Auto mass conc (RBC) 34.4 % Normal 31.9-35.6 [facility] Comment on above: Performed By: #### N CBCD ####[address] [address] MCV Auto Entitic volume (RBC) 92.4 fL Normal 82.1-97.4 [facility] Comment on above: Performed By: #### N CBCD ####[place] [address] Monocytes/100 WBC Auto (Bld) 6.1 % Normal 3.6-13.1 [facility] Comment on above: Performed By: #### N CBCD ####[place] [address] Platelet mean volume Auto Entitic volume (Bld) 9.3 fL Normal 8.8-12.1 [facility] Comment on above: Performed By: #### N CBCD ####[place] [address] Platelets Auto #/vol (Bld) 197 thou/cmm Normal 150-370 [facility] Comment on above: Performed By: #### N CBCD ####[place] [address] RBC Auto #/vol (Bld) 3.84 mil/cmm Normal 3.79-4.93 [facility] Comment on above: Performed By: #### N CBCD ####[place] [address] Seg Neutrophil 46.6 % Normal 41.3-72.7 [facility] Comment on above: Performed By: #### N CBCD ####[address] [address] WBC Auto #/vol (Bld) 4.6 thou/cmm Normal 4.4-9.7 [facility] Comment on above: Performed By: #### N CBCD ####[place] [address] Lipase Bloodon 08-25-2017 Lipase Blood 92 U/L Normal 73-393 [facility] Comment on above: Performed By: #### M LIP ####[place] [address] MDRD eGFRon 08-25-2017 GFR/1.73 sq M predicted among non-blacks MDRD vol rate/area (S/P/Bld) mL/min/{1.73_m2} Normal >60mL/min/1. 73m2 [facility] Comment on above: Result Comment: If t he patient is , multiply the result by 1.210. Performed By: #### M GFR ####[place] [address] Urinalysis Routineon 018 Appearance Nom (U) CLEAR Normal [facility] Comment on above: Performed By: #### M URIN ####[place] [address] Bacteria LM.HPF #/area (Urine sed) 1+ Abnormal None [facility] Comment on above: Performed By: #### M URIN ####[place] [address] Color Nom (U) STRAW Normal [facility] Comment on above: Performed By: #### M URIN ####[place] [address] Ep Cells Urine 2-5 Normal 0-5 [facility] Comment on above: Performed By: #### M URIN ####[place] [address] RBC LM.HPF #/area (Urine sed) NONE Normal 0-3 [facility] Comment on above: Performed By: #### M URIN ####[place] [address] WBC LM.HPF #/area (Urine sed) 0-2 Normal 0-5 [facility] Comment on above: Performed By: #### M URIN ####[place] [address] Bilirubin Urine Negative Normal Negative [facility] Comment on above: Performed By: #### M URIN ####[place] [address] Glucose Ql (U) Negative Normal Negative [facility] Comment on above: Performed By: #### M URIN ####[address], [place] [address] Hemoglobin,Urine Negative Normal Negative [facility] Comment on above: Performed By: #### M URIN ####[address] [address] Ketone Urine Negative Normal Negative [facility] Comment on above: Performed By: #### M URIN ####[place] [address] Leukocytes Esterase Negative Normal Negative [facility] Comment on above: Performed By: #### M URIN ####[place] [address] Nitrites Urine Negative Normal Negative [facility] Comment on above: Performed By: #### M URIN ####[place] [address] pH Test strip (U) 6.5 [pH] Normal 5.0-8.0 [facility] Comment on above: Performed By: #### M URIN ####[place] [address] Protein Urine Negative Normal Negative [facility] Comment on above: Performed By: #### M URIN ####[place] [address] Specific Guttenberg, Ur <=1.005 Normal 1.005-1.030 [facility] Comment on above: Performed By: #### M URIN ####[place] [address] Urobilinogen,Ur 0.2 EU/dL Normal 0.0-1.0 [facility] Comment on above: Performed By: #### M URIN ####[place] [address] Comprehensive Panelon 2017 ALP enzyme act/vol 55 U/L Normal 46-116 [facility] Comment on above: Performed By: #### P 14 ####[address] [address] Bilirubin mass conc 0.2 mg/dL Normal 0.2-1.0 [facility] Comment on above: Performed By: #### P 14 ####[facility] [place], [place] [address] Protein mass conc 6.8 g/dL Normal 6.4-8.2 [facility] Comment on above: Performed By: #### P 14 ####[facility] [place], [place] [address] ALT enzyme act/vol 20 U/L Normal 12-78 [facility] Comment on above: Performed By: #### P 14 ####[address] [address] AST enzyme act/vol 20 U/L Normal 9-37 [facility] Comment on above: Performed By: #### P 14 ####[address] [address] Creatinine mass conc 0.65 mg/dL Normal 0.51-0.95 [facility] Comment on above: Performed By: #### P 14 ####[address] [address] Albumin mass conc 3.8 g/dL Normal 3.4-5.0 [facility] Comment on above: Performed By: #### P 14 ####[address] [address] Anion gap 3 molar conc 9 mmol/L Normal 8-16 [facility] Comment on above: Performed By: #### P 14 ####[address] [address] CO2 molar conc 31 mmol/L Normal 21-32 [facility] Comment on above: Performed By: #### P 14 ####[address] [address] Glucose mass conc 76 mg/dL Normal 70-99 [facility] Comment on above: Performed By: #### P 14 ####[address] [address] Urea nitrogen mass conc 7 mg/dL Normal 7-18 [facility] Comment on above: Performed By: #### P 14 ####[address] [address] Calcium mass conc 8.3 mg/dL Low 8.5-10.1 [facility] Comment on above: Performed By: #### P 14 ####[facility] [place], [place] [address] Chloride molar conc 108 mmol/L High 98-107 [facility] Comment on above: Performed By: #### P 14 ####[facility] [place], [place] [address] Potassium molar conc 3.6 mmol/L Normal 3.5-5.1 [facility] Comment on above: Performed By: #### P 14 ####[facility] [place], [place] [address] Sodium molar conc 144 mmol/L Normal 136-145 [facility] Comment on above: Performed By: #### P 14 ####[address] [address] ED NOTEon 08-21-2017 ED NOTE HNO ID: [id number] thor: Martha (Rn) XOCHITL Nolanervice: Emergency MedicineAuthor Type: Registered NurseType: ED NotesFiled: 08/20/2017 10:54 PMNote Text: Pt requesting her IV be removed and states she would like to leave atthis time, IV discontinued, MD notified. Normal [facility] ED NOTE HNO ID: [id number] thor: Martha Garcia) XOCHITL Nolanervice: Emergency MedicineAuthor Type: Registered NurseType: ED NotesFiled: 08/20/2017 10:41 PMNote Text: Pt reports can you give me something for actual pain, fentanyl dilaudidand morphine all work MD notified. Normal [facility] ED PROV NOTEon 08-21-2017 Protein mass conc HNO ID: [id number] thor: SUSAN Sarmientoervice: Emergency MedicineAuthor Type: PhysicianType: ED Provider NotesFiled: 08/24/2017 11:53 AMNote Text:ED Provider NotePatient Name: Terese WatersMRN: [id number] DATE: 08/20/17HistoryPatient presents with:Abdominal Pain: Pt reports abdominal pain x 4 or 5 days, [facility] and was told toreturn if her symtpoms worsened.HPI Comments: This is a 37-year-old female who presents with abdominalpain. The patient states she has been having internal bleeding into herabdomen and has been having associated abdominal pain for quite some time. She describes the pain in her midabdomen. She denies pain radiation.She states that she was recently admitted to [facility] for the samepain and further workup, and states that she was discharged home and toldto return for worsening symptoms. The patient states she has vomitedtoday. She states she is nauseated. She denies constipation. Thepatient also admits to fevers, chest pain, and shortness of breath. Thepatient denies dysuria or hematuria. She denies any risk factors forcoronary artery disease such as hypertension, hyperlipidemia, or familyhistory. She states she received an EGD at [facility].PAST MEDICAL HISTORYDiagnosis Date- Asthma- Chronic obstructive pulmonary disease (COPD) (HCC)- Psychiatric disorderPAST SURGICAL HISTORYProcedure Laterality Date- APPENDECTOMY HX- BACK SURGERY HX- CHOLECYSTECTOMY HXNo family history on file.Social HistorySocial History Main Topics- Smoking status: Former Smoker- Smokeless tobacco: None- Alcohol use No- Drug use: No- Sexual activity: Not AskedALLERGIESAllergen Reactions- Hydrocodone-Acetami* Hives- Ketorolac Trometham* Swelling- Nifedipine Hives- Penicillins Swelling- Venom-Honey Bee SwellingReview of SystemsConstitutional: Positive for chills. Negative for fever.HENT: Negative for rhinorrhea and sore throat.Eyes: Negative for discharge and redness.Respiratory: Positive for shortness of breath. Negative for cough andstridor.Cardiovascular: Positive for chest pain. Negative for leg swelling.Gastrointestinal: Positive for abdominal pain, nausea and vomiting.Genitourinary: Negative for dysuria and hematuria.Musculoskeletal: Negative for gait problem and neck pain.Skin: Negative for pallor and rash.Neurological: Negative for dizziness, syncope, weakness, light-headednessand numbness.Psychiatric/Behavior al: Negative for confusion and suicidal ideas.Physical ExamBP 92/50 Pulse 60 Temp (Src) 98.8 (Oral) Resp 16 Ht 5' 5 (1.65m) Wt 145 lb (65.8kg) SpO2 99% BMI 24.13 kg/(m2).Physical ExamConstitutional: She is oriented to person, place, and time. She appearswell-developed and well-nourished.Appears disheveledHENT:Head: Normocephalic and atraumatic.Right Ear: External ear normal.Left Ear: External ear normal.Nose: Nose normal.Mouth/Throat: Oropharynx is clear and moist. No oropharyngeal exudate.Eyes: Conjunctivae and EOM are normal. Pupils are equal, round, andreactive to light. Right eye exhibits no discharge. Left eye exhibits nodischarge. No scleral icterus.Neck: Normal range of motion. Neck supple. No JVD present. No trachealdeviation present.Cardiovascular: Normal rate, regular rhythm, normal heart sounds andintact distal pulses. Exam reveals no gallop and no friction rub.No murmur heard.Pulmonary/Chest: Effort normal and breath sounds normal. No stridor. Norespiratory distress. She has no wheezes. She has no rhonchi. She has lakia.Abdominal: Soft. Bowel sounds are normal. She exhibits no distension.There is no rebound and no guarding.Moderate tenderness to palpation mid abdomen. Negative mcburney's point.Negative wong's signMusculoskeletal: Normal range of motion. She exhibits no edema ordeformity.Neurological: She is alert and oriented to person, place, and time. Shehas normal strength. No cranial nerve deficit or sensory deficit. Sheexhibits normal muscle tone. Coordination normal.Skin: Skin is warm and dry. No rash noted. She is not diaphoretic. Noerythema. No pallor.Psychiatric: She has a normal mood and affect. Judgment and thoughtcontent normal.Nursing note and vitals reviewed.Diagnostic TestingED Labs Ordered and ReviewedCBC + AUTO DIFF (AK,AV,EU,FV,HL,ANT,MM,SP) - Abnormal; Notable for thefollowing: Result Value Ref Range RBC 3.61 (*) 3.93 - 5.22 mil/cmm Hematocrit 33.1 (*) 34.1 - 44.9 % All other components within normal limitsResults for orders placed or performed during the hospital encounter of08/20/17CBC + AUTO DIFF (AK,AV,EU,FV,HL,ANT,MM,SP)Resu lt Value Ref Range WBC 4.61 3.98 - 10.04 thou/cmm RBC 3.61 (L) 3.93 - 5.22 mil/cmm HGB 11.4 11.2 - 15.7 g/dL Hematocrit 33.1 (L) 34.1 - 44.9 % MCV 91.7 79.4 - 94.8 fl MCH 31.6 25.6 - 32.2 pg MCHC 34.4 31.6 - 34.8 % RDW 12.8 11.7 - 14.4 % RDW-SD 42.2 36.4 - 46.3 fl Platelet Count 209 182 - 369 thou/cmm MPV 9.7 9.4 - 12.3 fl Seg Neutrophil 47.3 % Immature Grans 0.20 % Lymphocyte 42.7 % Monocyte 6.1 % Eosinophil 3.3 % Basophil 0.4 % Seg. Neut. # 2.18 1.56 - 6.13 thou/cmm Immature Grans # 0.01 0.00 - 0.05 thou/cmm Lymphocyte # 1.97 1.18 - 3.74 thou/cmm Monocyte # 0.28 0.27 - 0.70 thou/cmm Eosinophil # 0.15 0.00 - 0.31 thou/cmm Basophil # 0.02 0.01 - 0.08 thou/cmmCOMPREHENSIVE METABOLIC PANEL (AK,AV,EU,FV,HL,ANT,MM,SP)Resu lt Value Ref Range Sodium 144 136 - 145 mEq/L Potassium 3.6 3.5 - 5.1 mEq/L Chloride 108 (H) 98 - 107 mEq/L CO2 31 21 - 32 mEq/L Glucose 76 70 - 99 mg/dL BUN 7 7 - 18 mg/dL Creatinine 0.65 0.51 - 0.95 mg/dL Calcium 8.3 (L) 8.5 - 10.1 mg/dL Albumin 3.8 3.4 - 5.0 g/dL Protein, Total 6.8 6.4 - 8.2 g/dL AST 20 9 - 37 U/L ALT 20 12 - 78 U/L Alkaline Phosphatase 55 46 - 116 U/L Bilirubin, Total 0.2 0.2 - 1.0 mg/dL Anion Gap 9 8 - 16LIPASE BLOOD (AK,AV,EU,FV,HL,ANT,MM,SP)Resu lt Value Ref Range Lipase 97 73 - 393 U/LMDRD GFRResult Value Ref Range eGFR >60 >60mL/min/1.31l4KrlpxitfvkJwo ical Decision Making / ED CourseED CourseThisophie is a 37-year-old female who presents with abdominal pain. She wasrecently admitted to [facility] for abdominal pain and hemoglobinlevels were trended and she states she received an EGD. The patient alsohad a CAT scan which was essentially nondiagnostic. She was dischargedhome with Percocet and then return to the emergency department that daysaying the Percocet didn't help. The patient has been out of the hospitalfor the past 2 days and states that her pain continues. There does notappear to be an etiology of the patient's pain [facility]. She is worked up here for acute causes of her abdominal pain, butshe does state that this is her normal pain that she has had. Labs arereviewed. She has no leukocytosis. There is no anemia with hemoglobin of11.4. CMP reveals LFTs within normal limits. Electrolytes are withinnormal limits. Lipase is normal at 97. Renal function is normal with acreatinine of 0.65. The patient does not appear dehydrated. She is givenReglan for pain and refuses this stating to the RN thatdilaudid/fentanyl/morphin e are the only medications that help her pain.The patient stated she did not want to be treated and asked to leave. Thepatient left prior to me being able to speak with her. She eloped from thedepartment.Encounter Diagnosis ICD-10-CM1. Generalized abdominal pain R10.842. Drug-seeking behavior Z76.5PlanSIGNATURE: Loulou Nava (Res) Harmony Shoemaker08/21/17 0520Attending NoteI evaluated the patient and personally participated in the martines components. I agree with the resident's findings and plan as documented and havediscussed the case and management of the patient's care with the resident. Please see my attending note.Signature: KIESHA Sarmientoate: 08/24/2017Time: 11:53 AMCaromarce Horan MD08/24/17 1153 Normal [facility] Protein mass conc HNO ID: [id number] thor: SUSAN Sarmientoervice: Emergency MedicineAuthor Type: PhysicianType: ED Provider NotesFiled: 08/20/2017 11:04 PMNote Text:ED Provider NotePatient Name: Terese WatersMRN: [id number] DATE: 08/20/17HistoryPatient presents with:Abdominal Pain: Pt reports abdominal pain x 4 or 5 days, patient [facility] diagnosed with internal bleeding and was told toreturn if her symtpoms worsened.HPIPAST MEDICAL HISTORYDiagnosis Date- Asthma- Chronic obstructive pulmonary disease (COPD) (HCC)- Psychiatric disorderPAST SURGICAL HISTORYProcedure Laterality Date- APPENDECTOMY HX- BACK SURGERY HX- CHOLECYSTECTOMY HXNo family history on file.Social HistorySocial History Main Topics- Smoking status: Former Smoker- Smokeless tobacco: None- Alcohol use No- Drug use: No- Sexual activity: Not AskedALLERGIESAllergen Reactions- Hydrocodone-Acetami* Hives- Ketorolac Trometham* Swelling- Nifedipine Hives- Penicillins Swelling- Venom-Honey Bee SwellingReview of SystemsPhysical ExamBP 92/50 Pulse 60 Temp (Src) 98.8 (Oral) Resp 16 Ht 5' 5 (1.65m) Wt 145 lb (65.8kg) SpO2 99% BMI 24.13 kg/(m2).Physical ExamDiagnostic TestingED Labs Ordered and Reviewed - No data to displayProceduresMedical Decision Making / ED CourseED CourseNo diagnosis found.PlanThe patient complains of recurrence of her chronic abdominal pain. Whendistracted, the patient has very little guarding or rebound. She reportsdiffuse tenderness. She appears fairly well hydrated, lung sinclair areclear. She'll be offered nonnarcotic medications for her discomfort whilereassessed to her studies. She has a history of having multipleprescriptions for narcotics do not believe are clinically indicated atthis time. She is currently in stable condition.SIGNATURE: JAGJIT Sarmientoaromarce Horan MD08/20/17 0027The Patient Was Informed That She Was Not Getting Narcotics, As She HadHer IV Pulled and eloped from the Emergency Department in apparent StableCondition.Yesenia Horan MD08/20/17 2304 Normal [facility] Hemogram/Diffon 08-21-2017 Abs Immature Grans 0.01 thou/cmm Normal 0.00-0.05 [facility] Comment on above: Performed By: #### C BCD1 ####[facility] [place], [place] [address] Abs. Baso 0.02 thou/cmm Normal 0.01-0.08 [facility] Comment on above: Performed By: #### C BCD1 ####[place] [address] Abs. Moore 0.28 thou/cmm Normal 0.27-0.70 [facility] Comment on above: Performed By: #### C BCD1 ####[place] [address] Abs. Neut 2.18 thou/cmm Normal 1.56-6.13 [facility] Comment on above: Performed By: #### C BCD1 ####[address] [address] Basophils/100 WBC Auto (Bld) 0.4 % Normal [facility] Comment on above: Performed By: #### C BCD1 ####[address] [address] Eosinophils Auto #/vol (Bld) 0.15 thou/cmm Normal 0.00-0.31 [facility] Comment on above: Performed By: #### C BCD1 ####[address] [address] Eosinophils/100 WBC Auto (Bld) 3.3 % Normal [facility] Comment on above: Performed By: #### C BCD1 ####[place] [address] Erythrocyte distribution width Auto Ratio (RBC) 12.8 % Normal 11.7-14.4 [facility] Comment on above: Performed By: #### C BCD1 ####[place] [address] Hematocrit Auto Volume Fraction (Bld) 33.1 % Low 34.1-44.9 [facility] Comment on above: Performed By: #### C BCD1 ####[address] [address] Hemoglobin mass conc (Bld) 11.4 g/dL Normal 11.2-15.7 [facility] Comment on above: Performed By: #### C BCD1 ####[place] [address] Immature Grans 0.20 % Normal [facility] Comment on above: Performed By: #### C BCD1 ####[address] [address] Lymphocytes Auto #/vol (Bld) 1.97 thou/cmm Normal 1.18-3.74 [facility] Comment on above: Performed By: #### C BCD1 ####[address] [address] Lymphocytes/100 WBC Auto (Bld) 42.7 % Normal [facility] Comment on above: Performed By: #### C BCD1 ####[address] [address] MCH Auto Entitic mass (RBC) 31.6 pg Normal 25.6-32.2 [facility] Comment on above: Performed By: #### C BCD1 ####[place] [address] MCHC Auto mass conc (RBC) 34.4 % Normal 31.6-34.8 [facility] Comment on above: Performed By: #### C BCD1 ####[address] [address] MCV Auto Entitic volume (RBC) 91.7 fL Normal 79.4-94.8 [facility] Comment on above: Performed By: #### C BCD1 ####[address] [address] Monocytes/100 WBC Auto (Bld) 6.1 % Normal [facility] Comment on above: Performed By: #### C BCD1 ####[address] [address] Platelet mean volume Auto Entitic volume (Bld) 9.7 fL Normal 9.4-12.3 [facility] Comment on above: Performed By: #### C BCD1 ####[address] [address] Platelets Auto #/vol (Bld) 209 thou/cmm Normal 182-369 [facility] Comment on above: Performed By: #### C BCD1 ####[address] [address] RBC Auto #/vol (Bld) 3.61 mil/cmm Low 3.93-5.22 [facility] Comment on above: Performed By: #### C BCD1 ####[place] [address] RDW SD 42.2 fl Normal 36.4-46.3 [facility] Comment on above: Performed By: #### C BCD1 ####[place] [address] Seg Neutrophil 47.3 % Normal [facility] Comment on above: Performed By: #### C BCD1 ####[address] [address] WBC Auto #/vol (Bld) 4.61 thou/cmm Normal 3.98-10.04 [facility] Comment on above: Performed By: #### C BCD1 ####[place] [id number] Lipase Bloodon 08-21-2017 Lipase Blood 97 U/L Normal 73-393 [facility] Comment on above: Performed By: #### L IP ####[place] [id number] MDRD GFRon 08-21-2017 GFR/1.73 sq M predicted among non-blacks MDRD vol rate/area (S/P/Bld) mL/min/{1.73_m2} Normal >60mL/min/1. 73m2 [facility] Comment on above: Result Comment: If t he patient is , multiply the result by 1.210. Performed By: #### G FR ####[facility] [place] [address] ED NOTEon 08-20-2017 ED NOTE HNO ID: [id number] thor: Martha GoyalRn) XOCHITL Nolanervice: Emergency MedicineAuthor Type: Registered NurseType: ED NotesFiled: 08/20/2017 11:13 PMNote Text: Pt is tearful requesting something for abdominal pain, patient has had noemesis since arrival, MD aware of patient's pain, no orders received. Normal [facility] ED NOTE HNO ID: [id number] Author: Martha (Rn) TAQUERIA Nolan Service: Emergency Medicine Author Type: Registered Nurse Type: ED Notes Filed: 08/20/2017 8:10 PM Note Text: IV attempted x 1 per RN and x 2 per EMS without success. Normal [facility] ED NOTE HNO ID: [id number] thor: Martha Garcia) XOCHITL Nolanervice: Emergency MedicineAuthor Type: Registered NurseType: ED NotesFiled: 08/20/2017 8:04 PMNote Text:Patient arrives c/o low abdominal pain x 5 days, patient has + nausea +vomiting but denies diarrhea or constipation, patient reports she hasn'tbeen eating or drinking at all Normal [facility] ED NOTE HNO ID: [id number] thor: Jeri GoyalRn) XOCHITL Guevaraervice: (none)Author Type: Registered NurseType: ED NotesFiled: 08/20/2017 7:55 PMNote Text:Bed: ED-27Expected date: 08/20/17Expected time:Means of arrival:Comments:Unknown med unit - female abdominal pain Normal [facility] Otheron 01-07-2011 CONVERTED CLINICAL HISTORY CLINICAL INFORMATION [facility] CONVERTED ELECTRONIC SIGNATURE MELINDA EVANS M.D., PATHOLOGIST (Electronic signature on file) Final Signed Out: 01/07/2011 15:17 [facility] CONVERTED FINAL DIAGNOSIS DIAGNOSIS BRONCHIAL WASHINGS - NO MALIGNANT CELLS IDENTIFIED. NARRATIVE ABUNDANT PULMONARY MACROPHAGES, FEW BRONCHIAL EPITHELIAL CELLS. [facility] CONVERTED GROSS DESCRIPTION SPECIMEN: A) BOW, BRONCHIAL WASHING Description: Materials Prepared & Examined: Volume: ......... 15 # of Monolayers: .......... 1 Fixed: ............ Y # of Slides: ................. 1 Other: ............. Scant,christiansen [facility] CONVERTED ORDERING PROVIDER Ordering Provider: PASQUALE GIUDO [facility] CONVERTED PROCEDURE PROCEDURE: [facility] CONVERTED CLINICAL HISTORY OPERATIVE PROCEDURE: EGD CLINICAL INFORMATION: Melena; nl duodenum, gastritis [facility] CONVERTED FINAL DIAGNOSIS FINAL DIAGNOSIS: A) DUODENUM, BIOPSY - BENIGN SMALL INTESTINAL MUCOSA, NO DIAGNOSTIC ABNORMALITY. B) STOMACH, BIOPSY -CHRONIC GASTRITIS. COMMENT: Helicobacter pylori stain reviewed on Specimen B. SPECIMEN: (A) DUODENAL BIOPSY (B) GASTRIC BIOPSY [facility] CONVERTED GROSS DESCRIPTION GROSS DESCRIPTION: Duodenal bx A) Container labeled duodenal biopsy. Received are portions of soft, friable, christiansen tissue measuring 0.3 cm in aggregate diameter. The specimen is totally submitted in cassette A x3. Gastric bxs B) Container labeled gastric biopsy. Received are two portions of soft christiansen tissue measuring 0.2 and 0.3 cm in diameter. The specimen is totally submitted in cassette B x3 plus HP. SMS/gpl MICROSCOPIC DESCRIPTION: Slides reviewed. SDS/gpl [facility] CONVERTED ORDERING PROVIDER Ordering Provider: RAJESH CACERES [facility] Thyroidon 01-07-2011 TSH Theresa ROSARIO M.D., PATHOLOGIST (Electronic signature on file) Final Signed Out: 01/07/2011 15:05 [facility] Otheron 11-26-2007 CONVERTED ELECTRONIC SIGNATURE CHINTAN PANIAGUA M.D. (Electronic signature on file) Final Signed Out: 11/26/2007 17:06 [facility] CONVERTED FINAL DIAGNOSIS FRAGMENTS OF SCARRED, CHRONICALLY INFLAMED SKIN AND CHRONICALLY INFLAMED RESPIRATORY MUCOSA (CLOSURE OF TRACHEOCUTANEOUS FISTULA). [facility] CONVERTED ORDERING PROVIDER Ordering Provider: TORSTEN RASHEED [facility] Vital Signs Date Time Vital Sign Value Performing Clinician Facility 03-19-2024 12:48-0400 Body mass index (BMI) [Ratio] 35.25 kg/m2 America Lou PA-C Work Phone: [facility] 03-19-2024 12:48-0400 Body weight 90.27 kg America Lou PA-C Work Phone: [facility] 03-19-2024 12:48-0400 Diastolic blood pressure 73 mm[Hg] America er PA-C Work Phone: [facility] 03-19-2024 12:48-0400 Heart rate 88 /min Americaprince Vegaser PA-C Work Phone: [facility] 03-19-2024 12:48-0400 Respiratory rate 18 /min America Lou PA-C Work Phone: [facility] 03-19-2024 12:48-0400 SaO2% (BldA) [Mass fraction] 95 % Americaprince Lou PA-C Work Phone: [facility] 03-19-2024 12:48-0400 Systolic blood pressure 107 mm[Hg] America er PA-C Work Phone: [facility] NEGATED: Highlighted [id number] 11:36-0400 BMI (Body Mass Index) 24 kg/m2 Tawana Tato AT [facility] Work Phone: NEGATED: Highlighted [id number] 11:36-0400 Body weight 61.24 kg Tawana Tato AT [facility] Work Phone: NEGATED: Highlighted [id number] 11:36-0400 Body weight 61 kg Tawana Tato AT [facility] Work Phone: NEGATED: Highlighted [id number] 11:36-0400 Height 160.02 cm Tawana Tato AT [facility] Work Phone: NEGATED: Highlighted [id number] 11:36-0400 Height 160 cm Tawana Tato AT [facility] Work Phone: Encounters Encounter Date Encounter Type Care Provider Facility Start: 03-19-2024 End: 03-19-2024 ambulatory AMERICA LOU Facility:[facility] Start: 03-19-2024 End: 03-19-2024 Patient encounter procedure America SCHWARTZ-C Work Phone: Neurology Comment on above: Frequent falls (Prim patrice Dx); Paresthesias; Dysphagia, unspecified type; Essential tremor; Functional tremor; Bradykinesia; Altered mental status, unspecified altered mental status type Start: 03-19-2024 ambulatory AMERICA LOU Facilit y:[facility] Start: 09-26-2019 End: 09-26-2019 Patient encounter procedure Cheyenne Sheppard POULTRY VACCINATOR-OWNER MANAGER Work Phone: [facility] Work Phone: Start: 05-31-2018 Patient encounter procedure [facility] Start: 05-24-2018 Encounter for other preprocedural examination [facility] Start: 05-24-2018 Patient encounter procedure [facility] Start: 05-13-2018 End: 05-14-2018 Emergency department patient visit SHELLEY BONILLA [facility] Start: 08-25-2017 End: 08-25-2017 Emergency department patient visit STANTON Lea [facility] Start: 08-20-2017 End: 08-21-2017 Emergency department patient visit YESENIA WILLIAMSON [facility] Start: 08-17-2017 Evaluation and management of inpatient [facility] Start: 01-06-2011 End: 01-06-2011 Patient encounter procedure Rajesh Caceres Work Phone: [facility] Start: 01-06-2011 Results Only Rajesh cintron Work Phone: [facility] Start: 11-22-2007 End: 11-22-2007 Patient encounter procedure Torsten Rasheed [facility] Start: 11-22-2007 Results Only Torsten Rasheed [facility] Encounter for other preprocedural examination [facility] Procedures Date Procedure Procedure Detail Performing Clinician Start: 09-26-2019 End: 09-26-2019 Blood pressure screening not performed - reason not given Cheyenne Sheppard POULTRY VACCINATOR-OWNER MANAGER Work Phone: Start: 09-26-2019 End: 09-26-2019 BMI documented within normal parameters - no follow-up plan is required Cheyenne Sheppard POULTRY VACCINATOR-OWNER MANAGER Work Phone: Start: 09-26-2019 End: 09-26-2019 Documentation of current medications Cheyenne Sheppard POULTRY VACCINATOR-OWNER MANAGER Work Phone: Start: 09-26-2019 End: 09-26-2019 Pain assessment documented as positive - follow-up documented Cheyenne Sheppard POULTRY VACCINATOR-OWNER MANAGER Work Phone: Start: 09-26-2019 End: 09-26-2019 Tobacco screening or cessation counseling not performed - unknown reason Cheyenne Sheppard POULTRY VACCINATOR-OWNER MANAGER Work Phone: Start: 01-06-2011 CONVERTED CYTOLOGY NON-COMMUNITY SUPPORT SPECIALIST Pasquale Guido Work Phone: Start: 01-06-2011 CONVERTED SURGICAL PATHOLOGY Rajesh Caceres Work Phone: Start: 11-22-2007 CONVERTED SURGICAL PATHOLOGY Torsten Rasheed NEGATED: Highlighted rowStart: 09-26-2019 End: 09-26-2019 Documentation of current medications Tawana Godwin AT Plan of Treatment Date Care Activity Detail Author Start: 03-19-2024 End: 06-18-2024 CBC panel - Blood by Automated count [facility] Comment on above: Expected: 03/19/2024 , Expires: 06/18/2024 Start: 03-19-2024 End: 06-18-2024 Cobalamin (Vitamin B12) [Mass/volume] in Serum or Plasma [facility] Work Phone: Comment on above: Expected: 03/19/2024 , Expires: 06/18/2024 Start: 03-19-2024 End: 06-18-2024 Comprehensive metabolic 2000 panel - Serum or Plasma [facility] Comment on above: Expected: 03/19/2024 , Expires: 06/18/2024 Start: 03-19-2024 End: 06-18-2024 Folate [Mass/volume] in Serum or Plasma [facility] Comment on above: Expected: 03/19/2024 , Expires: 06/18/2024 Start: 03-19-2024 End: 06-18-2024 [place] [Moles/volume] in Serum or Plasma LITHIUM Lab Routine Frequent falls Essential tremor Bradykinesia Expected: 03/19/2024, Expires: 06/18/2024 [facility] Comment on above: Expected: 03/19/2024 , Expires: 06/18/2024 Start: 03-19-2024 End: 06-18-2024 SYPHILIS TREPONEMAL W/REFLEX [facility] Comment on above: Expected: 03/19/2024 , Expires: 06/18/2024 Start: 01-28-2024 Covid-19 Vaccine ( season) Covid-19 Vaccine () [facility] Start: 01-28-2024 Influenza vaccination Influenza Vacc ine (#1) [facility] Start: 2021 Screening for malign ant neoplasm of breast Mammogram Screening [facility] Start: 01-28-2020 Influenza vaccination INFLUENZA (#1) [facility] Start: 09-26-2019 End: 09-26-2019 Appointment Appointment [facility] Work Phone: Start: 09-26-2019 End: 09-26-2019 TSH Qn MRI right shoulder without contrast [facility] Work Phone: Start: 2011 HPV TESTING HPV TESTING [facility] Start: 2002 PAP TESTING PAP TESTING [facility] Start: 2002 Screening for malign ant neoplasm of cervix Cervical Cancer Screening [facility] Start: 2000 Hepatitis B Vaccine (1 of 3 - 19+ 3-dose series) Hepatitis B Vaccine (1 of 3 - 19+ 3-dose series) [facility] Start: 2000 Urine microalbumin profile [facility] Start: 1999 Anxiety Screening Anxiety Screening [facility] Start: 1999 Depression Screening Depression Scre ening [facility] Start: 1999 HEPATITIS C SCREENING HEPATITIS C [facility] Start: 1999 Hepatitis C screening Hepatitis C [facility] Start: 1999 HIV SCREENING HIV SCREENING [facility] Start: 1999 HIV screening HIV Screening [facility] End: 03-19-2025 EPIL EEG ROUTINE EPIL EEG ROUTINE NEUROLOGY Routine Altered mental status, unspecified altered mental status type 1 Occurrences starting 03/19/2024 until 03/19/2025 [facility] Comment on above: 1 Occurrences starti ng 03/19/2024 until 03/19/2025 Patient Education [facility] [place] [facility] Work Phone: Immunizations Immunization Date Immunization Notes Care Provider Jas mayfield 02-16-2015 influenza virus vacc ine, unspecified formulation America Lou PA-C Work Phone: [facility] Payers Date Payer Category Payer Medicare 2023 Unknown [id number] 2023 Medicaid [facility] MEDICA[facility] MYC ARE [facility] MEDICAID [id number] 2023-Present [phone] [address] [place] [address] Medicaid [id number] 2023 Medicaid [id number] 2007 Medicare MEDICARE MEDICAR E A AND B [id number] 2007-Present [place], [place] Medicare [id number] 1981 Unknown [id number] 1981 Unknown [id number] 1981 Unknown [id number] 1981 Unknown [id number] 1981 Unknown [id number] 1981 Unknown [id number] Medicare [id number] Private Health Insurance Social History Date Type Detail Facility Start: 09-26-2019 End: 09-26-2019 Assertion Unknown if ever smoked [facility] Work Phone: Start: 1981 Sex Assigned At Not on file C [facility] Start: 03-19-2024 Tobacco smoking stat us NHIS Ex-smoker [facility] History of tobacco use Current smoker [facility] Start: 03-19-2024 Tobacco use and exposure User of smokeless tobacco [facility] Start: 03-19-2024 Alcoholic beverage intake Current non-drinker of alcohol (finding) [facility] Start: 04-15-2019 End: 03-19-2024 History of Social function [facility] Start: 04-15-2019 End: 03-19-2024 Tobacco use panel [facility] PHQ-2 Score [facility] Inst[facility] 03-19-2024 Patient Instructions Note Date & Type Note Facility 03-19-2024 Instructions America Lou PA-C - 03/19/2024 1:27 PM EDT Swallow study as planned Laboratory studies MRI of the brain EEG of your brain waves to look for any seizure activity Discuss the lithium with psychiatrist Follow up with movement afterwards (Dr. Fish) documented in this encounter [facility] Progress note 03-19-2024 Note Date & Type Note Facility 03-19-2024 Note HNO ID: [id number] Author: AMERICA LOU PA-C Service: ? Author Type: Physician Claims Configuration Analyst Type: Progress Notes Filed: 03/19/2024 14:10 Note Text: [facility] Name: Terese Waters Age: [age] year old Gender: female Primary Care Provider: Mariama Adams CNP Consult requested for multiple concerns by Marycarmen Rivero. Recommendations will be communicated via shared medical record or US mail. Chief Complaint:New Patient Evaluation 03/19/2024 - General Neurology, America Lou PA-C ASSESSMENT ASSESSMENT/PLAN: 1. Frequent falls - ICD9: V15.88, ICD10: R29.6 (primary diagnosis) 2. Paresthesias - ICD9: 782.0, ICD10: R20.2 3. Dysphagia, unspecified type - ICD9: 787.20, ICD10: R13.10 4. Essential tremor - ICD9: 333.1, ICD10: G25.0 5. 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 Bradykinesia - ICD9: 781.0, ICD10: R25.8 7. Altered mental status, unspecified altered mental status type - ICD9: 780.97, ICD10: R41.82 Patient with multiple neurologic concerns all starting on within the last 6 months including memory loss, periods of altered mental status and lapses of time, difficulty swallowing foods, pills and liquids, worsening tremor, frequent falls, paresthesias in her legs amongst other symptoms. Notes that around the time her symptoms began she was started on lithium, this was titrated up a few months ago, notes that she was transferred from [facility] to [facility] for depression. Is that she is also been experiencing hallucinations over the last month. Saw her primary who was concerned for Parkinson's disease due to the tremor worsening. However, on my exam today I do not experience any resting tremor, any rigidity. Does have bradykinesia is selectively but not consistently, overall moves slowly with every movement. Does have a very flat affect as well. No significant shuffling but patient does walk with a rollator, notes that she is chronically disabled due to multiple back surgeries, for which she is scheduled to have her fifth lumbar surgery at [facility] this Monday. Low suspicion for Parkinson's disease at this time, patient does have tremor on exam which has been disabling for her. Unclear etiology, possible functional versus medication induced versus other. Discussed to follow-up with movement and patient and family are amenable to this. Notes that she is scheduled to have an MRI of the brain through her primary on 09 April and is also scheduled to have a swallow study due to the difficulty swallowing. In terms of memory, discussed that this could be a side effect of lithium, [place] today was concerning for memory loss. 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 Will review MRI of the brain to evaluate for any intracranial source for patient's memory loss, will also order basic blood work as well. Deferring neuropsychological testing at this time. Patient also experiencing lapses of time where she does not remember what happened. No incontinence, tongue biting or postictal state associated with this. However, will order EEG to ensure no epileptiform changes contributing to her symptoms. Patient currently not driving. Additionally, discussed following with her psychiatrist and discussing her side effects after starting the lithium about 6 to 8 months ago. Patient and sister confirmed that they will discuss this. Patient and sister agreeable to treatment plan of care at this time, questions were answered. Patient to follow-up as needed, due to complexity of case will need to follow-up with physician. America Lou PA-C Encounter Diagnosis ICD-10-CM 1. Frequent falls R29.6 VITAMIN B12 FOLATE, SERUM SYPHILIS TREPONEMAL W/REFLEX COMPLETE BLOOD COUNT COMPREHENSIVE METABOLIC PANEL 2. Paresthesias R20.2 VITAMIN B12 FOLATE, SERUM SYPHILIS TREPONEMAL W/REFLEX COMPLETE BLOOD COUNT COMPREHENSIVE METABOLIC PANEL 3. Dysphagia, unspecified type R13.10 4. Essential tremor G25.0 CONSULT TO NEUROLOGY 5. Functional tremor R25.1 CONSULT TO NEUROLOGY 6. Bradykinesia R25.8 CONSULT TO NEUROLOGY 7. Altered mental status, unspecified altered mental status type R41.82 EPIL EEG ROUTINE Return if symptoms worsen or fail to improve. Chart, labs,and relevant images reviewed. HPI: Saw PCP and concnered she has PD, memory issues and shaking, feeling out of it, difficulty swallowing. On lithium. Hx of lumbar surgery. Mild cervical stenosis on MRI in 2019. This is a 43 year old female presenting with multipe concerns. Patient presents today with her sister for multiple neurologic concerns that all started within the last 6 months. Notes that she has been having some issues with short-term memory. States that she will be in the middle of a sentence, in the middle of doing something and completely forget what she is doing or talking about. Notes that she feels completely blank when (more content not included)... [facility] History of Present illness Narrative 03-19-2024 America Lou PA-C - 03/19/2024 12:39 PM EDT Note Date & Type Note Facility 03-19-2024 History of Presen t illness Narrative Images from the original note were not included. [facility] Name: Terese Waters Age: [age] year old Gender: female Primary Care Provider: Mariama Adams CNP Consult requested for multiple concerns by Marycarmen Rivero. Recommendations will be communicated via shared medical record or US mail. Chief Complaint:New Patient Evaluation 03/19/2024 - General Neurology, America Lou PA-C ASSESSMENT ASSESSMENT/PLAN: 1. Frequent falls - ICD9: V15.88, ICD10: R29.6 (primary diagnosis) 2. Paresthesias - ICD9: 782.0, ICD10: R20.2 3. Dysphagia, unspecified type - ICD9: 787.20, ICD10: R13.10 4. Essential tremor - ICD9: 333.1, ICD10: G25.0 5. 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 Bradykinesia - ICD9: 781.0, ICD10: R25.8 7. Altered mental status, unspecified altered mental status type - ICD9: 780.97, ICD10: R41.82 Patient with multiple neurologic concerns all starting on within the last 6 months including memory loss, periods of altered mental status and lapses of time, difficulty swallowing foods, pills and liquids, worsening tremor, frequent falls, paresthesias in her legs amongst other symptoms. Notes that around the time her symptoms began she was started on lithium, this was titrated up a few months ago, notes that she was transferred from [facility] to lithium for depression. Is that she is also been experiencing hallucinations over the last month. Saw her primary who was concerned for Parkinson's disease due to the tremor worsening. However, on my exam today I do not experience any resting tremor, any rigidity. Does have bradykinesia is selectively but not consistently, overall moves slowly with every movement. Does have a very flat affect as well. No significant shuffling but patient does walk with a rollator, notes that she is chronically disabled due to multiple back surgeries, for which she is scheduled to have her fifth lumbar surgery at [facility] this Monday. Low suspicion for Parkinson's disease at this time, patient does have tremor on exam which has been disabling for her. Unclear etiology, possible functional versus medication induced versus other. Discussed to follow-up with movement and patient and family are amenable to this. Notes that she is scheduled to have an MRI of the brain through her primary on 09 April and is also scheduled to have a swallow study due to the difficulty swallowing. In terms of memory, discussed that this could be a side effect of lithium, [place] today was concerning for memory loss. 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 Will review MRI of the brain to evaluate for any intracranial source for patient's memory loss, will also order basic blood work as well. Deferring neuropsychological testing at this time. Patient also experiencing lapses of time where she does not remember what happened. No incontinence, tongue biting or postictal state associated with this. However, will order EEG to ensure no epileptiform changes contributing to her symptoms. Patient currently not driving. Additionally, discussed following with her psychiatrist and discussing her side effects after starting the lithium about 6 to 8 months ago. Patient and sister confirmed that they will discuss this. Patient and sister agreeable to treatment plan of care at this time, questions were answered. Patient to follow-up as needed, due to complexity of case will need to follow-up with physician. America Lou PA-C Encounter Diagnosis ICD-10-CM 1. Frequent falls R29.6 VITAMIN B12 FOLATE, SERUM SYPHILIS TREPONEMAL W/REFLEX COMPLETE BLOOD COUNT COMPREHENSIVE METABOLIC PANEL 2. Paresthesias R20.2 VITAMIN B12 FOLATE, SERUM SYPHILIS TREPONEMAL W/REFLEX COMPLETE BLOOD COUNT COMPREHENSIVE METABOLIC PANEL 3. Dysphagia, unspecified type R13.10 4. Essential tremor G25.0 CONSULT TO NEUROLOGY 5. Functional tremor R25.1 CONSULT TO NEUROLOGY 6. Bradykinesia R25.8 CONSULT TO NEUROLOGY 7. Altered mental status, unspecified altered mental status type R41.82 EPIL EEG ROUTINE Return if symptoms worsen or fail to improve. Chart, labs,and relevant images reviewed. HPI: Saw PCP and concnered she has PD, memory issues and shaking, feeling out of it, difficulty swallowing. On lithium. Hx of lumbar surgery. Mild cervical stenosis on MRI in 2020. This is a 43 year old female presenting with multipe concerns. Patient presents today with her sister for multiple neurologic concerns that all started within the last 6 months. Notes that she has been having some issues with short-term memory. States that she will be in the middle of a sentence, in the middle of doing something and completely forget what she is doing or talking about. Notes that she feels completely blank when this happens as well as confused and scared. Also notes that she has been missing periods of time. Notes that she will have a lapse in time, not knowing what happened, it has been happening daily, no incontinence or tongue biting when this occurs. Also notes that she has had a chronic tremor, typically with intention, but this has been getting worse and is present at rest now. But that she was at her primary care's office and they noticed that she had a pill-rolling tremor of her right upper extremity. She has been spilling things. Notes that it started to worsen about 4 to 6 months ago. Also notes some difficulty with swallowing, again this started a few months ago as well. Notes that it is hard to swallow pills and foods, has aspirated on liquids before. Has never had this issue. Does have an appointment with speech therapy for swallow study in the next few weeks. Also reporting some worsening balance and dizziness. Is that she is about to have her fifth back surgery on Monday at [facility] for lumbar stenosis. But in the last few months has been experiencing more weakness and poor balance in the lower extremities. Has been using a rollator to ambulate, this is not new. Notes that she fell about 2 weeks ago, was going to the living room, felt lightheaded and fell down. A fall before that was about a month or 2 ago where she was in the bathroom and fell between the toilet and the wall. Is that she is scheduled to get an MRI of the brain on April 09. Denies any family history of neurologic disease. Does note that her mother had memory issues but no formal diagnosis. Also notes that over the last month has began experiencing hallucinations. States that she will be watching TV it looks like things are coming out of her, also will see things and cartoons. Seeing people that are not there. Occasionally will be paranoid and feel that people are not who they say they are. Notes that she has some decrease in her smell but is still able to smell. Notes that her sense of taste has been off in the last few months as well, used to drink soda every day and now longer has a taste for it. No issues with constipation. Notes that about 6 to 8 months ago she was started on lithium after she transferred from [facility]. Did discuss her side effects with her psychiatrist but they ended up increasing her lithium dose to try and get her off of her other mood medications. Review of Systems There is no problem list on file for this patient. PAST MEDICAL HISTORY Diagnosis Date Asthma Chronic obstructive pulmonary disease (COPD) (HCC) Psychiatric disorder depression and anxiety Medications: Reviewed gabapentin (NEURONTIN) 800 mg tablet Take 800 mg by mouth four times daily. ibuprofen (MOTRIN) 600 mg tablet Take 600 mg by mouth three times a day. tiZANidine (ZANAFLEX) 4 mg tablet Take 4 mg by mouth three times a day. busPIRone (BUSPAR) 15 mg tablet Take 15 mg by mouth three times a day. LITHIUM CARBONATE ORAL Take 40 mg by mouth two times a day. risperiDONE (RISPERDAL) 2 mg tablet Take 2 mg by mouth two times a day. clonazePAM (KLONOPIN) 0.5 mg tablet Take 0.5 mg by mouth two times a day. clonazePAM (KLONOPIN) 1 mg tablet Take 1 mg by mouth once daily. amitriptyline (ELAVIL) 100 mg tablet Take 100 mg by mouth daily at bedtime. prazosin (MINIPRESS) 2 mg cap Take 4 mg by mouth once daily. ondansetron orally disintegrating (ZOFRAN ODT) 4 mg disintegrating tablet Take 1 tablet by mouth every 8 hours as needed for Nausea/Vomiting. (Patient not taking: Reported on 03/19/2024) sertraline (ZOLOFT) 100 mg tablet Take 100 mg by mouth once daily. (Patient not taking: Reported on 03/19/2024) clonazePAM (KLONOPIN) 1 mg tablet Take 1 mg by mouth twice daily as needed. (Patient not taking: Reported on 03/19/2024) QUEtiapine (SEROQUEL) 400 mg tablet Take 400 mg by mouth daily at bedtime. (Patient not taking: Reported on 03/19/2024) PANTOPRAZOLE SODIUM (PROTONIX ORAL) Take by mouth. (Patient not taking: Reported on 03/19/2024) oxyCODONE-Acetaminophen (PERCOCET) 2.5-325 mg per tablet Take 1 tablet by mouth every 4 hours as needed. (Patient not taking: Reported on 03/19/2024) ALLERGIES Allergen Reactions Hydrocodone-Acetami* Hives Ketorolac Trometham* Swelling Nifedipine Hives Penicillins Swelling Topamax [Topiramate] Hives Venom-Honey Bee Swelling No family history on file. PAST SURGICAL HISTORY Procedure Laterality Date APPENDECTOMY HX BACK SURGERY HX CHOLECYSTECTOMY HX SOCIAL HISTORY No social history on file. Tobacco Use: High Risk (03/19/2024) Patient History Smoking Tobacco Use: Former Smokeless Tobacco Use: Current Passive Exposure: Not on file PHYSICAL EXAM 03/19/24 1248 BP: 107/73 Pulse: 88 Neurological Exam MoCA: Visual-spatial: 07/29 Namin/3 Attention: 07/31 Language: 07/29 Delayed recall: 06/02 orientation: 09/01 Cognitive and Language: Alert and answered questions appropriately. Language was fluent. Followed simple and complex commands. Cranial Nerves: Visual sinclair were full tested binocularly to finger counting in all 4 quadrants with no visual extinction. Pupils were equal and both reactive to light. Extraocular movements were full with no diplopia or nystagmus. EOM was slightly slowed and choppy throughout. Facial sensation was normal to light touch in V1 to V3. Facial strength was symmetric. Normal hearing grossly bilaterally. Palatal raise was symmetric. Shoulder shrug was symmetric. Tongue protrusion was symmetric with no fasciculations. Right Left Shoulder Abduction: 5 5 Elbow Extension 5 5 Elbow Flexion 5 5 Wrist Extension 5 5 Finger Extension 5 5 Finger Abduction 5 5 Right Left Hip Flexion 5 5 Knee Extension 5 5 Knee Flexion 5 5 Dorsiflexion 5 5 Plantar Flexion 5 5 tremor: Notes postural tremor to the bilateral upper extremities. Does have resting tremor but this almost completely resolves with distraction. Tone: Normal in all four limbs, no cogwheel rigidity Reflexes: Decreased reflexes in the lower extremities, 1/4 in the upper extremities. Negative James bilaterally Sensory: Intact to vibration in the upper and lower extremities. Negative extinction to double simultaneous stimulation Positive split tuning fork. Coordination: Normal finger to nose and heel to morfin testing bilaterally. Rapid alternating movements are slow throughout with the exception of finger tapping and toe tapping. Patient deferred Romberg testing due to fear of falling, gait was not tested. Walking with a rollator, overall slowed but not shuffled Labs: Lab Results Component Value Date WBC 7.31 05/13/2018 HCT 38.6 05/13/2018 MCV 94.1 05/13/2018 PLT 310 05/13/2018 No results found for: HBA1C HDL Cholesterol Date Value Ref Range Status 01/25/2016 46 >40 mg/dL Final LDL Calculated Date Value Ref Range Status 01/25/2016 96 mg/dL Final Comment: No CAD and with fewer than 2 CAD risk factors <160 mg/dl No CAD but with 2 or more CAD risk factors <130 mg/dl Definite CAD or other atherosclerotic disease <100 mg/dl Triglyceride Date Value Ref Range Status 01/25/2016 82 0 - 149 mg/dL Final Comment: < 200 Desirable Result invalid if not a fasting specimen. Radiology: MRI lumbar spine 07/20/21 IMPRESSION: 1. Very limited study from motion artifact. Postsurgical changes L4-L5 with possible peridural fibrosis on the right. Degenerative changes as described. MRI cervical spine 08/13/19 IMPRESSION: 1. Nondiagnostic examination due to substantial motion artifacts 2. There does appear to be small posterior disc protrusion/bulges at the C4-C5 and C5-C6 levels (probable right posterior disc protrusion at C5-C6) with spinal cord impingement at these levels Report Dictated on CT brain 04/17/19 IMPRESSION: No acute intracranial process. Incidental left maxillary sinusitis. This note was dictated using [employer] speech recognition software and may contain some errors that were a result of the program not accurately transcribing what was dictated, despite efforts to make corrections. Note that unless urgent, test and MRI results will be discussed at next follow-up visit. PROMIS (Patient-Reported Outcomes Measurement Information System) is a set of person-centered measures that evaluates and monitors physical, social, and emotional health. It can be used with the general population and with individuals living with chronic conditions. PROMIS 10: PHYSICAL AND MENTAL HEALTH: Medical Decision Making: Medical Decision Making Level: 1 - N/A I spent a total of 70 minutes on the date of the service which included preparing to see the patient, [id number] patient care, completing clinical documentation, obtaining and/or reviewing separately obtained history, performing a medically appropriate examination, counseling and educating the patient/family/caregiver, and ordering medications, tests, or procedures. documented in this encounter [facility] Evaluation note Note Date & Type Note Facility Evaluation note Diagnosis Frequent falls- Primary Personal history of fall Paresthesias Disturbance of skin sensation Dysphagia, unspecified type Essential tremor Essential and other specified forms of tremor Functional tremor Musculoskeletal malfunction arising from mental factors Bradykinesia Abnormal involuntary movements Altered mental status, unspecified altered mental status type documented in this encounter [facility] Reason for referral (narrative) Outpatient Procedure (Routine) - New Request Note Date & Type Note Facility Reason for referral (narrati ve) Specialty Diagnoses / Procedures Referred By Samy kim Referred To [facility] Diagnoses Altered mental status, unspecified altered mental status type Procedures EPIL EEG ROUTINE ELECTROENCEPHALOGRAM REC COMA/SLEEP ONLY America Lou PA-C [address] [place] [address] [facility] [place] [address] [place] [address] Referral ID Status Reason Start Date Expiration Date Visits Requested Visits Authorized [id number] New Request Auto-Generat ed Referral 03/19/2025 1 1 * Consult, Test, Treat (Routine) - Authorized Specialty Diagnoses / Procedures Referred By Samy kim Referred To Contact Neurology Diagnoses Essential tremor Functional tremor Bradykinesia Procedures CONSULT TO NEUROLOGY OFFICE/OUTPATIENT NEW HIGH MDM 60 MINUTES America Lou PA-C [address] [place] [address] Collins Fish MD [address] [place] [address] [place] [address] Referral ID Status Reason Start Date Expiration Date Visits Requested Visits Authorized [id number] Authorized PCP Requested Referral 4 03/19/2025 1 1 [facility] Summary Purpose Family History No Family History Records FoundNo Family History Records FoundNo Family History Records FoundThere may be information available, but it has not been provided by the sender.No Family History Records FoundNo Family History Records FoundNo Family History Records Found Advance Directives No Advanced Directives Records FoundDocuments on File Type Date Recorded 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 Review of System There may be information available, but it has not been provided by the sender. History of Present Illness There may be information available, but it has not been provided by the sender. Additional Source Comments INFORMATION SOURCE (unrecogn ized section and content) DATE CREATED AUTHOR 05/16/2018 [facility] DATE CREATED AUTHOR AUTHOR'S ORGANIZ ATION 05/18/2018 [facility] DATE CREATED AUTHOR AUTHOR'S ORGANIZ ATION 06/05/2018 [facility] DATE CREATED AUTHOR AUTHOR'S ORGANIZ ATION 10/24/2019 [facility] DATE CREATED AUTHOR AUTHOR'S ORGANIZ ATION 07/23/2021 [facility] DATE CREATED AUTHOR AUTHOR'S ORGANIZ ATION 03/21/2024 [facility] Reason for Visit (unrecogniz ed section and content) Reason For Visit Description New - 1st visit with practice Preliminary reason f or visit data, not yet signed by the author as of neck pain Reason Comments New Patient Evaluation Specialty Diagnoses / Procedures Referred By Samy kim Referred To [facility] Diagnoses Tremor, unspecified Altered mental status, unspecified Procedures Neuro consult Marycarmen Rivero MD [address] [place] [address] Neurological [facility] [place] [address] Referral ID Status Reason Start Date Expiration Date V isits Requested Visits Authorized [id number] Outside PCP 03/08/2024 05/07/2024 1 1 Source Comments (unrecognize d section and content) In the event this informatio n is protected by the Federal Confidentiality of Alcohol and Drug Abuse Patient Records regulations: The Federal rules restrict any use of the information to criminally investigate or prosecute any alcohol or drug abuse patient.[facility] the event this information is protected by the Federal Confidentiality of Alcohol and Drug Abuse Patient Records regulations: The Federal rules restrict any use of the information to criminally investigate or prosecute any alcohol or drug abuse patient.[facility] the event this information is protected by the Federal Confidentiality of Alcohol and Drug Abuse Patient Records regulations: The Federal rules restrict any use of the information to criminally investigate or prosecute any alcohol or drug abuse patient.[facility] Care Teams (unrecognized sec tion and content) Rug Renovator Relationship Specialty Start Date End Date Mariama Adams CNP [address] [place] [address] PCP - General Internal Medicine 05/12/21 FOR RECORDS PERTAINING TO PATIENTS WHO ARE OR HAVE BEEN ENROLLED IN A CHEMICAL DEPENDENCY/SUBSTANCEABUSE PROGRAM, SOME INFORMATION MAY BE OMITTED. This clinical summary was aggregated from multiple sources. Caution should be exercised in using it in the provision of clinical care. This summary normalizes information from multiple sources, and as a consequence, information in this document may materially change the coding, format and clinical context of patient data. In addition, data may be omitted in some cases. CLINICAL DECISIONS SHOULD BE BASED ON THE PRIMARY CLINICAL RECORDS. [facility] provides no warranty or guarantee of the accuracy or completeness of information in this document.
--- NOTE | 2024-03-22 07:22 | PCM.PRE.AN2 ---
ASA Classification* ASA Classification ASA Classification: 2 Assessment & Plan Anesthesia* Anesthesia Assessment Anesthesia Assessment: Discussed sedation and/or anesthesia options, risks, benefits, and alternatives with patient/parents/legal guardian/POA. Questions invited. The patient/parents/legal guardian/POA seems to understand and agrees to proceed with anesthesia plan. Reviewed the physical assessment, medical history, allergy history and patient home medications list prior to surgery/procedure/anesthetic and documented any changes. Performed airway and anesthesia risk assessments. Anesthesia Type Anesthesia Type: General Anesthesia Focused Assessment* Airway Assessment Mouth opens: >3 cm Mallampati Score: II Focused Labs Anesthesia Preop lab: CBC WBC 6.3 K/mm3 (4.4-11.0) 02/08/24 20:53 RBC 4.07 M/mm3 (4.2-5.4) L 02/08/24 20:53 Hgb 12.1 g/dL (12.0-15.0) 02/08/24 20:53 Hct 38.3 % (37-47) 02/08/24 20:53 Plt Count TNP 02/08/24 20:53 CHEMISTRY Potassium 3.6 mmol/L (3.5-5.1) 03/07/24 14:09 Sodium 138 mmol/L (136-145) 03/07/24 14:09 BUN 4 mg/dL (7-18) L 03/07/24 14:09 Creatinine 0.69 mg/dL (0.55-1.02) 03/07/24 14:09 Glucose 88 mg/dL (74-106) 03/07/24 14:09 TSH 2.790 uIU/mL (0.358-3.740) 02/08/24 20:53 COAG PT 13.5 SECONDS (11.7-14.9) 11/08/22 16:12 Pre-Assessment Diagnosis/Proposed Procedure Planned Operative Procedure(s): SPINAL CORD STIMULATOR REMOVAL Anesthesia History 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 When Was Last Pacemaker Check QUESTION #4 FULL TEXT: You/Your Family Experience fever (hyperthermia) with Anesthesia Last Oral Intake Last Oral intake: Last Oral Intake NPO since Meds taken in AM with sips of water? Meds patient instructed to take am of surgery PONV PONV - tubing machine operator: PONV - tubing machine operator Female Yes 03/15/24 14:34 HX of Motion Sickness No 03/15/24 14:34 HX of N/V After Surgery No 03/15/24 14:34 Non-Smoker Yes 03/15/24 14:34 Duration of Surgery greater No 03/15/24 14:34 than 60 minutes Number of Risk Factors 2 03/15/24 14:34 PONV Score Moderate Risk 03/15/24 14:34 Height & Weight Height & Weight: Anesthesia: Height & Weight Height 5 ft 3 in 03/07/24 12:58 Respiratory Assessment Respiratory Assessment - tubing machine operator: Respiratory Tract Infection Hx - tubing machine operator Hx Respiratory Tract Infection No 03/15/24 14:34 STOP Sleep Apnea STOP Sleep Apnea - tubing machine operator: STOP Sleep Apnea - tubing machine operator Hx Hypertension No 03/15/24 14:34 Hx Sleep Apnea No 03/15/24 14:34 CPAP No 10/09/23 10:20 BIPAP Do you snore loudly (louder Yes 03/15/24 14:34 than talking or can be heard Do you often feel tired/ Yes 03/15/24 14:34 fatigued/ sleepy during daytime? Has anyone observed you stop Yes 03/15/24 14:34 breathing during sleep? STOP Results Positive 03/15/24 14:34 QUESTION #5 FULL TEXT : Do you snore loudly (louder than talking or can be heard through closed doors)? 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 Specify any problems Hx of Preganancy in last 3 No 03/15/24 14:34 Months Nurse Filling Out Transfusion DSCHRIBER 03/15/24 14:34 & Questions: Date: 03/15/24 03/15/24 14:34 Time: 14:37 03/15/24 14:34 Patient unable to answer at this time (ie. confused, unrespo /Reproduction History /Reproductive History - tubing machine operator: /Reproductive Hx- tubing machine operator Hx Now No 03/15/24 14:34 Gestational Age (in weeks): EDC: Hx Hx Para Hx Section SAB No 03/15/24 14:34 PFSH Medical History Flat affect Marijuana use Dementia Complete edentulism, class III Difficult intravenous access Wears glasses History of Clostridium difficile infection Walker as ambulation aid Injury of back Leg cramps History of echocardiogram History of stress test Asthma Obesity Collapsed lung Neuropathy Hyperlipidemia History of blood clots Arthritis Anemia Former smoker Migraines Intractable vomiting Emphysema lung COPD (chronic obstructive pulmonary disease) Paranoia Anxiety Depression Home Medications ?Medication ?Instructions ?Recorded ?Last Taken ?Type clonazepam 0.5 mg tablet (Klonopin) 0.5 mg PO BID Check with primary 12/25/20 10/19/23 History doctor clonazepam 1 mg tablet (Klonopin) 1 mg PO 1700 Check with primary 12/25/20 10/19/23 History doctor risperidone 3 mg tablet 8 mg PO BID Check with primary 12/25/20 08/03/23 History doctor buspirone 15 mg tablet 15 mg PO TID 10/20/21 10/19/23 History lithium carbonate 300 mg capsule 300 mg PO BID 10/20/23 10/19/23 History amitriptyline 100 mg tablet 100 mg PO QHS 02/08/24 Unknown History prazosin 2 mg capsule 4 mg PO QHS 02/08/24 Unknown History albuterol sulfate 90 mcg/actuation 2 puff inhalation Q6H PRN 03/07/24 Unknown Rx aerosol inhaler shortness of breath or wheezing #6.7 grams gabapentin 800 mg tablet 800 mg PO 4X/DAY Check with 03/07/24 Unknown Rx primary doctor #120 tabs ibuprofen 600 mg tablet 600 mg PO Q8H PRN pain #90 tabs 03/07/24 Unknown Rx tizanidine 4 mg tablet 4 mg PO Q8H PRN pain #90 tabs 03/07/24 Unknown Rx fluticasone 100 mcg-salmeterol 50 1 inh inhalation DAILY 03/15/24 Unknown History mcg/dose blistr powdr for inhalation (Wixela Inhub) Allergy/AdvReac Type Severity Reaction Status Date / Time Penicillins Allergy Severe Anaphylaxis Verified 03/20/24 11:38 bee venom protein (honey bee) Allergy Anaphylaxis Verified 03/20/24 11:38 ketorolac (From Toradol) Allergy Rash Verified 03/20/24 11:38 nifedipine (From Procardia) Allergy Swelling Verified 03/20/24 11:38 strawberry Allergy Rash Verified 03/20/24 11:38 tramadol Allergy Hives Verified 03/20/24 11:38 Family History Mother Asthma Anxiety Depression Myocardial infarction, Onset Age: 38 Heart disease High cholesterol Grandmother Cancer Sister Cancer Surgical History Hx of hernia repair Spinal cord stimulator status Status post insertion of percutaneous endoscopic gastrostomy (PEG) tube History of tracheostomy History of cholecystectomy History of appendectomy H/O spinal fusion History of partial hysterectomy Social History household members: spouse and children number of children: 1 current occupational status: disabled current occupation: due to back Smoking Status: Former smoker quit date: 03/22/21 pack-years: 30 Electronic Cigarette Use: with nicotine quit status: considering quitting alcohol intake: never substance use type: does not use what type of physical activity do you participate in: none do you feel safe at home: Yes Review of Systems (Anesthesia) ROS Narrative System reviewed and no additional complaints, except as documented.
--- NOTE | 2024-03-22 07:40 | RAD_ITS ---
Exam: XR Spine Lumbar 3 Views Comparison: October 20, 2023 fluoroscopic spot images. History: SPINAL CORD STIMULATOR REMOVAL TECHNIQUE:intraoperative fluoroscopic spot images FINDINGS: 3 views are provided. Initially 2 catheters over the thoracolumbar region. On image 3 there is a catheter with metallic beads at the tip projecting over appears to be T8. RAD/Lumbar Spine 2 or 3 Views IMPRESSION: Please see operative exam. Fluoroscopic procedural images. Electronically Signed: Christa Faith MD at 2:01 EDT ,
--- NOTE | 2024-03-22 08:00 | FORE_PTH ---
PATHOLOGY RESULTS PATIENT: MARII WATERS LOC: [facility] [place] U#:[id number] AGE/SX: 43/F ROOM: RE03/22/[address]: Dr. Mario Luo MD : 1980 BED: DIS: 03/22/2024 SPEC #: [id number] RECD: 03/22/24 12:01 STATUS: ANURAG REAnay #: [id number] JULI: 03/22/24 08:[address]: Mario Luo DEPT: SURGICAL PATHOLOGY RECD BY: Juan Bentley ENTERED: 03/22/24 13:06 SP TYPE: FOREIGN B OTHR DR: Dr. Gege Rivero MD Tissues: FOREIGN BODY Procedures: Surgery Specimen Level I HEADER OPERATION: Spinal cord stimulator PRE-OP DIAGNOSIS: Malfunction of spinal cord stimulator TISSUE SUBMITTED: Spinal cord stimulator MICROSCOPIC DIAGNOSIS Metallic battery clinically spinal cord stimulator (gross only). 03/22/2024 MICROSCOPIC DESCRIPTION Slides are reviewed. GROSS DESCRIPTION Received in fixative is one container labeled with the patient's name and designated Spinal cord stimulator. The specimen consists of a metallic battery measuring 4.4 x 3.5 x 0.7cm. Description on the battery shows [employer] 16 spinal cord stimulator system reference number [id number] with a wire measuring 46cm in length. A detached wire is also present measuring 42cm in length and a metallic lead at the end measures 3.5cm in length. The specimen is for gross identification only. 03/22/2024 CPT:38217
[2024-03-22] MEDS: Vancomycin IV 1,000 MG/200 ML BAG 200 MG IV (08:58)
[2024-03-22] MEDS: Lidocaine 0.5% (50 ml) 50 ML Vial (10:00)
[2024-03-22] MEDS: Bupiv/Epi 0.25% 30 ML Vial (10:00)
--- NOTE | 2024-03-22 11:22 | PCM.POST.ANE ---
Anesthesia: Postop Eval I Current Vital Signs Temperature: 97 F Pulse Rate: 91 Blood Pressure: 120/71 Respiratory Rate: 16 Pulse Ox: 92 Oxygen Delivery Method: Room Air Assessment Airway patent: Yes Spontaneous unlabored respirations: Yes Mental status: Awake and Calm nausea: No Vomiting: No Anesthesia Complication: No Fluid Hydration Crystalloid volume administer (ml): 1,400 Total IV fluid infused: 1,400 Progress Note Anesthesia document: Postop Eval 1 completed: Yes
[2024-03-22] MEDS: Acetaminophen 325 MG Tablet PO (13:08)
[2024-03-22] MEDS: oxyCODONE 5 MG Tablet PO (13:08)
--- NOTE | 2024-03-22 16:06 | POSTOPAN2_ITS ---
Anesthesia Postop Eval I Sum Postop Eval Completion status Anesthesia document: Postop Eval 1 completed: Yes Anesthesia Postop Eval I Summary Anesthesia Postop Eval I Summary: Anesthesia Postop Eval I: Assessment Summary Airway patent Yes 03/22/24 11:23 OVERHEAD WORKER.MDOT Spontaneous unlabored Yes 03/22/24 11:23 OVERHEAD WORKER.MDOT respirations Mental status Awake,Calm 03/22/24 11:23 OVERHEAD WORKER.MDOT nausea No 03/22/24 11:23 OVERHEAD WORKER.MDOT Vomiting No 03/22/24 11:23 OVERHEAD WORKER.MDOT Anesthesia Postop Eval I: Fluid Summary Crystalloid volume administer 1,400 03/22/24 11:23 OVERHEAD WORKER.MDOT (ml) Colloids volume administered ( ml) Blood Product volume administered (ml) Total IV fluid infused 1,400 03/22/24 11:23 OVERHEAD WORKER.MDOT Anesthesia Postop Eval I: Summary Notes Anesthesia Complication No 03/22/24 11:23 OVERHEAD WORKER.MDOT Anesthesia Complication Comment: Post-operative progress note Anesthesia: Postop Eval II Evaluation Mental status: Awake and Calm Pain Level: 2 nausea: No Vomiting: No Complications Anesthesia Complication: No
--- NOTE | 2024-03-22 16:06 | PCM.POSTANE2 ---
Anesthesia Postop Eval I Sum Postop Eval Completion status Anesthesia document: Postop Eval 1 completed: Yes Anesthesia Postop Eval I Summary Anesthesia Postop Eval I Summary: Anesthesia Postop Eval I: Assessment Summary Airway patent Yes 03/22/24 11:23 UNEMPLOYMENT CLAIMS ADJUDICATOR.MDOT Spontaneous unlabored Yes 03/22/24 11:23 UNEMPLOYMENT CLAIMS ADJUDICATOR.MDOT respirations Mental status Awake,Calm 03/22/24 11:23 UNEMPLOYMENT CLAIMS ADJUDICATOR.MDOT nausea No 03/22/24 11:23 UNEMPLOYMENT CLAIMS ADJUDICATOR.MDOT Vomiting No 03/22/24 11:23 UNEMPLOYMENT CLAIMS ADJUDICATOR.MDOT Anesthesia Postop Eval I: Fluid Summary Crystalloid volume administer 1,400 03/22/24 11:23 UNEMPLOYMENT CLAIMS ADJUDICATOR.MDOT (ml) Colloids volume administered ( ml) Blood Product volume administered (ml) Total IV fluid infused 1,400 03/22/24 11:23 UNEMPLOYMENT CLAIMS ADJUDICATOR.MDOT Anesthesia Postop Eval I: Summary Notes Anesthesia Complication No 03/22/24 11:23 UNEMPLOYMENT CLAIMS ADJUDICATOR.MDOT Anesthesia Complication Comment: Post-operative progress note Anesthesia: Postop Eval II Evaluation Mental status: Awake and Calm Pain Level: 2 nausea: No Vomiting: No Complications Anesthesia Complication: No
== END 2024-03-22 13:35 | disposition home or self-care (01) ==
LOC: SDC 07:15 → AC 07:16
PROVIDERS: PCP Internal Medicine; Referring Provider Anesthesiology Pain Medicine; Visit Provider Anesthesiology Pain Medicine
PROC: (CPT 63688; principal; 2024-03-22 07:45)
DX: T85.112A Breakdown (mechanical) of implanted electronic neurostimulator of spinal cord electrode (lead), initial encounter (principal); J43.9 Emphysema, unspecified; G89.4 Chronic pain syndrome; G62.9 Polyneuropathy, unspecified; E66.9 Obesity, unspecified; F32.A Depression, unspecified; F41.9 Anxiety disorder, unspecified; M19.90 Unspecified osteoarthritis, unspecified site; Z88.0 Allergy status to penicillin; Z86.2 Personal history of diseases of the blood and blood-forming organs and certain disorders involving the immune mechanism; Z98.1 Arthrodesis status; Z87.01 Personal history of pneumonia (recurrent); Z86.19 Personal history of other infectious and parasitic diseases; Z90.49 Acquired absence of other specified parts of digestive tract; Z87.19 Personal history of other diseases of the digestive system; Z86.718 Personal history of other venous thrombosis and embolism; Z79.899 Other long term (current) drug therapy; Z87.891 Personal history of nicotine dependence
CPT/HCPCS: 63661; 72100; 76000; 88300; J7120; A4216; J2405

== ENCOUNTER 2024-08-04 13:32 | Emergency (ER) | payer MEDICARE, MEDICAID, SELFPAY ==
[2024-08-04 13:33] VITALS: BP 114/86; PULSE 83; RESP 15; TEMP 36.3; O2SAT 99; BMI 31.8
--- NOTE | 2024-08-04 13:56 | EDS_ITS ---
HPI <EFREN Arias - Last Filed: 08/04/24 15:52> History of Present Illness Chief Complaint: Nausea/Vomiting Narrative Narrative: 44-year-old female with past medical history of anxiety and depression states over the last 3 days she has had a headache and N/V/D. She states she cannot keep down any of her medications or fluids. She is having very frequent loose stools. She states today she had 2 bright red blood clots, which were not associated with a bowel movement. She has pain between her right flank and right abdomen. No urinary symptoms. No fever or chills. No chest pain or shortness of breath. She has had a cholecystectomy, appendectomy, partial hysterectomy. PFS <EFREN Arias - Last Filed: 08/04/24 15:52> [facility] Medical History Flat affect Marijuana use Dementia Complete edentulism, class III Difficult intravenous access Wears glasses History of Clostridium difficile infection Walker as ambulation aid Injury of back Leg cramps History of echocardiogram History of stress test Asthma Obesity Collapsed lung Neuropathy Hyperlipidemia History of blood clots Arthritis Anemia Former smoker Migraines Intractable vomiting Emphysema lung COPD (chronic obstructive pulmonary disease) Paranoia Anxiety Depression Home Medications ?Medication ?Instructions ?Recorded ?Last Taken ?Type clonazepam 0.5 mg tablet (Klonopin) 0.5 mg PO BID Chec k with primary 12/25/20 03/21/24 History doctor clonazepam 1 mg tablet (Klonopin) 1 mg PO 1700 Check w ith primary 12/25/20 03/21/24 History doctor risperidone 3 mg tablet 8 mg PO BID Check with prima ry 12/25/20 03/21/24 History doctor buspirone 15 mg tablet 15 mg PO TID 10/20/21 History lithium carbonate 300 mg capsule 300 mg PO BID 4 03/21/24 History amitriptyline 100 mg tablet 100 mg PO QHS 02/08/24 History prazosin 2 mg capsule 4 mg PO QHS 02/08/24 Unknown History albuterol sulfate 90 mcg/actuation 2 puff inhalation Q 6H PRN 03/07/24 03/21/24 Rx aerosol inhaler shortness of breath or wheez ing #6.7 grams fluticasone 100 mcg-salmeterol 50 1 inh inhalation ANJUM LY 03/15/24 03/21/24 History mcg/dose blistr powdr for inhalation (Wixela Inhub) gabapentin 800 mg tablet 800 mg PO 4X/DAY Check with 06/07/24 Unknown Rx primary doctor #120 tabs ibuprofen 600 mg tablet 600 mg PO Q8H PRN pain #90 t abs 07/10/24 Unknown Rx tizanidine 4 mg tablet 4 mg PO Q8H PRN pain #90 tab s 07/10/24 Unknown Rx ondansetron 4 mg disintegrating 4 mg PO Q6H PRN nausea and 08/04/24 Unknown Rx tablet vomiting #12 tabs Allergy/AdvReac Type Severity Reaction Status Date / Time Penicillins Allergy Severe Anaphylaxis Verified 08/04/24 13:35 topiramate (From Topamax) Allergy Severe hives Verified 08/04/24 13:35 bee venom protein (honey bee) Allergy Anaphylaxis Verified 08/04/24 13:35 ketorolac (From Toradol) Allergy Rash Verified 08/04/24 13:35 nifedipine (From Procardia) Allergy Swelling Verified 08/04/24 13:35 strawberry Allergy Rash Verified 08/04/24 13:35 tramadol Allergy Hives Verified 08/04/24 13:35 Family History Mother Asthma Anxiety Depression Myocardial infarction, Onset Age: 38 Heart disease High cholesterol Grandmother Cancer Sister Cancer Surgical History Hx of hernia repair Spinal cord stimulator status Status post insertion of percutaneous endoscopic gastrostomy (PEG) tube History of tracheostomy History of cholecystectomy History of appendectomy H/O spinal fusion History of partial hysterectomy Social History household members: spouse and children number of children: 1 current occupational status: disabled current occupation: due to back Smoking Status: Former smoker quit date: 03/22/21 pack-years: 30 Electronic Cigarette Use: with nicotine quit status: considering quitting alcohol intake: never substance use type: does not use what type of physical activity do you participate in: none do you feel safe at home: Yes ROS <EFREN Arias Last Filed: 08/04/24 15:52> ROS ED ROS Narrative Constitutional: Negative for fever, chills, malaise. CVS: Negative for chest pain. Respiratory: Negative for shortness of breath, cough. GI: Positive for abdominal pain, nausea, vomiting, diarrhea. : Negative for dysuria, hematuria or frequency. EXAM <EFREN Arias - Last Filed: 08/04/24 15:52> Physical Exam Narrative Exam Narrative: CONST: Patient sitting in no acute distress. EYES: Normal inspection. NECK: Normal inspection. RESP: No respiratory distress, CTAB. CVS: Regular rate and rhythm, no murmur, no gallop. ABD: Soft and nontender, no guarding or rebound, nondistended, no hepatosplenomegaly. Back: Normal inspection, no CVA tenderness. SKIN: Color normal, no rash, warm, dry, intact. EXTREMITIES: Normal appearance, no pedal edema. NEURO: Alert and answering questions appropriately. PSYCH: Flat affect. Const Vital Signs: 08/04/24 13:33 Temperature 97.3 F L Temperature Source Temporal Pulse Rate 83 Respiratory Rate 15 Blood Pressure 114/86 H Blood Pressure Mean 95 Pulse Ox 99 Oxygen Delivery Method Room Air <Dr. Jameel Velarde MD - Last Filed: 08/04/24 14:17> Physical Exam Const Vital Signs: 08/04/24 13:33 Temperature 97.3 F L Temperature Source Temporal Pulse Rate 83 Respiratory Rate 15 Blood Pressure 114/86 H Blood Pressure Mean 95 Pulse Ox 99 Oxygen Delivery Method Room Air MDM <EFREN Arias - Last Filed: 08/04/24 15:52> [facility] Narrative Medical decision making narrative: Differential includes but not limited to viral illness, diverticulosis, diverticulitis, hemorrhoid, electrolyte abnormality, VAISHALI 44-year-old female presents with 3 days of headache and N/V/D. She also reports 2 episodes of rectal bleeding today. She appears well and nontoxic. Vital signs stable. Afebrile. She has moist mucous membranes. Normal cardiopulmonary exam. Abdomen soft and nontender. No flank tenderness. She indicates she has pain between her right flank and abdomen but it is not reproducible. CBC is within normal limits. CMP only notable for CO2 of 20.1, otherwise unremarkable. Lipase normal. I ordered IV fluids and Zofran. I had ordered Toradol for her headache but she cannot have it due to an allergy. Initial plan was to obtain a urinalysis and reassess and p.o. challenge but patient eloped from the emergency room. I had already sent a prescription for Zofran to her pharmacy. I have personally performed a face to face assessment of the patient and have reviewed the MARYANA Note. I performed a substantive portion of the visit including all aspects of the following. My martines findings include: History is [44-year-old female complaining of nausea, vomiting diarrhea with small amount of blood per rectum last several days. No fever. She has had a prior cholecystectomy, appendectomy and partial hysterectomy. No history of inflammatory bowel disease. No blood thinners. No hematuria.] Exam is [44-year-old female no acute distress vital signs stable afebrile. H EENT exam pupils round react light. Extra motions are intact. Moist mucous membranes. Neck nontender no JVD. Lungs clear to auscultation. Heart regular rhythm rate about 80 no murmur. Chest wall ribs nontender. Abdomen soft nondistended normal bowel sounds without peritoneal signs. No right upper or right lower quadrant tenderness. No obstruction. Moving all 4 extremities. Calves are nontender without edema or cords. Back nontender. Neurologically she is awake alert no focal motor deficits. Benign exam.] Medical Decision Making [patient with nausea vomiting and possible mild rectal bleeding. IV fluids Zofran labs.] Other additions or changes: [None] Lab Data Labs: Laboratory Results - last 24 hr 08/04/24 08/04/24 14:18 14:45 WBC 6.2 RBC 4.11 L Hgb 12.4 Hct 37.5 MCV 91.2 MCH 30.2 MCHC 33.1 RDW Std Deviation 42.4 RDW Coeff of Tenn[place] 13.1 Plt Count 244 MPV 9.8 Immature Gran % (Auto) 0.300 Neut % (Auto) 69.6 Lymph % (Auto) 23.8 Nicholas % (Auto) 4.5 Eos % (Auto) 1.3 Baso % (Auto) 0.5 Absolute Neuts (auto) 4.3 Absolute Lymphs (auto) 1.47 Nucleated RBC % 0 Sodium 140 Potassium 3.6 Chloride 106 Carbon Dioxide 20.1 L Anion Gap 14 BUN 6 Creatinine 0.61 L Estim Creat Clear Calc 120.33 Est GFR (MDRD) Non-Af 114 BUN/Creatinine Ratio 9.5 L Glucose 100 H Calcium 9.5 Total Bilirubin 0.26 AST 55 H ALT 14 Alkaline Phosphatase 96 Total Protein 6.9 Albumin 4.3 Globulin 2.6 Albumin/Globulin Ratio 1.6 Lipase 24 <Dr. Jameel Velarde MD - Last Filed: 08/04/24 14:17> [facility] Narrative Medical decision making narrative: I have personally performed a face to face assessment of the patient and have reviewed the MARYANA Note. I performed a substantive portion of the visit including all aspects of the following. My martines findings include: History is [44-year-old female complaining of nausea, vomiting diarrhea with small amount of blood per rectum last several days. No fever. She has had a prior cholecystectomy, appendectomy and partial hysterectomy. No history of inflammatory bowel disease. No blood thinners. No hematuria.] Exam is [44-year-old female no acute distress vital signs stable afebrile. H EENT exam pupils round react light. Extra motions are intact. Moist mucous membranes. Neck nontender no JVD. Lungs clear to auscultation. Heart regular rhythm rate about 80 no murmur. Chest wall ribs nontender. Abdomen soft nondistended normal bowel sounds without peritoneal signs. No right upper or right lower quadrant tenderness. No obstruction. Moving all 4 extremities. Calves are nontender without edema or cords. Back nontender. Neurologically she is awake alert no focal motor deficits. Benign exam.] Medical Decision Making [patient with nausea vomiting and possible mild rectal bleeding. IV fluids Zofran labs.] Other additions or changes: [None] History & Record Review Discussion w/independent historian: Patient Additional record(s) reviewed:: Prior inpatient record, Prior outpatient record, Prior ED visit and Prior labs Lab Data Attestation: I reviewed the patient's lab results. Labs: Laboratory Results - last 24 hr 08/04/24 08/04/24 14:18 14:45 WBC 6.2 RBC 4.11 L Hgb 12.4 Hct 37.5 MCV 91.2 MCH 30.2 MCHC 33.1 RDW Std Deviation 42.4 RDW Coeff of [place]ille 13.1 Plt Count 244 MPV 9.8 Immature Gran % (Auto) 0.300 Neut % (Auto) 69.6 Lymph % (Auto) 23.8 Nicholas % (Auto) 4.5 Eos % (Auto) 1.3 Baso % (Auto) 0.5 Absolute Neuts (auto) 4.3 Absolute Lymphs (auto) 1.47 Nucleated RBC % 0 Sodium 140 Potassium 3.6 Chloride 106 Carbon Dioxide 20.1 L Anion Gap 14 BUN 6 Creatinine 0.61 L Estim Creat Clear Calc 120.33 Est GFR (MDRD) Non-Af 114 BUN/Creatinine Ratio 9.5 L Glucose 100 H Calcium 9.5 Total Bilirubin 0.26 AST 55 H ALT 14 Alkaline Phosphatase 96 Total Protein 6.9 Albumin 4.3 Globulin 2.6 Albumin/Globulin Ratio 1.6 Lipase 24 Discharge Plan Triage Chief Complaint: Nausea/Vomiting ED Midlevel Provider: Kymberly Singleton ED Provider: Jameel Velarde Dx/Rx/DC Orders Clinical Impression: Nausea and vomiting, Acute diarrhea, Rectal bleeding Prescriptions: New ondansetron 4 mg tablet,disintegrating 4 mg PO Q6H PRN (Reason: nausea and vomiting) Qty: 12 0RF No Action albuterol sulfate 90 mcg/actuation HFA aerosol inhaler 2 puff inhalation Q6H PRN (Reason: shortness of breath or wheezing) Qty: 6.7 1RF clonazepam [Klonopin] 0.5 mg Tablet 0.5 mg PO BID Patient Comments: total of 2mg clonazepam [Klonopin] 1 mg Tablet 1 mg PO 1700 risperidone 3 mg Tablet 8 mg PO BID buspirone 15 mg tablet 15 mg PO TID lithium carbonate 300 mg capsule 300 mg PO BID amitriptyline 100 mg tablet 100 mg PO QHS prazosin 2 mg capsule 4 mg PO QHS fluticasone propion-salmeterol [Wixela Inhub] 100-50 mcg/dose blister with device 1 inh inhalation DAILY gabapentin 800 mg tablet 800 mg PO 4X/DAY Qty: 120 0RF ibuprofen 600 mg tablet 600 mg PO Q8H PRN (Reason: pain) Qty: 90 0RF tizanidine 4 mg tablet 4 mg PO Q8H PRN (Reason: pain) Qty: 90 0RF Primary Care Provider: Gege Rivero Referrals: Gege Rivero MD [Primary Care Provider] - Print Language: Upper Sorbian Disposition Disposition: Elopement Discharge Date/Time: 08/04/24 15:38
[2024-08-04] MEDS: Ondansetron 4 MG/2 ML Vial IV (14:18)
[2024-08-04] MEDS: 0.9% Normal Saline (1000mL) 1,000 ML 999 ML IV (14:18)
[2024-08-04 14:51] LABS: Absolute Lymphocyte Count 1.47 X10^3/uL (0.83-4.51); Absolute Neutrophil Count 4.3 X10^3/uL (2.0-7.7); Basophil# 0.03 X10^3/uL; Basophil% 0.5 % (0-1); Eosinophil# 0.08 X10^3/uL; Eosinophils% 1.3 % (0-5); Hematocrit 37.5 % (37-47); Hemoglobin 12.4 g/dL (12.0-15.0); Lymphocyte # 1.47 X10^3/ul (0.83-4.51); Lymphocyte % 23.8 % (19-41); Mean Corp Hgb Conc 33.1 g/dL (32-36); Mean Corpuscular Hgb 30.2 pg (27.0-32.0); Mean Corpuscular Volume 91.2 fL (81-99); Mean Platelet Vol. 9.8 fl (6.2-12.0); Monocyte# 0.28 X10^3/uL; Monocyte% 4.5 % (0-10); NRBC Flagged by Analyzer 0 % (0-5); Neutrophil % 69.6 % (47-70); Platelet Count 244 K/mm3 (150-450); RBC Distribution Width CV 13.1 % (11.6-14.6); RBC Distribution Width SD 42.4 fl (35.1-43.9); Red Blood Count 4.11 M/mm3 (4.2-5.4); White Blood Count 6.2 K/mm3 (4.4-11.0)
[2024-08-04 15:05] LABS: ALB/GLOB Ratio 1.6 RATIO (0.9-2.4); AST(SGOT) 55 U/L (<=31); Alanine Aminotransfer ALT/SGPT 14 U/L (<=34); Albumin, Serum 4.3 g/dL (3.5-5.0); Alkaline Phosphatase 96 U/L (35-104); Anion Gap 14 (5-15); BUN 6 mg/dL (4-19); BUN/Creat Ratio 9.5 RATIO (10-20); Calcium,Total 9.5 mg/dL (7.6-11.0); Carbon Dioxide 20.1 mmol/L (21.0-32.0); Chloride 106 mmol/L (98-108); Creatinine, Serum 0.61 mg/dL (0.70-1.20); EST Glomerular Filtration Rate 114 (>60); Estimated Creatinine Clearance 120.33 ml/min (50-250); Globulin 2.6 g/dL (2.2-4.2); Glucose 100 mg/dL (70-99); Lipase 24 U/L (13-75); Potassium 3.6 mmol/L (3.3-5.1); Protein, Total 6.9 g/dL (5.9-8.4); Sodium Level 140 mmol/L (133-145); Total Bilirubin 0.26 mg/dL (0.00-1.30)
== END 2024-08-04 15:38 | disposition left against medical advice (07) ==
LOC: ED 14:28
PROVIDERS: Physician Assistant; Emergency Provider Emergency Medicine; PCP Internal Medicine; Visit Provider Emergency Medicine
DX: R11.2 Nausea with vomiting, unspecified (principal); J44.9 Chronic obstructive pulmonary disease, unspecified; R19.7 Diarrhea, unspecified; R51.9 Headache, unspecified; K62.5 Hemorrhage of anus and rectum; F41.9 Anxiety disorder, unspecified; F32.A Depression, unspecified; G62.9 Polyneuropathy, unspecified; Z53.29 Procedure and treatment not carried out because of patient's decision for other reasons; Z88.6 Allergy status to analgesic agent; Z90.49 Acquired absence of other specified parts of digestive tract; Z79.899 Other long term (current) drug therapy; Z87.891 Personal history of nicotine dependence; Z90.710 Acquired absence of both cervix and uterus
CPT/HCPCS: 80053; 83690; 85025; 87631; 96361; 96374; 99283; A4216; J2405

== ENCOUNTER 2024-08-09 10:49 | Emergency (ER) | payer MEDICARE, MEDICAID, SELFPAY ==
[2024-08-09 10:49] VITALS: BP 123/76; PULSE 106; RESP 16; TEMP 35.7; O2SAT 96
--- NOTE | 2024-08-09 11:16 | ED.RN ---
went into room to assess pt. gown on bed with lights off. no patient. triage nurse reports pt came out of unit and asked how to get out and left.
== END 2024-08-09 11:12 | disposition left against medical advice (07) ==
PROVIDERS: PCP Internal Medicine
DX: Z53.21 Procedure and treatment not carried out due to patient leaving prior to being seen by health care provider (principal)

== ENCOUNTER 2024-10-22 12:08 | Emergency (ER) | payer MEDICARE, MEDICAID, SELFPAY ==
[2024-10-22 12:10] VITALS: BP 114/88; PULSE 85; RESP 16; TEMP 36.6; O2SAT 98; BMI 31.1
--- NOTE | 2024-10-22 12:59 | EX.ED.DYSGE1 ---
HPI History of Present Illness Chief Complaint: General Illness Narrative Narrative: Chief complaint and HPI: Flulike symptoms. 44-year-old female with past medical history chronic back pain, anxiety, depression, COPD presents for evaluation of flulike symptoms. Patient states that she was recently around her granddaughter who was diagnosed with strep pharyngitis. Patient states 3 days ago she developed symptomatic fevers, cough, body aches, sore throat, nausea. Denies any shortness of breath, chest pain, abdominal pain, diarrhea, dysuria. Review of systems: See HPI Medications: As listed on the chart Allergies: As listed on the chart PFSH: Per chart Vital signs: As listed on the chart. Reviewed. Physical exam: Gen: A&O x3, NAD Head: Normocephalic, atraumatic Eyes: No sclera icterus, conjunctiva clear, PERRL, EOMI ENT: TMs clear BL, moist mucous membranes, posterior oropharynx unremarkable, uvula midline, tonsils not enlarged, no tonsillar exudates Neck: Trachea midline, No JVD, Full ROM, No meningismus CV: RRR, no murmurs, no peripheral edema Resp: Lungs CTA BL, no w/r/c GI: Abd soft, non-distended, non-tender, no r/r/g Musc: Full ROM, no deformity Skin: Warm, dry, no rash Neuro: Alert, oriented, grossly intact, sensation intact Psych: Cooperative, cooperative, flat affect [facility] Medical History Flat affect Marijuana use Dementia Complete edentulism, class III Difficult intravenous access Wears glasses History of Clostridium difficile infection Walker as ambulation aid Injury of back Leg cramps History of echocardiogram History of stress test Asthma Obesity Collapsed lung Neuropathy Hyperlipidemia History of blood clots Arthritis Anemia Former smoker Migraines Intractable vomiting Emphysema lung COPD (chronic obstructive pulmonary disease) Paranoia Anxiety Depression Home Medications ?Medication ?Instructions ?Recorded ?Last Taken ?Type clonazepam 0.5 mg tablet (Klonopin) 0.5 mg PO BID Check with primary 12/25/20 03/21/24 History doctor clonazepam 1 mg tablet (Klonopin) 1 mg PO 1700 Check with primary 12/25/20 03/21/24 History doctor risperidone 3 mg tablet 8 mg PO BID Check with primary 12/25/20 03/21/24 History doctor buspirone 15 mg tablet 15 mg PO TID 10/20/21 03/21/24 History lithium carbonate 300 mg capsule 300 mg PO BID 10/20/23 03/21/24 History amitriptyline 100 mg tablet 100 mg PO QHS 02/08/24 03/21/24 History prazosin 2 mg capsule 4 mg PO QHS 02/08/24 Unknown History albuterol sulfate 90 mcg/actuation 2 puff inhalation Q6H PRN 03/07/24 03/21/24 Rx aerosol inhaler shortness of breath or wheezing #6.7 grams fluticasone 100 mcg-salmeterol 50 1 inh inhalation DAILY 03/15/24 03/21/24 History mcg/dose blistr powdr for inhalation (Wixela Inhub) ibuprofen 600 mg tablet 600 mg PO Q8H PRN pain #90 tabs 08/25/24 Unknown Rx tizanidine 4 mg tablet 4 mg PO Q8H PRN pain #90 tabs 08/25/24 Unknown Rx gabapentin 800 mg tablet 800 mg PO 4X/DAY Check with 08/26/24 Unknown Rx primary doctor #120 tabs ondansetron 4 mg disintegrating 4 mg PO Q8H PRN PRN Nausea #10 tabs 10/22/24 Unknown Rx tablet Allergy/AdvReac Type Severity Reaction Status Date / Time Penicillins Allergy Severe Anaphylaxis Verified 10/22/24 12:12 topiramate (From Topamax) Allergy Severe hives Verified 10/22/24 12:12 bee venom protein (honey bee) Allergy Anaphylaxis Verified 10/22/24 12:12 ketorolac (From Toradol) Allergy Rash Verified 10/22/24 12:12 nifedipine (From Procardia) Allergy Swelling Verified 10/22/24 12:12 strawberry Allergy Rash Verified 10/22/24 12:12 tramadol Allergy Hives Verified 10/22/24 12:12 Family History Mother Asthma Anxiety Depression Myocardial infarction, Onset Age: 38 Heart disease High cholesterol Grandmother Cancer Sister Cancer Surgical History Hx of hernia repair Spinal cord stimulator status Status post insertion of percutaneous endoscopic gastrostomy (PEG) tube History of tracheostomy History of cholecystectomy History of appendectomy H/O spinal fusion History of partial hysterectomy Social History (Updated 10/22/24 @ 12:41 by Ivanna Solano) household members: spouse and children housing: house number of children: 1 current occupational status: disabled current occupation: due to back Smoking Status: Former smoker quit date: 03/22/21 pack-years: 30 Electronic Cigarette Use: with nicotine quit status: considering quitting alcohol intake: never substance use type: does not use what type of physical activity do you participate in: none do you feel safe at home: Yes EXAM Physical Exam Const Vital Signs: 10/22/24 12:10 10/22/24 12:40 Temperature 97.8 F Temperature Source Oral Pulse Rate 85 Respiratory Rate 16 Respiratory Effort Normal Non-Labored Respiratory Pattern Normal Blood Pressure 114/88 H Blood Pressure Mean 96 Pulse Ox 98 Oxygen Delivery Method Room Air MDM MDM MDM Narrative Medical decision making narrative: 44-year-old female with past medical history chronic back pain, anxiety, depression, COPD presents for evaluation of flulike symptoms. Granddaughter recently had strep pharyngitis. On presentation, patient has no acute distress. Vitals are stable. Differential diagnosis includes but is not limited to viral syndrome, influenza, RSV, COVID, strep pharyngitis. Given patient's symptoms, I suspect more likely viral etiology. Symptoms have only been ongoing for 3 days and lungs are clear to auscultation bilaterally without wheezing, I do not think any chest x-ray is needed at this time. Patient offered ibuprofen for pain as she has Toradol listed as a allergy due to a rash. She states she would like to try Toradol instead. IM Toradol ordered. COVID, flu, RSV ordered with strep PCR. Zofran given for nausea. COVID, flu, RSV negative. Strep PCR negative. Patient's symptoms are likely secondary to viral etiology. She is updated of all the results. She did not obtain a rash from the Toradol. Patient stable to discharge home. Follow-up with PCP. OTC medications as needed for symptoms. Will prescribe Zofran as needed for nausea. Patient confirmed understanding of plan. Impression: 1. Viral syndrome Discharge Plan Triage Chief Complaint: General Illness Other Complaint: Sore Throat ED Provider: Miguel Ángel Red Dx/Rx/DC Orders Clinical Impression: Viral syndrome Instructions: ED Viral Syndrome (Adult) Prescriptions: New ondansetron 4 mg tablet,disintegrating 4 mg PO Q8H PRN PRN (Reason: Nausea) Qty: 10 0RF Discontinued ondansetron 4 mg tablet,disintegrating 4 mg PO Q6H PRN (Reason: nausea and vomiting) Qty: 12 0RF No Action albuterol sulfate 90 mcg/actuation HFA aerosol inhaler 2 puff inhalation Q6H PRN (Reason: shortness of breath or wheezing) Qty: 6.7 1RF clonazepam [Klonopin] 0.5 mg Tablet 0.5 mg PO BID Patient Comments: total of 2mg clonazepam [Klonopin] 1 mg Tablet 1 mg PO 1700 risperidone 3 mg Tablet 8 mg PO BID buspirone 15 mg tablet 15 mg PO TID lithium carbonate 300 mg capsule 300 mg PO BID amitriptyline 100 mg tablet 100 mg PO QHS prazosin 2 mg capsule 4 mg PO QHS fluticasone propion-salmeterol [Wixela Inhub] 100-50 mcg/dose blister with device 1 inh inhalation DAILY ibuprofen 600 mg tablet 600 mg PO Q8H PRN (Reason: pain) Qty: 90 0RF tizanidine 4 mg tablet 4 mg PO Q8H PRN (Reason: pain) Qty: 90 0RF gabapentin 800 mg tablet 800 mg PO 4X/DAY Qty: 120 0RF Primary Care Provider: Gege Rivero Referrals: Gege Rivero MD [Primary Care Provider] - 3-5 Days Activity Restrictions/Additional Instructions: [id number] cold medicine for symptoms. You received Toradol here in the emergency department, no ibuprofen for 8 hours. Follow-up with your primary care physician. Return back to the ED if symptoms change or worsen. Zofran as needed for nausea. Print Language: Cymraes Disposition Disposition: Home, Self Care
[2024-10-22] MEDS: Ondansetron ODT 4 MG Tablet PO (13:03)
[2024-10-22] MEDS: Ketorolac 15 MG/ML Vial IM (13:03)
[2024-10-22 14:08] VITALS: BP 132/78; PULSE 78; O2SAT 96
[2024-10-22 14:16] VITALS: BP 132/78; PULSE 78; RESP 18; TEMP 36.6; O2SAT 96
== END 2024-10-22 14:18 | disposition home or self-care (01) ==
PROVIDERS: Emergency Provider Surgery; PCP Internal Medicine; Visit Provider Surgery
DX: B34.9 Viral infection, unspecified (principal); J44.9 Chronic obstructive pulmonary disease, unspecified; R05.9 Cough, unspecified; R11.0 Nausea; J02.9 Acute pharyngitis, unspecified; M79.10 Myalgia, unspecified site; M54.9 Dorsalgia, unspecified; F41.9 Anxiety disorder, unspecified; F32.A Depression, unspecified; G62.9 Polyneuropathy, unspecified; G89.29 Other chronic pain; Z88.1 Allergy status to other antibiotic agents; Z88.0 Allergy status to penicillin; Z79.51 Long term (current) use of inhaled steroids; Z79.899 Other long term (current) drug therapy; Z87.891 Personal history of nicotine dependence
CPT/HCPCS: 87631; 87651; 96372; 99283

== ENCOUNTER 2025-03-17 10:02 | Emergency (ER) | payer MEDICARE, MEDICAID, SELFPAY ==
[2025-03-17 10:03] VITALS: BP 108/67; PULSE 84; RESP 16; TEMP 36.4; O2SAT 100
[2025-03-17] MEDS: HYDROcodone Bitartrate/Apap 5/325 Tablet PO (10:37)
[2025-03-17 12:00] VITALS: BP 134/78; PULSE 64; RESP 18; TEMP 36.6; O2SAT 99
== END 2025-03-17 12:59 | disposition home or self-care (01) ==
PROVIDERS: Emergency Provider Emergency Medicine; PCP Internal Medicine; Visit Provider Emergency Medicine
DX: S80.01XA Contusion of right knee, initial encounter (principal); F03.94 Unspecified dementia, unspecified severity, with anxiety; F03.93 Unspecified dementia, unspecified severity, with mood disturbance; J44.9 Chronic obstructive pulmonary disease, unspecified; S80.211A Abrasion, right knee, initial encounter; R26.2 Difficulty in walking, not elsewhere classified; W01.0XXA Fall on same level from slipping, tripping and stumbling without subsequent striking against object, initial encounter; Z79.02 Long term (current) use of antithrombotics/antiplatelets; Z79.899 Other long term (current) drug therapy; Z87.891 Personal history of nicotine dependence
CPT/HCPCS: 73564; 99282